=== PATIENT | male | born 1940 | race Caucasian/White ===

== ENCOUNTER → 2017-10-18 | Outpatient (CLI) | payer OTHER ==
--- NOTE | 2017-10-18 11:27 | RADIOLOGY REPORT (SQ) ---
EXAM DESCRIPTION: CAROTID DOPPLER COMPLETED DATE/TIME: 10/18/2017 11:19 am REASON FOR STUDY: OCCLUSION I65.29 OCCLUSION AND STENOSIS OF UNSPECIFIED CAROTID ARTERY COMPARISON: None. TECHNIQUE: Grayscale ultrasound, Doppler velocity and spectra, and color Doppler images acquired of the extra-cranial carotid and vertebral arteries. Images stored on PACS. LIMITATIONS: None. FINDINGS: RIGHT CAROTID CCA Velocities: Within normal limits. ICA Velocities Peak systolic 0.87 m/s. End diastolic 0.27 m/s. Proximal ICA/CCA peak systolic ratio 1.1. Spectra normal. No significant plaque. LEFT CAROTID CCA Velocities: Within normal limits. ICA Velocities Peak systolic 1.10 m/s. End diastolic 0.31 m/s. Proximal ICA/CCA peak systolic ratio 1.1. Spectra normal. No significant plaque. VERTEBRAL ARTERIES: Antegrade flow. Normal waveforms. SUBCLAVIAN ARTERIES: Not imaged. OTHER: No other significant finding. IMPRESSION: NO HEMODYNAMICALLY SIGNIFICANT STENOSIS. COMMENT: Quality ID #[id number]: Velocity criteria are extrapolated from the diameter data as defined by t he Society of Radiologists in Ultrasound Consensus Conference. Radiology 2003: 229; 340-346. TECHNICAL DOCUMENTATION: JOB ID: [id number] [employer]- All Rights Reserved
== END ==
LOC: SP 10:37
PROVIDERS: ATTEND Family Medicine
DX: I65.29 Occlusion and stenosis of unspecified carotid artery (principal)
CPT/HCPCS: 93880

== ENCOUNTER 2017-11-25 14:13 | Emergency (ER) | payer OTHER ==
[2017-11-25 14:34] LABS: ABSOLUTE EOSINOPHILS # (AUTO) 0.1 10^3/uL (0.0-0.6); ABSOLUTE LYMPHOCYTES (AUTO) 1.5 10^3/uL (0.5-4.7); ABSOLUTE NEUT (AUTO) 7.7 10^3/uL (1.7-8.2); BASOPHILS % (AUTO) 0.2 % (0-2); EOSINOPHILS % (AUTO) 1.1 % (0-6); HEMATOCRIT 45.4 % (37.9-51.0); HEMOGLOBIN 15.9 g/dL (13.5-17.0); LYMPHOCYTES % (AUTO) 14.6 % (13-45); MEAN CORPUSCULAR HEMOGLOBIN 32.7 pg (27.0-33.4); MEAN CORPUSCULAR HGB CONC 35.1 g/dL (32.0-36.0); MEAN CORPUSCULAR VOLUME 93 fl (80-97); MONOCYTES % (AUTO) 9.3 % (3-13); PLATELET COUNT 198 10^3/uL (150-450); RED BLOOD COUNT 4.87 10^6/uL (4.35-5.55); SEGMENTED NEUTROPHILS % (AUTO) 74.8 % (42-78); TOTAL CELLS COUNTED % (AUTO) 100 %; WHITE BLOOD COUNT 10.3 10^3/uL (4.0-10.5)
[2017-11-25 14:41] LABS: INTERNATIONAL RATION (INR) 0.95; PROTHROMBIN TIME 13.3 SEC (11.4-15.4)
[2017-11-25 14:42] LABS: PARTIAL THROMBOPLASTIN TIME 33.3 SEC (23.5-35.8)
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
[2017-11-25] MEDS ORDERED: PROPOFOL INJ 200 MG/20 ML VIAL IV ONE (14:46)
[2017-11-25] MEDS ORDERED: LIDOCAINE 1.5% INJ-MPF (15 MG/ML) 20 ML AMPUL INJ ONE ×2 (14:52→17:00)
--- NOTE | 2017-11-25 14:54 | RADIOLOGY REPORT (SQ) ---
EXAM DESCRIPTION: ANKLE RIGHT COMPLETE COMPLETED DATE/TIME: 11/25/2017 2:44 pm REASON FOR STUDY: deformity COMPARISON: None. NUMBER OF VIEWS: Three views. TECHNIQUE: AP, lateral, and oblique radiographic images acquired of the right ankle. LIMITATIONS: None. FINDINGS: MINERALIZATION: Normal. BONES: Comminuted fractures of the distal tibia and fibula. JOINTS: No effusions. SOFT TISSUES: Diffuse soft tissue swelling. No foreign body. OTHER: No other significant finding. IMPRESSION: COMMINUTED FRACTURES OF THE DISTAL TIBIA AND FIBULA. TECHNICAL DOCUMENTATION: JOB ID: [id number] [employer]- All Rights Reserved
--- NOTE | 2017-11-25 14:55 | RADIOLOGY REPORT (SQ) ---
EXAM DESCRIPTION: FOREARM LEFT COMPLETED DATE/TIME: 11/25/2017 2:44 pm REASON FOR STUDY: deformity COMPARISON: None. NUMBER OF VIEWS: Two views. TECHNIQUE: Two radiographic images acquired of the left forearm, including elbow and wrist in at [address] one projection. LIMITATIONS: None. FINDINGS: MINERALIZATION: Normal. BONES: No acute fracture. No worrisome bone lesions. SOFT TISSUES: No obvious swelling or foreign body. OTHER: No other significant finding. IMPRESSION: NEGATIVE STUDY OF THE LEFT FOREARM. NO RADIOGRAPHIC EVIDENCE OF ACUTE INJURY. TECHNICAL DOCUMENTATION: JOB ID: [id number] [employer]- All Rights Reserved
[2017-11-25 14:57] LABS: ALANINE AMINOTRANSFERASE 43 U/L (21-72); ALBUMIN 4.5 g/dL (3.5-5.0); ALKALINE PHOSPHATASE 71 U/L (38-126); ANION GAP 10 (5-19); ASPARTATE AMINO TRANSFERASE 38 U/L (17-59); BILIRUBIN,DIRECT 0.3 mg/dL (0.0-0.4); BILIRUBIN,TOTAL 0.8 mg/dL (0.2-1.3); BLOOD UREA NITROGEN 10 mg/dL (7-20); CALCIUM 9.3 mg/dL (8.4-10.2); CARBON DIOXIDE 31 mmol/L (22-30); CHLORIDE 96 mmol/L (98-107); CREATINE KINASE 232 U/L (55-170); GLUCOSE 136 mg/dL (75-110); LIPASE 161.8 U/L (23-300); SODIUM 137.2 mmol/L (137-145); TOTAL PROTEIN 6.7 g/dL (6.3-8.2)
[2017-11-25] MEDS ORDERED: MORPHINE SULFATE 10 MG/ML INJ IV ONE (15:07)
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
[2017-11-25 17:18] VITALS: BP 149/103
--- NOTE | 2017-11-25 17:26 | RADIOLOGY REPORT (SQ) ---
EXAM DESCRIPTION: ANKLE LEFT AP/LATERAL COMPLETED DATE/TIME: 11/25/2017 4:43 pm REASON FOR STUDY: port-reduction COMPARISON: 11/25/2017 TECHNIQUE: AP lateral views of the right ankle. LIMITATIONS: None. FINDINGS: There has been partial interval reduction of the previously described comminuted fractures of the distal tibia and fibula. An overlying cast is identified. IMPRESSION: Interval reduction as noted above TECHNICAL DOCUMENTATION: JOB ID: [id number] [employer]- All Rights Reserved
--- NOTE | 2017-11-27 12:09 | EKG REPORT ---
SEVERITY:- OTHERWISE NORMAL ECG - SINUS RHYTHM BORDERLINE RIGHT AXIS DEVIATION : Confirmed by: Aleisha Fan MD 27-Nov-2017 12:09:10
== END 2017-11-25 17:54 | disposition home or self-care (01) ==
LOC: ER 14:13
PROC: 0QSJXZZ Reposition Right Fibula, External Approach (ICD-10-PCS; principal; 2017-11-25)
PROC: 0QSGXZZ Reposition Right Tibia, External Approach (ICD-10-PCS; 2017-11-25)
DX: S82.251A Displaced comminuted fracture of shaft of right tibia, initial encounter for closed fracture (principal); S82.451A Displaced comminuted fracture of shaft of right fibula, initial encounter for closed fracture; S50.12XA Contusion of left forearm, initial encounter; S10.93XA Contusion of unspecified part of neck, initial encounter; M54.2 Cervicalgia; R07.9 Chest pain, unspecified; R10.9 Unspecified abdominal pain; Z87.891 Personal history of nicotine dependence; V87.7XXA Person injured in collision between other specified motor vehicles (traffic), initial encounter
CPT/HCPCS: 93005; 99285; 96374; 86900; 86901; 36415; 86850; 82550; 83690; 85025; 85610; 85730; 80053; 73600; 73610; 73090; 70450; 70491; 71260; 74177; 93010; 27752; J3490; J2270

== ENCOUNTER 2017-11-26 12:55 | Day surgery (SDC) | payer OTHER ==
[2017-11-26] MEDS ORDERED: RINGERS SOLUTION,LACTATED 1,000 ML IV PRN (14:25)
[2017-11-26] MEDS ORDERED: CEFAZOLIN 2 GM/D5W RTU 2 GM/50 ML RTUPB IV PRN (14:27)
[2017-11-26] MEDS ORDERED: ONDANSETRON 4 MG TAB.RAPDIS PO PRN (14:28)
[2017-11-26] MEDS ORDERED: ACETAMINOPHEN 325 MG TABLET ONE (14:58)
[2017-11-26 15:22] LABS: HEMOGLOBIN 13.2 g/dL (13.5-17.0); MEAN CORPUSCULAR HEMOGLOBIN 32.3 pg (27.0-33.4); MEAN CORPUSCULAR HGB CONC 34.6 g/dL (32.0-36.0); MEAN CORPUSCULAR VOLUME 93 fl (80-97); PLATELET COUNT 185 10^3/uL (150-450); RED BLOOD COUNT 4.09 10^6/uL (4.35-5.55); RED CELL DISTRIBUTION WIDTH 12.9 % (11.5-14.0); WHITE BLOOD COUNT 13.8 10^3/uL (4.0-10.5)
[2017-11-26 15:28] LABS: INTERNATIONAL RATION (INR) 1.05; PROTHROMBIN TIME 14.4 SEC (11.4-15.4)
[2017-11-26 15:29] LABS: PARTIAL THROMBOPLASTIN TIME 35.3 SEC (23.5-35.8)
[2017-11-26] MEDS ORDERED: IPRATROPIUM/ALBUTEROL 0.5-2.5 MG/3 ML AMPUL NEB ONE (15:30)
[2017-11-26 15:36] LABS: ANION GAP 13 (5-19); BLOOD UREA NITROGEN 18 mg/dL (7-20); CALCIUM 9.3 mg/dL (8.4-10.2); CARBON DIOXIDE 24 mmol/L (22-30); CHLORIDE 93 mmol/L (98-107); GLUCOSE 112 mg/dL (75-110); POTASSIUM 3.9 mmol/L (3.6-5.0); SODIUM 129.8 mmol/L (137-145)
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
[2017-11-26] MEDS: ACETAMINOPHEN 325 MG TABLET PO PRN ×2 (19:06→22:39)
[2017-11-26] MEDS ORDERED: IPRATROPIUM/ALBUTEROL 0.5-2.5 MG/3 ML AMPUL NEB PRN (20:00)
[2017-11-26] MEDS ORDERED: NORMAL SALINE 1000 ML 1,000 ML IV PRN (21:10)
[2017-11-26] MEDS: OXYCODONE HCL IR 5 MG TABLET PO PRN (21:15)
[2017-11-26] MEDS: ALPRAZOLAM 0.5 MG TABLET PO PRN (22:37)
[2017-11-27] MEDS: OXYCODONE HCL IR 5 MG TABLET PO PRN ×3 (04:46→20:31)
[2017-11-27 07:15] LABS: ANION GAP 7 (5-19); BLOOD UREA NITROGEN 16 mg/dL (7-20); CARBON DIOXIDE 26 mmol/L (22-30); CHLORIDE 98 mmol/L (98-107); GLUCOSE 102 mg/dL (75-110); POTASSIUM 3.9 mmol/L (3.6-5.0); SODIUM 131.4 mmol/L (137-145)
[2017-11-27] MEDS ORDERED: FENTANYL CITRATE INJ/PF 100 MCG/2 ML AMPUL ONE ×2 (07:45→11:10)
[2017-11-27] MEDS ORDERED: LIDOCAINE 2% INJ-PF (20 MG/ML) 10 ML AMPUL ONE (07:45)
[2017-11-27] MEDS ORDERED: MIDAZOLAM 2 MG/2 ML INJ ONE (07:45)
[2017-11-27] MEDS ORDERED: PROPOFOL INJ 200 MG/20 ML VIAL IV ONE (07:46)
[2017-11-27] MEDS ORDERED: ACETAMINOPHEN 100 ML IV ONE (07:46)
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
[2017-11-27] MEDS ORDERED: ALBUTEROL SULFATE 0.083% NEB 2.5 MG/3 ML AMPUL NEB ONE (08:02)
[2017-11-27] MEDS ORDERED: CEFAZOLIN INJ 1 GM VIAL ONE (08:03)
[2017-11-27] MEDS ORDERED: DIPHENHYDRAMINE HCL 50 MG/ML VIAL IV PRN (09:05)
[2017-11-27] MEDS ORDERED: PROMETHAZINE HCL INJ 25 MG/1 ML VIAL IV PRN (09:05)
[2017-11-27] MEDS ORDERED: FENTANYL CITRATE INJ/PF 100 MCG/2 ML AMPUL IV PRN ×2 (09:05)
[2017-11-27] MEDS ORDERED: ONDANSETRON HCL INJ/PF 4 MG/2 ML SDV IV PRN (09:05)
--- NOTE | 2017-11-27 10:27 | Operative Report ---
Operative Report DATE OF SURGERY: 11/27/17 PREOPERATIVE DIAGNOSIS: Right trimalleolar ankle fracture OPERATION: Open reduction internal fixation right trimalleolar ankle fracture SURGEON: GENESIS KAMINSKI 1ST ARMED SECURITY PROFESSIONAL: SID PATRICK ANESTHESIA: Spinal ESTIMATED BLOOD LOSS: 100 INTRAOPERATIVE FINDINGS: Upon removing the right lower extremity splint there is considerable ecchymosis over the medial malleolus and a large fracture blister. This is all consistent with a moderate skin contusion PROCEDURE: With the patient supine on the operating table the right lower extremities prepped and draped in a sterile fashion. A longitudinal incision is made over the fibula and a 9 hole titanium [place] distal fibula plate is applied and secured distally and subsequently proximally with what appears to be an anatomic reduction of the fibula. At this point the medial malleolus is close to being anatomically reduced. However the posterior malleolar fragment is left at a considerable articular step-off. I tried multiple approaches to reducing the posterior malleolar fracture including a calcaneal traction pin and anterior posterior tenaculum and other maneuvering of the talus to exact anatomic reduction of the posterior malleolar fragment all of which were unsuccessful in less than ideal. Subsequently I removed the fibula plate to allow more mobility of the foot and ankle in attempt to reduce the posterior malleolar fragment. This is reduced relatively well and held with a neck tenaculum. Subsequently 3 4.0 cannulated screws were placed from anterior to posterior to hold that fracture together. Is quite happy with the articular reduction at this point. Next the fibula plate is again replaced applied to the lateral aspect of the fibula and secured proximally and distally with a series of locking and cortical screws. Is quite happy with this. Lastly with some trepidation I made an incision over the medial malleolus and the medial malleolus fragment is reduced anatomically and held in place with a dental pick well to pins and subsequently 4 mm cannulated screws were hold to reduce this. The fracture reduction and the hardware placement are again surveyed using fluoroscopy and I believe lead to a very favorable fracture reduction and stable hardware placement. The tourniquet is then deflated. Hemostasis obtained with electrocautery. The wound is irrigated using normal saline. The lateral wound is closed using interrupted Vicryl followed by interrupted nylon. The medial wound with the contused skin which continues to be a concern significant concern for me is closed primarily with nylon in a vertical mattress fashion. A sterile compressive dressing and posterior plaster splint were applied and the patient' s return to the PACU in satisfactory condition.
--- NOTE | 2017-11-27 10:58 | RADIOLOGY REPORT (SQ) ---
EXAM DESCRIPTION: NO CHG FLUORO; ANKLE RIGHT COMPLETE COMPLETED DATE/TIME: 11/27/2017 10:44 am REASON FOR STUDY: ORIF RT ANKLE COMPARISON: Plain radiographs 11/25/2017 FLUOROSCOPY TIME: 3.1 minutes 5 images saved to PACS. TECHNIQUE: Intra-operative images acquired during surgical procedure to evaluate progress. NUMBER OF IMAGES: 5 LIMITATIONS: None. FINDINGS: Internal fixation tri malleolar fracture with orthopedic hardware. Anatomic reduction. IMPRESSION: IMAGE(S) OBTAINED DURING PROCEDURE. COMMENT: Quality ID 145: Final reports for procedures using fluoroscopy that document radiation exp osure indices, or exposure time and number of fluorographic images (if radiation exposure indices are not available) Please consult full operative report of the attending physician for description of the procedure. TECHNICAL DOCUMENTATION: JOB ID: [id number] [employer]- All Rights Reserved
--- NOTE | 2017-11-27 10:58 | RADIOLOGY REPORT (SQ) ---
EXAM DESCRIPTION: NO CHG FLUORO; ANKLE RIGHT COMPLETE COMPLETED DATE/TIME: 11/27/2017 10:44 am REASON FOR STUDY: ORIF RT ANKLE COMPARISON: Plain radiographs 11/25/2017 FLUOROSCOPY TIME: 3.1 minutes 5 images saved to PACS. TECHNIQUE: Intra-operative images acquired during surgical procedure to evaluate progress. NUMBER OF IMAGES: 5 LIMITATIONS: None. FINDINGS: Internal fixation tri malleolar fracture with orthopedic hardware. Anatomic reduction. IMPRESSION: IMAGE(S) OBTAINED DURING PROCEDURE. COMMENT: Quality ID 145: Final reports for procedures using fluoroscopy that document radiation exp osure indices, or exposure time and number of fluorographic images (if radiation exposure indices are not available) Please consult full operative report of the attending physician for description of the procedure. TECHNICAL DOCUMENTATION: JOB ID: [id number] [employer]- All Rights Reserved
[2017-11-27] MEDS: FENTANYL CITRATE INJ/PF 100 MCG/2 ML AMPUL IV PRN ×2 (11:05→11:52)
[2017-11-27] MEDS ORDERED: ASPIRIN 81 MG TABLET, ENT COATED PO ONE (12:00)
--- NOTE | 2017-11-27 12:09 | EKG REPORT ---
SEVERITY:- NORMAL ECG - SINUS RHYTHM : Confirmed by: Aleisha Fan MD 27-Nov-2017 12:09:01
[2017-11-27] MEDS: MORPHINE SULFATE 10 MG/ML INJ IV PRN ×2 (12:32→18:43)
[2017-11-27] MEDS: CEFAZOLIN 2 GM/D5W RTU 2 GM/50 ML RTUPB IV SCH ×2 (14:14→21:49)
[2017-11-27] MEDS: ALBUTEROL SULFATE 0.083% NEB 2.5 MG/3 ML AMPUL NEB PRN ×2 (15:24→22:14)
[2017-11-28 07:15] LABS: HEMATOCRIT 28.7 % (37.9-51.0); MEAN CORPUSCULAR HEMOGLOBIN 33.4 pg (27.0-33.4); MEAN CORPUSCULAR HGB CONC 35.7 g/dL (32.0-36.0); MEAN CORPUSCULAR VOLUME 93 fl (80-97); PLATELET COUNT 143 10^3/uL (150-450); RED BLOOD COUNT 3.07 10^6/uL (4.35-5.55); RED CELL DISTRIBUTION WIDTH 12.9 % (11.5-14.0); WHITE BLOOD COUNT 11.8 10^3/uL (4.0-10.5)
[2017-11-28 07:16] LABS: HEMOGLOBIN 10.3 g/dL (13.5-17.0)
[2017-11-28] MEDS: ALBUTEROL SULFATE 0.083% NEB 2.5 MG/3 ML AMPUL NEB PRN (07:32)
[2017-11-28 07:36] LABS: ANION GAP 7 (5-19); BLOOD UREA NITROGEN 12 mg/dL (7-20); CALCIUM 8.6 mg/dL (8.4-10.2); CARBON DIOXIDE 27 mmol/L (22-30); CHLORIDE 96 mmol/L (98-107); GLUCOSE 104 mg/dL (75-110); POTASSIUM 4.2 mmol/L (3.6-5.0); SODIUM 130.1 mmol/L (137-145)
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
[2017-11-28] MEDS: ASPIRIN 81 MG TABLET, ENT COATED PO SCH (09:42)
[2017-11-28] MEDS ORDERED: (PENDING PHARMACY ID) (Acetaminophen [Acetaminophen Extra Strength] 1,000 MG) PO PRN (11:26)
[2017-11-28] MEDS ORDERED: ALPRAZOLAM 0.5 MG TABLET PO PRN (11:26)
[2017-11-28] MEDS: IPRATROPIUM/ALBUTEROL 120 PUFF/4 GM MDI IH SCH ×3 (16:39→21:18)
[2017-11-28] MEDS: IPRATROPIUM/ALBUTEROL 0.5-2.5 MG/3 ML AMPUL NEB PRN (16:46)
[2017-11-28] MEDS: SODIUM CHLORIDE NASAL SPRAY 44 ML NASL SCH (17:51)
[2017-11-28] MEDS: PREDNISONE 10 MG TABLET PO SCH (17:59)
[2017-11-28] MEDS ORDERED: CARVEDILOL 3.125 MG TABLET PO SCH (18:00)
[2017-11-28] MEDS ORDERED: MOMETASONE FUROATE IH SCH (18:00)
[2017-11-28] MEDS: TAMSULOSIN HCL 0.4 MG CAP.SR.24H PO SCH (21:18)
[2017-11-28] MEDS: ALPRAZOLAM 0.5 MG TABLET PO PRN (21:18)
[2017-11-28] MEDS: DOXAZOSIN MESYLATE 2 MG TABLET PO SCH (21:19)
[2017-11-28] MEDS: CARVEDILOL 3.125 MG TABLET PO SCH (21:39)
[2017-11-28] MEDS ORDERED: (PENDING PHARMACY ID) (Terazosin Hcl [Hytrin] 2 MG) PO SCH (22:00)
[2017-11-29] MEDS: IPRATROPIUM/ALBUTEROL 0.5-2.5 MG/3 ML AMPUL NEB PRN ×3 (06:40→20:29)
[2017-11-29] MEDS: ASPIRIN 81 MG TABLET, ENT COATED PO SCH (10:11)
[2017-11-29] MEDS: CARVEDILOL 3.125 MG TABLET PO SCH ×2 (10:14→22:00)
[2017-11-29] MEDS: PREDNISONE 10 MG TABLET PO SCH ×2 (10:15→18:04)
[2017-11-29] MEDS: IPRATROPIUM/ALBUTEROL 120 PUFF/4 GM MDI IH SCH ×3 (10:15→18:04)
[2017-11-29] MEDS: SODIUM CHLORIDE NASAL SPRAY 44 ML NASL SCH ×2 (10:16→18:04)
[2017-11-29] MEDS: CARISOPRODOL 350 MG TABLET PO PRN ×2 (14:15→21:54)
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
[2017-11-29] MEDS ORDERED: SENNOSIDES/DOCUSATE 8.6-50 MG 1 EACH TABLET PO PRN (20:39)
[2017-11-29] MEDS ORDERED: NA PHOS,M-B/NA PHOS,DI-BA (ADULT) 133 ML ENEMA PR PRN (20:40)
[2017-11-29] MEDS ORDERED: DOCUSATE SODIUM 100 MG CAPSULE PO ONE (21:00)
[2017-11-29] MEDS: TAMSULOSIN HCL 0.4 MG CAP.SR.24H PO SCH (21:54)
[2017-11-29] MEDS: DOXAZOSIN MESYLATE 2 MG TABLET PO SCH (21:55)
[2017-11-30] MEDS: CARISOPRODOL 350 MG TABLET PO PRN (02:12)
[2017-11-30] MEDS: IPRATROPIUM/ALBUTEROL 120 PUFF/4 GM MDI IH SCH ×5 (02:13→21:18)
[2017-11-30] MEDS: IPRATROPIUM/ALBUTEROL 0.5-2.5 MG/3 ML AMPUL NEB PRN ×3 (03:10→21:43)
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
[2017-11-30] MEDS: CARVEDILOL 3.125 MG TABLET PO SCH ×2 (09:34→21:23)
[2017-11-30] MEDS: SODIUM CHLORIDE NASAL SPRAY 44 ML NASL SCH ×2 (09:41→18:26)
[2017-11-30] MEDS: PREDNISONE 10 MG TABLET PO SCH ×2 (09:42→18:25)
[2017-11-30] MEDS: DOCUSATE SODIUM 100 MG CAPSULE PO SCH ×2 (09:42→18:25)
[2017-11-30] MEDS: ASPIRIN 81 MG TABLET, ENT COATED PO SCH (09:42)
[2017-11-30] MEDS: IBUPROFEN 400 MG TABLET PO PRN ×2 (09:42→21:21)
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
[2017-11-30] MEDS: MOMETASONE FUROATE IH SCH (21:19)
[2017-11-30] MEDS: DOXAZOSIN MESYLATE 2 MG TABLET PO SCH (21:20)
[2017-11-30] MEDS: TAMSULOSIN HCL 0.4 MG CAP.SR.24H PO SCH (21:20)
[2017-11-30] MEDS: ALPRAZOLAM 0.5 MG TABLET PO PRN (23:43)
[2017-12-01] MEDS: IPRATROPIUM/ALBUTEROL 0.5-2.5 MG/3 ML AMPUL NEB PRN ×3 (03:35→19:29)
[2017-12-01] MEDS: IBUPROFEN 400 MG TABLET PO PRN ×3 (06:18→22:35)
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
[2017-12-01] MEDS: PREDNISONE 10 MG TABLET PO SCH ×2 (09:52→18:23)
[2017-12-01] MEDS: ASPIRIN 81 MG TABLET, ENT COATED PO SCH (09:52)
[2017-12-01] MEDS: SODIUM CHLORIDE NASAL SPRAY 44 ML NASL SCH ×2 (09:52→18:23)
[2017-12-01] MEDS: DOCUSATE SODIUM 100 MG CAPSULE PO SCH ×2 (09:52→18:22)
[2017-12-01] MEDS: MOMETASONE FUROATE IH SCH ×2 (09:53→22:40)
[2017-12-01] MEDS: IPRATROPIUM/ALBUTEROL 120 PUFF/4 GM MDI IH SCH ×4 (09:53→22:34)
[2017-12-01] MEDS: CARVEDILOL 3.125 MG TABLET PO SCH ×2 (09:54→22:41)
--- NOTE | 2017-12-01 11:18 | RADIOLOGY REPORT (SQ) ---
EXAM DESCRIPTION: CHEST SINGLE VIEW COMPLETED DATE/TIME: 12/01/2017 10:52 am REASON FOR STUDY: Increased sputum with cough COMPARISON: 11/26/2017. NUMBER OF VIEWS: One view. TECHNIQUE: Single frontal radiographic view of the chest acquired. LIMITATIONS: None. FINDINGS: LUNGS AND PLEURA: Hyperinflated appearance, likely underlying COPD. Faintly visualized ri ght nipple shadow, artifact. No developing infiltrates or failure. MEDIASTINUM AND HILAR STRUCTURES: No masses. Contour normal. HEART AND VASCULAR STRUCTURES: Heart normal in size. Normal vasculature. BONES: No acute findings. HARDWARE: None in the chest. OTHER: No other significant finding. IMPRESSION: Findings suggesting COPD. No acute infiltrate evident, however. TECHNICAL DOCUMENTATION: JOB ID: [id number] [employer]- All Rights Reserved
[2017-12-01 11:22] LABS: ABSOLUTE EOSINOPHILS # (AUTO) 0.1 10^3/uL (0.0-0.6); ABSOLUTE LYMPHOCYTES (AUTO) 0.4 10^3/uL (0.5-4.7); ABSOLUTE MONOCYTES (AUTO) 0.7 10^3/uL (0.1-1.4); ABSOLUTE NEUT (AUTO) 5.2 10^3/uL (1.7-8.2); BASOPHILS % (AUTO) 0.1 % (0-2); HEMATOCRIT 28.9 % (37.9-51.0); MEAN CORPUSCULAR HEMOGLOBIN 32.8 pg (27.0-33.4); MEAN CORPUSCULAR HGB CONC 34.5 g/dL (32.0-36.0); MEAN CORPUSCULAR VOLUME 95 fl (80-97); MONOCYTES % (AUTO) 11.5 % (3-13); PLATELET COUNT 221 10^3/uL (150-450); RED BLOOD COUNT 3.04 10^6/uL (4.35-5.55); RED CELL DISTRIBUTION WIDTH 13.4 % (11.5-14.0); SEGMENTED NEUTROPHILS % (AUTO) 81.4 % (42-78); TOTAL CELLS COUNTED % (AUTO) 100 %; WHITE BLOOD COUNT 6.4 10^3/uL (4.0-10.5)
[2017-12-01 11:44] LABS: ANION GAP 9 (5-19); BLOOD UREA NITROGEN 15 mg/dL (7-20); CALCIUM 8.9 mg/dL (8.4-10.2); CARBON DIOXIDE 26 mmol/L (22-30); CHLORIDE 103 mmol/L (98-107); GLUCOSE 134 mg/dL (75-110); POTASSIUM 3.6 mmol/L (3.6-5.0); SODIUM 138.4 mmol/L (137-145)
[2017-12-01] MEDS: ALBUTEROL SULFATE 0.083% NEB 2.5 MG/3 ML AMPUL NEB PRN (14:39)
[2017-12-01] MEDS: ACETAMINOPHEN 325 MG TABLET PO PRN (18:22)
[2017-12-01] MEDS: DOXAZOSIN MESYLATE 2 MG TABLET PO SCH (22:37)
[2017-12-01] MEDS: TAMSULOSIN HCL 0.4 MG CAP.SR.24H PO SCH (22:53)
[2017-12-01] MEDS: CARISOPRODOL 350 MG TABLET PO PRN (23:03)
[2017-12-02] MEDS: IPRATROPIUM/ALBUTEROL 0.5-2.5 MG/3 ML AMPUL NEB PRN ×4 (01:50→22:37)
[2017-12-02] MEDS: ACETAMINOPHEN 325 MG TABLET PO PRN (06:47)
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
[2017-12-02] MEDS ORDERED: MAGNESIUM CITRATE 296 ML BOTTLE PO PRN (07:55)
[2017-12-02] MEDS: IBUPROFEN 400 MG TABLET PO PRN ×2 (08:30→16:13)
[2017-12-02] MEDS: IPRATROPIUM/ALBUTEROL 120 PUFF/4 GM MDI IH SCH ×4 (09:46→22:16)
[2017-12-02] MEDS: MOMETASONE FUROATE IH SCH ×2 (09:48→22:20)
[2017-12-02] MEDS: ASPIRIN 81 MG TABLET, ENT COATED PO SCH (11:42)
[2017-12-02] MEDS: SODIUM CHLORIDE NASAL SPRAY 44 ML NASL SCH ×2 (11:43→18:52)
[2017-12-02] MEDS: CARVEDILOL 3.125 MG TABLET PO SCH ×2 (11:43→22:23)
[2017-12-02] MEDS: PREDNISONE 10 MG TABLET PO SCH ×2 (11:44→18:52)
[2017-12-02] MEDS: DOCUSATE SODIUM 100 MG CAPSULE PO SCH ×2 (11:45→18:32)
[2017-12-02] MEDS: TAMSULOSIN HCL 0.4 MG CAP.SR.24H PO SCH (21:58)
[2017-12-02] MEDS: DOXAZOSIN MESYLATE 2 MG TABLET PO SCH (22:09)
[2017-12-02] MEDS: ALPRAZOLAM 0.5 MG TABLET PO PRN (22:31)
[2017-12-03] MEDS: IBUPROFEN 400 MG TABLET PO PRN ×2 (00:50→08:23)
[2017-12-03] MEDS: IPRATROPIUM/ALBUTEROL 0.5-2.5 MG/3 ML AMPUL NEB PRN ×2 (04:44→12:13)
--- NOTE | 2017-12-03 06:57 | PDOC PROGRESS REPORT ---
Subjective Progress Note for:: 12/03/17 Subjective:: Patient lying recumbent in hospital bed with a cam walker boot in place on right lower extremity. Patient reports he was comfortable yet felt congested overnight. Reason For Visit: RIGHT ANKLE FRACTURE Physical Exam Vital Signs: Temp Pulse Resp BP Pulse Ox 36.8 C 84 20 153/73 H 98 12/03/17 00:00 12/03/17 04:46 12/03/17 04:46 12/03/17 00:00 12/03/17 04:46 Intake & Output 12/01/17 12/02/17 12/03/17 06:59 06:59 06:59 Intake Total 1898 1740 Output Total 0022 1777 Balance -938 -712 Physical Exam: Patient's physical exam is grossly unchanged from exam on December 02, 2017. His compression dressing on the right lower extremity was changed this morning. New Xeroform was placed on the surgical site on the medial malleolus. He was then placed back in his shell walker boot. General appearance: PRESENT: no acute distress, well-developed, well-nourished Head exam: PRESENT: atraumatic, normocephalic Respiratory exam: PRESENT: unlabored Additional comments: Patient coughing multiple times this morning. Pulses: PRESENT: normal dorsalis pedis pul, +2 pedal pulses bilateral Vascular exam: PRESENT: normal capillary refill Additional comments: Right lower extremity in short walker boot. Dressing is changed this morning. Neurological exam: PRESENT: alert, awake, oriented to person, oriented to place , oriented to time, oriented to situation, CN II-XII grossly intact. ABSENT: motor sensory deficit Psychiatric exam: PRESENT: appropriate affect, normal mood. ABSENT: homicidal ideation, suicidal ideation Skin exam: PRESENT: dry, intact, warm. ABSENT: cyanosis, rash Results Laboratory Results: 12/01/17 10:48 12/01/17 10:48 Impressions: Ankle X-Ray 11/27/17 08:00 IMPRESSION: IMAGE(S) OBTAINED DURING PROCEDURE. Fluoroscopy 11/27/17 08:00 IMPRESSION: IMAGE(S) OBTAINED DURING PROCEDURE. Chest X-Ray 12/01/17 00:00 IMPRESSION: Findings suggesting COPD. No acute infiltrate evident, however. Assessment & Plan - Diagnosis (1) Closed right ankle fracture Qualifiers: Encounter type: subsequent encounter Qualified Code(s): S82.891A - Other fracture of right lower leg, initial encounter for closed fracture Is this a current diagnosis for this admission?: Yes - Plan Summary Plan Summary: 77-year-old white male status post open reduction internal fixation for trimalleolar fracture of right ankle. Patient's compression dressing was changed and new Xeroform added to medial malleolar surgical site. He was placed back in his show walker boot. Patient will likely be discharged today.
[2017-12-03] MEDS: ALBUTEROL SULFATE 0.083% NEB 2.5 MG/3 ML AMPUL NEB PRN (09:16)
[2017-12-03] MEDS: ASPIRIN 81 MG TABLET, ENT COATED PO SCH (10:17)
[2017-12-03] MEDS: CARVEDILOL 3.125 MG TABLET PO SCH (10:17)
[2017-12-03] MEDS: MOMETASONE FUROATE IH SCH (10:17)
[2017-12-03] MEDS: PREDNISONE 10 MG TABLET PO SCH (10:17)
[2017-12-03] MEDS: SODIUM CHLORIDE NASAL SPRAY 44 ML NASL SCH (10:17)
[2017-12-03] MEDS: IPRATROPIUM/ALBUTEROL 120 PUFF/4 GM MDI IH SCH (10:17)
[2017-12-03] MEDS: DOCUSATE SODIUM 100 MG CAPSULE PO SCH (10:17)
[2017-12-03 11:43] VITALS: BP 130/83
== END 2017-12-03 12:40 | disposition home health service (06) ==
LOC: OROUT 12:55 → 4S 13:12 → 2N 12-01 13:27 → OROUT 12-03 12:40
PROVIDERS: ATTEND Orthopaedic Surgery
PROC: 0QSJ04Z Reposition Right Fibula with Internal Fixation Device, Open Approach (ICD-10-PCS; principal; 2017-11-26)
PROC: 0QSG04Z Reposition Right Tibia with Internal Fixation Device, Open Approach (ICD-10-PCS; 2017-11-26)
DX: S82.851A Displaced trimalleolar fracture of right lower leg, initial encounter for closed fracture (principal); V49.9XXA Car occupant (driver) (passenger) injured in unspecified traffic accident, initial encounter; I25.10 Atherosclerotic heart disease of native coronary artery without angina pectoris; E78.5 Hyperlipidemia, unspecified; I10 Essential (primary) hypertension; J44.9 Chronic obstructive pulmonary disease, unspecified; Z79.82 Long term (current) use of aspirin; Z79.899 Other long term (current) drug therapy; Z87.891 Personal history of nicotine dependence; Z79.02 Long term (current) use of antithrombotics/antiplatelets
CPT/HCPCS: 27822; 36415; 85025; 85027; 85610; 85730; 80048; 73610; 71010; 71045; 93005; 93010; 94640 ×9; 97530 ×2; 97110 ×2; 97116 ×2; 97162; L4386; C1713 ×5; C1769; J2250; J3490 ×12; J0690 ×2; J3010; J2270; J7512 ×5; J7120; J2704; J7620 ×6; J0131; G8978; G8979; 01480

== ENCOUNTER → 2018-01-11 | Outpatient (CLI) | payer OTHER ==
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
== END ==
LOC: RAD 08:05
PROVIDERS: ATTEND Orthopaedic Surgery
DX: Z47.1 Aftercare following joint replacement surgery (principal); Z96.651 Presence of right artificial knee joint
CPT/HCPCS: 78315; A9561; Q9969

== ENCOUNTER 2020-07-04 11:22 | Inpatient (IN) | payer OTHER, MEDICARE ==
--- NOTE | 2020-07-04 11:55 | ER Document Report ---
ED Medical Screen (RME) - General Chief Complaint: Rectal Bleeding Stated Complaint: RECTAL BLEEDING Notes: Patient is a 79-year-old white male with a history of COPD on 2 L via nasal cannula with a history of benign colonic polyps who presents the emergency department for rectal bleeding. Patient was seen here on Wednesday, 2 days ago for the same., Dr. Marrero was consulted and patient reports he was given a choice to be admitted or go home, he decided to go home given the increased number of COVID-19 cases here in the department. He states he was seen at Dr. Marrero's office today and they sent him over here for admission and testing. He states the bleeding is not as bad as it was on Wednesday but still persists. Reports it to be bright red with some clots. States he was told last that he likely has internal hemorrhoids with viscosities. Patient denies any abdominal pain or vomiting. No fever. I have treated and performed a rapid initial assessment of this patient. A comprehensive ED assessment and evaluation of the patient, analysis of test results and completion of medical decision making process will be conducted by additional ED providers. PHYSICAL EXAMINATION: GENERAL: Well-appearing, well-nourished and in no acute distress. A&Ox4. Ans wers questions appropriately. TRAVEL OUTSIDE OF THE [place] IN LAST 30 DAYS: No - Related Data Allergies/Adverse Reactions: ciprofloxacin [From Cipro] Allergy (Verified 07/02/20 19:54) ciprofloxacin HCl [From Cipro] Allergy (Verified 07/02/20 19:54) meperidine HCl [From Demerol] Allergy (Verified 07/02/20 19:54) Past Medical History - Past Medical History Cardiac Medical History: Reports: Hx Coronary Artery Disease, Hx Hypercholesterolemia, Hx Hypertension Pulmonary Medical History: Reports: Hx COPD Renal/ Medical History: Reports: Hx Benign Prostatic Hyperplasia. Denies: Hx Peritoneal Dialysis Past Surgical History: Reports: Hx Orthopedic Surgery - knee, Hx Vascular Surgery - left carotid - Immunizations Hx Diphtheria, Pertussis, Tetanus Vaccination: Yes Physical Exam - Vital signs Vitals: Temp Pulse Resp BP Pulse Ox 97.7 F 105 H 20 139/70 H 97 07/04/20 11:29 07/04/20 11:29 07/04/20 11:29 07/04/20 11:29 07/04/20 11:29 Course - Vital Signs Vital signs: Temp Pulse Resp BP Pulse Ox 97.7 F 105 H 20 139/70 H 97 07/04/20 11:29 07/04/20 11:29 07/04/20 11:29 07/04/20 11:29 07/04/20 11:29
[2020-07-04 12:45] LABS: ABSOLUTE LYMPHOCYTES (AUTO) 0.8 10^3/uL (0.5-4.7); ABSOLUTE MONOCYTES (AUTO) 0.7 10^3/uL (0.1-1.4); ABSOLUTE NEUT (AUTO) 8.5 10^3/uL (1.7-8.2); BASOPHILS % (AUTO) 0.1 % (0-2); EOSINOPHILS % (AUTO) 0.4 % (0-6); LYMPHOCYTES % (AUTO) 7.7 % (13-45); MEAN CORPUSCULAR HEMOGLOBIN 33.8 pg (27.0-33.4); MEAN CORPUSCULAR HGB CONC 35.2 g/dL (32.0-36.0); MEAN CORPUSCULAR VOLUME 96 fl (80-97); MONOCYTES % (AUTO) 6.8 % (3-13); PLATELET COUNT 177 10^3/uL (150-450); RED BLOOD COUNT 3.33 10^6/uL (4.35-5.55); RED CELL DISTRIBUTION WIDTH 13.1 % (11.5-14.0); TOTAL CELLS COUNTED % (AUTO) 100 %
[2020-07-04 12:46] LABS: INTERNATIONAL RATION (INR) 0.99; PROTHROMBIN TIME 13.3 SEC (11.4-15.4)
[2020-07-04 12:47] LABS: PARTIAL THROMBOPLASTIN TIME 30.9 SEC (23.5-35.8)
[2020-07-04 12:49] LABS: HEMOGLOBIN 11.3 g/dL (13.5-17.0)
[2020-07-04 13:00] LABS: ALBUMIN 3.5 g/dL (3.5-5.0); ALKALINE PHOSPHATASE 49 U/L (38-126); ANION GAP 6 (5-19); ASPARTATE AMINO TRANSFERASE 30 U/L (17-59); BILIRUBIN,TOTAL 0.5 mg/dL (0.2-1.3); BLOOD UREA NITROGEN 14 mg/dL (7-20); CALCIUM 8.8 mg/dL (8.4-10.2); CARBON DIOXIDE 24 mmol/L (22-30); CHLORIDE 102 mmol/L (98-107); GLUCOSE 127 mg/dL (75-110); POTASSIUM 4.2 mmol/L (3.6-5.0); TOTAL PROTEIN 5.8 g/dL (6.3-8.2)
--- NOTE | 2020-07-04 14:56 | ER Document Report ---
ED General - General Chief Complaint: Rectal Bleeding Stated Complaint: RECTAL BLEEDING Notes: A very pleasant 79-year-old male with past medical history of COPD on 2L nasal cannula, chronic prostatitis presenting today with continued rectal bleeding. He states he has had some dark tarry stools as well as bright red blood clotting starting on Wednesday. He states that he was here in the ER 2 days ago and was considered for admission at that time but patient was agreeable to close outpatient follow-up with his provider Dr. Matos. He saw Dr. Matos this morning and who sent him immediately over to the emergency department as he wants to admit the patient. Patient reports some weakness, dizziness and continued bright red blood and dark tarry stools. He is having bright red blood and melena every time he has a bowel movement. He states that he noticed some bleeding Wednesday night but the clotting and dark tarry stools began on Wednesday morning. TRAVEL OUTSIDE OF THE [place] IN LAST 30 DAYS: No - Related Data Allergies/Adverse Reactions: [place] nut Allergy (Verified 07/04/20 11:55) ciprofloxacin [From Cipro] Allergy (Verified 07/04/20 11:55) ciprofloxacin HCl [From Cipro] Allergy (Verified 07/04/20 11:55) meperidine HCl [From Demerol] Allergy (Verified 07/04/20 11:55) Home Medications: copd Past Medical History - Social History Smoking Status: Former Smoker Chew tobacco use (# tins/day): No Frequency of alcohol use: daily/x 1 Drug Abuse: None Family History: Reviewed & Not Pertinent Patient has homicidal ideation: No - Past Medical History Cardiac Medical History: Reports: Hx Coronary Artery Disease, Hx Hyperchol esterolemia, Hx Hypertension Pulmonary Medical History: Reports: Hx COPD Renal/ Medical History: Reports: Hx Benign Prostatic Hyperplasia. Denies: Hx Peritoneal Dialysis Past Surgical History: Reports: Hx Orthopedic Surgery - knee, Hx Vascular Surgery - left carotid - Immunizations Hx Diphtheria, Pertussis, Tetanus Vaccination: Yes Hx Pneumococcal Vaccination: 10/18/17 Physical Exam - Vital signs Vitals: Temp Pulse Resp BP Pulse Ox 97.7 F 105 H 20 139/70 H 97 07/04/20 11:29 07/04/20 11:29 07/04/20 11:29 07/04/20 11:29 07/04/20 11:29 Course - Re-evaluation Re-evalutation: 07/04/20 15:26 hemoccult positive. Hemoglobin is 11.3. I have called Dr. Marrero at [facility]. No answer. I am calling the capacitor pack press operator now. 07/04/20 15:49 I discussed case with Dr. Borges who instructed me to contact. Dr. Parrish. I called Dr. Parrish who recommends I call surgery. 07/04/20 16:31 Dr. Marrero returned my call and stated that he would scope the patient after he is stable. He believes that the patient has a diverticular bleed. I called Dr. Parrish back and he agrees to admission. Patient was notified. 07/04/20 22:43 - Vital Signs Vital signs: Temp Pulse Resp BP Pulse Ox 97.7 F 105 H 22 H 145/53 H 100 07/04/20 11:47 07/04/20 11:29 07/04/20 20:01 07/04/20 20:01 07/04/20 20:01 - Laboratory Result Diagrams: 07/04/20 12:07 07/04/20 12:07 Laboratory results interpreted by me: 07/04/20 07/04/20 12:07 12:07 RBC 3.33 L Hgb 11.3 L D Hct 32.0 L MCH 33.8 H Lymph % (Auto) 7.7 L Absolute Neuts (auto) 8.5 H Seg Neutrophils % 85.0 H Sodium 132.4 L Glucose 127 H Total Protein 5.8 L Discharge - Discharge Clinical Impression: Rectal bleeding Condition: Good Disposition: ADMITTED INPATIENT Admitting Provider: Shivani (Hospitalist) Unit Admitted: [facility]
[2020-07-04] MEDS ORDERED: IPRATROPIUM/ALBUTEROL 0.5-2.5 MG/3 ML AMPUL NEB ONE (16:37)
[2020-07-04] MEDS ORDERED: PROMETHAZINE HCL INJ 25 MG/1 ML VIAL IV PRN (17:32)
[2020-07-04] MEDS ORDERED: ACETAMINOPHEN 325 MG TABLET PO PRN (17:32)
[2020-07-04] MEDS ORDERED: NORMAL SALINE 250 ML IV PRN (17:38)
[2020-07-04] MEDS ORDERED: HYDRALAZINE HCL INJ/PF 20 MG/1 ML SDV IV PRN (18:03)
--- NOTE | 2020-07-04 18:04 | PDOC H&P ---
History of Present Illness History of Present Illness: DEE DUDLEY II is a 79 year old male past medical history of COPD, on 2 L nasal cannula, internal hemorrhoids, BPH, presenting to ED complaining of multiple episodes of bloody bowel movements since Wednesday, before that patient had noticed tarry stool but never had hematochezia before, patient used to have colonic polyps and has had several colonoscopies in the past, last colonoscopy was 5 years ago and he was told that he had internal hemorrhoids, patient recently visited ED but was sent home to follow-up with gastroenterology, today he went to see Dr. Marrero supervisor mold construction and he was sent to ED immediately. Patient denies any history of gastric intestinal malignancy, NSAID abuse, nosebleed, hematemesis, hemoptysis or hematuria. Recently patient has been getting weaker and has noticed that he gets short of breath upon exertion, denies any fever, abdominal pain, chest pain, nausea, diarrhea, or urinary symptoms. In ED was noted to have guaiac positive stool and Dr. Marrero supervisor mold construction was contacted and he suggested for patient to be admitted and he will scope him once he is stable. Past Medical History Cardiac Medical History: Reports: Coronary Artery Disease, Hyperlipidema, Hypertension Pulmonary Medical History: Reports: Chronic Obstructive Pulmonary Disease (COPD) Past Surgical History Past Surgical History: Reports: Orthopedic Surgery - knee, Vascular Surgery - left carotid Social History Smoking Status: Former Smoker Electronic Cigarette use?: No Family History Family History: Reviewed & Not Pertinent Parental Family History Reviewed: Yes Children Family History Reviewed: Yes Sibling(s) Family History Reviewed.: Yes Medication/Allergy Home Medications: Acetaminophen [Acetaminophen Extra Strength] 1,000 mg PO Q4HP PRN 11/27/17 Alprazolam [Xanax 0.5 mg Tablet] 0.5 mg PO BIDP PRN 11/27/17 Aspirin [Adult Low Dose Aspirin EC] 162 mg PO DAILY 11/27/17 Carisoprodol [Soma 350 mg Tablet] 325 mg PO TIDP PRN 11/27/17 Carvedilol [Coreg 3.125 mg Tablet] 3.125 mg PO BID 11/27/17 Clopidogrel Bisulfate [Plavix 75 mg Tablet] 75 mg PO DAILY 11/27/17 Ipratropium/Albuterol Sulfate [Combivent Respimat Inhal [place]] 1 puff IH QID 11/27/17 Ipratropium/Albuterol Sulfate [Duoneb 3 ml Ampul] 3 ml NEB RTQ6HP PRN 11/27/17 Mometasone Furoate [Asmanex Hfa] 2 puff IH BID 11/27/17 Prednisone [Deltasone 10 mg Tablet] 10 mg PO BID 11/27/17 Sodium Chloride [[place] Nasal [place] 44 ml Bottle] 1 spray NASL BID 11/27/17 Tamsulosin HCl [Flomax 0.4 mg Cap.sr] 0.8 mg PO QHS 11/27/17 Terazosin HCl [Hytrin] 2 mg PO QHS 11/27/17 Allergies/Adverse Reactions: [place] nut Allergy (Verified 07/04/20 11:55) ciprofloxacin [From Cipro] Allergy (Verified 07/04/20 11:55) ciprofloxacin HCl [From Cipro] Allergy (Verified 07/04/20 11:55) meperidine HCl [From Demerol] Allergy (Verified 07/04/20 11:55) Review of Systems Review of Systems: as per hpi Physical Exam Vital Signs: Temp Pulse Resp BP Pulse Ox 97.7 F 105 H 24 H 137/81 H 96 07/04/20 11:47 07/04/20 11:29 07/04/20 17:01 07/04/20 17:01 07/04/20 17:01 Intake & Output 07/03/20 07/04/20 07/05/20 06:59 06:59 06:59 Weight 87.09 kg General appearance: PRESENT: no acute distress, well-developed, well-nourished Head exam: PRESENT: atraumatic, normocephalic Respiratory exam: PRESENT: clear to auscultation sudha. ABSENT: rales, rhonchi, wheezes Cardiovascular exam: PRESENT: RRR. ABSENT: diastolic murmur, rubs, systolic murmur GI/Abdominal exam: PRESENT: distended, normal bowel sounds, soft. ABSENT: guarding, mass, organolmegaly, rebound, tenderness Extremities exam: PRESENT: full ROM. ABSENT: calf tenderness, clubbing, pedal edema Neurological exam: PRESENT: alert, awake, oriented to person, oriented to place, oriented to time, oriented to situation, CN II-XII grossly intact. ABSENT: motor sensory deficit Skin exam: PRESENT: dry, intact, warm. ABSENT: cyanosis, rash Results Laboratory Results: 07/04/20 12:07 07/04/20 12:07 07/04/20 07/04/20 12:07 12:07 WBC 10.0 RBC 3.33 L Hgb 11.3 L D Hct 32.0 L MCV 96 MCH 33.8 H MCHC 35.2 RDW 13.1 Plt Count 177 Seg Neutrophils % 85.0 H Sodium 132.4 L Potassium 4.2 Chloride 102 Carbon Dioxide 24 Anion Gap 6 BUN 14 Creatinine 0.81 Est GFR ( Amer) > 60 Glucose 127 H Calcium 8.8 Total Bilirubin 0.5 AST 30 Alkaline Phosphatase 49 Total Protein 5.8 L Albumin 3.5 Assessment and Plan - Diagnosis (1) Hematochezia Is this a current diagnosis for this admission?: Yes Plan: Most likely to internal hemorrhoids. Denies any history of gastric malignancy. Last colonoscopy 5 years ago was negative for any malignancy, was positive for internal hemorrhoids. Admitted to IMCU, monitor H&H, monitor vitals, aggressive volume restriction guided by volume status, supportive transfusions, gastroenterology consulted for possible colonoscopy. (2) COPD (chronic obstructive pulmonary disease) Qualifiers: COPD type: chronic bronchitis Is this a current diagnosis for this admission?: Yes Plan: History of oxygen dependent COPD. On 2 L nasal cannula. Does not seem to be acutely exacerbated. See him home meds. DuoNebs as needed, subsalicylate, BiPAP as needed. Outpatient PCP and pulmonology follow-up. (3) BPH (benign prostatic hyperplasia) Qualifiers: Lower urinary tract symptom presence: symptoms absent Qualified Code(s): N40.0 - Benign prostatic hyperplasia without lower urinary tract symptoms Is this a current diagnosis for this admission?: Yes Plan: Takes tamsulosin at home. Resume home meds. (4) Anxiety Is this a current diagnosis for this admission?: Yes Plan: Takes alprazolam at home. Resume home meds. - Time Time Spent with patient: 35 or more minutes Medications reviewed and adjusted accordingly: Yes Anticipated Discharge Disposition: Home, Self Care Anticipated Discharge Timeframe: within 48 hours
[2020-07-04] MEDS: PANTOPRAZOLE SODIUM 40 MG VIAL IV SCH ×2 (18:22→23:00)
--- NOTE | 2020-07-04 20:09 | PDOC CONSULTATION ---
Consultation Consult Date: 07/04/20 Provider Consulted: NETO BAUTISTA Consult reason:: GI bleeding History of Present Illness Admission Date/PCP: 07/04/20 19:08 History of Present Illness: DEE DUDLEY II is a 79 year old male Asked to see this patient had initially presented to the ED 2 days ago complaining about rectal bleeding at that time Hgb was around 14, and ED physician was comfortable in discharging the patient to be followed up as an outpatient patient has stage 4 COPD when seen in the office, patient noted to be more SOB and stated that he continued to bleed and started seeing clots patient was sent back to the ED, since 2 days ago, Hgb has dropped around 2 grams needs to be admitted patient will need colonoscopy he will need Covid testing prior his plavix for which he is on also needs to be discontinued for at least 48 hours Past Medical History Cardiac Medical History: Reports: Coronary Artery Disease, Hyperlipidema, Hypertension Pulmonary Medical History: Reports: Chronic Obstructive Pulmonary Disease (COPD) Past Surgical History Past Surgical History: Reports: Orthopedic Surgery - knee, Vascular Surgery - left carotid Social History Smoking Status: Former Smoker Electronic Cigarette use?: No Family History Family History: Reviewed & Not Pertinent Parental Family History Reviewed: Yes Children Family History Reviewed: Unknown Sibling(s) Family History Reviewed.: Unknown Medication/Allergy Home Medications: Acetaminophen [Acetaminophen Extra Strength] 1,000 mg PO Q4HP PRN 11/27/17 Alprazolam [Xanax 0.5 mg Tablet] 0.5 mg PO BIDP PRN 11/27/17 Aspirin [Adult Low Dose Aspirin EC] 162 mg PO DAILY 11/27/17 Carisoprodol [Soma 350 mg Tablet] 325 mg PO TIDP PRN 11/27/17 Carvedilol [Coreg 3.125 mg Tablet] 3.125 mg PO BID 11/27/17 Clopidogrel Bisulfate [Plavix 75 mg Tablet] 75 mg PO DAILY 11/27/17 Ipratropium/Albuterol Sulfate [Combivent Respimat Inhal [place]] 1 puff IH QID 11/27/17 Ipratropium/Albuterol Sulfate [Duoneb 3 ml Ampul] 3 ml NEB RTQ6HP PRN 11/27/17 Mometasone Furoate [Asmanex Hfa] 2 puff IH BID 11/27/17 Prednisone [Deltasone 10 mg Tablet] 10 mg PO BID 11/27/17 Sodium Chloride [[place] Nasal [place] 44 ml Bottle] 1 spray NASL BID 11/27/17 Tamsulosin HCl [Flomax 0.4 mg Cap.sr] 0.8 mg PO QHS 11/27/17 Terazosin HCl [Hytrin] 2 mg PO QHS 11/27/17 Allergies/Adverse Reactions: [place] nut Allergy (Verified 07/04/20 11:55) ciprofloxacin [From Cipro] Allergy (Verified 07/04/20 11:55) ciprofloxacin HCl [From Cipro] Allergy (Verified 07/04/20 11:55) meperidine HCl [From Demerol] Allergy (Verified 07/04/20 11:55) Review of Systems Constitutional: ABSENT: fever(s), headache(s), night sweats, weakness Eyes: ABSENT: visual disturbances Ears: ABSENT: hearing changes Nose, Mouth, and Throat: ABSENT: mouth pain, sore throat Respiratory: PRESENT: dyspnea. ABSENT: hemoptysis Gastrointestinal: ABSENT: melena, nausea, vomiting Genitourinary: ABSENT: dysuria, hematuria Neurological: ABSENT: syncope, tingling, tremor(s), vertigo Endocrine: ABSENT: polydipsia, polyphagia, polyuria Hematologic/Lymphatic: ABSENT: easy bruising Physical Exam Vital Signs: Temp Pulse Resp BP Pulse Ox 97.7 F 105 H 12 127/57 H 100 07/04/20 11:47 07/04/20 11:29 07/04/20 18:01 07/04/20 18:01 07/04/20 18:01 Intake & Output 07/03/20 07/04/20 07/05/20 06:59 06:59 06:59 Weight 87.09 kg General appearance: PRESENT: mild distress, well-developed, well-nourished Head exam: PRESENT: normocephalic Eye exam: PRESENT: EOMI, PERRLA. ABSENT: nystagmus, periorbital swelling, scleral icterus Mouth exam: PRESENT: moist, neck supple Neck exam: ABSENT: meningismus, tenderness, thyromegaly Respiratory exam: PRESENT: symmetrical, tachypnea. ABSENT: unlabored, wheezes Cardiovascular exam: PRESENT: RRR, +S1, +S2 GI/Abdominal exam: PRESENT: normal bowel sounds. ABSENT: Whelan's sign, rebound, rigid Extremities exam: ABSENT: joint swelling Musculoskeletal exam: PRESENT: full ROM Neurological exam: PRESENT: oriented to person, oriented to place, oriented to time Skin exam: PRESENT: normal color, pallor. ABSENT: urticaria, vesicles Results Laboratory Results: 07/04/20 12:07 07/04/20 12:07 07/04/20 07/04/20 07/04/20 12:07 12:07 12:07 WBC 10.0 RBC 3.33 L Hgb 11.3 L D Hct 32.0 L MCV 96 MCH 33.8 H MCHC 35.2 RDW 13.1 Plt Count 177 Seg Neutrophils % 85.0 H Sodium 132.4 L Potassium 4.2 Chloride 102 Carbon Dioxide 24 Anion Gap 6 BUN 14 Creatinine 0.81 Est GFR ( Amer) > 60 Glucose 127 H Calcium 8.8 Total Bilirubin 0.5 AST 30 Alkaline Phosphatase 49 Total Protein 5.8 L Albumin 3.5 Blood Type O POSITIVE Antibody Screen NEGATIVE Assessment & Plan - Diagnosis (1) Rectal bleeding Plan: could be having a diverticular bleed will need admission check H/ H and low threshold for transfusion given advanced COPD will need colonoscopy however anticoagulation will need to be stopped at least for 48 hours he will need Covid testing, rapid is not necessary since currently not candidate for sedation COPD to be managed and tuned up since at this time , he is high risk of ventilator dependance following sedation Risks benefits and alternatives are discussed with the patient patient understands will proceed once all issues have been stabilized, and maximized will follow
[2020-07-04] MEDS: NORMAL SALINE 1000 ML 1,000 ML IV PRN (23:09)
[2020-07-05] MEDS: IPRATROPIUM/ALBUTEROL 0.5-2.5 MG/3 ML AMPUL NEB PRN ×3 (00:57→21:44)
[2020-07-05 06:30] LABS: ABSOLUTE EOSINOPHILS # (AUTO) 0.2 10^3/uL (0.0-0.6); ABSOLUTE LYMPHOCYTES (AUTO) 1.6 10^3/uL (0.5-4.7); ABSOLUTE MONOCYTES (AUTO) 0.7 10^3/uL (0.1-1.4); ABSOLUTE NEUT (AUTO) 6.5 10^3/uL (1.7-8.2); BASOPHILS % (AUTO) 0.2 % (0-2); EOSINOPHILS % (AUTO) 1.7 % (0-6); HEMATOCRIT 25.9 % (37.9-51.0); LYMPHOCYTES % (AUTO) 18.1 % (13-45); MEAN CORPUSCULAR HEMOGLOBIN 33.6 pg (27.0-33.4); MEAN CORPUSCULAR HGB CONC 35.3 g/dL (32.0-36.0); MEAN CORPUSCULAR VOLUME 95 fl (80-97); MONOCYTES % (AUTO) 7.5 % (3-13); PLATELET COUNT 181 10^3/uL (150-450); PROTHROMBIN TIME 14.4 SEC (11.4-15.4); RED BLOOD COUNT 2.72 10^6/uL (4.35-5.55); RED CELL DISTRIBUTION WIDTH 12.9 % (11.5-14.0); SEGMENTED NEUTROPHILS % (AUTO) 72.5 % (42-78); TOTAL CELLS COUNTED % (AUTO) 100 %; WHITE BLOOD COUNT 8.9 10^3/uL (4.0-10.5)
[2020-07-05 06:31] LABS: HEMOGLOBIN 9.2 g/dL (13.5-17.0); PARTIAL THROMBOPLASTIN TIME 31.4 SEC (23.5-35.8)
[2020-07-05 06:39] LABS: ALBUMIN 3.1 g/dL (3.5-5.0); ALKALINE PHOSPHATASE 37 U/L (38-126); ASPARTATE AMINO TRANSFERASE 26 U/L (17-59); BILIRUBIN,TOTAL 0.4 mg/dL (0.2-1.3); BLOOD UREA NITROGEN 15 mg/dL (7-20); CALCIUM 7.8 mg/dL (8.4-10.2); CARBON DIOXIDE 24 mmol/L (22-30); GLUCOSE 114 mg/dL (75-110); POTASSIUM 4.2 mmol/L (3.6-5.0); TOTAL PROTEIN 5.2 g/dL (6.3-8.2)
[2020-07-05 06:44] LABS: CHLORIDE 107 mmol/L (98-107)
[2020-07-05 06:49] LABS: ANION GAP 4 (5-19)
[2020-07-05] MEDS ORDERED: ALPRAZOLAM 0.5 MG TABLET PO PRN (08:01)
[2020-07-05] MEDS ORDERED: NA PHOS,M-B/NA PHOS,DI-BA (ADULT) 133 ML ENEMA PR ONE ×2 (09:30→10:00)
[2020-07-05] MEDS ORDERED: [UNRECOGNIZED DRUG - OTHER] NASL SCH (10:00)
[2020-07-05] MEDS ORDERED: (PENDING PHARMACY ID) (Tiotropium Br/Olodaterol Hcl [Stiolto Respimat Inhal Spray] 2 PUFF) IH SCH (10:00)
[2020-07-05] MEDS ORDERED: CROMOLYN SODIUM NASL SCH (10:00)
[2020-07-05] MEDS ORDERED: EPINEPHRINE INJ 1 MG/10 ML DISP.SYRIN ONE (11:15)
[2020-07-05] MEDS ORDERED: PROPOFOL INJ 200 MG/20 ML VIAL IV ONE ×2 (11:25→13:11)
[2020-07-05] MEDS ORDERED: FENTANYL CITRATE INJ/PF 100 MCG/2 ML AMPUL IV PRN ×3 (11:37)
--- NOTE | 2020-07-05 11:52 | PDOC PROGRESS REPORT ---
Subjective Progress Note for:: 07/05/20 Subjective:: DEE DUDLEY II is a 79 year old male past medical history of COPD, on 2 L nasal cannula, internal hemorrhoids, BPH, presenting to ED complaining of multiple episodes of bloody bowel movements since Wednesday, before that patient had noticed tarry stool but never had hematochezia before, patient used to have colonic polyps and has had several colonoscopies in the past, last colonoscopy was 5 years ago and he was told that he had internal hemorrhoids, patient re cently visited ED but was sent home to follow-up with gastroenterology, today he went to see Dr. Marrero bell clerk and he was sent to ED immediately. Patient denies any history of gastric intestinal malignancy, NSAID abuse, nosebleed, hematemesis, hemoptysis or hematuria. Recently patient has been getting weaker and has noticed that he gets short of breath upon exertion, denies any fever, abdominal pain, chest pain, nausea, diarrhea, or urinary symptoms. In ED was noted to have guaiac positive stool and Dr. Marrero bell clerk was contacted and he suggested for patient to be admitted and he will scope him once he is stable. 07/05/2020. Patient has been having hematochezia since admission, hemoglobin has dropped to 9.2 however patient is still alert and oriented in no apparent distress and resting in bed does report dyspnea on exertion, patient is planned to have colonoscopy this afternoon by Dr. Marrero bell clerk, has any chest pain, shortness of breath, nausea, vomiting, fever, chills or any urinary symptoms. Reason For Visit: RECTAL BLEEDING Physical Exam Vital Signs: Temp Pulse Resp BP Pulse Ox 97.8 F 95 16 143/73 H 99 07/05/20 11:21 07/05/20 11:21 07/05/20 11:21 07/05/20 11:21 07/05/20 11:21 Intake & Output 07/04/20 07/05/20 07/06/20 06:59 06:59 06:59 Output Total 2 Balance -2 Weight 83.9 kg General appearance: PRESENT: no acute distress, well-developed, well-nourished Head exam: PRESENT: atraumatic, normocephalic Respiratory exam: PRESENT: clear to auscultation sudha. ABSENT: rales, rhonchi, wheezes Cardiovascular exam: PRESENT: RRR. ABSENT: diastolic murmur, rubs, systolic murmur GI/Abdominal exam: PRESENT: distended, normal bowel sounds, soft. ABSENT: guarding, mass, organolmegaly, rebound, tenderness Neurological exam: PRESENT: alert, awake, oriented to person, oriented to place, oriented to time, oriented to situation, CN II-XII grossly intact. ABSENT: motor sensory deficit Results Laboratory Results: 07/05/20 05:56 07/05/20 05:56 07/04/20 07/04/20 07/04/20 12:07 12:07 12:07 WBC 10.0 RBC 3.33 L Hgb 11.3 L D Hct 32.0 L MCV 96 MCH 33.8 H MCHC 35.2 RDW 13.1 Plt Count 177 Seg Neutrophils % 85.0 H Sodium 132.4 L Potassium 4.2 Chloride 102 Carbon Dioxide 24 Anion Gap 6 BUN 14 Creatinine 0.81 Est GFR ( Amer) > 60 Glucose 127 H Calcium 8.8 Magnesium Total Bilirubin 0.5 AST 30 Alkaline Phosphatase 49 Total Protein 5.8 L Albumin 3.5 Blood Type O POSITIVE Antibody Screen NEGATIVE 07/05/20 07/05/20 05:56 05:56 WBC 8.9 RBC 2.72 L Hgb 9.2 L D Hct 25.9 L MCV 95 MCH 33.6 H MCHC 35.3 RDW 12.9 Plt Count 181 Seg Neutrophils % 72.5 Sodium 135.0 L Potassium 4.2 Chloride 107 Carbon Dioxide 24 Anion Gap 4 L BUN 15 Creatinine 0.89 Est GFR ( Amer) > 60 Glucose 114 H Calcium 7.8 L Magnesium 1.9 Total Bilirubin 0.4 AST 26 Alkaline Phosphatase 37 L Total Protein 5.2 L Albumin 3.1 L Blood Type Antibody Screen Assessment and Plan - Diagnosis (1) Hematochezia Is this a current diagnosis for this admission?: Yes Plan: Patient still have persistent hematochezia. Hemoglobin 9.2. Denies any chest pain or lightheadedness. Alert and oriented x3. Most likely to internal hemorrhoids. Denies any history of gastric malignancy. Last colonoscopy 5 years ago was negative for any malignancy, was positive for internal hemorrhoids. Continue telemetry, monitor H&H, monitor vitals, aggressive volume restriction guided by volume status, supportive transfusions Gastroenterology has been consulted. Plan is to have colonoscopy this a fternoon. (2) COPD (chronic obstructive pulmonary disease) Qualifiers: COPD type: chronic bronchitis Is this a current diagnosis for this admission?: Yes Plan: History of oxygen dependent COPD. On 2 L nasal cannula. Does not seem to be acutely exacerbated. Resume home meds. DuoNebs as needed, supplemental oxygen, BiPAP as needed. Outpatient PCP and pulmonology follow-up. (3) BPH (benign prostatic hyperplasia) Qualifiers: Lower urinary tract symptom presence: symptoms absent Qualified Code(s): N40.0 - Benign prostatic hyperplasia without lower urinary tract symptoms Is this a current diagnosis for this admission?: Yes Plan: Takes tamsulosin at home. Resume home meds. (4) Anxiety Is this a current diagnosis for this admission?: Yes Plan: Takes alprazolam at home. Resume home meds. - Time Time Spent with patient: 25-34 minutes Medications reviewed and adjusted accordingly: Yes Anticipated Discharge Disposition: Home with Home Health Anticipated Discharge Timeframe: within 48 hours
[2020-07-05] MEDS ORDERED: (PENDING PHARMACY ID) (Albuterol Sulfate 2 PUFF) IH PRN (11:53)
--- NOTE | 2020-07-05 12:36 | Operative Report ---
Operative Report DATE OF SURGERY: 07/05/20 Operative Report: The risks, benefits and alternatives of the procedure including the risk of bleeding, perforation requiring surgery have been explained to the patient in detail and informed consent has been obtained. Patient is taken back to the operating room and placed in a left, lateral decubital position. Timeout was called. Propofol medication is administered. Rectal examination is done. There are no blood clots in the rectum. The scope was then carefully advanced patient has severe diverticulosis extending especially from the left side but it does go all the way on the right. I reached the right-hand side of the colon and was able to identify the ileocecal valve in the distance. There is blood throughout the colon. However most of it is dark. There does not appear to be any exact source of active bleeding. The scope was carefully withdrawn and type copy examiner ious amounts of warm water irrigation was used. I was not able to identify the bleeding site although most probably right-sided diverticular have the most propensity of bleeding. Photodocumentation is obtained. The patient does have some internal hemorrhoids. PREOPERATIVE DIAGNOSIS: Rectal bleeding POSTOPERATIVE DIAGNOSIS: The patient likely has a right-sided diverticular bleed but the exact culprit diverticulum could not be identified. Left side severe diverticulosis but irrigation did not yield the source of the active bleed. Bleeding seems to have resolved. OPERATION: Diagnostic colonoscopy SURGEON: NETO BAUTISTA ANESTHESIA: LMAC TISSUE REMOVED OR ALTERED: None. COMPLICATIONS: None. ESTIMATED BLOOD LOSS: None. INTRAOPERATIVE FINDINGS: As noted above. PROCEDURE: Patient tolerated the procedure well. No immediate postprocedure complications are noted. Patient will be sent back to his room in good condition. Clear liquids do not advance diet. Follow H&H transfuse as necessary, since patient does have COPD low threshold for transfusion. May need bleeding scan to identify either a left versus right sided diverticular bleed if patient were to rebleed Patient needs to stay off his Plavix He may require bleeding scan versus angiography at a tertiary institution with possible embolization if patient were to rebleed At that point he would need to be transferred
[2020-07-05] MEDS: PANTOPRAZOLE SODIUM 40 MG VIAL IV SCH ×2 (14:13→22:42)
--- NOTE | 2020-07-05 15:03 | EKG REPORT ---
SEVERITY:- ABNORMAL ECG - SINUS TACHYCARDIA BORDERLINE RIGHT AXIS DEVIATION BORDERLINE INFERIOR Q WAVES BORDERLINE T WAVE ABNORMALITIES : Confirmed by: Bishnu Rodriguez MD 05-Jul-2020 15:01:47
[2020-07-05] MEDS ORDERED: (PENDING PHARMACY ID) (Terazosin Hcl [Terazosin Hcl] 10 MG) PO SCH (22:00)
[2020-07-05 22:07] LABS: HEMATOCRIT 24.6 % (37.9-51.0); HEMOGLOBIN 8.5 g/dL (13.5-17.0); MEAN CORPUSCULAR HEMOGLOBIN 33.3 pg (27.0-33.4); MEAN CORPUSCULAR HGB CONC 34.5 g/dL (32.0-36.0); MEAN CORPUSCULAR VOLUME 97 fl (80-97); PLATELET COUNT 176 10^3/uL (150-450); RED BLOOD COUNT 2.54 10^6/uL (4.35-5.55); RED CELL DISTRIBUTION WIDTH 13.2 % (11.5-14.0); WHITE BLOOD COUNT 17.7 10^3/uL (4.0-10.5)
[2020-07-05] MEDS: OXYCODONE-ACETAMINOPHEN 5-325 MG TABLET PO PRN (22:39)
[2020-07-05] MEDS: TAMSULOSIN HCL 0.4 MG CAP.SR.24H PO SCH (22:40)
[2020-07-05] MEDS: DOXAZOSIN MESYLATE 4 MG TABLET PO SCH (22:41)
[2020-07-05] MEDS: CETIRIZINE 10 MG TABLET PO SCH (22:41)
[2020-07-05] MEDS: ONDANSETRON HCL INJ/PF 4 MG/2 ML SDV IV PRN (22:42)
[2020-07-06] MEDS: NORMAL SALINE 1000 ML 1,000 ML IV PRN (02:05)
[2020-07-06 06:50] LABS: HEMATOCRIT 22.9 % (37.9-51.0); MEAN CORPUSCULAR HEMOGLOBIN 33.7 pg (27.0-33.4); MEAN CORPUSCULAR VOLUME 96 fl (80-97); PLATELET COUNT 163 10^3/uL (150-450); RED BLOOD COUNT 2.38 10^6/uL (4.35-5.55); RED CELL DISTRIBUTION WIDTH 13.2 % (11.5-14.0); WHITE BLOOD COUNT 12.7 10^3/uL (4.0-10.5)
[2020-07-06] MEDS: OXYCODONE-ACETAMINOPHEN 5-325 MG TABLET PO PRN (07:33)
[2020-07-06] MEDS: ONDANSETRON HCL INJ/PF 4 MG/2 ML SDV IV PRN ×2 (07:33→13:58)
[2020-07-06 09:12] LABS: ALBUMIN 2.8 g/dL (3.5-5.0); ALKALINE PHOSPHATASE 36 U/L (38-126); ANION GAP 6 (5-19); ASPARTATE AMINO TRANSFERASE 25 U/L (17-59); BILIRUBIN,TOTAL 0.6 mg/dL (0.2-1.3); BLOOD UREA NITROGEN 13 mg/dL (7-20); CALCIUM 7.4 mg/dL (8.4-10.2); CARBON DIOXIDE 23 mmol/L (22-30); CHLORIDE 103 mmol/L (98-107); GLUCOSE 145 mg/dL (75-110); POTASSIUM 4.1 mmol/L (3.6-5.0); TOTAL PROTEIN 5.1 g/dL (6.3-8.2)
[2020-07-06] MEDS: IPRATROPIUM/ALBUTEROL 0.5-2.5 MG/3 ML AMPUL NEB PRN ×3 (09:30→22:06)
[2020-07-06] MEDS: PANTOPRAZOLE SODIUM 40 MG VIAL IV SCH ×2 (09:37→23:00)
--- NOTE | 2020-07-06 10:08 | RADIOLOGY REPORT (SQ) ---
EXAM DESCRIPTION: KUB/ABDOMEN (SINGLE VIEW) IMAGES COMPLETED DATE/TIME: 07/06/2020 8:19 am REASON FOR STUDY: place ng tube COMPARISON: CT abdomen and pelvis, 07/02/2020. NUMBER OF VIEWS: One view. TECHNIQUE: Supine radiographic image of the abdomen acquired. LIMITATIONS: None. FINDINGS: BOWEL GAS PATTERN: Multiple stacked dilated gas-filled loops of small bowel suggestive of bowel obstruction. CALCIFICATIONS: No suspicious calcifications. SOFT TISSUES: No gross mass or suggestion of organomegaly. HARDWARE: Esophagogastric tube tip is below the diaphragm, with side hole in the distal esophagus. BONES: No acute fracture. No worrisome bone lesions. OTHER: No other significant finding. IMPRESSION: Findings suggestive of small-bowel obstruction. Esophagogastric tube tip is below the d iaphragm within the stomach, however side hole is in the distal esophagus. Consider advancing 5-6 cm . TECHNICAL DOCUMENTATION: JOB ID: [id number] 2010 [email or web address]- All Rights Reserved Reading location - IP/workstation name: [email or web address]
--- NOTE | 2020-07-06 11:32 | RADIOLOGY REPORT (SQ) ---
EXAM DESCRIPTION: KUB/ABDOMEN (SINGLE VIEW) IMAGES COMPLETED DATE/TIME: 07/06/2020 11:21 am REASON FOR STUDY: NG tube COMPARISON: Earlier same day. NUMBER OF VIEWS: One view. TECHNIQUE: Supine radiographic image of the abdomen acquired. LIMITATIONS: None. FINDINGS: Nasogastric tube tip overlies the gastric fundus. Appearance is otherwise unchanged. IMPRESSION: Good position of nasogastric tube. TECHNICAL DOCUMENTATION: JOB ID: [id number] 2010 [employer]- All Rights Reserved Reading location - IP/workstation name: [email or web address]
--- NOTE | 2020-07-06 13:55 | PDOC PROGRESS REPORT ---
Subjective Progress Note for:: 07/06/20 Subjective:: DEE DUDLEY II is a 79 year old male past medical history of COPD, on 2 L nasal cannula, internal hemorrhoids, BPH, presenting to ED complaining of multiple episodes of bloody bowel movements since Wednesday, before that patient had noticed tarry stool but never had hematochezia before, patient used to have colonic polyps and has had several colonoscopies in the past, last colonoscopy was 5 years ago and he was told that he had internal hemorrhoids, patient re cently visited ED but was sent home to follow-up with gastroenterology, today he went to see Dr. Marrero firestopper installer and he was sent to ED immediately. Patient denies any history of gastric intestinal malignancy, NSAID abuse, nosebleed, hematemesis, hemoptysis or hematuria. Recently patient has been getting weaker and has noticed that he gets short of breath upon exertion, denies any fever, abdominal pain, chest pain, nausea, diarrhea, or urinary symptoms. In ED was noted to have guaiac positive stool and Dr. Marrero firestopper installer was contacted and he suggested for patient to be admitted and he will scope him once he is stable. 07/05/2020. Patient has been having hematochezia since admission, hemoglobin has dropped to 9.2 however patient is still alert and oriented in no apparent distress and resting in bed does report dyspnea on exertion, patient is planned to have colonoscopy this afternoon by Dr. Marrero firestopper installer, has any chest pain, shortness of breath, nausea, vomiting, fever, chills or any urinary symptoms. 07/06/2020. Unfortunately patient has developed ileus, has abdominal distention and is not passing flatus, patient does have chronic abdominal pain which she says has not changed since admission, a KUB shows small bowel obstruction, I have contacted her surgical team talk to Dr. Michael who said that since patient is not having any acute abdomen we can observe him and if he gets worse we can consult him and I will be more than happy to see him. Patient denies any nausea, vomiting, fever, chills, shortness of breath or any urinary symptoms. Reason For Visit: RECTAL BLEEDING Physical Exam Vital Signs: Temp Pulse Resp BP Pulse Ox 97.9 F 99 16 149/64 H 99 07/06/20 11:52 07/06/20 11:52 07/06/20 11:52 07/06/20 11:52 07/06/20 11:52 Intake & Output 07/05/20 07/06/20 07/07/20 06:59 06:59 06:59 Intake Total 1750 Output Total 2 327 Balance -2 1423 Weight 83.9 kg 86.1 kg 86.1 kg General appearance: PRESENT: no acute distress, well-developed, well-nourished Head exam: PRESENT: atraumatic, normocephalic Respiratory exam: PRESENT: clear to auscultation sudha. ABSENT: rales, rhonchi, wheezes Cardiovascular exam: PRESENT: RRR. ABSENT: diastolic murmur, rubs, systolic murmur GI/Abdominal exam: PRESENT: distended, hypoactive bowel sounds, soft. ABSENT: guarding, mass, organolmegaly, rebound, tenderness Extremities exam: PRESENT: full ROM. ABSENT: calf tenderness, clubbing, pedal edema Neurological exam: PRESENT: alert, awake, oriented to person, oriented to place, oriented to time, oriented to situation, CN II-XII grossly intact. ABSENT: motor sensory deficit Results Laboratory Results: 07/06/20 06:24 07/06/20 06:24 07/05/20 07/06/20 07/06/20 21:57 06:24 06:24 WBC 17.7 H 12.7 H RBC 2.54 L 2.38 L Hgb 8.5 L 8.0 L Hct 24.6 L 22.9 L MCV 97 96 MCH 33.3 33.7 H MCHC 34.5 35.0 RDW 13.2 13.2 Plt Count 176 163 Sodium 132.1 L Potassium 4.1 Chloride 103 Carbon Dioxide 23 Anion Gap 6 BUN 13 Creatinine 0.85 Est GFR ( Amer) > 60 Glucose 145 H Calcium 7.4 L Magnesium 2.0 Total Bilirubin 0.6 AST 25 Alkaline Phosphatase 36 L Total Protein 5.1 L Albumin 2.8 L Impressions: KUB X-Ray 07/06/20 00:00 IMPRESSION: Good position of nasogastric tube. Assessment and Plan - Diagnosis (1) Ileus Is this a current diagnosis for this admission?: Yes Plan: Not sure if this is ileus due to anesthetic receiving during colonoscopy. Electrolytes are WNL. KUB shows small bowel obstruction., No air under the diaphragm. Patient has chronic abdominal pain which he states has not changed since admission. NG tube in place, 700 residual suction, will monitor for now and consult surgery if his status changes. Note. I contacted surgical team and discussed this case with Dr. Michael was meat products demonstrator he said he says patient is not having any acute abdomen will observe him and if it gets worse he will be more than happy to evaluate him. (2) Hematochezia Is this a current diagnosis for this admission?: Yes Plan: Status post colonoscopy on 07/06/2020. Patient noted to have diverticulosis which may have been the cause of bleeding however it was not bleeding at the time of colonoscopy. No hemorrhoidal bleed was noted. Hemoglobin is stable. Denies any chest pain or lightheadedness. Alert and oriented x3. Denies any history of gastric malignancy. Last colonoscopy 5 years ago was negative for any malignancy, was positive for internal hemorrhoids. Continue telemetry, monitor H&H, monitor vitals, aggressive volume restriction guided by volume status, supportive transfusions If hematochezia recurs we would have to transfer to tertiary center as per gastroenterology recommendation. (3) COPD (chronic obstructive pulmonary disease) Qualifiers: COPD type: chronic bronchitis Is this a current diagnosis for this admission?: Yes Plan: History of oxygen dependent COPD. On 2 L nasal cannula. Does not seem to be acutely exacerbated. See him home meds. DuoNebs as needed, subsalicylate, BiPAP as needed. Outpatient PCP and pulmonology follow-up. (4) BPH (benign prostatic hyperplasia) Qualifiers: Lower urinary tract symptom presence: symptoms absent Qualified Code(s): N40.0 - Benign prostatic hyperplasia without lower urinary tract symptoms Is this a current diagnosis for this admission?: Yes Plan: Takes tamsulosin at home. Resume home meds. (5) Anxiety Is this a current diagnosis for this admission?: Yes Plan: Takes alprazolam at home. Resume home meds. - Time Time Spent with patient: 35 or more minutes Medications reviewed and adjusted accordingly: Yes Anticipated Discharge Disposition: Home, Self Care Anticipated Discharge Timeframe: within 72 hours
[2020-07-06] MEDS: HYDROMORPHONE HCL INJ/PF 2 MG/ML AMPULE IV PRN ×2 (13:56→22:53)
[2020-07-06] MEDS: DEXTROSE 5%-NORMAL SALINE 1,000 ML IV PRN ×2 (14:02→23:14)
[2020-07-06 15:05] LABS: HEMATOCRIT 23.2 % (37.9-51.0); HEMOGLOBIN 8.3 g/dL (13.5-17.0); MEAN CORPUSCULAR HEMOGLOBIN 34.2 pg (27.0-33.4); MEAN CORPUSCULAR HGB CONC 35.6 g/dL (32.0-36.0); MEAN CORPUSCULAR VOLUME 96 fl (80-97); PLATELET COUNT 174 10^3/uL (150-450); RED BLOOD COUNT 2.42 10^6/uL (4.35-5.55); RED CELL DISTRIBUTION WIDTH 13.2 % (11.5-14.0); WHITE BLOOD COUNT 8.6 10^3/uL (4.0-10.5)
[2020-07-06] MEDS: TAMSULOSIN HCL 0.4 MG CAP.SR.24H PO SCH (22:42)
[2020-07-06] MEDS: DOXAZOSIN MESYLATE 4 MG TABLET PO SCH (22:59)
[2020-07-06] MEDS: CETIRIZINE 10 MG TABLET PO SCH (23:00)
[2020-07-07] MEDS: IPRATROPIUM/ALBUTEROL 0.5-2.5 MG/3 ML AMPUL NEB PRN ×3 (04:15→20:41)
[2020-07-07] MEDS ORDERED: DEXTROSE 40% GEL 15 GM TUBE PO PRN ×2 (08:08)
[2020-07-07] MEDS ORDERED: GLUCAGON,HUMAN RECOMB 1 MG INJ SUBCUT PRN (08:08)
[2020-07-07] MEDS ORDERED: DEXTROSE 50%-WATER 25 GM/50 ML DISP.SYRIN IV PRN ×2 (08:08)
[2020-07-07 08:54] LABS: ABSOLUTE LYMPHOCYTES (AUTO) 0.3 10^3/uL (0.5-4.7); ABSOLUTE NEUT (AUTO) 3.8 10^3/uL (1.7-8.2); BASOPHILS % (AUTO) 0.1 % (0-2); EOSINOPHILS % (AUTO) 0.5 % (0-6); HEMATOCRIT 22.8 % (37.9-51.0); LYMPHOCYTES % (AUTO) 5.1 % (13-45); MEAN CORPUSCULAR HEMOGLOBIN 33.8 pg (27.0-33.4); MEAN CORPUSCULAR HGB CONC 35.1 g/dL (32.0-36.0); MEAN CORPUSCULAR VOLUME 96 fl (80-97); MONOCYTES % (AUTO) 19.7 % (3-13); PLATELET COUNT 186 10^3/uL (150-450); RED BLOOD COUNT 2.38 10^6/uL (4.35-5.55); RED CELL DISTRIBUTION WIDTH 13.1 % (11.5-14.0); SEGMENTED NEUTROPHILS % (AUTO) 74.6 % (42-78); TOTAL CELLS COUNTED % (AUTO) 100 %; WHITE BLOOD COUNT 5.1 10^3/uL (4.0-10.5)
[2020-07-07 09:15] LABS: BLOOD UREA NITROGEN 13 mg/dL (7-20); CALCIUM 7.3 mg/dL (8.4-10.2); GLUCOSE 155 mg/dL (75-110); POTASSIUM 4.2 mmol/L (3.6-5.0)
[2020-07-07 09:20] LABS: CARBON DIOXIDE 26 mmol/L (22-30); CHLORIDE 104 mmol/L (98-107)
[2020-07-07 09:21] LABS: ANION GAP 5 (5-19)
[2020-07-07] MEDS: PANTOPRAZOLE SODIUM 40 MG VIAL IV SCH ×2 (10:13→21:20)
[2020-07-07] MEDS: HYDROMORPHONE HCL INJ/PF 2 MG/ML AMPULE IV PRN ×2 (10:14→21:55)
[2020-07-07] MEDS: ONDANSETRON HCL INJ/PF 4 MG/2 ML SDV IV PRN (10:14)
--- NOTE | 2020-07-07 10:14 | PDOC PROGRESS REPORT ---
Subjective Progress Note for:: 07/07/20 Subjective:: DEE DUDLEY II is a 79 year old male past medical history of COPD, on 2 L nasal cannula, internal hemorrhoids, BPH, presenting to ED complaining of multiple episodes of bloody bowel movements since Wednesday, before that patient had noticed tarry stool but never had hematochezia before, patient used to have colonic polyps and has had several colonoscopies in the past, last colonoscopy was 5 years ago and he was told that he had internal hemorrhoids, patient re cently visited ED but was sent home to follow-up with gastroenterology, today he went to see Dr. Marrero mlt and he was sent to ED immediately. Patient denies any history of gastric intestinal malignancy, NSAID abuse, nosebleed, hematemesis, hemoptysis or hematuria. Recently patient has been getting weaker and has noticed that he gets short of breath upon exertion, denies any fever, abdominal pain, chest pain, nausea, diarrhea, or urinary symptoms. In ED was noted to have guaiac positive stool and Dr. Marrero mlt was contacted and he suggested for patient to be admitted and he will scope him once he is stable. 07/05/2020. Patient has been having hematochezia since admission, hemoglobin has dropped to 9.2 however patient is still alert and oriented in no apparent distress and resting in bed does report dyspnea on exertion, patient is planned to have colonoscopy this afternoon by Dr. Marrero mlt, has any chest pain, shortness of breath, nausea, vomiting, fever, chills or any urinary symptoms. 07/06/2020. Unfortunately patient has developed ileus, has abdominal distention and is not passing flatus, patient does have chronic abdominal pain which she says has not changed since admission, a KUB shows small bowel obstruction, I have contacted her surgical team talk to Dr. Michael who said that since patient is not having any acute abdomen we can observe him and if he gets worse we can consult him and I will be more than happy to see him. Patient denies any nausea, vomiting, fever, chills, shortness of breath or any urinary symptoms. 07/07/2020. No acute events overnight. Patient receiving up in distress, unfortunately patient still has distended abdomen and is not passing flatus has not had any bowel movement, abdominal pain is unchanged from yesterday, notes patient has chronic abdominal pain, denies any fever, chills, nausea, vomiting. Reason For Visit: RECTAL BLEEDING Physical Exam Vital Signs: Temp Pulse Resp BP Pulse Ox 97.2 F 97 18 139/58 H 99 07/07/20 07:54 07/07/20 07:54 07/07/20 07:54 07/07/20 07:54 07/07/20 07:54 Intake & Output 07/06/20 07/07/20 07/08/20 06:59 06:59 06:59 Intake Total 1750 1856 Output Total 327 850 600 Balance 1423 1006 -600 Weight 86.1 kg 89.4 kg General appearance: PRESENT: no acute distress, well-developed, well-nourished Head exam: PRESENT: atraumatic, normocephalic Respiratory exam: PRESENT: clear to auscultation sudha. ABSENT: rales, rhonchi, wheezes Cardiovascular exam: PRESENT: RRR. ABSENT: diastolic murmur, rubs, systolic murmur GI/Abdominal exam: PRESENT: diminished bowel sounds, distended, normal bowel sounds, soft, tenderness. ABSENT: guarding, mass, organolmegaly, rebound Neurological exam: PRESENT: alert, awake, oriented to person, oriented to place, oriented to time, oriented to situation, CN II-XII grossly intact. ABSENT: motor sensory deficit Results Laboratory Results: 07/07/20 08:19 07/07/20 08:19 07/06/20 07/07/20 07/07/20 14:15 08:19 08:19 WBC 8.6 5.1 RBC 2.42 L 2.38 L Hgb 8.3 L 8.0 L Hct 23.2 L 22.8 L MCV 96 96 MCH 34.2 H 33.8 H MCHC 35.6 35.1 RDW 13.2 13.1 Plt Count 174 186 Seg Neutrophils % 74.6 Sodium 134.6 L Potassium 4.2 Chloride 104 Carbon Dioxide 26 Anion Gap 5 BUN 13 Creatinine 0.78 Est GFR ( Amer) > 60 Glucose 155 H Calcium 7.3 L Assessment and Plan - Diagnosis (1) Ileus Is this a current diagnosis for this admission?: Yes Plan: Not sure if this is ileus due to anesthetic receiving during colonoscopy. Electrolytes are WNL. KUB shows small bowel obstruction., No air under the diaphragm. Patient has chronic abdominal pain which he states has not changed since admission. NG tube in place, 700 residual suction, will monitor for now and consult surgery if his status changes. Note. I contacted surgical team and discussed this case with Dr. Michael was conference interpreter he said he says patient is not having any acute abdomen will observe him and if it gets worse he will be more than happy to evaluate him. (2) Hematochezia Is this a current diagnosis for this admission?: Yes Plan: Status post colonoscopy on 07/06/2020. Patient noted to have diverticulosis which may have been the cause of bleeding however it was not bleeding at the time of colonoscopy. No hemorrhoidal bleed was noted. Hemoglobin is stable. Denies any chest pain or lightheadedness. Alert and oriented x3. Denies any history of gastric malignancy. Last colonoscopy 5 years ago was negative for any malignancy, was positive for internal hemorrhoids. Continue telemetry, monitor H&H, monitor vitals, aggressive volume restriction guided by volume status, supportive transfusions If hematochezia recurs we would have to transfer to tertiary center as per astroenterology recommendation. (3) COPD (chronic obstructive pulmonary disease) Qualifiers: COPD type: chronic bronchitis Is this a current diagnosis for this admission?: Yes Plan: History of oxygen dependent COPD. On 2 L nasal cannula. Does not seem to be acutely exacerbated. Resume home meds. DuoNebs as needed, supplemental oxygen, BiPAP as needed. Outpatient PCP and pulmonology follow-up. (4) BPH (benign prostatic hyperplasia) Qualifiers: Lower urinary tract symptom presence: symptoms absent Qualified Code(s): N40.0 - Benign prostatic hyperplasia without lower urinary tract symptoms Is this a current diagnosis for this admission?: Yes Plan: Takes tamsulosin at home. Resume home meds. (5) Anxiety Is this a current diagnosis for this admission?: Yes Plan: Takes alprazolam at home. Resume home meds. - Time Time Spent with patient: 25-34 minutes Medications reviewed and adjusted accordingly: Yes Anticipated Discharge Disposition: Home with Home Health Anticipated Discharge Timeframe: within 72 hours
[2020-07-07] MEDS: DEXTROSE 5%-NORMAL SALINE 1,000 ML IV PRN ×2 (10:15→18:53)
--- NOTE | 2020-07-07 10:20 | RADIOLOGY REPORT (SQ) ---
EXAM DESCRIPTION: KUB/ABDOMEN (SINGLE VIEW) IMAGES COMPLETED DATE/TIME: 07/07/2020 9:55 am REASON FOR STUDY: SBO COMPARISON: Previous day. NUMBER OF VIEWS: One view. TECHNIQUE: Supine radiographic image of the abdomen acquired. LIMITATIONS: None. FINDINGS: Portable supine view demonstrates unchanged position of nasogastric tube. Persistent dila kenyatta loops of small bowel. Gas and fecal material ascending colon. IMPRESSION: Ileus or partial small bowel obstruction. No significant change. TECHNICAL DOCUMENTATION: JOB ID: [id number] [employer]- All Rights Reserved Reading location - IP/workstation name: [email or web address]
[2020-07-07] MEDS: DOXAZOSIN MESYLATE 4 MG TABLET PO SCH (21:20)
[2020-07-07] MEDS: CETIRIZINE 10 MG TABLET PO SCH (21:20)
[2020-07-07] MEDS: TAMSULOSIN HCL 0.4 MG CAP.SR.24H PO SCH (21:21)
--- NOTE | 2020-07-08 03:16 | RADIOLOGY REPORT (SQ) ---
CT ABDOMEN AND PELVIS WITH INTRAVENOUS CONTRAST: 07/08/2020 2:11 AM CDT HISTORY: 79-year old with concern for obstruction. COMPARISON: CT of abdomen and pelvis from 07/02/2020 TECHNIQUE: Axial contiguous images were obtained from the lung bases to the proximal femurs with intravenous intravenous contrast administered. Oral contrast was also given to the patient. Sagittal and coronal reconstructions were also obtained and reviewed. This exam was performed according to our departmental dose-optimization program, which includes automated exposure control, adjustment of the mA and/or KV according to the patient's size and/or use of iterative reconstruction technique. FINDINGS: No focal consolidative airspace opacities are seen. No discrete pleural effusion is seen. There are moderate to severe emphysematous changes within the lung bases. The distal esophagus is patulous with some reflux of oral contrast noted. The visualized hepatic parenchyma is unremarkable. No focal enhancing lesion is seen. The gallbladder is surgically absent. The spleen and pancreas are normal in contour. The bilateral adrenal glands appear unremarkable. Both kidneys demonstrate no evidence of hydronephrosis. The urinary bladder is mostly decompressed by Craig catheter. The stomach is moderately distended with oral contrast. There is moderate to severe fluid distention of much of the small bowel. The terminal ileum appears thickened with adjacent inflammatory stranding. The transition point is likely near this area at the right lower quadrant of the abdomen. No pericolonic inflammatory stranding is seen. Multiple colonic diverticula are seen throughout the colon without evidence to suggest diverticulitis. The appendix appears unremarkable. There is no evidence of pneumoperitoneum. There is trace free fluid seen within the lower pelvis.. The aorta and IVC appear normal in size. No significantly enlarged lymph nodes are seen in the abdomen or pelvis. Review of the bone show no evidence of any suspicious lytic or blastic lesions. There are mild degenerative changes seen at the lumbar spine. IMPRESSION: There is significant distention of the small bowel with mucosal thickening and enhancement involving a large portion of the ileum. These findings are concerning for small bowel obstruction which could be due to a stricture or inflammation at the terminal ileum. Adhesions at this area are not fully excluded.
[2020-07-08] MEDS: IPRATROPIUM/ALBUTEROL 0.5-2.5 MG/3 ML AMPUL NEB PRN ×3 (03:26→20:31)
[2020-07-08] MEDS: HYDROMORPHONE HCL INJ/PF 2 MG/ML AMPULE IV PRN (03:29)
[2020-07-08] MEDS: DEXTROSE 5%-NORMAL SALINE 1,000 ML IV PRN ×3 (03:31→20:09)
--- NOTE | 2020-07-08 06:21 | PDOC CONSULTATION ---
Consultation Consult Date: 07/08/20 Provider Consulted: SURGICAL SURGICALIST Consult reason:: Abdominal distention History of Present Illness Admission Date/PCP: 07/04/20 19:08 Patient complains of: Abdominal distention History of Present Illness: DEE DUDLEY II is a 79 year old male admitted to the hospital with lower GI bleeding. The patient underwent colonoscopy several days ago. After his colonoscopy, he reports that his abdominal distention would not subside. The patient "could not pass gas after his colonoscopy". His distention has persisted. He reports passing a very small amount of flatus yesterday, without relief of the distention. He denies overt abdominal pain. He reports intermittent shortness of breath due to the abdominal pressure. He has chronic COPD. He denies orthostasis, headache, chest pain, dizziness, nausea, vomiting. Past Medical History Cardiac Medical History: Reports: Coronary Artery Disease, Hyperlipidema, Hypertension Pulmonary Medical History: Reports: Chronic Obstructive Pulmonary Disease (COPD) Psychiatric Medical History: Denies: Depression Past Surgical History Past Surgical History: Reports: Orthopedic Surgery - knee, Vascular Surgery - left carotid Social History Smoking Status: Former Smoker Cigarettes Packs Per Day: 0.5 Electronic Cigarette use?: No Number of Years Smokin Last Time Smoked: when he was 31 Frequency of Alcohol Use: Occasional Hx Recreational Drug Use: No Drugs: None Hx Prescription Drug Abuse: No - Advance Directive Resuscitation Status: Full Code Family History Family History: Reviewed & Not Pertinent Parental Family History Reviewed: Yes Children Family History Reviewed: Yes Sibling(s) Family History Reviewed.: Yes Medication/Allergy Home Medications: Alprazolam [Xanax 0.5 mg Tablet] 0.5 mg PO BIDP PRN 11/27/17 Ipratropium/Albuterol Sulfate [Duoneb 3 ml Ampul] 3 ml NEB [id number] PRN 11/27/17 Tamsulosin HCl [Flomax 0.4 mg Cap.sr] 0.8 mg PO QHS 11/27/17 Albuterol Sulfate [Proair Hfa Inhalation Aerosol 8.5 gm Mdi] 2 puff IH QIDP PRN 07/04/20 Cetirizine HCl [Zyrtec 10 mg Tablet] 10 mg PO QHS 07/04/20 Cromolyn Sodium [Nasalcrom Nasal Hostetter] 2 spray NASL 6XD 07/04/20 Terazosin HCl 10 mg PO QHS 07/04/20 Tiotropium Br/Olodaterol HCl [Stiolto Respimat Inhal Hostetter] 2 puff IH BID 07/04/20 Allergies/Adverse Reactions: [place] nut Allergy (Verified 07/04/20 11:55) ciprofloxacin [From Cipro] Allergy (Verified 07/04/20 11:55) ciprofloxacin HCl [From Cipro] Allergy (Verified 07/04/20 11:55) meperidine HCl [From Demerol] Allergy (Verified 07/04/20 11:55) Review of Systems Constitutional: ABSENT: anorexia, chills, fatigue Eyes: ABSENT: visual disturbances Ears: ABSENT: hearing changes Nose, Mouth, and Throat: PRESENT: sore throat - After NG insertion Cardiovascular: ABSENT: chest pain Respiratory: PRESENT: dyspnea - Mild, due to abdominal pressure. ABSENT: cough Gastrointestinal: PRESENT: bloating, hematochezia - Now resolved. ABSENT: abdominal pain, nausea, vomiting Genitourinary: PRESENT: other - Craig in place Musculoskeletal: ABSENT: back pain Integumentary: ABSENT: pruritus, rash Neurological: ABSENT: confusion, convulsions, dizziness Psychiatric: ABSENT: anxiety, depression Endocrine: ABSENT: cold intolerance, heat intolerance Hematologic/Lymphatic: ABSENT: easy bleeding, easy bruising Physical Exam Vital Signs: Temp Pulse Resp BP Pulse Ox 97.5 F 95 18 131/60 H 95 07/08/20 03:48 07/08/20 03:48 07/08/20 03:48 07/08/20 03:48 07/08/20 03:48 Intake & Output 07/06/20 07/07/20 07/08/20 06:59 06:59 06:59 Intake Total 1750 1856 3300 Output Total 377 075 0748 Balance 1423 1006 1525 Weight 86.1 kg 89.4 kg 89 kg General appearance: PRESENT: no acute distress, cooperative Head exam: PRESENT: atraumatic, normocephalic Eye exam: PRESENT: EOMI, PERRLA. ABSENT: scleral icterus Mouth exam: PRESENT: moist, neck supple Neck exam: ABSENT: meningismus, tenderness, thyromegaly, tracheal deviation Respiratory exam: PRESENT: unlabored. ABSENT: tachypnea, wheezes Cardiovascular exam: ABSENT: tachycardia Pulses: PRESENT: normal radial pulses Vascular exam: PRESENT: normal capillary refill GI/Abdominal exam: PRESENT: distended, soft. ABSENT: guarding, hernia, rigid, tenderness Rectal exam: PRESENT: deferred Extremities exam: ABSENT: clubbing Musculoskeletal exam: ABSENT: deformity Neurological exam: PRESENT: alert, awake, oriented to person, oriented to place, oriented to time, oriented to situation Psychiatric exam: ABSENT: agitated, anxious, depressed Focused psych exam: ABSENT: delusional Skin exam: ABSENT: cyanosis, erythema, jaundice Results Laboratory Results: 07/07/20 08:19 07/07/20 08:19 07/07/20 07/07/20 07/07/20 08: 08: 10:02 WBC 5.1 RBC 2.38 L Hgb 8.0 L Hct 22.8 L MCV 96 MCH 33.8 H MCHC 35.1 RDW 13.1 Plt Count 186 Seg Neutrophils % 74.6 Sodium 134.6 L Potassium 4.2 Chloride 104 Carbon Dioxide 26 Anion Gap 5 BUN 13 Creatinine 0.78 Est GFR ( Amer) > 60 Glucose 155 H Lactic Acid 1.1 Calcium 7.3 L Impressions: Abdomen/Pelvis CT 07/07/20 00:00 IMPRESSION: There is significant distention of the small bowel with mucosal thickening and enhancement involving a large portion of the ileum. These findings are concerning for small bowel obstruction which could be due to a stricture or inflammation at the terminal ileum. Adhesions at this area are not fully excluded. KUB X-Ray 07/07/20 00:00 IMPRESSION: Ileus or partial small bowel obstruction. No significant change. Assessment & Plan - Diagnosis (1) Ileus Is this a current diagnosis for this admission?: Yes (2) Rectal bleeding Is this a current diagnosis for this admission?: Yes - Plan Summary Plan Summary: 79-year-old male with persistent abdominal distention after colonoscopy. The patient has a CT scan, which I have reviewed (images and reports). The patient does have a large amount of fluid-filled, dilated small bowel. He also has significant distention of his right and transverse colon. This would be very abnormal in the setting of a small bowel obstruction, although it does not completely rule it out. Continue with NG tube decompression. Repeat KUB today. Ambulate in hallways. Start chewing gum, ice chips, popsicles, and hard candies to stimulate his gastrocolic reflex. Hopefully his symptoms will improve, however if they do not, surgery may be necessary. Surgery will continue to follow with you.
[2020-07-08 07:12] LABS: HEMATOCRIT 22.6 % (37.9-51.0); MEAN CORPUSCULAR HEMOGLOBIN 34.2 pg (27.0-33.4); MEAN CORPUSCULAR HGB CONC 34.8 g/dL (32.0-36.0); MEAN CORPUSCULAR VOLUME 98 fl (80-97); PLATELET COUNT 220 10^3/uL (150-450); RED CELL DISTRIBUTION WIDTH 13.4 % (11.5-14.0); WHITE BLOOD COUNT 4.9 10^3/uL (4.0-10.5)
[2020-07-08 07:37] LABS: ALBUMIN 2.7 g/dL (3.5-5.0); ALKALINE PHOSPHATASE 35 U/L (38-126); ASPARTATE AMINO TRANSFERASE 23 U/L (17-59); BILIRUBIN,TOTAL 0.5 mg/dL (0.2-1.3); BLOOD UREA NITROGEN 11 mg/dL (7-20); CALCIUM 7.4 mg/dL (8.4-10.2); CARBON DIOXIDE 28 mmol/L (22-30); CHLORIDE 105 mmol/L (98-107); GLUCOSE 154 mg/dL (75-110)
[2020-07-08 08:00] LABS: ANION GAP 3 (5-19)
[2020-07-08 08:40] LABS: HEMOGLOBIN 7.9 g/dL (13.5-17.0)
--- NOTE | 2020-07-08 08:52 | PDOC PROGRESS REPORT ---
Subjective Progress Note for:: 07/08/20 Reason For Visit: RECTAL BLEEDING Patient had difficult night; nasogastric tube still draining. Patient reports small amount of flatus. Physical Exam Vital Signs: Temp Pulse Resp BP Pulse Ox 97.3 F 95 20 134/57 H 99 07/08/20 07:39 07/08/20 07:39 07/08/20 07:39 07/08/20 07:39 07/08/20 07:39 Intake & Output 07/07/20 07/08/20 07/09/20 06:59 06:59 06:59 Intake Total 1856 3300 Output Total 850 2425 Balance 1006 875 Weight 89.4 kg 89 kg General appearance: PRESENT: mild distress - Nasogastric tube in position, draining significant watery bilious material GI/Abdominal exam: PRESENT: other - The abdomen is distended, tympanitic; some guarding. Bowel sounds are hypoactive Results Laboratory Results: 07/08/20 06:53 07/08/20 06:53 07/07/20 07/07/20 07/07/20 08:19 08:19 10:02 WBC 5.1 RBC 2.38 L Hgb 8.0 L Hct 22.8 L MCV 96 MCH 33.8 H MCHC 35.1 RDW 13.1 Plt Count 186 Seg Neutrophils % 74.6 Sodium 134.6 L Potassium 4.2 Chloride 104 Carbon Dioxide 26 Anion Gap 5 BUN 13 Creatinine 0.78 Est GFR ( Amer) > 60 Glucose 155 H Lactic Acid 1.1 Calcium 7.3 L Magnesium Total Bilirubin AST Alkaline Phosphatase Total Protein Albumin 07/08/20 07/08/20 07/08/20 06:53 06:53 06:53 WBC 4.9 RBC 2.30 L Hgb 7.9 L Hct 22.6 L MCV 98 H MCH 34.2 H MCHC 34.8 RDW 13.4 Plt Count 220 Seg Neutrophils % Sodium 135.7 L Potassium 4.0 Chloride 105 Carbon Dioxide 28 Anion Gap 3 L BUN 11 Creatinine 0.87 Est GFR ( Amer) > 60 Glucose 154 H Lactic Acid 0.8 Calcium 7.4 L Magnesium 2.3 Total Bilirubin 0.5 AST 23 Alkaline Phosphatase 35 L Total Protein 5.0 L Albumin 2.7 L Impressions: Abdomen/Pelvis CT 07/07/20 00:00 IMPRESSION: There is significant distention of the small bowel with mucosal thickening and enhancement involving a large portion of the ileum. These findings are concerning for small bowel obstruction which could be due to a stricture or inflammation at the terminal ileum. Adhesions at this area are not fully excluded. Assessment & Plan - Diagnosis (1) Ileus Plan: Impression: Persisting ileus despite keeping patient n.p.o., nasogastric decompression IV fluids. Reviewed CT scan of the abdomen with some oral contrast shows no discrete point of mechanical obstruction; no evidence of acidosis, or pennie peritonitis warranting exploration. Recommendations: 1. We will check repeat abdominal film this morning, assess status of contrast 2. Discussed the above with the hospitalist; still holding narcotics and using nonnarcotic analgesics 3. We will continue to follow closely (3) BPH (benign prostatic hyperplasia) Qualifiers: Lower urinary tract symptom presence: symptoms absent Qualified Code(s): N40.0 - Benign prostatic hyperplasia without lower urinary tract symptoms (4) COPD (chronic obstructive pulmonary disease) Qualifiers: COPD type: chronic bronchitis - Time Time Spent: 30 to 50 Minutes Smoking Cessation Education: 3 to 10 minutes Medications reviewed and adjusted accordingly: Yes Anticipated Discharge Disposition: Home, Self Care Anticipated Discharge Timeframe: Be determined
--- NOTE | 2020-07-08 09:25 | RADIOLOGY REPORT (SQ) ---
EXAM DESCRIPTION: KUB/ABDOMEN (SINGLE VIEW) IMAGES COMPLETED DATE/TIME: 07/08/2020 9:02 am REASON FOR STUDY: distention COMPARISON: 07/07/2029 NUMBER OF VIEWS: One view. TECHNIQUE: Supine radiographic image of the abdomen acquired. LIMITATIONS: None. FINDINGS: BOWEL GAS PATTERN: Multiple dilated small bowel loops throughout the central abdomen measu ring up to 5.6 cm. Gas dilated bowel loop within the right lower quadrant, uncertain if small bore l arge intestines. Scattered gas and stool noted throughout the colon. CALCIFICATIONS: No suspicious calcifications. SOFT TISSUES: No gross mass or suggestion of organomegaly. HARDWARE: Cholecystectomy clips. Nasoenteric tube side port at GE junction. Craig catheter present. BONES: No acute fracture. No worrisome bone lesions. Lower lumbar spondylosis. OTHER: Contrast within the urinary bladder. IMPRESSION: 1. Grossly stable dilated small bowel loops throughout the central abdomen measuring up to 5.6 cm suggestive of small bowel obstruction. Gas and stool noted within the colon may suggest p artial or intermittent process. 2. Nasoenteric side port at GE junction. Consider advanced 5/10 cm. TECHNICAL DOCUMENTATION: JOB ID: [id number] 2010 [employer]- All Rights Reserved Reading location - IP/workstation name: [email or web address]
[2020-07-08] MEDS: PANTOPRAZOLE SODIUM 40 MG VIAL IV SCH ×2 (10:04→22:08)
--- NOTE | 2020-07-08 12:53 | PDOC PROGRESS REPORT ---
Subjective Progress Note for:: 07/08/20 Subjective:: DEE DUDLEY II is a 79 year old male past medical history of COPD, on 2 L nasal cannula, internal hemorrhoids, BPH, presenting to ED complaining of multiple episodes of bloody bowel movements since Wednesday, before that patient had noticed tarry stool but never had hematochezia before, patient used to have colonic polyps and has had several colonoscopies in the past, last colonoscopy was 5 years ago and he was told that he had internal hemorrhoids, patient re cently visited ED but was sent home to follow-up with gastroenterology, today he went to see Dr. Marrero jigsaw operator and he was sent to ED immediately. Patient denies any history of gastric intestinal malignancy, NSAID abuse, nosebleed, hematemesis, hemoptysis or hematuria. Recently patient has been getting weaker and has noticed that he gets short of breath upon exertion, denies any fever, abdominal pain, chest pain, nausea, diarrhea, or urinary symptoms. In ED was noted to have guaiac positive stool and Dr. Marrero jigsaw operator was contacted and he suggested for patient to be admitted and he will scope him once he is stable. 07/05/2020. Patient has been having hematochezia since admission, hemoglobin has dropped to 9.2 however patient is still alert and oriented in no apparent distress and resting in bed does report dyspnea on exertion, patient is planned to have colonoscopy this afternoon by Dr. Marrero jigsaw operator, has any chest pain, shortness of breath, nausea, vomiting, fever, chills or any urinary symptoms. 07/06/2020. Unfortunately patient has developed ileus, has abdominal distention and is not passing flatus, patient does have chronic abdominal pain which she says has not changed since admission, a KUB shows small bowel obstruction, I have contacted her surgical team talk to Dr. Michael who said that since patient is not having any acute abdomen we can observe him and if he gets worse we can consult him and I will be more than happy to see him. Patient denies any nausea, vomiting, fever, chills, shortness of breath or any urinary symptoms. 07/07/2020. No acute events overnight. Patient receiving up in distress, unfortunately patient still has distended abdomen and is not passing flatus has not had any bowel movement, abdominal pain is unchanged from yesterday, notes patient has chronic abdominal pain, denies any fever, chills, nausea, vomiting. 07/08/2020. No acute events overnight. Starting yesterday evening patient is passing some flatus however still not had any bowel movement, KUB does not show any significant changes, otherwise patient is having stable vitals, abdominal pain is unchanged compared to yesterday. Denies any fever, chills, nausea, vomiting. NG tube in. Reason For Visit: RECTAL BLEEDING Physical Exam Vital Signs: Temp Pulse Resp BP Pulse Ox 98.1 F 94 15 142/60 H 97 07/08/20 12:07 07/08/20 12:07 07/08/20 12:07 07/08/20 12:07 07/08/20 12:07 Intake & Output 07/07/20 07/08/20 07/09/20 06:59 06:59 06:59 Intake Total 1856 4010 1086 Output Total 850 3325 Balance 3823 037 6808 Weight 89.4 kg 89 kg General appearance: PRESENT: no acute distress, well-developed, well-nourished Head exam: PRESENT: atraumatic, normocephalic Respiratory exam: PRESENT: clear to auscultation sudha. ABSENT: rales, rhonchi, wheezes Cardiovascular exam: PRESENT: RRR. ABSENT: diastolic murmur, rubs, systolic murmur GI/Abdominal exam: PRESENT: diminished bowel sounds, distended, normal bowel sounds, soft. ABSENT: guarding, mass, organolmegaly, rebound, tenderness Neurological exam: PRESENT: alert, awake, oriented to person, oriented to place, oriented to time, oriented to situation, CN II-XII grossly intact. ABSENT: motor sensory deficit Results Laboratory Results: 07/08/20 06:53 07/08/20 06:53 07/08/20 07/08/20 07/08/20 06:53 06:53 06:53 WBC 4.9 RBC 2.30 L Hgb 7.9 L Hct 22.6 L MCV 98 H MCH 34.2 H MCHC 34.8 RDW 13.4 Plt Count 220 Sodium 135.7 L Potassium 4.0 Chloride 105 Carbon Dioxide 28 Anion Gap 3 L BUN 11 Creatinine 0.87 Est GFR ( Amer) > 60 Glucose 154 H Lactic Acid 0.8 Calcium 7.4 L Magnesium 2.3 Total Bilirubin 0.5 AST 23 Alkaline Phosphatase 35 L Total Protein 5.0 L Albumin 2.7 L Impressions: Abdomen/Pelvis CT 07/07/20 00:00 IMPRESSION: There is significant distention of the small bowel with mucosal thickening and enhancement involving a large portion of the ileum. These findings are concerning for small bowel obstruction which could be due to a stricture or inflammation at the terminal ileum. Adhesions at this area are not fully excluded. KUB X-Ray 07/08/20 00:00 IMPRESSION: 1. Grossly stable dilated small bowel loops throughout the central abdomen measuring up to 5.6 cm suggestive of small bowel obstruction. Gas and stool noted within the colon may suggest partial or intermittent process. 2. Nasoenteric side port at GE junction. Consider advanced 5/10 cm. Assessment and Plan - Diagnosis (1) Ileus Is this a current diagnosis for this admission?: Yes Plan: Not sure if this is ileus due to anesthetic receiving during colonoscopy. Electrolytes are WNL. KUB shows small bowel obstruction., No air under the diaphragm. Patient has chronic abdominal pain which he states has not changed since admission. NG tube in place, 700 residual suction, will monitor for now and consult surgery if his status changes. Surgery consulted. Recommendations noted. (2) Hematochezia Is this a current diagnosis for this admission?: Yes Plan: Status post colonoscopy on 07/06/2020. Patient noted to have diverticulosis which may have been the cause of bleeding however it was not bleeding at the time of colonoscopy. No hemorrhoidal bleed was noted. Hemoglobin is stable. Denies any chest pain or lightheadedness. Alert and oriented x3. Denies any history of gastric malignancy. Last colonoscopy 5 years ago was negative for any malignancy, was positive for internal hemorrhoids. Continue telemetry, monitor H&H, monitor vitals, aggressive volume restriction guided by volume status, supportive transfusions If hematochezia recurs we would have to transfer to tertiary center as per gastroenterology recommendation. (3) COPD (chronic obstructive pulmonary disease) Qualifiers: COPD type: chronic bronchitis Is this a current diagnosis for this admission?: Yes Plan: History of oxygen dependent COPD. On 2 L nasal cannula. Does not seem to be acutely exacerbated. Resume home meds. DuoNebs as needed, supplemental oxygen, BiPAP as needed. Outpatient PCP and pulmonology follow-up. (4) BPH (benign prostatic hyperplasia) Qualifiers: Lower urinary tract symptom presence: symptoms absent Qualified Code(s): N40.0 - Benign prostatic hyperplasia without lower urinary tract symptoms Is this a current diagnosis for this admission?: Yes Plan: Takes tamsulosin at home. Resume home meds. (5) Anxiety Is this a current diagnosis for this admission?: Yes Plan: Takes alprazolam at home. Resume home meds. - Time Time Spent with patient: 25-34 minutes Medications reviewed and adjusted accordingly: Yes Anticipated Discharge Disposition: Home, Self Care Anticipated Discharge Timeframe: within 72 hours
[2020-07-08] MEDS: ACETAMINOPHEN 1,000 MG/100 ML RTUPB IV SCH ×2 (14:21→22:05)
[2020-07-08] MEDS: DOXAZOSIN MESYLATE 4 MG TABLET PO SCH (22:04)
[2020-07-08] MEDS: CETIRIZINE 10 MG TABLET PO SCH (22:04)
[2020-07-08] MEDS: TAMSULOSIN HCL 0.4 MG CAP.SR.24H PO SCH (22:04)
[2020-07-09] MEDS: IPRATROPIUM/ALBUTEROL 0.5-2.5 MG/3 ML AMPUL NEB PRN ×2 (02:19→10:27)
[2020-07-09] MEDS: ACETAMINOPHEN 1,000 MG/100 ML RTUPB IV SCH (06:00)
[2020-07-09] MEDS: DEXTROSE 5%-NORMAL SALINE 1,000 ML IV PRN (06:00)
[2020-07-09 07:02] LABS: HEMATOCRIT 19.8 % (37.9-51.0); MEAN CORPUSCULAR HEMOGLOBIN 34.1 pg (27.0-33.4); MEAN CORPUSCULAR HGB CONC 35.7 g/dL (32.0-36.0); MEAN CORPUSCULAR VOLUME 96 fl (80-97); PLATELET COUNT 220 10^3/uL (150-450); RED BLOOD COUNT 2.07 10^6/uL (4.35-5.55); RED CELL DISTRIBUTION WIDTH 13.3 % (11.5-14.0); WHITE BLOOD COUNT 5.7 10^3/uL (4.0-10.5)
[2020-07-09 07:05] LABS: HEMOGLOBIN 7.1 g/dL (13.5-17.0)
[2020-07-09 07:29] LABS: ALBUMIN 2.5 g/dL (3.5-5.0); ALKALINE PHOSPHATASE 36 U/L (38-126); ASPARTATE AMINO TRANSFERASE 23 U/L (17-59); BILIRUBIN,TOTAL 0.4 mg/dL (0.2-1.3); BLOOD UREA NITROGEN 14 mg/dL (7-20); CALCIUM 7.3 mg/dL (8.4-10.2); CHLORIDE 109 mmol/L (98-107); GLUCOSE 127 mg/dL (75-110); POTASSIUM 3.4 mmol/L (3.6-5.0); TOTAL PROTEIN 4.7 g/dL (6.3-8.2)
[2020-07-09 07:35] LABS: CARBON DIOXIDE 25 mmol/L (22-30)
[2020-07-09 07:43] LABS: ANION GAP 3 (5-19)
[2020-07-09] MEDS ORDERED: FUROSEMIDE INJ/PF 40 MG/4 ML SDV IV PRN (08:17)
[2020-07-09] MEDS ORDERED: NORMAL SALINE 250 ML IV PRN ×2 (08:17)
[2020-07-09] MEDS ORDERED: DIPHENHYDRAMINE HCL 25 MG CAPSULE PO PRN (08:17)
[2020-07-09] MEDS: PANTOPRAZOLE SODIUM 40 MG VIAL IV SCH ×2 (09:07→21:27)
--- NOTE | 2020-07-09 09:45 | PDOC PROGRESS REPORT ---
Subjective Progress Note for:: 07/09/20 Subjective:: c/o abd pain has not passed any flatus Reason For Visit: RECTAL BLEEDING Physical Exam Vital Signs: Temp Pulse Resp BP Pulse Ox 98.0 F 90 17 138/61 H 99 07/09/20 08:01 07/09/20 08:01 07/09/20 08:01 07/09/20 08:01 07/09/20 08:01 Intake & Output 07/08/20 07/09/20 07/10/20 06:59 06:59 06:59 Intake Total 4010 3436 Output Total 3325 775 1250 Balance 685 1421 -1250 Weight 89 kg 82.7 kg General appearance: PRESENT: mild distress Head exam: PRESENT: normocephalic Eye exam: PRESENT: EOMI Ear exam: PRESENT: normal external ear exam Mouth exam: PRESENT: moist Teeth exam: PRESENT: poor dentation Neck exam: PRESENT: full ROM Respiratory exam: PRESENT: rhonchi Cardiovascular exam: PRESENT: RRR Pulses: PRESENT: +1 pedal pulses bilateral Breast: PRESENT: Normal GI/Abdominal exam: PRESENT: other - abd markedly distended, tymanitic, tender diffulsey to palpation mild rebound tenderness. Rectal exam: PRESENT: deferred Gentrourinary exam: PRESENT: indwelling catheter Extremities exam: PRESENT: full ROM Musculoskeletal exam: PRESENT: full ROM Neurological exam: PRESENT: alert, awake, oriented to person, oriented to place Psychiatric exam: PRESENT: appropriate affect Skin exam: PRESENT: dry Results Laboratory Results: 07/09/20 06:41 07/09/20 06:41 07/09/20 07/09/20 06:41 06:41 WBC 5.7 RBC 2.07 L Hgb 7.1 L Hct 19.8 L MCV 96 MCH 34.1 H MCHC 35.7 RDW 13.3 Plt Count 220 Sodium 137.2 Potassium 3.4 L Chloride 109 H Carbon Dioxide 25 Anion Gap 3 L BUN 14 Creatinine 0.79 Est GFR ( Amer) > 60 Glucose 127 H Calcium 7.3 L Magnesium 2.4 H Total Bilirubin 0.4 AST 23 Alkaline Phosphatase 36 L Total Protein 4.7 L Albumin 2.5 L Impressions: Abdomen/Pelvis CT 07/07/20 00:00 IMPRESSION: There is significant distention of the small bowel with mucosal thickening and enhancement involving a large portion of the ileum. These findings are concerning for small bowel obstruction which could be due to a stricture or inflammation at the terminal ileum. Adhesions at this area are not fully excluded. KUB X-Ray 07/08/20 00:00 IMPRESSION: 1. Grossly stable dilated small bowel loops throughout the central abdomen measuring up to 5.6 cm suggestive of small bowel obstruction. Gas and stool noted within the colon may suggest partial or intermittent process. 2. Nasoenteric side port at GE junction. Consider advanced 5/10 cm. Assessment & Plan - Time Time Spent: 50 to 70 Minutes Critical Time spent with patient: 25-34 minutes Medications reviewed and adjusted accordingly: No Anticipated Discharge Disposition: unk Anticipated Discharge Timeframe: unk - Plan Summary Plan Summary: Patient is status post a colonoscopy for lower GI bleed likely secondary to diverticulosis. He is slowly continue to drop his hematocrit throughout the last 4 days while he has been in the hospital. Patient has been admitted after his colonoscopy 4 days ago for abdominal distention and inability to pass flatus. He has been treated with an NG tube and medical treatment for a ileus versus small bowel obstruction. Recent CT scan and KUB shows thickening of the terminal ileum may be due to stricture or ischemic process with secondary stricture in addition to that the colon has gas within it however he has severe diverticulosis throughout the entire colon seen on CT scan and there is some mild thickening. This morning patient's abdomen remains markedly distended and tympanitic and tender to palpation with some mild rebound. Patient requires at this point an exploratory laparotomy with possible colonic resection versus lysis of adhesions for his small bowel obstruction however at this point with an NG tube in place patient refuses any further surgical intervention at this time.
[2020-07-09] MEDS ORDERED: ACETAMINOPHEN SOLN 325 MG/10.15 ML UDCUP PO ONE (10:45)
[2020-07-09] MEDS ORDERED: VANCOMYCIN HCL 0 MG in DEXTROSE 5%-WATER 250 ML IV NR (10:45)
[2020-07-09] MEDS ORDERED: BUPIVACAINE INJ/PF LIPOSOME/PF 266 MG/20 ML SDV ONE (12:20)
[2020-07-09] MEDS ORDERED: EPHEDRINE SULFATE INJ 50 MG/1 ML AMPULE ONE (12:27)
[2020-07-09] MEDS ORDERED: FENTANYL CITRATE INJ/PF 250 MCG/5 ML AMPULE ONE (12:27)
[2020-07-09] MEDS ORDERED: PROPOFOL INJ 200 MG/20 ML VIAL IV ONE (12:27)
[2020-07-09] MEDS ORDERED: MIDAZOLAM 2 MG/2 ML INJ ONE (12:27)
[2020-07-09] MEDS ORDERED: IPRATROPIUM/ALBUTEROL 0.5-2.5 MG/3 ML AMPUL NEB ONE (13:45)
[2020-07-09] MEDS ORDERED: IPRATROPIUM/ALBUTEROL 0.5-2.5 MG/3 ML AMPUL NEB SCH (14:00)
[2020-07-09] MEDS ORDERED: METRONIDAZOLE 500 MG/NS RTU 500 MG/100 ML RTUPB IV ONE (14:49)
[2020-07-09] MEDS ORDERED: CEFAZOLIN INJ 1 GM VIAL ONE (14:49)
[2020-07-09] MEDS ORDERED: VASOPRESSIN INJ 20 UNIT/1 ML VIAL ONE ×2 (15:10→16:57)
[2020-07-09] MEDS ORDERED: SUGAMMADEX SODIUM 200 MG/2 ML SDV IV ONE (15:24)
[2020-07-09] MEDS ORDERED: ROCURONIUM BROMIDE INJ 50 MG/5 ML VIAL IV ONE (15:26)
[2020-07-09] MEDS ORDERED: SUCCINYLCHOLINE CHLORIDE INJ 200 MG/10 ML VIAL ONE (15:26)
[2020-07-09] MEDS ORDERED: FENTANYL CITRATE INJ/PF 100 MCG/2 ML AMPUL ONE ×3 (16:43→23:23)
--- NOTE | 2020-07-09 16:49 | PDOC PROGRESS REPORT ---
Subjective Progress Note for:: 07/09/20 Subjective:: DEE DUDLEY II is a 79 year old male past medical history of COPD, on 2 L nasal cannula, internal hemorrhoids, BPH, presenting to ED complaining of multiple episodes of bloody bowel movements since Wednesday, before that patient had noticed tarry stool but never had hematochezia before, patient used to have colonic polyps and has had several colonoscopies in the past, last colonoscopy was 5 years ago and he was told that he had internal hemorrhoids, patient re cently visited ED but was sent home to follow-up with gastroenterology, today he went to see Dr. Marrero lawn service manager and he was sent to ED immediately. Patient denies any history of gastric intestinal malignancy, NSAID abuse, nosebleed, hematemesis, hemoptysis or hematuria. Recently patient has been getting weaker and has noticed that he gets short of breath upon exertion, denies any fever, abdominal pain, chest pain, nausea, diarrhea, or urinary symptoms. In ED was noted to have guaiac positive stool and Dr. Marrero lawn service manager was contacted and he suggested for patient to be admitted and he will scope him once he is stable. 07/05/2020. Patient has been having hematochezia since admission, hemoglobin has dropped to 9.2 however patient is still alert and oriented in no apparent distress and resting in bed does report dyspnea on exertion, patient is planned to have colonoscopy this afternoon by Dr. Marrero lawn service manager, has any chest pain, shortness of breath, nausea, vomiting, fever, chills or any urinary symptoms. 07/06/2020. Unfortunately patient has developed ileus, has abdominal distention and is not passing flatus, patient does have chronic abdominal pain which she says has not changed since admission, a KUB shows small bowel obstruction, I have contacted her surgical team talk to Dr. Michael who said that since patient is not having any acute abdomen we can observe him and if he gets worse we can consult him and I will be more than happy to see him. Patient denies any nausea, vomiting, fever, chills, shortness of breath or any urinary symptoms. 07/07/2020. No acute events overnight. Patient receiving up in distress, unfortunately patient still has distended abdomen and is not passing flatus has not had any bowel movement, abdominal pain is unchanged from yesterday, notes patient has chronic abdominal pain, denies any fever, chills, nausea, vomiting. 07/08/2020. No acute events overnight. Starting yesterday evening patient is passing some flatus however still not had any bowel movement, KUB does not show any significant changes, otherwise patient is having stable vitals, abdominal pain is unchanged compared to yesterday. Denies any fever, chills, nausea, vomiting. NG tube in. 07/09/2020. Saw patient this morning, unfortunately patient is still passing minimal flatus and has not had any bowel movement, abdominal distention is ge tting worse and patient reporting worsening of his pain, patient also noted to be having low-grade fever, based on CT abdomen on 07/07/2020 finding are concerning for small bowel obstruction. Dr. Hunter is recommending exploratory colostomy and family and patient has agreed to it. Patient denies a ny chest pain, nausea, vomiting. NG tube in place. Reason For Visit: RECTAL BLEEDING Physical Exam Vital Signs: Temp Pulse Resp BP Pulse Ox 100.0 F 121 H 26 H 141/61 H 97 07/09/20 11:43 07/09/20 11:39 07/09/20 11:39 07/09/20 11:39 07/09/20 16:21 Intake & Output 07/08/20 07/09/20 07/10/20 06:59 06:59 06:59 Intake Total 4010 3436 0 Output Total 3325 775 1250 Balance 685 2661 -1250 Weight 89 kg 82.7 kg General appearance: PRESENT: no acute distress, mild distress, well-developed, well-nourished Head exam: PRESENT: atraumatic, normocephalic Respiratory exam: PRESENT: clear to auscultation sudha. ABSENT: rales, rhonchi, wheezes Cardiovascular exam: PRESENT: RRR. ABSENT: diastolic murmur, rubs, systolic murmur GI/Abdominal exam: PRESENT: ascites, diminished bowel sounds, guarding, tenderness Neurological exam: PRESENT: alert, awake, oriented to person, oriented to place, oriented to time, oriented to situation, CN II-XII grossly intact. ABSENT: motor sensory deficit Results Laboratory Results: 07/09/20 06:41 07/09/20 06:41 07/09/20 07/09/20 07/09/20 06:41 06:41 09:20 WBC 5.7 RBC 2.07 L Hgb 7.1 L Hct 19.8 L MCV 96 MCH 34.1 H MCHC 35.7 RDW 13.3 Plt Count 220 Sodium 137.2 Potassium 3.4 L Chloride 109 H Carbon Dioxide 25 Anion Gap 3 L BUN 14 Creatinine 0.79 Est GFR ( Amer) > 60 Glucose 127 H Calcium 7.3 L Magnesium 2.4 H Total Bilirubin 0.4 AST 23 Alkaline Phosphatase 36 L Total Protein 4.7 L Albumin 2.5 L Blood Type O POSITIVE Antibody Screen NEGATIVE Impressions: Abdomen/Pelvis CT 07/07/20 00:00 IMPRESSION: There is significant distention of the small bowel with mucosal thickening and enhancement involving a large portion of the ileum. These findings are concerning for small bowel obstruction which could be due to a stricture or inflammation at the terminal ileum. Adhesions at this area are not fully excluded. KUB X-Ray 07/08/20 00:00 IMPRESSION: 1. Grossly stable dilated small bowel loops throughout the central abdomen measuring up to 5.6 cm suggestive of small bowel obstruction. Gas and stool noted within the colon may suggest partial or intermittent process. 2. Nasoenteric side port at GE junction. Consider advanced 5/10 cm. Assessment and Plan - Diagnosis (1) Ileus Is this a current diagnosis for this admission?: Yes Plan: Patient having worsening distention and pain. Based on CT abdomen on 07/17/2020 findings are concerning for small bowel obstruction. Electrolytes are WNL. KUB shows small bowel obstruction., No air under the diaphragm. Patient has chronic abdominal pain which he states has been worsening since yesterday. NG tube in place. Surgery is recommending exploratory laparotomy and family and patient has agreed to undergo exploratory laparotomy. Please refer to surgery note. (2) COPD (chronic obstructive pulmonary disease) Qualifiers: COPD type: chronic bronchitis Is this a current diagnosis for this admission?: Yes Plan: History of oxygen dependent COPD. On 2 L nasal cannula. Does not seem to be acutely exacerbated. Resume home meds. DuoNebs as needed, supplemental oxygen, BiPAP as needed. Outpatient PCP and pulmonology follow-up. (3) Hematochezia Is this a current diagnosis for this admission?: Yes Plan: Hemoglobin is 7.1 today, status post 2 PRBC transfusion. Status post colonoscopy on 07/06/2020. Patient noted to have diverticulosis which may have been the cause of bleeding however it was not bleeding at the time of colonoscopy. No hemorrhoidal bleed was noted. Hemoglobin is stable. Denies any chest pain or lightheadedness. Alert and oriented x3. Denies any history of gastric malignancy. Last colonoscopy 5 years ago was negative for any malignancy, was positive for internal hemorrhoids. Continue telemetry, monitor H&H, monitor vitals, aggressive volume restriction guided by volume status, supportive transfusions If hematochezia recurs we would have to transfer to tertiary center as per gastroenterology recommendation. (4) BPH (benign prostatic hyperplasia) Qualifiers: Lower urinary tract symptom presence: symptoms absent Qualified Code(s): N40.0 - Benign prostatic hyperplasia without lower urinary tract symptoms Is this a current diagnosis for this admission?: Yes Plan: Takes tamsulosin at home. Resume home meds. (5) Anxiety Is this a current diagnosis for this admission?: Yes Plan: Takes alprazolam at home. Resume home meds. - Time Time Spent with patient: 35 or more minutes Medications reviewed and adjusted accordingly: Yes Anticipated Discharge Disposition: Home with Home Health Anticipated Discharge Timeframe: within 72 hours
[2020-07-09] MEDS ORDERED: NOREPINEPHRINE BITARTRATE INJ/PF 4 MG/4 ML SDV IV ONE (16:55)
[2020-07-09] MEDS: DEXTROSE 5%-WATER 250 ML with NOREPINEPHRINE BITARTRATE 4 MG IV PRN ×2 (17:01)
[2020-07-09 17:31] LABS: ARTERIAL BLOOD BASE EXCESS -5.6 mmol/L; ARTERIAL BLOOD H2CO3 1.32 mmol/L (1.05-1.35); ARTERIAL BLOOD HCO3 20.7 mmol/L (20-24); ARTERIAL BLOOD O2 SATURATION 91.2 % (94-98); ARTERIAL BLOOD PH 7.29 (7.35-7.45); ARTERIAL BLOOD TOTAL CO2 22.1 mmol/L (23-27)
[2020-07-09 17:33] LABS: ARTERIAL BLOOD FIO2 40%
[2020-07-09 18:00] LABS: HEMATOCRIT 23.8 % (37.9-51.0); MEAN CORPUSCULAR HEMOGLOBIN 32.5 pg (27.0-33.4); MEAN CORPUSCULAR HGB CONC 33.7 g/dL (32.0-36.0); MEAN CORPUSCULAR VOLUME 96 fl (80-97); PLATELET COUNT 171 10^3/uL (150-450); RED BLOOD COUNT 2.47 10^6/uL (4.35-5.55); RED CELL DISTRIBUTION WIDTH 14.6 % (11.5-14.0)
[2020-07-09] MEDS ORDERED: ALBUMIN HUMAN 500 ML IV ONE (18:00)
[2020-07-09] MEDS ORDERED: SODIUM BICARBONATE 8.4% INJ 50 MEQ/50 ML DISP.SYRIN ONE (18:03)
[2020-07-09 18:31] LABS: ABSOLUTE LYMPHOCYTES# (MANUAL) 0.1 10^3/uL (0.5-4.7); ABSOLUTE MONOCYTES # (MANUAL) 0.3 10^3/uL (0.1-1.4); BAND NEUTROPHILS % (MANUAL) 5 % (3-5); BASOPHILS % (MANUAL) 0 % (0-2); EOSINOPHILS % (MANUAL) 0 % (0-6); LYMPHOCYTES % (MANUAL) 4 % (13-45); MONOCYTES % (MANUAL) 12 % (3-13); NUCLEATED RED BLOOD CELLS 2 /100 WBC (0); SEGMENTED NEUTROPHILS % (MAN) 79 % (42-78); TOTAL CELLS COUNTED 100
[2020-07-09 18:32] LABS: ANISOCYTOSIS SLIGHT; PLATELET COMMENT ADEQUATE; POLYCHROMASIA 1+; WHITE BLOOD COUNT 2.6 10^3/uL (4.0-10.5)
[2020-07-09 18:37] LABS: VENOUS BLOOD BASE EXCESS -2.9 mmol/L; VENOUS BLOOD HCO3 23.6 mmol/L (20-32); VENOUS BLOOD PCO2 50.3 mmHg (35-63); VENOUS BLOOD PH 7.29 (7.30-7.42)
[2020-07-09 18:46] LABS: ALBUMIN 1.8 g/dL (3.5-5.0); ALKALINE PHOSPHATASE 26 U/L (38-126); ASPARTATE AMINO TRANSFERASE 22 U/L (17-59); BILIRUBIN,DIRECT 0.6 mg/dL (0.0-0.4); BILIRUBIN,TOTAL 1.3 mg/dL (0.2-1.3); BLOOD UREA NITROGEN 16 mg/dL (7-20); CARBON DIOXIDE 22 mmol/L (22-30); GLUCOSE 91 mg/dL (75-110); POTASSIUM 3.1 mmol/L (3.6-5.0); TOTAL PROTEIN 3.6 g/dL (6.3-8.2)
[2020-07-09 18:51] LABS: CHLORIDE 114 mmol/L (98-107)
[2020-07-09 18:54] LABS: ANION GAP 2 (5-19)
[2020-07-09 18:56] LABS: CALCIUM 6.5 mg/dL (8.4-10.2)
[2020-07-09] MEDS ORDERED: SODIUM BICARBONATE 8.4% INJ 50 MEQ/50 ML DISP.SYRIN IV ONE (19:00)
--- NOTE | 2020-07-09 19:45 | Operative Report ---
Nonrecallable Operative Report DATE OF SURGERY: 07/09/20 PREOPERATIVE DIAGNOSIS: Acute abdomen small bowel obstruction POSTOPERATIVE DIAGNOSIS: Perforated cecum hagan diverticulosis OPERATION: Exploratory laparotomy with subtotal colectomy SURGEON: NAOMI MONTALVO 1ST BOX CHIPPER: DESTINI GABRIEL ANESTHESIA: GA TISSUE REMOVED OR ALTERED: Subtotal colectomy COMPLICATIONS: None ESTIMATED BLOOD LOSS: 400 cc INTRAOPERATIVE FINDINGS: Markedly distended colon with pandiverticulosis perforated cecum PROCEDURE: Patient was brought to the operating awake alert critical condition placed on the operative in supine position induced under general anesthesia and intubated. After intubation a the right neck was prepped and draped in usual sterile fashion. A right internal jugular vein stick was made with a 16-gauge needle and through the needle a J-wire was placed into the superior vena cava. A small chandrika in the skin was made the dilator was utilized over the wire and then over the wire the triple-lumen catheter was placed into the superior vena cava fixed in place with 2-0 nylon suture. The abdomen was then prepped and draped in usual sterile fashion. Midline incision was made with a 15 blade dissection was carried down through subcutaneous tissue with Bovie cautery the midline fascia was entered. Upon entering the midline fascia the small bowel was eviscerated was markedly distended we first turned attention to the right colon and as we lifted the anterior abdominal wall away from the cecum there was a obvious perforation of the cecum that was fixing itself up to the anterior abdominal wall as we lifted the abdominal wall away a large amount of stool and fecal material emanated from the hole in the cecum it appeared that the wall was necrotic. Examination of the rest of the colon revealed pandiverticulosis with multiple diverticuli filled with blood and fecal material. The patient had a preoperative diagnosis of colonic bleeding and we could not identify a source in addition to that the right colon was markedly distended and dilated and the left colon and sigmoid colon were markedly tortuous and and strictured at the mid sigmoid colon secondary to previous history of diverticulitis. For this reason I made a decision to perform a subtotal colectomy. A point was picked on the distal sigmoid colon about 30 cm above the levator muscles where we came across the distal sigmoid colon with 1 firing of the Endo BARBI stapler with a blue load. We then mobilized the right colon along the white line of [place] came across the terminal ileum with 1 firing of the Endo BARBI stapler with a blue load. I then mobilized the right colon along the white line of [place] with Bovie cautery continue this across the hepatic flexure with Bovie cautery we mobilized the omentum away from the colon with the LigaSure device the splenic flexure was also mobilized with Bovie cautery and the left colon and descending colon were mobilized with Bovie cautery along the white line of [place]. Once it was entirely mobilized we came across the colonic mesentery with serial firings of the LigaSure device. Small vessels were controlled with [id number] suture 2-0 silk. Once this was accomplished we were able to remove the specimen. The abdominal cavity was then copiously irrigated with normal saline suctioned dry since we had a previous feculent leak. After returning clear effluent from irrigation and no further evidence of any small bleeders we elected to perform the ileostomy. A small skin wheal was taken on the right abdominal wall just lateral to the umbilicus and 1 cm inferior to it with the skin being excised with Bovie cautery. We carried our dissection down through the rectus muscle and a stellate incision was made in the anterior and posterior rectus sheath the terminal ileum was then brought through. We then closed the midline fascia with double looped 0 PDS suture. And closed the skin with standard skin clips. We matured the ileostomy in the right abdominal wall with interrupted placed 3-0 Vicryl sutures and a sterile colostomy appliance was applied. A sterile dressing was then also applied. Estimated blood loss for the procedure was 400 cc sponge needle counts were correct x2. Patient remained intubated and was transferred to the intensive care unit in stable condition. IDANIA Zamarripa was present for the entire operation for help with wound retraction wound closure.
[2020-07-09] MEDS: IPRATROPIUM/ALBUTEROL 0.5-2.5 MG/3 ML AMPUL NEB SCH (20:12)
--- NOTE | 2020-07-09 20:35 | CRITICAL CARE ADMISSION REPORT ---
HPI Date:: 07/09/20 Time:: 18:20 Reason for ICU Reason:: Postanesthesia care; postoperative hypotension; endotracheal intubation Admission Date/Time & PCP: Admission Date/Time: 07/04/20 19:08 Primary Care Provider: HPI: This 79-year-old male reformed smoker is seen in consultation at the request of Dr. David Hunter for recommendations on further evaluation and management of postanesthesia care. The patient is seen in the intensive care unit after returning from the operating theater, where he underwent total colectomy and ileostomy. At the time of clinical interview, the patient is clearly still under the effects of general anesthesia. He was admitted on 07/04/2020, when he presented to [facility] emergency department with complaints of multiple episodes of bloody stools. He had previously experienced tarry stools/melena but had never previously experienced hematochezia, which was his presenting complaint. He apparently had seen Dr. Marrero earlier in the day for colonoscopy (evaluation for lower GI bleed) and was advised to immediately present to the emergency department. During his hospitalization, he had progressively worsening abdominal distention and ultimately developed inability to pass flatus. Decision was made to go to the operating theater for exploratory laparotomy. History obtained from:: Discussion with Dr. Hunter - Diagnosis/Plan (1) Encounter for postanesthesia care Is this a current diagnosis for this admission?: Yes Plan: Close neurologic monitoring. Postoperative pain control. CVP monitoring. (2) Shock due to anesthesia, initial encounter Is this a current diagnosis for this admission?: Yes Plan: Likely due to derangement of acid-base status during general anesthesia. May also have a component secondary to abdominal sepsis. Titrate ventilator settings based on ABG results. Norepinephrine/vasopressin as needed. Sodium bicarbonate supplementation, as needed. CVP monitoring. Check lactate. Increase cefepime to 2 g IV every 12 hours. Start Flagyl. Continue vancomycin. (3) Endotracheally intubated Is this a current diagnosis for this admission?: Yes Plan: TItrate vent settings based on ABG results. Propofol/fentanyl for sedation, once out of anesthesia. (4) Acute on chronic blood loss anemia Is this a current diagnosis for this admission?: Yes Plan: Transfusion ordered by Dr. Hunter. (5) Hypokalemia Is this a current diagnosis for this admission?: Yes Plan: Replete. (6) COPD (chronic obstructive pulmonary disease) Qualifiers: COPD type: chronic bronchitis Is this a current diagnosis for this admission?: Yes Plan: DuoNeb/Pulmicort and albuterol as needed (7) Hematochezia Is this a current diagnosis for this admission?: Yes Plan: Status post total colectomy and ileostomy (8) COVID-19 ruled out by laboratory testing Is this a current diagnosis for this admission?: Yes Past Medical History Cardiac Medical History: Reports: Coronary Artery Disease, Hyperlipidema, Hypertension Pulmonary Medical History: Reports: Chronic Obstructive Pulmonary Disease (COPD) Psychiatric Medical History: Denies: Depression Past Surgical History Past Surgical History: Reports: Orthopedic Surgery - knee, Vascular Surgery - left carotid Social/Family History - Social History Smoking Status: Former Smoker Cigarettes Packs Per Day: 0.5 Number of Years Smokin Last Time Smoked: when he was 31 Frequency of Alcohol Use: Occasional Hx Recreational Drug Use: No Drugs: None Hx Prescription Drug Abuse: No - Medication/Allergies Home Medications: Alprazolam [Xanax 0.5 mg Tablet] 0.5 mg PO BIDP PRN 11/27/17 Ipratropium/Albuterol Sulfate [Duoneb 3 ml Ampul] 3 ml NEB [id number] PRN 11/27/17 Tamsulosin HCl [Flomax 0.4 mg Cap.sr] 0.8 mg PO QHS 11/27/17 Albuterol Sulfate [Proair Hfa Inhalation Aerosol 8.5 gm Mdi] 2 puff IH QIDP PRN 07/04/20 Cetirizine HCl [Zyrtec 10 mg Tablet] 10 mg PO QHS 07/04/20 Cromolyn Sodium [Nasalcrom Nasal [place]] 2 spray NASL 6XD 07/04/20 Terazosin HCl 10 mg PO QHS 07/04/20 Tiotropium Br/Olodaterol HCl [Stiolto Respimat Inhal [place]] 2 puff IH BID 07/04/20 Allergies/Adverse Reactions: [place] nut Allergy (Verified 07/04/20 11:55) ciprofloxacin [From Cipro] Allergy (Verified 07/04/20 11:55) ciprofloxacin HCl [From Cipro] Allergy (Verified 07/04/20 11:55) meperidine HCl [From Demerol] Allergy (Verified 07/04/20 11:55) Review of Systems ROS unobtainable: Due to endotracheal tube, Due to mental status Physical Exam Vital Signs: Temp Pulse Resp BP Pulse Ox 100.0 F 121 H 26 H 141/61 H 97 07/09/20 11:43 07/09/20 11:39 07/09/20 11:39 07/09/20 11:39 07/09/20 16:21 Intake & Output 07/08/20 07/09/20 07/10/20 06:59 06:59 06:59 Intake Total 4010 3436 1000 Output Total 3325 775 3260 Balance 685 2661 -2260 Weight 89 kg 82.7 kg Weight/Height Weight 82.7 kg Height 1.78 m General appearance: PRESENT: no acute distress, obese, well-developed, well- nourished Head exam: PRESENT: atraumatic, normocephalic Eye exam: PRESENT: conjunctiva pale. ABSENT: periorbital swelling, scleral icterus Neck exam: ABSENT: carotid bruit, JVD, lymphadenopathy, thyromegaly Respiratory exam: PRESENT: clear to auscultation sudha. ABSENT: prolonged expiratory phas, rales, rhonchi, tachypnea Cardiovascular exam: PRESENT: RRR. ABSENT: diastolic murmur, rubs, systolic murmur Pulses: PRESENT: normal dorsalis pedis pul GI/Abdominal exam: PRESENT: hypoactive bowel sounds, soft. ABSENT: ascites Gentrourinary exam: PRESENT: indwelling catheter Extremities exam: PRESENT: full ROM. ABSENT: calf tenderness, clubbing, pedal edema Neurological exam: PRESENT: altered, other - Still under general anesthesia Skin exam: PRESENT: dry, intact, warm. ABSENT: cyanosis, rash Tubes/Lines: PRESENT: Endotracheal Tube, Central Line - Right IJ, Arterial Catheter - Left radial, Nasogastic Tube Laboratory/Radiographs Laboratory Results: 07/09/20 07/09/20 07/09/20 06:41 06:41 09:20 WBC 5.7 RBC 2.07 L Hgb 7.1 L Hct 19.8 L MCV 96 MCH 34.1 H MCHC 35.7 RDW 13.3 Plt Count 220 Carbonic Acid HCO3/H2CO3 Ratio ABG pH ABG pCO2 ABG pO2 ABG HCO3 ABG O2 Saturation ABG Base Excess FiO2 Sodium 137.2 Potassium 3.4 L Chloride 109 H Carbon Dioxide 25 Anion Gap 3 L BUN 14 Creatinine 0.79 Est GFR ( Amer) > 60 Glucose 127 H Calcium 7.3 L Magnesium 2.4 H Total Bilirubin 0.4 AST 23 Alkaline Phosphatase 36 L Total Protein 4.7 L Albumin 2.5 L Blood Type O POSITIVE Antibody Screen NEGATIVE 07/09/20 17:16 WBC RBC Hgb Hct MCV MCH MCHC RDW Plt Count Carbonic Acid 1.32 HCO3/H2CO3 Ratio 15:1 ABG pH 7.29 L ABG pCO2 44.0 ABG pO2 67.0 L ABG HCO3 20.7 ABG O2 Saturation 91.2 L ABG Base Excess -5.6 FiO2 40% Sodium Potassium Chloride Carbon Dioxide Anion Gap BUN Creatinine Est GFR ( Amer) Glucose Calcium Magnesium Total Bilirubin AST Alkaline Phosphatase Total Protein Albumin Blood Type Antibody Screen Impressions: Abdomen/Pelvis CT 07/07/20 00:00 IMPRESSION: There is significant distention of the small bowel with mucosal thickening and enhancement involving a large portion of the ileum. These findings are concerning for small bowel obstruction which could be due to a stricture or inflammation at the terminal ileum. Adhesions at this area are not fully excluded. KUB X-Ray 07/08/20 00:00 IMPRESSION: 1. Grossly stable dilated small bowel loops throughout the central abdomen measuring up to 5.6 cm suggestive of small bowel obstruction. Gas and stool noted within the colon may suggest partial or intermittent process. 2. Nasoenteric side port at GE junction. Consider advanced 5/10 cm. All labs, radiographs, diagnostic studies and EKGs were personally reviewed: Yes In addition, reports of radiographic and diagnostic studies were read: Yes Critical Time Critical Time (minutes): 60 -: The care of a critically ill patient is dynamic. This note represents a static moment in the admission process. Orders and treatments may be given simu ltaneously and urgently, and time is not publications sales representative of the treatment process. This patient requires Critical Care secondary to life threatening organ or limb dysfunction. Without Critical Care services, the patient is at risk for increased mortality and morbidity.
[2020-07-09] MEDS ORDERED: FENTANYL CITRATE INJ/PF 100 MCG/2 ML AMPUL IV ONE ×2 (21:13→23:30)
[2020-07-09] MEDS: POTASSI CL 20 MEQ/50 ML RIDER 20 MEQ/50 ML RTUPB IV SCH ×2 (21:29→23:14)
[2020-07-09] MEDS: METRONIDAZOLE 500 MG/NS RTU 500 MG/100 ML RTUPB IV SCH (21:37)
[2020-07-09] MEDS ORDERED: CEFEPIME 1 GM/D5W RTU 1 GM/50 ML RTUPB IV SCH (22:00)
[2020-07-09] MEDS ORDERED: CEFEPIME 2 GM/D5W RTU 2 GM/50 ML RTUPB IV SCH (22:00)
[2020-07-09] MEDS ORDERED: VANCOMYCIN HCL INJ 1000 MG VIAL ONE (22:53)
[2020-07-09] MEDS ORDERED: VANCOMYCIN HCL INJ 500 MG VIAL ONE (22:53)
[2020-07-09] MEDS: VANCOMYCIN HCL 1,250 MG in DEXTROSE 5%-WATER 250 ML IV SCH ×2 (23:18→23:19)
[2020-07-09] MEDS: CEFEPIME HCL 2 GM in DEXTROSE 5%-WATER 50 ML IV SCH (23:27)
[2020-07-09] MEDS: DOXAZOSIN MESYLATE 4 MG TABLET NG SCH (23:30)
[2020-07-09 23:44] LABS: HEMATOCRIT 34.2 % (37.9-51.0); MEAN CORPUSCULAR HEMOGLOBIN 32.1 pg (27.0-33.4); MEAN CORPUSCULAR HGB CONC 34.4 g/dL (32.0-36.0); MEAN CORPUSCULAR VOLUME 94 fl (80-97); PLATELET COUNT 181 10^3/uL (150-450); RED BLOOD COUNT 3.66 10^6/uL (4.35-5.55); RED CELL DISTRIBUTION WIDTH 15.1 % (11.5-14.0)
[2020-07-09 23:47] LABS: HEMOGLOBIN 11.7 g/dL (13.5-17.0); WHITE BLOOD COUNT 5.4 10^3/uL (4.0-10.5)
[2020-07-09 23:51] LABS: ARTERIAL BLOOD BASE EXCESS -4.9 mmol/L; ARTERIAL BLOOD H2CO3 1.56 mmol/L (1.05-1.35); ARTERIAL BLOOD HCO3 22.5 mmol/L (20-24); ARTERIAL BLOOD O2 SATURATION 72.5 % (94-98); ARTERIAL BLOOD PCO2 51.8 mmHg (35-45); ARTERIAL BLOOD PH 7.26 (7.35-7.45); ARTERIAL BLOOD PO2 44.2 mmHg (80-100); ARTERIAL BLOOD TOTAL CO2 24.1 mmol/L (23-27)
[2020-07-09 23:55] LABS: ARTERIAL BLOOD FIO2 100%
[2020-07-10 00:07] LABS: ABSOLUTE LYMPHOCYTES# (MANUAL) 0.3 10^3/uL (0.5-4.7); ABSOLUTE MONOCYTES # (MANUAL) 0.2 10^3/uL (0.1-1.4); BASOPHILS % (MANUAL) 0 % (0-2); EOSINOPHILS % (MANUAL) 0 % (0-6); LYMPHOCYTES % (MANUAL) 6 % (13-45); MONOCYTES % (MANUAL) 4 % (3-13); NUCLEATED RED BLOOD CELLS 1 /100 WBC (0); SEGMENTED NEUTROPHILS % (MAN) 66 % (42-78); TOTAL CELLS COUNTED 100
[2020-07-10 00:08] LABS: ANISOCYTOSIS SLIGHT; PLATELET COMMENT ADEQUATE; POLYCHROMASIA SLIGHT; TOXIC GRANULATION SLIGHT; TOXIC VACUOLATION PRESENT
[2020-07-10 00:09] LABS: BAND NEUTROPHILS % (MANUAL) 24 % (3-5)
[2020-07-10 00:28] LABS: ARTERIAL BLOOD BASE EXCESS -5.1 mmol/L; ARTERIAL BLOOD H2CO3 1.29 mmol/L (1.05-1.35); ARTERIAL BLOOD O2 SATURATION 99.9 % (94-98); ARTERIAL BLOOD PCO2 42.8 mmHg (35-45); ARTERIAL BLOOD PH 7.31 (7.35-7.45); ARTERIAL BLOOD PO2 528.3 mmHg (80-100); ARTERIAL BLOOD TOTAL CO2 22.3 mmol/L (23-27)
[2020-07-10] MEDS: ACETAMINOPHEN SOLN 325 MG/10.15 ML UDCUP PO SCH ×6 (00:29→23:40)
[2020-07-10 00:33] LABS: ARTERIAL BLOOD FIO2 100%
[2020-07-10] MEDS ORDERED: FENTANYL CITRATE INJ/PF 100 MCG/2 ML AMPUL ONE (01:12)
[2020-07-10] MEDS: DEXTROSE 5%-WATER 250 ML with NOREPINEPHRINE BITARTRATE 4 MG IV PRN ×4 (01:17→11:40)
[2020-07-10] MEDS: POTASSI CL 20 MEQ/50 ML RIDER 20 MEQ/50 ML RTUPB IV SCH ×2 (01:19→03:16)
--- NOTE | 2020-07-10 01:32 | RADIOLOGY REPORT (SQ) ---
EXAM DESCRIPTION: X-RAY CHEST- TWO VIEWS CLINICAL HISTORY: Tachypnea COMPARISON: None available TECHNIQUE: Two frontal views views of the chest FINDINGS: The lungs appear hyperexpanded and hyperlucent suggestive of underlying COPD. There are overlying EKG leads. Enteric tube is seen coursing below the diaphragm with distal tip terminating in the expected location of the proximal stomach. Patient is status post intubation with endotracheal tube tip approximately 4.7 cm above the phyllis. A right internal jugular central line distal tip terminates in the expected location of the superior vena cava. There are no discrete air space infiltrates, pneumothoraces or pleural effusions. However, note, the left costophrenic angle is partially collimated from view. The pulmonary vascularity is normal. The cardiomediastinal silhouette is normal in size. No suspicious lytic or blastic osseous lesions are identified. IMPRESSION: 1. Positioning of support lines and tubes as detailed above. 2. Hyperlucent hyperexpanded appearance is suggestive of COPD.
[2020-07-10] MEDS ORDERED: ALBUMIN HUMAN 500 ML IV ONE (01:52)
[2020-07-10] MEDS ORDERED: ALBUMIN HUMAN 5% INJ 25 GM/500 ML BOTTLE IV ONE (02:00)
[2020-07-10] MEDS: IPRATROPIUM/ALBUTEROL 0.5-2.5 MG/3 ML AMPUL NEB SCH ×6 (02:15→21:07)
[2020-07-10] MEDS ORDERED: MORPHINE SULFATE 10 MG/ML INJ IV PRN (03:19)
[2020-07-10] MEDS ORDERED: FENTANYL CITRATE INJ/PF 100 MCG/2 ML AMPUL IV ONE (03:21)
[2020-07-10] MEDS: MORPHINE SULFATE 10 MG/ML INJ IV PRN ×3 (03:29→23:45)
[2020-07-10] MEDS: DEXMEDETOMIDINE IN 0.9 % NACL 400 MCG/100 ML RTUPB IV PRN ×2 (04:33→11:46)
[2020-07-10] MEDS ORDERED: FUROSEMIDE INJ/PF 40 MG/4 ML SDV IV ONE ×2 (05:13→09:15)
[2020-07-10 06:24] LABS: ARTERIAL BLOOD BASE EXCESS -6.5 mmol/L; ARTERIAL BLOOD FIO2 50%; ARTERIAL BLOOD H2CO3 1.03 mmol/L (1.05-1.35); ARTERIAL BLOOD HCO3 18.4 mmol/L (20-24); ARTERIAL BLOOD O2 SATURATION 98.9 % (94-98); ARTERIAL BLOOD PCO2 34.1 mmHg (35-45); ARTERIAL BLOOD PH 7.35 (7.35-7.45); ARTERIAL BLOOD PO2 153.6 mmHg (80-100); ARTERIAL BLOOD TOTAL CO2 19.4 mmol/L (23-27)
[2020-07-10] MEDS: METRONIDAZOLE 500 MG/NS RTU 500 MG/100 ML RTUPB IV SCH ×3 (06:25→22:08)
[2020-07-10 06:30] LABS: HEMATOCRIT 29.2 % (37.9-51.0); MEAN CORPUSCULAR HEMOGLOBIN 32.1 pg (27.0-33.4); MEAN CORPUSCULAR HGB CONC 34.1 g/dL (32.0-36.0); MEAN CORPUSCULAR VOLUME 94 fl (80-97); PLATELET COUNT 173 10^3/uL (150-450); RED BLOOD COUNT 3.11 10^6/uL (4.35-5.55); RED CELL DISTRIBUTION WIDTH 15.2 % (11.5-14.0); WHITE BLOOD COUNT 6.8 10^3/uL (4.0-10.5)
[2020-07-10] MEDS ORDERED: ALBUTEROL SULFATE 0.083% NEB 2.5 MG/3 ML AMPUL NEB ONE (06:35)
[2020-07-10 06:56] LABS: ALBUMIN 2.3 g/dL (3.5-5.0); ALKALINE PHOSPHATASE 21 U/L (38-126); ASPARTATE AMINO TRANSFERASE 28 U/L (17-59); BILIRUBIN,DIRECT 1.4 mg/dL (0.0-0.4); BILIRUBIN,TOTAL 2.3 mg/dL (0.2-1.3); BLOOD UREA NITROGEN 21 mg/dL (7-20); GLUCOSE 89 mg/dL (75-110); TOTAL PROTEIN 4.1 g/dL (6.3-8.2)
[2020-07-10 07:00] LABS: ABSOLUTE LYMPHOCYTES# (MANUAL) 0.3 10^3/uL (0.5-4.7); ABSOLUTE MONOCYTES # (MANUAL) 0.4 10^3/uL (0.1-1.4); BAND NEUTROPHILS % (MANUAL) 37 % (3-5); BASOPHILS % (MANUAL) 0 % (0-2); EOSINOPHILS % (MANUAL) 0 % (0-6); LYMPHOCYTES % (MANUAL) 5 % (13-45); MONOCYTES % (MANUAL) 6 % (3-13); NUCLEATED RED BLOOD CELLS 2 /100 WBC (0); SEGMENTED NEUTROPHILS % (MAN) 52 % (42-78); TOTAL CELLS COUNTED 100
[2020-07-10 07:01] LABS: ANISOCYTOSIS SLIGHT; PLATELET COMMENT ADEQUATE; TOXIC GRANULATION SLIGHT; TOXIC VACUOLATION PRESENT
[2020-07-10 07:04] LABS: CARBON DIOXIDE 23 mmol/L (22-30); CHLORIDE 113 mmol/L (98-107)
[2020-07-10 07:31] LABS: CALCIUM 6.5 mg/dL (8.4-10.2); POTASSIUM 4.6 mmol/L (3.6-5.0)
[2020-07-10 07:34] LABS: ANION GAP 3 (5-19)
[2020-07-10 08:35] LABS: ARTERIAL BLOOD BASE EXCESS -4.9 mmol/L; ARTERIAL BLOOD H2CO3 1.14 mmol/L (1.05-1.35); ARTERIAL BLOOD HCO3 20.3 mmol/L (20-24); ARTERIAL BLOOD O2 SATURATION 96.8 % (94-98); ARTERIAL BLOOD PCO2 37.9 mmHg (35-45); ARTERIAL BLOOD PH 7.35 (7.35-7.45); ARTERIAL BLOOD PO2 92.6 mmHg (80-100); ARTERIAL BLOOD TOTAL CO2 21.4 mmol/L (23-27)
[2020-07-10 08:36] LABS: ARTERIAL BLOOD FIO2 35%
[2020-07-10] MEDS ORDERED: MORPHINE SULFATE 10 MG/ML INJ IV ONE (09:00)
--- NOTE | 2020-07-10 10:40 | PDOC PROGRESS REPORT ---
Subjective Progress Note for:: 07/10/20 Reason For Visit: RECTAL BLEEDING Physical Exam Vital Signs: Temp Pulse Resp BP Pulse Ox 99.7 F 102 H 30 H 106/57 L 99 07/10/20 02:00 07/10/20 07:05 07/10/20 07:05 07/09/20 20:27 07/10/20 07:05 Intake & Output 07/09/20 07/10/20 07/11/20 06:59 06:59 06:59 Intake Total 3436 3905 135 Output Total 775 3435 Balance 2661 470 135 Weight 82.7 kg 91.9 kg Results Laboratory Results: 07/10/20 06:15 07/10/20 06:15 07/09/20 07/09/20 07/09/20 09:20 17:16 17:51 WBC 2.6 L D RBC 2.47 L Hgb 8.0 L Hct 23.8 L MCV 96 MCH 32.5 MCHC 33.7 RDW 14.6 H Plt Count 171 Seg Neutrophils % Not Reportable Carbonic Acid 1.32 HCO3/H2CO3 Ratio 15:1 ABG pH 7.29 L ABG pCO2 44.0 ABG pO2 67.0 L ABG HCO3 20.7 ABG O2 Saturation 91.2 L ABG Base Excess -5.6 VBG pH VBG pCO2 VBG HCO3 VBG Base Excess FiO2 40% Sodium Potassium Chloride Carbon Dioxide Anion Gap BUN Creatinine Est GFR ( Amer) Glucose Lactic Acid Calcium Ionized Calcium Nicolas Magnesium Total Bilirubin AST Alkaline Phosphatase Total Protein Albumin Blood Type O POSITIVE Antibody Screen NEGATIVE 07/09/20 07/09/20 07/09/20 17:51 18:27 18:50 WBC RBC Hgb Hct MCV MCH MCHC RDW Plt Count Seg Neutrophils % Carbonic Acid HCO3/H2CO3 Ratio ABG pH ABG pCO2 ABG pO2 ABG HCO3 ABG O2 Saturation ABG Base Excess VBG pH 7.29 L VBG pCO2 50.3 VBG HCO3 23.6 VBG Base Excess -2.9 FiO2 Sodium 138.4 Potassium 3.1 L Chloride 114 H Carbon Dioxide 22 Anion Gap 2 L BUN 16 Creatinine 1.07 Est GFR ( Amer) > 60 Glucose 91 Lactic Acid 3.7 H Calcium 6.5 L* Ionized Calcium Nicolas Magnesium Total Bilirubin 1.3 AST 22 Alkaline Phosphatase 26 L Total Protein 3.6 L Albumin 1.8 L Blood Type Antibody Screen 07/09/20 07/09/20 07/10/20 23:33 23:42 00:15 WBC 5.4 D RBC 3.66 L Hgb 11.7 L D Hct 34.2 L MCV 94 MCH 32.1 MCHC 34.4 RDW 15.1 H Plt Count 181 Seg Neutrophils % Not Reportable Carbonic Acid 1.56 H 1.29 HCO3/H2CO3 Ratio 14:1 16:1 ABG pH 7.26 L 7.31 L ABG pCO2 51.8 H 42.8 ABG pO2 44.2 L 528.3 H ABG HCO3 22.5 21.0 ABG O2 Saturation 72.5 L 99.9 H ABG Base Excess -4.9 -5.1 VBG pH VBG pCO2 VBG HCO3 VBG Base Excess FiO2 100% 100% Sodium Potassium Chloride Carbon Dioxide Anion Gap BUN Creatinine Est GFR ( Amer) Glucose Lactic Acid Calcium Ionized Calcium Nicolas Magnesium Total Bilirubin AST Alkaline Phosphatase Total Protein Albumin Blood Type Antibody Screen 07/10/20 07/10/20 07/10/20 06:15 06:15 06:15 WBC 6.8 RBC 3.11 L Hgb 10.0 L Hct 29.2 L MCV 94 MCH 32.1 MCHC 34.1 RDW 15.2 H Plt Count 173 Seg Neutrophils % Not Reportable Carbonic Acid 1.03 L HCO3/H2CO3 Ratio 17:1 ABG pH 7.35 ABG pCO2 34.1 L ABG pO2 153.6 H ABG HCO3 18.4 L ABG O2 Saturation 98.9 H ABG Base Excess -6.5 VBG pH VBG pCO2 VBG HCO3 VBG Base Excess FiO2 50% Sodium 139.4 Potassium 4.6 D Chloride 113 H Carbon Dioxide 23 Anion Gap 3 L BUN 21 H Creatinine 1.46 H Est GFR ( Amer) 57 L Glucose 89 Lactic Acid Calcium 6.5 L* Ionized Calcium Nicolas Magnesium 1.7 Total Bilirubin 2.3 H AST 28 Alkaline Phosphatase 21 L Total Protein 4.1 L Albumin 2.3 L Blood Type Antibody Screen 07/10/20 07/10/20 08:24 09:45 WBC RBC Hgb Hct MCV MCH MCHC RDW Plt Count Seg Neutrophils % Carbonic Acid 1.14 HCO3/H2CO3 Ratio 17:1 ABG pH 7.35 ABG pCO2 37.9 ABG pO2 92.6 ABG HCO3 20.3 ABG O2 Saturation 96.8 ABG Base Excess -4.9 VBG pH VBG pCO2 VBG HCO3 VBG Base Excess FiO2 35% Sodium Potassium Chloride Carbon Dioxide Anion Gap BUN Creatinine Est GFR ( Amer) Glucose Lactic Acid Calcium Ionized Calcium Nicolas 0.96 L Magnesium Total Bilirubin AST Alkaline Phosphatase Total Protein Albumin Blood Type Antibody Screen 07/10/20 06:15 NT-Pro-B Natriuret Pep 2670 H Impressions: Abdomen/Pelvis CT 07/07/20 00:00 IMPRESSION: There is significant distention of the small bowel with mucosal thickening and enhancement involving a large portion of the ileum. These findings are concerning for small bowel obstruction which could be due to a stricture or inflammation at the terminal ileum. Adhesions at this area are not fully excluded. KUB X-Ray 07/08/20 00:00 IMPRESSION: 1. Grossly stable dilated small bowel loops throughout the central abdomen measuring up to 5.6 cm suggestive of small bowel obstruction. Gas and stool noted within the colon may suggest partial or intermittent process. 2. Nasoenteric side port at GE junction. Consider advanced 5/10 cm. Chest X-Ray 07/10/20 00:00 IMPRESSION: 1. Positioning of support lines and tubes as detailed above. 2. Hyperlucent hyperexpanded appearance is suggestive of COPD. Assessment & Plan - Diagnosis (1) Ileus Is this a current diagnosis for this admission?: Yes (2) Rectal bleeding Is this a current diagnosis for this admission?: Yes - Time Anticipated Discharge Disposition: unknown Anticipated Discharge Timeframe: unknown - Plan Summary Plan Summary: 79-year-old male status post exploratory laparotomy with subtotal colectomy for perforated cecum. The patient was extubated early this morning. Currently his respiratory rate is 38-40 on BiPAP. His Levophed has been restarted. I have discussed the case personally with Dr. Cabrera. I have made recommendations, however ultimately care has been transferred to the ore crusher. The ore crusher is managing the patient's blood pressure, respiratory status, renal function, fluid status, and all other medical issues. The pt's midline wound is intact, without signs of cellulitis. His ileostomy is pink. Surgical service is available to provide support for surgical problems. Will follow.
[2020-07-10] MEDS: CEFEPIME HCL 2 GM in DEXTROSE 5%-WATER 50 ML IV SCH ×2 (10:41→21:56)
[2020-07-10] MEDS: PANTOPRAZOLE SODIUM 40 MG VIAL IV SCH ×2 (10:42→22:09)
[2020-07-10] MEDS: VANCOMYCIN HCL 1,250 MG in DEXTROSE 5%-WATER 250 ML IV SCH (10:44)
[2020-07-10 12:28] LABS: PATH REVIEW PATHOLOGIST REVIEWED
[2020-07-10 13:08] LABS: ARTERIAL BLOOD BASE EXCESS -5.2 mmol/L; ARTERIAL BLOOD H2CO3 1.25 mmol/L (1.05-1.35); ARTERIAL BLOOD HCO3 20.7 mmol/L (20-24); ARTERIAL BLOOD O2 SATURATION 95.9 % (94-98); ARTERIAL BLOOD PCO2 41.5 mmHg (35-45); ARTERIAL BLOOD PH 7.32 (7.35-7.45); ARTERIAL BLOOD PO2 86.8 mmHg (80-100); ARTERIAL BLOOD TOTAL CO2 21.9 mmol/L (23-27)
[2020-07-10 13:09] LABS: ARTERIAL BLOOD FIO2 40%
[2020-07-10 15:38] LABS: ARTERIAL BLOOD BASE EXCESS -5.3 mmol/L; ARTERIAL BLOOD H2CO3 1.49 mmol/L (1.05-1.35); ARTERIAL BLOOD HCO3 21.8 mmol/L (20-24); ARTERIAL BLOOD O2 SATURATION 55.4 % (94-98); ARTERIAL BLOOD PCO2 49.5 mmHg (35-45); ARTERIAL BLOOD PH 7.26 (7.35-7.45); ARTERIAL BLOOD TOTAL CO2 23.3 mmol/L (23-27)
[2020-07-10 15:42] LABS: ARTERIAL BLOOD FIO2 40%
[2020-07-10 15:44] LABS: ARTERIAL BLOOD PO2 33.5 mmHg (80-100)
[2020-07-10] MEDS ORDERED: DOPAMINE HCL/DEXTROSE 5%-WATER 800 MG/250 ML RTUINJ IV PRN (15:48)
[2020-07-10] MEDS ORDERED: CALCIUM GLUC IN NACL, ISO-OSM 1 GM/50 ML RTUPB IV ONE (16:00)
[2020-07-10] MEDS: ALBUMIN HUMAN 12.5 GM/50 ML RTUINJ IV SCH ×4 (16:20→20:18)
[2020-07-10 17:55] LABS: TROPONIN I 0.067 ng/mL
--- NOTE | 2020-07-10 20:31 | PDOC CRITICAL CARE PROG REPORT ---
General Date:: 07/10/20 ICU Day:: 2 Hospital Day:: 7 Resuscitation Status: Full Code Events in the past 12 to 24 Hours:: This 79-year-old male reformed smoker transferred to the ICU on 07/09/2020 postoperatively after undergoing total colectomy and ileostomy for pandiverticulosis and a perforated cecum. He arrived in the ICU under ane sthesia and still endotracheally intubated. 07/10: The patient has been successfully extubated in the interim. He is currently on BiPAP 14/07. He is awake, alert and oriented. He follows commands. He reports reasonable postoperative pain control. He is off Levophed but is noted to be mildly hypotensive. He is on cefepime/Flagyl/vancomycin for empiric coverage of abdominal sepsis. WBC 2.6>6.8. T-max 100.7 F. is at the bedside. She reports that the patient drinks 2 to 3 fingerbreadths of whiskey 4 times daily. She raises concerns about alcohol withdrawal, which he apparently has experienced in the past. Review of systems relevant to events:: Gastrointestinal: Lower GI bleed, pandiverticulosis, status post total colectomy and ileostomy Cardiovascular: Hypotension, likely septic shock secondary to abdominal sepsis Respiratory: Endotracheally intubated, now extubated Reason for ICU Addmission:: Postanesthesia care; postoperative hypotension; endotracheal intubation - Medications: Medications reviewed and adjusted accordingly: Yes Vasopressors:: On and off Levophed Physical Exam Vital Signs: Temp Pulse Resp BP Pulse Ox 99.7 F 102 H 30 H 106/57 L 99 07/10/20 02:00 07/10/20 07:05 07/10/20 07:05 07/09/20 20:27 07/10/20 07:05 Intake & Output 07/09/20 07/10/20 07/11/20 06:59 06:59 06:59 Intake Total 3438 3905 135 Output Total 087 3435 Balance 2661 470 135 Weight 82.7 kg 91.9 kg Weight/Height Weight 91.9 kg Height 1.78 m General appearance: PRESENT: no acute distress, obese, well-developed, well-nourished Head exam: PRESENT: atraumatic, normocephalic Eye exam: PRESENT: conjunctiva pink, EOMI, PERRLA. ABSENT: scleral icterus Mouth exam: PRESENT: moist, tongue midline Neck exam: ABSENT: carotid bruit, JVD, lymphadenopathy, thyromegaly Respiratory exam: PRESENT: rales, rhonchi. ABSENT: wheezes Cardiovascular exam: PRESENT: RRR. ABSENT: diastolic murmur, rubs, systolic murmur Pulses: PRESENT: normal dorsalis pedis pul GI/Abdominal exam: PRESENT: diminished bowel sounds, soft. ABSENT: distended, guarding, mass, organolmegaly, rebound, tenderness Extremities exam: PRESENT: full ROM. ABSENT: calf tenderness, clubbing, pedal edema Neurological exam: PRESENT: alert, awake, oriented to person, oriented to place, oriented to time, oriented to situation, CN II-XII grossly intact. ABSENT: motor sensory deficit Skin exam: PRESENT: dry, intact, warm. ABSENT: cyanosis, rash Tubes/Lines: PRESENT: Central Line Laboratory/Radiographs Laboratory Results: 07/10/20 06:15 07/10/20 06:15 07/09/20 07/09/20 07/09/20 09:20 17:16 17:51 WBC 2.6 L D RBC 2.47 L Hgb 8.0 L Hct 23.8 L MCV 96 MCH 32.5 MCHC 33.7 RDW 14.6 H Plt Count 171 Seg Neutrophils % Not Reportable Carbonic Acid 1.32 HCO3/H2CO3 Ratio 15:1 ABG pH 7.29 L ABG pCO2 44.0 ABG pO2 67.0 L ABG HCO3 20.7 ABG O2 Saturation 91.2 L ABG Base Excess -5.6 VBG pH VBG pCO2 VBG HCO3 VBG Base Excess FiO2 40% Sodium Potassium Chloride Carbon Dioxide Anion Gap BUN Creatinine Est GFR ( Amer) Glucose Lactic Acid Calcium Magnesium Total Bilirubin AST Alkaline Phosphatase Total Protein Albumin Blood Type O POSITIVE Antibody Screen NEGATIVE 07/09/20 07/09/20 07/09/20 17:51 18:27 18:50 WBC RBC Hgb Hct MCV MCH MCHC RDW Plt Count Seg Neutrophils % Carbonic Acid HCO3/H2CO3 Ratio ABG pH ABG pCO2 ABG pO2 ABG HCO3 ABG O2 Saturation ABG Base Excess VBG pH 7.29 L VBG pCO2 50.3 VBG HCO3 23.6 VBG Base Excess -2.9 FiO2 Sodium 138.4 Potassium 3.1 L Chloride 114 H Carbon Dioxide 22 Anion Gap 2 L BUN 16 Creatinine 1.07 Est GFR ( Amer) > 60 Glucose 91 Lactic Acid 3.7 H Calcium 6.5 L* Magnesium Total Bilirubin 1.3 AST 22 Alkaline Phosphatase 26 L Total Protein 3.6 L Albumin 1.8 L Blood Type Antibody Screen 07/09/20 07/09/20 07/10/20 23:33 23:42 00:15 WBC 5.4 D RBC 3.66 L Hgb 11.7 L D Hct 34.2 L MCV 94 MCH 32.1 MCHC 34.4 RDW 15.1 H Plt Count 181 Seg Neutrophils % Not Reportable Carbonic Acid 1.56 H 1.29 HCO3/H2CO3 Ratio 14:1 16:1 ABG pH 7.26 L 7.31 L ABG pCO2 51.8 H 42.8 ABG pO2 44.2 L 528.3 H ABG HCO3 22.5 21.0 ABG O2 Saturation 72.5 L 99.9 H ABG Base Excess -4.9 -5.1 VBG pH VBG pCO2 VBG HCO3 VBG Base Excess FiO2 100% 100% Sodium Potassium Chloride Carbon Dioxide Anion Gap BUN Creatinine Est GFR ( Amer) Glucose Lactic Acid Calcium Magnesium Total Bilirubin AST Alkaline Phosphatase Total Protein Albumin Blood Type Antibody Screen 07/10/20 07/10/20 07/10/20 06:15 06:15 06:15 WBC 6.8 RBC 3.11 L Hgb 10.0 L Hct 29.2 L MCV 94 MCH 32.1 MCHC 34.1 RDW 15.2 H Plt Count 173 Seg Neutrophils % Not Reportable Carbonic Acid 1.03 L HCO3/H2CO3 Ratio 17:1 ABG pH 7.35 ABG pCO2 34.1 L ABG pO2 153.6 H ABG HCO3 18.4 L ABG O2 Saturation 98.9 H ABG Base Excess -6.5 VBG pH VBG pCO2 VBG HCO3 VBG Base Excess FiO2 50% Sodium 139.4 Potassium 4.6 D Chloride 113 H Carbon Dioxide 23 Anion Gap 3 L BUN 21 H Creatinine 1.46 H Est GFR ( Amer) 57 L Glucose 89 Lactic Acid Calcium 6.5 L* Magnesium 1.7 Total Bilirubin 2.3 H AST 28 Alkaline Phosphatase 21 L Total Protein 4.1 L Albumin 2.3 L Blood Type Antibody Screen 07/10/20 08:24 WBC RBC Hgb Hct MCV MCH MCHC RDW Plt Count Seg Neutrophils % Carbonic Acid 1.14 HCO3/H2CO3 Ratio 17:1 ABG pH 7.35 ABG pCO2 37.9 ABG pO2 92.6 ABG HCO3 20.3 ABG O2 Saturation 96.8 ABG Base Excess -4.9 VBG pH VBG pCO2 VBG HCO3 VBG Base Excess FiO2 35% Sodium Potassium Chloride Carbon Dioxide Anion Gap BUN Creatinine Est GFR ( Amer) Glucose Lactic Acid Calcium Magnesium Total Bilirubin AST Alkaline Phosphatase Total Protein Albumin Blood Type Antibody Screen 07/10/20 06:15 NT-Pro-B Natriuret Pep 2670 H Impressions: Abdomen/Pelvis CT 07/07/20 00:00 IMPRESSION: There is significant distention of the small bowel with mucosal thickening and enhancement involving a large portion of the ileum. These findings are concerning for small bowel obstruction which could be due to a stricture or inflammation at the terminal ileum. Adhesions at this area are not fully excluded. KUB X-Ray 07/08/20 00:00 IMPRESSION: 1. Grossly stable dilated small bowel loops throughout the central abdomen measuring up to 5.6 cm suggestive of small bowel obstruction. Gas and stool noted within the colon may suggest partial or intermittent process. 2. Nasoenteric side port at GE junction. Consider advanced 5/10 cm. Chest X-Ray 07/10/20 00:00 IMPRESSION: 1. Positioning of support lines and tubes as detailed above. 2. Hyperlucent hyperexpanded appearance is suggestive of COPD. All labs, radiographs, diagnostic studies and EKGs were personally reviewed: Yes In addition, reports of radiographic and diagnostic studies were read: Yes Assessment and Plan - Diagnosis (1) Encounter for postanesthesia care Is this a current diagnosis for this admission?: Yes Plan: Successfully extubated in the interim. Currently titrated to BiPAP 12/4, FiO2 40%. (2) Shock due to anesthesia, initial encounter Is this a current diagnosis for this admission?: Yes Plan: Hemodynamically, the patient appears to be improving from shock physiology. His lactate has normalized. Still has persistent non-anion gap metabolic acidosis from aggressive volume resuscitation yesterday complicated by acute kidney injury. proBNP 2670. Check SvO2. Continue broad-spectrum antimicrobial coverage for abdominal sepsis: Cefepime/metronidazole/vancomycin. Vasopressors as needed for blood pressure support. Specific agent should be selected based on SvO2 result. CVP monitoring. Would benefit from diuresis. (3) Acute on chronic blood loss anemia Is this a current diagnosis for this admission?: Yes (4) Alcohol withdrawal Qualifiers: Complication of substance-induced condition: uncomplicated Qualified Code(s): F10.230 - Alcohol dependence with withdrawal, uncomplicated Is this a current diagnosis for this admission?: Yes Plan: Will anticipate Precedex infusion for control of symptoms for now. (5) Hypocalcemia Is this a current diagnosis for this admission?: Yes Plan: Calcium gluconate (6) COPD (chronic obstructive pulmonary disease) Qualifiers: COPD type: chronic bronchitis Is this a current diagnosis for this admission?: Yes Plan: History of oxygen dependent COPD. On 2 L nasal cannula. Outpatient PCP and pulmonology follow-up. (7) Hematochezia Is this a current diagnosis for this admission?: Yes Plan: Resolved secondary to total colectomy (8) COVID-19 ruled out by laboratory testing Is this a current diagnosis for this admission?: Yes (9) Endotracheally intubated Is this a current diagnosis for this admission?: Yes Plan: Successfully extubated 07/10. Critical Time Critical Time (minutes): 60 Level of Care: ICU -: 1. The care of a critical patient is a dynamic process. This note is a advertising sales representative synopsis but static in nature. The timeframe for treatments given in order is not necessarily the actual time these treatments may have been done. 2. This patient requires critical care secondary to ongoing requirements for therapy not offered or safe outside the critical care environment. Transfer to a lower level of care will result in altered life or limb morbidity and mortality. 3. Multidisciplinary rounds completed. 4. ABCDE bundle addressed.
[2020-07-10] MEDS: DOXAZOSIN MESYLATE 4 MG TABLET NG SCH (21:38)
[2020-07-11] MEDS: MORPHINE SULFATE 10 MG/ML INJ IV PRN ×4 (03:47→20:10)
[2020-07-11 04:58] LABS: ARTERIAL BLOOD BASE EXCESS -4.8 mmol/L; ARTERIAL BLOOD H2CO3 1.44 mmol/L (1.05-1.35); ARTERIAL BLOOD HCO3 21.9 mmol/L (20-24); ARTERIAL BLOOD O2 SATURATION 97.7 % (94-98); ARTERIAL BLOOD PCO2 47.8 mmHg (35-45); ARTERIAL BLOOD PH 7.28 (7.35-7.45); ARTERIAL BLOOD PO2 115.2 mmHg (80-100); ARTERIAL BLOOD TOTAL CO2 23.4 mmol/L (23-27)
[2020-07-11 05:01] LABS: ARTERIAL BLOOD FIO2 40%
[2020-07-11] MEDS: ACETAMINOPHEN SOLN 325 MG/10.15 ML UDCUP PO SCH ×3 (05:05→19:04)
[2020-07-11] MEDS: METRONIDAZOLE 500 MG/NS RTU 500 MG/100 ML RTUPB IV SCH ×3 (05:05→21:47)
[2020-07-11 05:14] LABS: ANION GAP 5 (5-19); BLOOD UREA NITROGEN 28 mg/dL (7-20); CARBON DIOXIDE 24 mmol/L (22-30); CHLORIDE 112 mmol/L (98-107); GLUCOSE 105 mg/dL (75-110); PHOSPHORUS 3.7 mg/dL (2.5-4.5); POTASSIUM 4.1 mmol/L (3.6-5.0)
[2020-07-11 05:20] LABS: HEMATOCRIT 28.5 % (37.9-51.0); HEMOGLOBIN 9.7 g/dL (13.5-17.0); MEAN CORPUSCULAR HEMOGLOBIN 32.1 pg (27.0-33.4); MEAN CORPUSCULAR HGB CONC 34.2 g/dL (32.0-36.0); MEAN CORPUSCULAR VOLUME 94 fl (80-97); PLATELET COUNT 169 10^3/uL (150-450); RED BLOOD COUNT 3.03 10^6/uL (4.35-5.55); RED CELL DISTRIBUTION WIDTH 15.1 % (11.5-14.0); WHITE BLOOD COUNT 8.7 10^3/uL (4.0-10.5)
[2020-07-11 05:30] LABS: ABSOLUTE LYMPHOCYTES# (MANUAL) 0.6 10^3/uL (0.5-4.7); ABSOLUTE MONOCYTES # (MANUAL) 0.3 10^3/uL (0.1-1.4); ANISOCYTOSIS SLIGHT; BAND NEUTROPHILS % (MANUAL) 11 % (3-5); BASOPHILS % (MANUAL) 0 % (0-2); EOSINOPHILS % (MANUAL) 0 % (0-6); LYMPHOCYTES % (MANUAL) 7 % (13-45); MONOCYTES % (MANUAL) 3 % (3-13); PLATELET COMMENT ADEQUATE; POLYCHROMASIA 1+; SEGMENTED NEUTROPHILS % (MAN) 79 % (42-78); TOTAL CELLS COUNTED 100; TOXIC GRANULATION SLIGHT
--- NOTE | 2020-07-11 06:59 | RADIOLOGY REPORT (SQ) ---
EXAM DESCRIPTION: XR CHEST 1 VIEW COMPLETED DATE/TME: 07/11/2020 00:00 CLINICAL HISTORY: 79 years Male, High Fio2 COMPARISON: One day prior. NUMBER OF VIEWS/TECHNIQUE: 1/AP FINDINGS: Moderate interstitial markings, moderate patchy and hazy opacity of left lower and midlung field, small hazy opacity of the right lower lung field. Small left basilar opacity-effusion. Adequate appearing right jugular central line. Adequate appearing enteric tube. Limitation: Leads/hardware/artifact. Normal cardiac silhouette size. No pneumothorax. Stable bony thorax. IMPRESSION: Moderate interstitial markings, moderate patchy and hazy opacity of left lower and midlung field, small hazy opacity of the right lower lung field. Small left basilar opacity-effusion.Interval worsening.
--- NOTE | 2020-07-11 08:13 | PDOC PROGRESS REPORT ---
Subjective Progress Note for:: 07/11/20 Subjective:: awake, responsive, on bipap min c/o abd pain Reason For Visit: RECTAL BLEEDING Physical Exam Vital Signs: Temp Pulse Resp BP Pulse Ox 97.7 F 105 H 26 H 129/57 H 100 07/11/20 03:35 07/10/20 22:00 07/11/20 06:17 07/11/20 06:17 07/11/20 06:17 Intake & Output 07/10/20 07/11/20 07/12/20 06:59 06:59 06:59 Intake Total 3905 2258 Output Total 3435 2055 Balance 470 203 Weight 91.9 kg 89.7 kg General appearance: PRESENT: mild distress Head exam: PRESENT: normocephalic Eye exam: PRESENT: EOMI Ear exam: PRESENT: normal external ear exam Mouth exam: PRESENT: moist Teeth exam: PRESENT: poor dentation Neck exam: PRESENT: full ROM Respiratory exam: PRESENT: rhonchi, tachypnea Cardiovascular exam: PRESENT: tachycardia Pulses: PRESENT: +2 pedal pulses bilateral Breast: PRESENT: Normal GI/Abdominal exam: PRESENT: distended - stoma pink Rectal exam: PRESENT: deferred Extremities exam: PRESENT: full ROM Neurological exam: PRESENT: awake Skin exam: PRESENT: dry Results Laboratory Results: 07/11/20 04:30 07/11/20 04:30 07/10/20 07/10/20 07/10/20 08:24 09:45 09:45 WBC RBC Hgb Hct MCV MCH MCHC RDW Plt Count Seg Neutrophils % Carbonic Acid 1.14 HCO3/H2CO3 Ratio 17:1 ABG pH 7.35 ABG pCO2 37.9 ABG pO2 92.6 ABG HCO3 20.3 ABG O2 Saturation 96.8 ABG Base Excess -4.9 FiO2 35% Sodium Potassium Chloride Carbon Dioxide Anion Gap BUN Creatinine Est GFR ( Amer) Glucose Lactic Acid 1.4 Calcium Ionized Calcium Nicolas 0.96 L Phosphorus Magnesium 07/10/20 07/10/20 07/10/20 12:50 15:20 20:25 WBC RBC Hgb Hct MCV MCH MCHC RDW Plt Count Seg Neutrophils % Carbonic Acid 1.25 1.49 H HCO3/H2CO3 Ratio 16:1 14:1 ABG pH 7.32 L 7.26 L ABG pCO2 41.5 49.5 H ABG pO2 86.8 33.5 L* ABG HCO3 20.7 21.8 ABG O2 Saturation 95.9 55.4 L ABG Base Excess -5.2 -5.3 FiO2 40% 40% Sodium Potassium Chloride Carbon Dioxide Anion Gap BUN Creatinine Est GFR ( Amer) Glucose Lactic Acid Calcium Ionized Calcium Nicolas 0.98 L Phosphorus Magnesium 07/11/20 07/11/20 07/11/20 04:30 04:30 04:40 WBC 8.7 RBC 3.03 L Hgb 9.7 L Hct 28.5 L MCV 94 MCH 32.1 MCHC 34.2 RDW 15.1 H Plt Count 169 Seg Neutrophils % Not Reportable Carbonic Acid 1.44 H HCO3/H2CO3 Ratio 15:1 ABG pH 7.28 L ABG pCO2 47.8 H ABG pO2 115.2 H ABG HCO3 21.9 ABG O2 Saturation 97.7 ABG Base Excess -4.8 FiO2 40% Sodium 141.1 Potassium 4.1 Chloride 112 H Carbon Dioxide 24 Anion Gap 5 BUN 28 H Creatinine 1.48 H Est GFR ( Amer) 56 L Glucose 105 Lactic Acid Calcium 7.0 L* Ionized Calcium Nicolas Phosphorus 3.7 Magnesium 2.0 07/10/20 07/10/20 06:15 17:00 Troponin I 0.067 NT-Pro-B Natriuret Pep 2670 H 2860 H Impressions: Abdomen/Pelvis CT 07/07/20 00:00 IMPRESSION: There is significant distention of the small bowel with mucosal thickening and enhancement involving a large portion of the ileum. These findings are concerning for small bowel obstruction which could be due to a stricture or inflammation at the terminal ileum. Adhesions at this area are not fully excluded. KUB X-Ray 07/08/20 00:00 IMPRESSION: 1. Grossly stable dilated small bowel loops throughout the central abdomen measuring up to 5.6 cm suggestive of small bowel obstruction. Gas and stool noted within the colon may suggest partial or intermittent process. 2. Nasoenteric side port at GE junction. Consider advanced 5/10 cm. Chest X-Ray 07/11/20 00:00 IMPRESSION: Moderate interstitial markings, moderate patchy and hazy opacity of left lower and midlung field, small hazy opacity of the right lower lung field. Small left basilar opacity-effusion.Interval worsening. Assessment & Plan - Time Anticipated Discharge Disposition: unk Anticipated Discharge Timeframe: unk - Plan Summary Plan Summary: pt remains extubated this am, however on bipap urine op improved, has recieved laxix on dopamine, low dose with satisfactory bp +sputum cults for g+/- rods suspect aspiration prior to surgery impression sepsis improved onabx cardiacfuction sl improved h.hremains stable plan- remains in icu with intensivisit managing sepsis and cardiac issues abd soft iwth ileostomy in place on abx surgerywill cont to follow.
[2020-07-11] MEDS: IPRATROPIUM/ALBUTEROL 0.5-2.5 MG/3 ML AMPUL NEB SCH ×4 (08:40→20:07)
[2020-07-11] MEDS: VANCOMYCIN HCL 1,250 MG in DEXTROSE 5%-WATER 250 ML IV SCH (10:17)
[2020-07-11] MEDS: PANTOPRAZOLE SODIUM 40 MG VIAL IV SCH (10:18)
[2020-07-11] MEDS: CEFEPIME HCL 2 GM in DEXTROSE 5%-WATER 50 ML IV SCH ×2 (10:19→21:47)
[2020-07-11] MEDS ORDERED: CALCIUM GLUC IN NACL, ISO-OSM 1 GM/50 ML RTUPB IV ONE (12:00)
[2020-07-11] MEDS: BUDESONIDE NEB 0.25 MG/2 ML AMPUL NEB SCH ×2 (12:20→20:07)
[2020-07-11] MEDS ORDERED: FUROSEMIDE INJ/PF 40 MG/4 ML SDV IV ONE (12:30)
--- NOTE | 2020-07-11 15:14 | EKG REPORT ---
SEVERITY:- BORDERLINE ECG - SINUS TACHYCARDIA BORDERLINE RIGHT AXIS DEVIATION BORDERLINE T ABNORMALITIES, ANT-LAT LEADS : Confirmed by: Pranay Matias MD 11-Jul-2020 15:14:05
--- NOTE | 2020-07-11 17:45 | PDOC CRITICAL CARE PROG REPORT ---
General Date:: 07/11/20 ICU Day:: 3 Hospital Day:: 8 Resuscitation Status: Full Code Events in the past 12 to 24 Hours:: This 79-year-old male reformed smoker transferred to the ICU on 07/09/2020 postoperatively after undergoing total colectomy and ileostomy for pandiverticulosis and a perforated cecum. He arrived in the ICU under ane sthesia and still endotracheally intubated. 07/10: The patient has been successfully extubated in the interim. He is currently on BiPAP 16/8. He is awake, alert and oriented. He follows commands. He reports reasonable postoperative pain control. He is off Levophed but is noted to be mildly hypotensive. He is on cefepime/Flagyl/vancomycin for empiric coverage of abdominal sepsis. WBC 2.6>6.8. T-max 100.7 F. is at the bedside. She reports that the patient drinks 2 to 3 fingerbreadths of whiskey 4 times daily. She raises concerns about alcohol withdrawal, which he apparently has experienced in the past. 07/11: Remains extubated. On BiPAP 10/4, FiO2 40%. He is awake, alert and oriented. Follows commands. Reports reasonable postoperative pain control. On dopamine at 6 mcg/kg/min after SvO2 was found to be 55%. WBC 8.7. Afebrile x24 hours. Gram stain from tracheal aspirate is isolating gram-negative rods. On cefepime/Flagyl/vancomycin, which was started for empiric coverage of abdominal sepsis. Off Precedex. No signs of delirium or psychomotor agitation at this time. CVP 13. Review of systems relevant to events:: Gastrointestinal: Lower GI bleed, pandiverticulosis, status post total colectomy and ileostomy Cardiovascular: Hypotension, likely septic shock secondary to abdominal sepsis Respiratory: Endotracheally intubated, now extubated Reason for ICU Addmission:: Postanesthesia care; postoperative hypotension; endotracheal intubation - Medications: Medications reviewed and adjusted accordingly: Yes Physical Exam Vital Signs: Temp Pulse Resp BP Pulse Ox 98.1 F 106 H 25 H 114/58 L 97 07/11/20 09:30 07/11/20 10:00 07/11/20 10:00 07/11/20 10:00 07/11/20 10:00 Intake & Output 0807/11/20 07/12/20 06:59 06:59 06:59 Intake Total 2283 2258 24 Output Total 3530 8593 325 Balance 470 203 -301 Weight 91.9 kg 89.7 kg Weight/Height Weight 89.7 kg Height 1.78 m General appearance: PRESENT: no acute distress, obese, well-developed, well- nourished Head exam: PRESENT: atraumatic, normocephalic Mouth exam: PRESENT: moist, tongue midline Neck exam: ABSENT: carotid bruit, JVD, lymphadenopathy, thyromegaly Respiratory exam: PRESENT: rales, rhonchi, unlabored Cardiovascular exam: PRESENT: RRR. ABSENT: diastolic murmur, rubs, systolic murmur Pulses: PRESENT: normal dorsalis pedis pul GI/Abdominal exam: PRESENT: diminished bowel sounds, soft, other - Laparotomy incision clean dry and intact.. ABSENT: distended, guarding, mass, organo lmegaly, rebound, tenderness Extremities exam: PRESENT: full ROM. ABSENT: calf tenderness, clubbing, pedal edema Neurological exam: PRESENT: alert, awake, oriented to person, oriented to place, oriented to time, oriented to situation, CN II-XII grossly intact. ABSENT: motor sensory deficit Psychiatric exam: ABSENT: agitated, anxious Skin exam: PRESENT: dry, intact, warm. ABSENT: cyanosis, rash Laboratory/Radiographs Laboratory Results: 07/11/20 04:30 07/11/20 04:30 07/10/20 07/10/20 07/10/20 12:50 15:20 20:25 WBC RBC Hgb Hct MCV MCH MCHC RDW Plt Count Seg Neutrophils % Carbonic Acid 1.25 1.49 H HCO3/H2CO3 Ratio 16:1 14:1 ABG pH 7.32 L 7.26 L ABG pCO2 41.5 49.5 H ABG pO2 86.8 33.5 L* ABG HCO3 20.7 21.8 ABG O2 Saturation 95.9 55.4 L ABG Base Excess -5.2 -5.3 FiO2 40% 40% Sodium Potassium Chloride Carbon Dioxide Anion Gap BUN Creatinine Est GFR ( Amer) Glucose Calcium Ionized Calcium Nicolas 0.98 L Phosphorus Magnesium 07/11/20 07/11/20 07/11/20 04:30 04:30 04:40 WBC 8.7 RBC 3.03 L Hgb 9.7 L Hct 28.5 L MCV 94 MCH 32.1 MCHC 34.2 RDW 15.1 H Plt Count 169 Seg Neutrophils % Not Reportable Carbonic Acid 1.44 H HCO3/H2CO3 Ratio 15:1 ABG pH 7.28 L ABG pCO2 47.8 H ABG pO2 115.2 H ABG HCO3 21.9 ABG O2 Saturation 97.7 ABG Base Excess -4.8 FiO2 40% Sodium 141.1 Potassium 4.1 Chloride 112 H Carbon Dioxide 24 Anion Gap 5 BUN 28 H Creatinine 1.48 H Est GFR ( Amer) 56 L Glucose 105 Calcium 7.0 L* Ionized Calcium Nicolas Phosphorus 3.7 Magnesium 2.0 07/10/20 07/10/20 06:15 17:00 Troponin I 0.067 NT-Pro-B Natriuret Pep 2670 H 2860 H Impressions: Abdomen/Pelvis CT 07/07/20 00:00 IMPRESSION: There is significant distention of the small bowel with mucosal thickening and enhancement involving a large portion of the ileum. These findings are concerning for small bowel obstruction which could be due to a stricture or inflammation at the terminal ileum. Adhesions at this area are not fully excluded. KUB X-Ray 07/08/20 00:00 IMPRESSION: 1. Grossly stable dilated small bowel loops throughout the central abdomen measuring up to 5.6 cm suggestive of small bowel obstruction. Gas and stool noted within the colon may suggest partial or intermittent process. 2. Nasoenteric side port at GE junction. Consider advanced 5/10 cm. Chest X-Ray 07/11/20 00:00 IMPRESSION: Moderate interstitial markings, moderate patchy and hazy opacity of left lower and midlung field, small hazy opacity of the right lower lung field. Small left basilar opacity-effusion.Interval worsening. All labs, radiographs, diagnostic studies and EKGs were personally reviewed: Yes In addition, reports of radiographic and diagnostic studies were read: Yes Assessment and Plan - Diagnosis (1) Encounter for postanesthesia care Is this a current diagnosis for this admission?: Yes Plan: Successfully extubated in the interim. Currently titrated to BiPAP 10 /4, FiO2 40%. Wean BiPAP as tolerated. (2) Shock due to anesthesia, initial encounter Is this a current diagnosis for this admission?: Yes Plan: Hemodynamically, the patient appears to be improving from shock physiology. His lactate has normalized. Still has persistent non-anion gap metabolic acidosis from aggressive volume resuscitation yesterday complicated by acute kidney injury. proBNP 2670. SvO2 55%. Dopamine for blood pressure support as needed. Gram-negative rods in sputum. Continue broad-spectrum antimicrobial coverage for abdominal sepsis: Cefepime/metronidazole/vancomycin. Discontinue vancomycin tomorrow in the absence of compelling indication for continued use. CVP monitoring. Furosemide 40 mg IV single dose today. PT/OT consult. (3) Acute on chronic blood loss anemia Is this a current diagnosis for this admission?: Yes (4) Alcohol withdrawal Qualifiers: Complication of substance-induced condition: uncomplicated Qualified Code(s): F10.230 - Alcohol dependence with withdrawal, uncomplicated Is this a current diagnosis for this admission?: Yes Plan: Continue monitoring for symptoms of alcohol withdrawal. Precedex infusion for control of symptoms as needed. (5) Hypocalcemia Is this a current diagnosis for this admission?: Yes Plan: Calcium gluconate (6) COPD (chronic obstructive pulmonary disease) Qualifiers: COPD type: chronic bronchitis Is this a current diagnosis for this admission?: Yes Plan: History of oxygen dependent COPD. On 2 L nasal cannula. Outpatient PCP and pulmonology follow-up. Continue albuterol. Add budesonide. (7) COVID-19 ruled out by laboratory testing Is this a current diagnosis for this admission?: Yes (8) Endotracheally intubated Is this a current diagnosis for this admission?: Yes (9) Hematochezia Is this a current diagnosis for this admission?: Yes Critical Time Critical Time (minutes): 60 Level of Care: ICU -: 1. The care of a critical patient is a dynamic process. This note is a rep resentative synopsis but static in nature. The timeframe for treatments given in order is not necessarily the actual time these treatments may have been done. 2. This patient requires critical care secondary to ongoing requirements for therapy not offered or safe outside the critical care environment. Transfer to a lower level of care will result in altered life or limb morbidity and mortality. 3. Multidisciplinary rounds completed. 4. ABCDE bundle addressed.
[2020-07-11] MEDS: DOXAZOSIN MESYLATE 4 MG TABLET NG SCH (21:48)
--- NOTE | 2020-07-11 23:02 | XCELERA REPORT ---
[address] [address] Transthoracic Echocardiogram Report Name: DEE DUDLEY II Age: 79 yrs Gender: Male : 1940 Patient Status: Inpatient Patient Location: ICU^602^A Study Date: 07/10/2020 05:36 PM Height: 70 in Weight: 202 lb BSA: 2.1 m2 Procedure: A two-dimensional transthoracic echocardiogram with color flow and Doppler was performed. Study Quality: Poor. Images were not obtained from all of the standard acoustic windows due to the limited scope of the study. Reason For Study: cardiogenic shock History: cardiogenic shock. Ordering Physician: TABATHA JORGE Performed By: Faviola Murphy Interpretation Summary The left ventricle is normal in size. There is normal left ventricular wall thickness. LV EF is > than 65%% Left ventricular systolic function is normal. Doppler measurements suggest normal left ventricular diastolic function The left ventricular wall motion is normal. There is no thrombus. Cannot assess ASD,VSD or PFO The right ventricle is not well visualized secondary to technical limitations Right atrium not well visualized secondary to technical limitations The left atrial size is normal. There is no evidence of mitral valve prolapse. There is no mitral valve stenosis. There is a trace amount of mitral regurgitation There is no aortic valvular vegetation. There is mild aortic stenosis There is a peak gradient of 23.7 mm of Hg. No aortic regurgitation is present. There is no tricuspid valve prolapse. There is no tricuspid stenosis. There is a trace amount of tricuspid regurgitation RVSP is 32 mm of Hg ,with RA mean of 15. The aortic root is not well visualized. There is no pericardial effusion. MMode/2D Measurements & Calculations RVDd: 3.4 cm LVIDd: 3.4 cm FS: 27.4 % Ao root diam: 2.7 cm IVSd: 1.0 cm LVIDs: 2.5 cm EDV(Teich): 47.7 ml Ao root area: 5.6 cm2 LVPWd: 1.2 cm ESV(Teich): 21.8 ml LA dimension: 3.5 cm EF(Teich): 54.3 % LVOT diam: 1.4 cm LVOT area: 1.6 cm2 Doppler Measurements & Calculations MV E max jeffrey: MV P1/2t max jeffrey: Ao V2 max: LV V1 max P.1 cm/sec 123.1 cm/sec 243.2 cm/sec 7.4 mmHg MV A max jeffrey: MV P1/2t: 58.7 msec Ao max PG: LV V1 mean P.8 cm/sec MVA(P1/2t): 3.7 cm2 23.7 mmHg 3.2 mmHg MV E/A: 1.2 MV dec slope: Ao V2 mean: LV V1 max: 131.0 cm/sec 135.7 cm/sec 614.4 cm/sec2 Ao mean PG: LV V1 mean: MV dec time: 0.17 sec 8.5 mmHg 82.8 cm/sec Ao V2 VTI: 32.5 cm LV V1 VTI: NOLAN(I,D): 0.99 cm2 20.3 cm NOLAN(V,D): 0.88 cm2 SV(LVOT): 32.2 ml TR max jeffrey: MV P1/2t-pr_phl: 206.8 cm/sec 58.7 msec TR max P.1 mmHg Left Ventricle The left ventricle is normal in size. There is normal left ventricular wall thickness. LV EF is > than 65%%. Left ventricular systolic function is normal. Doppler measurements suggest normal left ventricular diastolic function. The left ventricular wall motion is normal. There is no thrombus. Cannot assess ASD,VSD or PFO. Right Ventricle The right ventricle is not well visualized secondary to technical limitations. Atria Right atrium not well visualized secondary to technical limitations. The left atrial size is normal. Mitral Valve There is no evidence of mitral valve prolapse. There is no mitral valve stenosis. There is a trace amount of mitral regurgitation. Aortic Valve There is no aortic valvular vegetation. There is mild aortic stenosis. There is a peak gradient of 23.7 mm of Hg. No aortic regurgitation is present. Tricuspid Valve There is no tricuspid valve prolapse. There is no tricuspid stenosis. There is a trace amount of tricuspid regurgitation. There is mild pulmonary hypertension by echo. RVSP is 32 mm of Hg ,with RA mean of 15. Pulmonic Valve The pulmonic valve is not well visualized. Great Vessels The aortic root is not well visualized. The inferior vena cava appeared normal and decreased < 50% with respiration (RAP 10-15 mmHg). Effusions There is no pericardial effusion. : TABATHA JORGE Lakshmi
[2020-07-12] MEDS: MORPHINE SULFATE 10 MG/ML INJ IV PRN ×5 (00:11→22:49)
[2020-07-12] MEDS: ACETAMINOPHEN SOLN 325 MG/10.15 ML UDCUP PO SCH ×4 (00:11→19:24)
[2020-07-12] MEDS ORDERED: IPRATROPIUM/ALBUTEROL 0.5-2.5 MG/3 ML AMPUL NEB ONE (02:53)
[2020-07-12] MEDS ORDERED: IPRATROPIUM/ALBUTEROL 0.5-2.5 MG/3 ML AMPUL NEB PRN (02:54)
[2020-07-12] MEDS: METRONIDAZOLE 500 MG/NS RTU 500 MG/100 ML RTUPB IV SCH (05:35)
[2020-07-12 06:48] LABS: HEMATOCRIT 27.6 % (37.9-51.0); HEMOGLOBIN 9.5 g/dL (13.5-17.0); MEAN CORPUSCULAR HEMOGLOBIN 32.1 pg (27.0-33.4); MEAN CORPUSCULAR HGB CONC 34.3 g/dL (32.0-36.0); MEAN CORPUSCULAR VOLUME 94 fl (80-97); PLATELET COUNT 151 10^3/uL (150-450); RED BLOOD COUNT 2.95 10^6/uL (4.35-5.55); WHITE BLOOD COUNT 9.9 10^3/uL (4.0-10.5)
[2020-07-12 06:53] LABS: ANION GAP 5 (5-19); BLOOD UREA NITROGEN 33 mg/dL (7-20); CALCIUM 7.4 mg/dL (8.4-10.2); CARBON DIOXIDE 27 mmol/L (22-30); CHLORIDE 111 mmol/L (98-107); GLUCOSE 132 mg/dL (75-110); POTASSIUM 3.1 mmol/L (3.6-5.0)
[2020-07-12 07:18] LABS: ABSOLUTE LYMPHOCYTES# (MANUAL) 0.3 10^3/uL (0.5-4.7); ABSOLUTE MONOCYTES # (MANUAL) 0.2 10^3/uL (0.1-1.4); BAND NEUTROPHILS % (MANUAL) 9 % (3-5); BASOPHILS % (MANUAL) 0 % (0-2); EOSINOPHILS % (MANUAL) 0 % (0-6); LYMPHOCYTES % (MANUAL) 3 % (13-45); MONOCYTES % (MANUAL) 2 % (3-13); SEGMENTED NEUTROPHILS % (MAN) 86 % (42-78); TOTAL CELLS COUNTED 100
[2020-07-12 07:19] LABS: ANISOCYTOSIS 1+; PLATELET COMMENT ADEQUATE
--- NOTE | 2020-07-12 07:33 | PDOC PROGRESS REPORT ---
Subjective Progress Note for:: 07/12/20 Subjective:: awake alert,comfortable Reason For Visit: RECTAL BLEEDING Physical Exam Vital Signs: Temp Pulse Resp BP Pulse Ox 96.7 F L 97 16 118/84 100 07/12/20 04:00 07/12/20 05:33 07/12/20 05:33 07/12/20 05:33 07/12/20 05:33 Intake & Output 07/11/20 07/12/20 07/13/20 06:59 06:59 06:59 Intake Total 2255 764 Output Total 1109 1564 Balance 203 -3976 Weight 89.7 kg 87.6 kg General appearance: PRESENT: no acute distress Head exam: PRESENT: normocephalic Eye exam: PRESENT: EOMI Ear exam: PRESENT: normal external ear exam Mouth exam: PRESENT: moist Teeth exam: PRESENT: poor dentation Neck exam: PRESENT: full ROM Respiratory exam: PRESENT: clear to auscultation sudha Cardiovascular exam: PRESENT: RRR Pulses: PRESENT: normal radial pulses, normal femoral pulses Vascular exam: PRESENT: normal capillary refill Breast: PRESENT: Normal GI/Abdominal exam: PRESENT: other - soft, stool in stoma bag Rectal exam: PRESENT: deferred Gentrourinary exam: PRESENT: indwelling catheter Extremities exam: PRESENT: full ROM Musculoskeletal exam: PRESENT: full ROM Neurological exam: PRESENT: alert, awake, oriented to person Psychiatric exam: PRESENT: appropriate affect Skin exam: PRESENT: dry Results Laboratory Results: 07/12/20 05:40 07/12/20 05:40 07/11/20 07/12/20 07/12/20 20:00 05:40 05:40 WBC 9.9 RBC 2.95 L Hgb 9.5 L Hct 27.6 L MCV 94 MCH 32.1 MCHC 34.3 RDW 15.0 H Plt Count 151 Seg Neutrophils % Not Reportable Sodium 143.4 Potassium 3.1 L Chloride 111 H Carbon Dioxide 27 Anion Gap 5 BUN 33 H Creatinine 1.14 Est GFR ( Amer) > 60 Glucose 132 H Calcium 7.4 L Magnesium 2.1 07/10/20 07/10/20 06:15 17:00 Troponin I 0.067 NT-Pro-B Natriuret Pep 2670 H 2860 H Impressions: Abdomen/Pelvis CT 07/07/20 00:00 IMPRESSION: There is significant distention of the small bowel with mucosal thickening and enhancement involving a large portion of the ileum. These findings are concerning for small bowel obstruction which could be due to a stricture or inflammation at the terminal ileum. Adhesions at this area are not fully excluded. KUB X-Ray 07/08/20 00:00 IMPRESSION: 1. Grossly stable dilated small bowel loops throughout the central abdomen measuring up to 5.6 cm suggestive of small bowel obstruction. Gas and stool noted within the colon may suggest partial or intermittent process. 2. Nasoenteric side port at GE junction. Consider advanced 5/10 cm. Assessment & Plan - Time Anticipated Discharge Disposition: Home, Self Care Anticipated Discharge Timeframe: unk - Plan Summary Plan Summary: pt improved off bipap stoma starting to be productive will clamp ng today out of bed iwth phuysical rx poss tx to floor.
[2020-07-12] MEDS: IPRATROPIUM/ALBUTEROL 0.5-2.5 MG/3 ML AMPUL NEB SCH ×2 (08:22→12:18)
[2020-07-12] MEDS: BUDESONIDE NEB 0.25 MG/2 ML AMPUL NEB SCH ×2 (08:22→20:59)
--- NOTE | 2020-07-12 08:52 | RADIOLOGY REPORT (SQ) ---
EXAM DESCRIPTION: CHEST SINGLE VIEW IMAGES COMPLETED DATE/TIME: 07/12/2020 6:01 am REASON FOR STUDY: dyspnea COMPARISON: 07/11/2020 NUMBER OF VIEWS: One view. TECHNIQUE: Single frontal radiographic image of the chest acquired. LIMITATIONS: None. FINDINGS: LUNGS AND PLEURA: Stable appearance. MEDIASTINUM AND HILAR STRUCTURES: Stable heart size and mediastinal structures. HEART AND VASCULAR STRUCTURES: Stable appearance. SUPPORT DEVICES: Appropriate location without change. BONES: No acute findings. OTHER: No other significant finding. IMPRESSION: STABLE APPEARANCE OF THE CHEST. SUPPORT DEVICES UNCHANGED. TECHNICAL DOCUMENTATION: JOB ID: [id number] 2010 [employer]- All Rights Reserved Reading location - IP/workstation name: [email or web address]
[2020-07-12] MEDS ORDERED: POTASSIUM CHLORIDE 20 MEQ PACKET PO ONE (10:30)
--- NOTE | 2020-07-12 13:38 | PDOC CRITICAL CARE PROG REPORT ---
General Date:: 07/12/20 ICU Day:: 4 Hospital Day:: 9 Resuscitation Status: Full Code Events in the past 12 to 24 Hours:: This 79-year-old male reformed smoker transferred to the ICU on 07/09/2020 postoperatively after undergoing total colectomy and ileostomy for pandiverticulosis and a perforated cecum. He arrived in the ICU under ane sthesia and still endotracheally intubated. 07/10: The patient has been successfully extubated in the interim. He is currently on BiPAP 16/8. He is awake, alert and oriented. He follows commands. He reports reasonable postoperative pain control. He is off Levophed but is noted to be mildly hypotensive. He is on cefepime/Flagyl/vancomycin for empiric coverage of abdominal sepsis. WBC 2.6>6.8. T-max 100.7 F. is at the bedside. She reports that the patient drinks 2 to 3 fingerbreadths of whiskey 4 times daily. She raises concerns about alcohol withdrawal, which he apparently has experienced in the past. 07/11: Remains extubated. On BiPAP 10/4, FiO2 40%. He is awake, alert and oriented. Follows commands. Reports reasonable postoperative pain control. On dopamine at 6 mcg/kg/min after SvO2 was found to be 55%. WBC 8.7. Afebrile x24 hours. Gram stain from tracheal aspirate is isolating gram-negative rods. On cefepime/Flagyl/vancomycin, which was started for empiric coverage of abdominal sepsis. Off Precedex. No signs of delirium or psychomotor agitation at this time. CVP 13. 8/14: On 4 LPM via nasal cannula. And taking well. Doing well. Reports reasonable postoperative pain control. 400 to 500 mL on incentive spirometry. On cefepime/Flagyl/vancomycin. Trach aspirate (07/10) isolated E. coli and Klebsiella oxytoca. Blood cultures (07/09) isolated Streptococcus species. Review of systems relevant to events:: Gastrointestinal: Lower GI bleed, pandiverticulosis, status post total colectomy and ileostomy Cardiovascular: Hypotension, likely septic shock secondary to abdominal sepsis Respiratory: Endotracheally intubated, now extubated Reason for ICU Addmission:: Postanesthesia care; postoperative hypotension; endotracheal intubation - Medications: Medications reviewed and adjusted accordingly: Yes Physical Exam Vital Signs: Temp Pulse Resp BP Pulse Ox 97.7 F 93 20 152/81 H 100 07/12/20 12:00 07/12/20 12:22 07/12/20 12:22 07/12/20 12:00 07/12/20 12:22 Intake & Output 07/11/20 07/12/20 07/13/20 06:59 06:59 06:59 Intake Total 2258 774 Output Total 1301 1892 750 Balance 515 -6096 -750 Weight 89.7 kg 87.6 kg Weight/Height Weight 87.6 kg Height 1.78 m General appearance: PRESENT: no acute distress, well-developed, well-nourished Head exam: PRESENT: atraumatic, normocephalic Eye exam: PRESENT: conjunctiva pink, EOMI, PERRLA. ABSENT: scleral icterus Mouth exam: PRESENT: moist, tongue midline Neck exam: ABSENT: carotid bruit, JVD, lymphadenopathy, thyromegaly Respiratory exam: PRESENT: clear to auscultation sudha. ABSENT: rales, rhonchi, wheezes Cardiovascular exam: PRESENT: RRR. ABSENT: diastolic murmur, rubs, systolic murmur GI/Abdominal exam: PRESENT: normal bowel sounds, soft, other - Laparotomy incision clean dry and intact. Ileostomy with normal-appearing output.. ABSENT: distended, guarding, mass, organolmegaly, rebound, tenderness Extremities exam: PRESENT: full ROM, pedal edema, +1 edema. ABSENT: calf tenderness, clubbing Neurological exam: PRESENT: alert, awake, oriented to person, oriented to place, oriented to time, oriented to situation, CN II-XII grossly intact. ABSENT: motor sensory deficit Psychiatric exam: ABSENT: agitated, anxious Skin exam: PRESENT: dry, intact, warm. ABSENT: cyanosis, rash Laboratory/Radiographs Laboratory Results: 07/12/20 05:40 07/12/20 05:40 07/11/20 07/12/20 07/12/20 20:00 05:40 05:40 WBC 9.9 RBC 2.95 L Hgb 9.5 L Hct 27.6 L MCV 94 MCH 32.1 MCHC 34.3 RDW 15.0 H Plt Count 151 Seg Neutrophils % Not Reportable Sodium 143.4 Potassium 3.1 L Chloride 111 H Carbon Dioxide 27 Anion Gap 5 BUN 33 H Creatinine 1.14 Est GFR ( Amer) > 60 Glucose 132 H Calcium 7.4 L Magnesium 2.1 07/09/20 11:42 Blood Blood Culture (PCR) - Final Streptococcus Species 07/09/20 11:46 Blood Blood Culture (PCR) - Final Streptococcus Species 07/10/20 00:38 Catheterized Urine Urine Culture - Final NO GROWTH 2 DAYS 07/10/20 07/10/20 06:15 17:00 Troponin I 0.067 NT-Pro-B Natriuret Pep 2670 H 2860 H Impressions: Abdomen/Pelvis CT 07/07/20 00:00 IMPRESSION: There is significant distention of the small bowel with mucosal thickening and enhancement involving a large portion of the ileum. These findings are concerning for small bowel obstruction which could be due to a stricture or inflammation at the terminal ileum. Adhesions at this area are not fully excluded. KUB X-Ray 07/08/20 00:00 IMPRESSION: 1. Grossly stable dilated small bowel loops throughout the central abdomen measuring up to 5.6 cm suggestive of small bowel obstruction. Gas and stool noted within the colon may suggest partial or intermittent process. 2. Nasoenteric side port at GE junction. Consider advanced 5/10 cm. Chest X-Ray 07/12/20 05:00 IMPRESSION: STABLE APPEARANCE OF THE CHEST. SUPPORT DEVICES UNCHANGED. All labs, radiographs, diagnostic studies and EKGs were personally reviewed: Yes In addition, reports of radiographic and diagnostic studies were read: Yes Assessment and Plan - Diagnosis (1) Shock due to anesthesia, initial encounter Is this a current diagnosis for this admission?: Yes Plan: Resolved. (2) Hypokalemia Is this a current diagnosis for this admission?: Yes Plan: Replete (3) COPD (chronic obstructive pulmonary disease) Qualifiers: COPD type: chronic bronchitis Is this a current diagnosis for this admission?: Yes Plan: History of oxygen dependent COPD. On 2 L nasal cannula. Outpatient PCP and pulmonology follow-up. Continue albuterol/budesonide. Home regimen is noted to include Stiolto Respimat, DuoNeb as needed, albuterol as needed. (4) Acute on chronic blood loss anemia Is this a current diagnosis for this admission?: Yes Plan: Monitor hemoglobin. (5) COVID-19 ruled out by laboratory testing Is this a current diagnosis for this admission?: Yes (6) Endotracheally intubated Is this a current diagnosis for this admission?: Yes (7) Hematochezia Is this a current diagnosis for this admission?: Yes (8) Encounter for postanesthesia care Is this a current diagnosis for this admission?: Yes (9) Alcohol withdrawal Qualifiers: Complication of substance-induced condition: uncomplicated Qualified Code(s): F10.230 - Alcohol dependence with withdrawal, uncomplicated Is this a current diagnosis for this admission?: Yes (10) Hypocalcemia Is this a current diagnosis for this admission?: Yes Plan Summary: OK to transfer to telemetry bed from pulmonary/critical care standpoint. Critical Time Critical Time (minutes): 45 Level of Care: ICU -: 1. The care of a critical patient is a dynamic process. This note is a automobile sales representative synopsis but static in nature. The timeframe for treatments given in order is not necessarily the actual time these treatments may have been done. 2. This patient requires critical care secondary to ongoing requirements for therapy not offered or safe outside the critical care environment. Transfer to a lower level of care will result in altered life or limb morbidity and mortality. 3. Multidisciplinary rounds completed. 4. ABCDE bundle addressed.
[2020-07-12] MEDS: POTASSI CL 20 MEQ/50 ML RIDER 20 MEQ/50 ML RTUPB IV SCH ×3 (15:33→16:01)
[2020-07-12] MEDS: PANTOPRAZOLE SODIUM 40 MG VIAL IV SCH ×2 (15:37→22:40)
[2020-07-12] MEDS: ONDANSETRON HCL INJ/PF 4 MG/2 ML SDV IV PRN ×2 (15:55→22:49)
[2020-07-12] MEDS: CEFTRIAXONE 1 GM/D5W RTU 1 GM/50 ML RTUPB IV SCH (15:59)
[2020-07-12] MEDS: ALBUTEROL SULFATE 0.083% NEB 2.5 MG/3 ML AMPUL NEB PRN (16:49)
[2020-07-12] MEDS: CEFEPIME HCL 2 GM in DEXTROSE 5%-WATER 50 ML IV SCH (18:50)
[2020-07-12] MEDS: VANCOMYCIN HCL 1,250 MG in DEXTROSE 5%-WATER 250 ML IV SCH (18:50)
[2020-07-12] MEDS ORDERED: BUDESONIDE NEB 0.25 MG/2 ML AMPUL NEB SCH (20:00)
[2020-07-12] MEDS: ALBUTEROL SULFATE 0.083% NEB 2.5 MG/3 ML AMPUL NEB SCH (21:00)
[2020-07-12] MEDS: DOXAZOSIN MESYLATE 4 MG TABLET NG SCH (22:40)
[2020-07-12] MEDS: TAMSULOSIN HCL 0.4 MG CAP.SR.24H PO SCH (22:40)
[2020-07-13] MEDS: ALBUTEROL SULFATE 0.083% NEB 2.5 MG/3 ML AMPUL NEB SCH ×4 (02:36→20:32)
[2020-07-13] MEDS: ACETAMINOPHEN SOLN 325 MG/10.15 ML UDCUP PO SCH ×4 (03:54→17:25)
[2020-07-13 06:58] LABS: HEMATOCRIT 27.7 % (37.9-51.0); HEMOGLOBIN 9.5 g/dL (13.5-17.0); MEAN CORPUSCULAR HGB CONC 34.2 g/dL (32.0-36.0); MEAN CORPUSCULAR VOLUME 94 fl (80-97); PLATELET COUNT 158 10^3/uL (150-450); RED BLOOD COUNT 2.97 10^6/uL (4.35-5.55); RED CELL DISTRIBUTION WIDTH 15.2 % (11.5-14.0)
[2020-07-13 07:20] LABS: ABSOLUTE LYMPHOCYTES# (MANUAL) 1.3 10^3/uL (0.5-4.7); ABSOLUTE MONOCYTES # (MANUAL) 0.8 10^3/uL (0.1-1.4); BAND NEUTROPHILS % (MANUAL) 1 % (3-5); BASOPHILS % (MANUAL) 0 % (0-2); EOSINOPHILS % (MANUAL) 0 % (0-6); LYMPHOCYTES % (MANUAL) 14 % (13-45); MONOCYTES % (MANUAL) 9 % (3-13); SEGMENTED NEUTROPHILS % (MAN) 76 % (42-78); TOTAL CELLS COUNTED 100
[2020-07-13 07:21] LABS: ANISOCYTOSIS 1+; PLATELET COMMENT ADEQUATE; TOXIC GRANULATION 1+
[2020-07-13 07:27] LABS: BLOOD UREA NITROGEN 29 mg/dL (7-20); CALCIUM 7.3 mg/dL (8.4-10.2); GLUCOSE 140 mg/dL (75-110); POTASSIUM 3.3 mmol/L (3.6-5.0)
[2020-07-13 07:33] LABS: CARBON DIOXIDE 29 mmol/L (22-30); CHLORIDE 115 mmol/L (98-107)
[2020-07-13 07:38] LABS: ANION GAP 3 (5-19)
[2020-07-13] MEDS: BUDESONIDE NEB 0.25 MG/2 ML AMPUL NEB SCH ×2 (08:21→20:32)
--- NOTE | 2020-07-13 09:51 | PDOC PROGRESS REPORT ---
Subjective Progress Note for:: 07/13/20 Subjective:: Awake alert feels better Reason For Visit: RECTAL BLEEDING Physical Exam Vital Signs: Temp Pulse Resp BP Pulse Ox 98.7 F 86 16 146/69 H 95 07/13/20 08:00 07/13/20 08:23 07/13/20 08:23 07/13/20 08:00 07/13/20 08:23 Intake & Output 07/12/20 07/13/20 07/14/20 06:59 06:59 06:59 Intake Total 764 250 Output Total 4740 3550 Balance -3976 -3300 Weight 87.6 kg 82.8 kg General appearance: PRESENT: no acute distress Head exam: PRESENT: normocephalic Eye exam: PRESENT: EOMI Ear exam: PRESENT: normal external ear exam Mouth exam: PRESENT: moist Neck exam: PRESENT: full ROM Respiratory exam: PRESENT: clear to auscultation sudha Cardiovascular exam: PRESENT: RRR Pulses: PRESENT: normal radial pulses, normal femoral pulses Vascular exam: PRESENT: normal capillary refill Breast: PRESENT: Normal GI/Abdominal exam: PRESENT: soft - , Stoma pink and functioning productive of stool Rectal exam: PRESENT: deferred Extremities exam: PRESENT: full ROM Musculoskeletal exam: PRESENT: full ROM Neurological exam: PRESENT: alert, awake, oriented to person Psychiatric exam: PRESENT: appropriate affect Skin exam: PRESENT: dry Results Laboratory Results: 07/13/20 06:40 07/13/20 06:40 07/13/20 07/13/20 06:40 06:40 WBC 9.0 RBC 2.97 L Hgb 9.5 L Hct 27.7 L MCV 94 MCH 32.0 MCHC 34.2 RDW 15.2 H Plt Count 158 Seg Neutrophils % Not Reportable Sodium 146.7 H Potassium 3.3 L Chloride 115 H Carbon Dioxide 29 Anion Gap 3 L BUN 29 H Creatinine 0.93 Est GFR ( Amer) > 60 Glucose 140 H Calcium 7.3 L 07/09/20 11:42 Blood Blood Culture (PCR) - Final Streptococcus Species 07/09/20 11:46 Blood Blood Culture (PCR) - Final Streptococcus Species 07/10/20 00:38 Catheterized Urine Urine Culture - Final NO GROWTH 2 DAYS 07/10/20 07/10/20 06:15 17:00 Troponin I 0.067 NT-Pro-B Natriuret Pep 2670 H 2860 H Impressions: Abdomen/Pelvis CT 07/07/20 00:00 IMPRESSION: There is significant distention of the small bowel with mucosal thickening and enhancement involving a large portion of the ileum. These findings are concerning for small bowel obstruction which could be due to a stricture or inflammation at the terminal ileum. Adhesions at this area are not fully excluded. KUB X-Ray 07/08/20 00:00 IMPRESSION: 1. Grossly stable dilated small bowel loops throughout the central abdomen measuring up to 5.6 cm suggestive of small bowel obstruction. Gas and stool noted within the colon may suggest partial or intermittent process. 2. Nasoenteric side port at GE junction. Consider advanced 5/10 cm. Chest X-Ray 07/12/20 05:00 IMPRESSION: STABLE APPEARANCE OF THE CHEST. SUPPORT DEVICES UNCHANGED. Assessment & Plan - Time Anticipated Discharge Disposition: Home, Self Care Anticipated Discharge Timeframe: unk - Plan Summary Plan Summary: Patient's condition continues to improve he is awake and alert he is currently using BiPAP. He has had some return of bowel function with stool and his stoma bag stoma is functioning well. He does have a NG tube that remains in place however he has been tolerating sips of liquids and ice chips and therefore the canister on the wall has about 800 cc within it. Plan we will clamp NG tube today and reconnect tomorrow to see the residual in the stomach there is not a significant residual we will remove NG tube tomorrow. Patient is also working with physical therapy.
[2020-07-13] MEDS: PANTOPRAZOLE SODIUM 40 MG VIAL IV SCH ×2 (10:46→21:46)
[2020-07-13 11:45] LABS: HEMATOCRIT 28.5 % (37.9-51.0); HEMOGLOBIN 9.5 g/dL (13.5-17.0); MEAN CORPUSCULAR HEMOGLOBIN 31.4 pg (27.0-33.4); MEAN CORPUSCULAR HGB CONC 33.5 g/dL (32.0-36.0); MEAN CORPUSCULAR VOLUME 94 fl (80-97); PLATELET COUNT 161 10^3/uL (150-450); RED BLOOD COUNT 3.04 10^6/uL (4.35-5.55); RED CELL DISTRIBUTION WIDTH 15.3 % (11.5-14.0); WHITE BLOOD COUNT 9.1 10^3/uL (4.0-10.5)
--- NOTE | 2020-07-13 12:02 | PDOC PROGRESS REPORT ---
Subjective Progress Note for:: 07/13/20 Subjective:: 79-year-old male reformed smoker transferred to the ICU on 07/09/2020 postoperatively after undergoing total colectomy and ileostomy for pandiverticulosis and a perforated cecum. He arrived in the ICU under anesthesia and still endotracheally intubated. 07/10: The patient has been successfully extubated in the interim. He is currently on BiPAP 16/8. He is awake, alert and oriented. He follows commands. He reports reasonable postoperative pain control. He is off Levophed but is noted to be mildly hypotensive. He is on cefepime/Flagyl/vancomycin for empiric coverage of abdominal sepsis. WBC 2.6>6.8. T-max 100.7 F. is at the bedside. She reports that the patient drinks 2 to 3 fingerbreadths of whiskey 4 times daily. She raises concerns about alcohol withdrawal, which he apparently has experienced in the past. 07/11: Remains extubated. On BiPAP 10/4, FiO2 40%. He is awake, alert and oriented. Follows commands. Reports reasonable postoperative pain control. On dopamine at 6 mcg/kg/min after SvO2 was found to be 55%. WBC 8.7. Afebrile x24 hours. Gram stain from tracheal aspirate is isolating gram-negative rods. On cefepime/Flagyl/vancomycin, which was started for empiric coverage of abdominal sepsis. Off Precedex. No signs of delirium or psychomotor agitation at this time. CVP 13. 8/14: On 4 LPM via nasal cannula. And taking well. Doing well. Reports reasonable postoperative pain control. 400 to 500 mL on incentive spirometry. On cefepime/Flagyl/vancomycin. Trach aspirate (07/10) isolated E. coli and Klebsiella oxytoca. Blood cultures (07/09) isolated Streptococcus species. 07/13/2020-no acute events in the last 24 hours. Afebrile. Seen by Dr. Hunter. He wants to continue to clamp the NG tube and see the residual to evangelista prior to starting the feeds. Patient is downgraded from ICU yesterday. Patient has a total colectomy and ileostomy for pandiverticulosis and perforated cecum. Still has the NG tube in place. Reason For Visit: RECTAL BLEEDING Physical Exam Vital Signs: Temp Pulse Resp BP Pulse Ox 98.7 F 86 16 146/69 H 95 07/13/20 08:00 07/13/20 08:23 07/13/20 08:23 07/13/20 08:00 07/13/20 08:23 Intake & Output 07/12/20 07/13/20 07/14/20 06:59 06:59 06:59 Intake Total 764 250 Output Total 4740 3550 Balance -3976 -3300 Weight 87.6 kg 82.8 kg General appearance: PRESENT: no acute distress, well-developed, well-nourished Head exam: PRESENT: atraumatic, normocephalic Eye exam: PRESENT: conjunctiva pink, EOMI, PERRLA. ABSENT: scleral icterus Ear exam: PRESENT: normal external ear exam Mouth exam: PRESENT: moist, tongue midline Neck exam: ABSENT: carotid bruit, JVD, lymphadenopathy, thyromegaly Respiratory exam: PRESENT: clear to auscultation sudha. ABSENT: rales, rhonchi, wheezes Cardiovascular exam: PRESENT: RRR. ABSENT: diastolic murmur, rubs, systolic mu rmur Pulses: PRESENT: normal dorsalis pedis pul Vascular exam: PRESENT: normal capillary refill GI/Abdominal exam: PRESENT: normal bowel sounds, soft, other - Colostomy bag with liquid stool present.. ABSENT: distended, guarding, mass, organolmegaly, rebound, tenderness Rectal exam: PRESENT: deferred Extremities exam: PRESENT: full ROM. ABSENT: calf tenderness, clubbing, pedal edema Neurological exam: PRESENT: alert, awake, oriented to person, oriented to place, oriented to time, oriented to situation, CN II-XII grossly intact. ABSENT: motor sensory deficit Psychiatric exam: PRESENT: appropriate affect, normal mood. ABSENT: homicidal ideation, suicidal ideation Skin exam: PRESENT: dry, intact, warm. ABSENT: cyanosis, rash Results Laboratory Results: 07/13/20 07/13/20 06:40 06:40 WBC 9.0 RBC 2.97 L Hgb 9.5 L Hct 27.7 L MCV 94 MCH 32.0 MCHC 34.2 RDW 15.2 H Plt Count 158 Seg Neutrophils % Not Reportable Sodium 146.7 H Potassium 3.3 L Chloride 115 H Carbon Dioxide 29 Anion Gap 3 L BUN 29 H Creatinine 0.93 Est GFR ( Amer) > 60 Glucose 140 H Calcium 7.3 L 07/09/20 11:42 Blood Blood Culture (PCR) - Final Streptococcus Species 07/09/20 11:46 Blood Blood Culture (PCR) - Final Streptococcus Species 07/10/20 00:38 Catheterized Urine Urine Culture - Final NO GROWTH 2 DAYS 07/10/20 07/10/20 06:15 17:00 Troponin I 0.067 NT-Pro-B Natriuret Pep 2670 H 2860 H Impressions: Abdomen/Pelvis CT 07/07/20 00:00 IMPRESSION: There is significant distention of the small bowel with mucosal thickening and enhancement involving a large portion of the ileum. These findings are concerning for small bowel obstruction which could be due to a stricture or inflammation at the terminal ileum. Adhesions at this area are not fully excluded. KUB X-Ray 07/08/20 00:00 IMPRESSION: 1. Grossly stable dilated small bowel loops throughout the central abdomen measuring up to 5.6 cm suggestive of small bowel obstruction. Gas and stool noted within the colon may suggest partial or intermittent process. 2. Nasoenteric side port at GE junction. Consider advanced 5/10 cm. Chest X-Ray 07/12/20 05:00 IMPRESSION: STABLE APPEARANCE OF THE CHEST. SUPPORT DEVICES UNCHANGED. Assessment and Plan - Diagnosis (1) Shock due to anesthesia, initial encounter Is this a current diagnosis for this admission?: Yes Plan: Resolved. (2) Hypokalemia Is this a current diagnosis for this admission?: Yes Plan: Replete 07/13/2020-serum potassium is 3.3 today to provide supplementation. (3) COPD (chronic obstructive pulmonary disease) Qualifiers: COPD type: chronic bronchitis Is this a current diagnosis for this admission?: Yes Plan: History of oxygen dependent COPD. On 2 L nasal cannula. Outpatient PCP and pulmonology follow-up. Continue albuterol/budesonide. Home regimen is noted to include Stiolto Respimat, DuoNeb as needed, albuterol as needed. 07/13/2020-ox today is 99% on 2 L. Not in distress. On examination chest bilateral dose decreased no wheezing no crepitations. (4) Acute on chronic blood loss anemia Is this a current diagnosis for this admission?: Yes Plan: Monitor hemoglobin. 07/13/2020-hemoglobin is 9.5 stable plan is to continue to closely monitor the hemoglobin. (5) COVID-19 ruled out by laboratory testing Is this a current diagnosis for this admission?: Yes (6) Alcohol withdrawal Qualifiers: Complication of substance-induced condition: uncomplicated Qualified Code(s): F10.230 - Alcohol dependence with withdrawal, uncomplicated Is this a current diagnosis for this admission?: Yes Plan: Continue monitoring for symptoms of alcohol withdrawal. Precedex infusion for control of symptoms as needed. (7) Hypocalcemia Is this a current diagnosis for this admission?: Yes Plan: Calcium gluconate 07/13/2020-serum calcium is 7.3 and albumin is 2.3. Corrected calcium within normal limits. - Time Anticipated Discharge Disposition: [facility] Anticipated Discharge Timeframe: within 72 hours
[2020-07-13 12:05] LABS: ABSOLUTE LYMPHOCYTES# (MANUAL) 0.7 10^3/uL (0.5-4.7); ABSOLUTE MONOCYTES # (MANUAL) 0.4 10^3/uL (0.1-1.4); BAND NEUTROPHILS % (MANUAL) 1 % (3-5); BASOPHILS % (MANUAL) 0 % (0-2); EOSINOPHILS % (MANUAL) 0 % (0-6); LYMPHOCYTES % (MANUAL) 8 % (13-45); MONOCYTES % (MANUAL) 4 % (3-13); SEGMENTED NEUTROPHILS % (MAN) 87 % (42-78); TOTAL CELLS COUNTED 100
[2020-07-13 12:06] LABS: ANISOCYTOSIS SLIGHT; POLYCHROMASIA SLIGHT; VANCOMYCIN,TROUGH < 5.0 ug/mL (5.0-20.0)
[2020-07-13 12:07] LABS: OVALOCYTES SLIGHT; PLATELET COMMENT ADEQUATE
[2020-07-13] MEDS: CEFTRIAXONE 1 GM/D5W RTU 1 GM/50 ML RTUPB IV SCH (12:39)
[2020-07-13] MEDS ORDERED: POTASSI CL 20 MEQ/50 ML RIDER 20 MEQ/50 ML RTUPB IV ONE (13:00)
[2020-07-13] MEDS: MORPHINE SULFATE 10 MG/ML INJ IV PRN ×2 (16:03→21:46)
[2020-07-13] MEDS: DEXTROSE 5%-NORMAL SALINE 1,000 ML IV PRN (17:48)
[2020-07-13] MEDS: TAMSULOSIN HCL 0.4 MG CAP.SR.24H PO SCH (21:46)
[2020-07-13] MEDS: DOXAZOSIN MESYLATE 4 MG TABLET NG SCH (21:46)
[2020-07-14] MEDS: ALBUTEROL SULFATE 0.083% NEB 2.5 MG/3 ML AMPUL NEB SCH ×4 (01:03→20:23)
[2020-07-14] MEDS: ONDANSETRON HCL INJ/PF 4 MG/2 ML SDV IV PRN ×4 (02:17→17:20)
[2020-07-14] MEDS: DEXTROSE 5%-NORMAL SALINE 1,000 ML IV PRN ×3 (02:18→18:56)
[2020-07-14] MEDS: MORPHINE SULFATE 10 MG/ML INJ IV PRN ×4 (02:21→17:20)
[2020-07-14] MEDS: ACETAMINOPHEN SOLN 325 MG/10.15 ML UDCUP PO SCH ×3 (06:27→12:07)
[2020-07-14 06:41] LABS: HEMATOCRIT 29.8 % (37.9-51.0); HEMOGLOBIN 9.9 g/dL (13.5-17.0); MEAN CORPUSCULAR HEMOGLOBIN 31.6 pg (27.0-33.4); MEAN CORPUSCULAR HGB CONC 33.3 g/dL (32.0-36.0); MEAN CORPUSCULAR VOLUME 95 fl (80-97); PLATELET COUNT 179 10^3/uL (150-450); RED BLOOD COUNT 3.13 10^6/uL (4.35-5.55); RED CELL DISTRIBUTION WIDTH 15.6 % (11.5-14.0); WHITE BLOOD COUNT 10.9 10^3/uL (4.0-10.5)
[2020-07-14 07:31] LABS: ABSOLUTE LYMPHOCYTES# (MANUAL) 1.2 10^3/uL (0.5-4.7); ABSOLUTE MONOCYTES # (MANUAL) 0.4 10^3/uL (0.1-1.4); BAND NEUTROPHILS % (MANUAL) 1 % (3-5); BASOPHILS % (MANUAL) 0 % (0-2); EOSINOPHILS % (MANUAL) 1 % (0-6); LYMPHOCYTES % (MANUAL) 11 % (13-45); MONOCYTES % (MANUAL) 4 % (3-13); SEGMENTED NEUTROPHILS % (MAN) 83 % (42-78); TOTAL CELLS COUNTED 100
[2020-07-14 07:32] LABS: ANISOCYTOSIS 1+; PLATELET COMMENT ADEQUATE
[2020-07-14] MEDS: BUDESONIDE NEB 0.25 MG/2 ML AMPUL NEB SCH ×2 (08:04→20:23)
[2020-07-14] MEDS: PANTOPRAZOLE SODIUM 40 MG VIAL IV SCH ×2 (09:07→21:11)
--- NOTE | 2020-07-14 09:46 | PDOC PROGRESS REPORT ---
Subjective Progress Note for:: 07/14/20 Subjective:: pt comfortable Reason For Visit: RECTAL BLEEDING Physical Exam Vital Signs: Temp Pulse Resp BP Pulse Ox 97.9 F 82 18 127/56 H 95 07/14/20 07:49 07/14/20 08:16 07/14/20 08:16 07/14/20 07:49 07/14/20 08:16 Intake & Output 07/13/20 07/14/20 07/15/20 06:59 06:59 06:59 Intake Total 250 1100 Output Total 3550 3100 Balance -3300 -2000 Weight 82.8 kg 84 kg General appearance: PRESENT: no acute distress Head exam: PRESENT: normocephalic Eye exam: PRESENT: EOMI Ear exam: PRESENT: normal external ear exam Mouth exam: PRESENT: moist Neck exam: PRESENT: full ROM Respiratory exam: PRESENT: clear to auscultation sudha Cardiovascular exam: PRESENT: RRR Pulses: PRESENT: normal radial pulses, normal femoral pulses Breast: PRESENT: Normal GI/Abdominal exam: PRESENT: soft, other - stoma functional stool output Rectal exam: PRESENT: deferred Extremities exam: PRESENT: full ROM Musculoskeletal exam: PRESENT: full ROM Neurological exam: PRESENT: oriented to person, oriented to place Psychiatric exam: PRESENT: appropriate affect Skin exam: PRESENT: dry - s/p total colectomy now with slowely returning bowel function still with increased ng outputs however he is taking ice chips stoma functioning plan clamp ng again today check residals in 12 hrs. Results Laboratory Results: 07/14/20 05:40 07/13/20 11:20 07/13/20 07/13/20 07/14/20 11:20 11:20 05:40 WBC 9.1 10.9 H RBC 3.04 L 3.13 L Hgb 9.5 L 9.9 L Hct 28.5 L 29.8 L MCV 94 95 MCH 31.4 31.6 MCHC 33.5 33.3 RDW 15.3 H 15.6 H Plt Count 161 179 Seg Neutrophils % Not Reportable Not Reportable Creatinine 0.88 Est GFR ( Amer) > 60 07/10/20 07/10/20 06:15 17:00 Troponin I 0.067 NT-Pro-B Natriuret Pep 2670 H 2860 H Impressions: Abdomen/Pelvis CT 07/07/20 00:00 IMPRESSION: There is significant distention of the small bowel with mucosal thickening and enhancement involving a large portion of the ileum. These findings are concerning for small bowel obstruction which could be due to a stricture or inflammation at the terminal ileum. Adhesions at this area are not fully excluded. KUB X-Ray 07/08/20 00:00 IMPRESSION: 1. Grossly stable dilated small bowel loops throughout the central abdomen measuring up to 5.6 cm suggestive of small bowel obstruction. Gas and stool noted within the colon may suggest partial or intermittent process. 2. Nasoenteric side port at GE junction. Consider advanced 5/10 cm. Chest X-Ray 07/12/20 05:00 IMPRESSION: STABLE APPEARANCE OF THE CHEST. SUPPORT DEVICES UNCHANGED. Assessment & Plan - Time Anticipated Discharge Disposition: Home, Self Care Anticipated Discharge Timeframe: within 72 hours
--- NOTE | 2020-07-14 10:04 | PDOC PROGRESS REPORT ---
Subjective Progress Note for:: 07/14/20 Subjective:: 79-year-old male reformed smoker transferred to the ICU on 07/09/2020 postoperatively after undergoing total colectomy and ileostomy for pandiverticulosis and a perforated cecum. He arrived in the ICU under anesthesia and still endotracheally intubated. 07/10: The patient has been successfully extubated in the interim. He is currently on BiPAP 14/07. He is awake, alert and oriented. He follows commands. He reports reasonable postoperative pain control. He is off Levophed but is noted to be mildly hypotensive. He is on cefepime/Flagyl/vancomycin for empiric coverage of abdominal sepsis. WBC 2.6>6.8. T-max 100.7 F. is at the bedside. She reports that the patient drinks 2 to 3 fingerbreadths of whiskey 4 times daily. She raises concerns about alcohol withdrawal, which he apparently has experienced in the past. 07/11: Remains extubated. On BiPAP 10/, FiO2 40%. He is awake, alert and oriented. Follows commands. Reports reasonable postoperative pain control. On dopamine at 6 mcg/kg/min after SvO2 was found to be 55%. WBC 8.7. Afebrile x24 hours. Gram stain from tracheal aspirate is isolating gram-negative rods. On cefepime/Flagyl/vancomycin, which was started for empiric coverage of abdominal sepsis. Off Precedex. No signs of delirium or psychomotor agitation at this time. CVP 13. 8/14: On 4 LPM via nasal cannula. And taking well. Doing well. Reports reasonable postoperative pain control. 400 to 500 mL on incentive spirometry. On cefepime/Flagyl/vancomycin. Trach aspirate (07/10) isolated E. coli and Klebsiella oxytoca. Blood cultures (07/09) isolated Streptococcus species. 07/13/2020-no acute events in the last 24 hours. Afebrile. Seen by Dr. Hunter. He wants to continue to clamp the NG tube and see the residual to evangelista prior to starting the feeds. Patient is downgraded from ICU yesterday. Patient has a total colectomy and ileostomy for pandiverticulosis and perforated cecum. Still has the NG tube in place. 07/14/2020-patient is still n.p.o., NG tube is clamped. Discussed the plan of care with Dr. Hunter he wants to wait until tomorrow and make addition about oral feeds versus TPN. Serum potassium is 3.3 to provide potassium supplementation by IV route. Patient is comfortable in the bed communicating well. Reason For Visit: RECTAL BLEEDING Physical Exam Vital Signs: Temp Pulse Resp BP Pulse Ox 97.9 F 82 18 127/56 H 95 07/14/20 07:49 07/14/20 08:16 07/14/20 08:16 07/14/20 07:49 07/14/20 08:16 Intake & Output 07/13/20 07/14/20 07/15/20 06:59 06:59 06:59 Intake Total 250 1100 Output Total 3550 3100 Balance -3300 -2000 Weight 82.8 kg 84 kg General appearance: PRESENT: no acute distress, cooperative Head exam: PRESENT: atraumatic Eye exam: PRESENT: PERRLA Mouth exam: PRESENT: moist, tongue midline Teeth exam: PRESENT: poor dentation Neck exam: ABSENT: carotid bruit, JVD, lymphadenopathy, thyromegaly Respiratory exam: PRESENT: decreased breath sounds Cardiovascular exam: PRESENT: tachycardia GI/Abdominal exam: PRESENT: other - NG tube in place draining dark-colored material. Abdominal examination shows colostomy bag in place surgical scar looks clean. Rectal exam: PRESENT: deferred Extremities exam: PRESENT: full ROM. ABSENT: calf tenderness, clubbing, pedal edema Neurological exam: PRESENT: alert, awake, oriented to person, oriented to place, oriented to time, oriented to situation, CN II-XII grossly intact. ABSENT: motor sensory deficit Results Laboratory Results: 07/14/20 05:40 07/13/20 11:20 07/13/20 07/13/20 07/14/20 11:20 11:20 05:40 WBC 9.1 10.9 H RBC 3.04 L 3.13 L Hgb 9.5 L 9.9 L Hct 28.5 L 29.8 L MCV 94 95 MCH 31.4 31.6 MCHC 33.5 33.3 RDW 15.3 H 15.6 H Plt Count 161 179 Seg Neutrophils % Not Reportable Not Reportable Creatinine 0.88 Est GFR ( Amer) > 60 07/10/20 07/10/20 06:15 17:00 Troponin I 0.067 NT-Pro-B Natriuret Pep 2670 H 2860 H Impressions: Abdomen/Pelvis CT 07/07/20 00:00 IMPRESSION: There is significant distention of the small bowel with mucosal thickening and enhancement involving a large portion of the ileum. These findings are concerning for small bowel obstruction which could be due to a stricture or inflammation at the terminal ileum. Adhesions at this area are not fully excluded. KUB X-Ray 07/08/20 00:00 IMPRESSION: 1. Grossly stable dilated small bowel loops throughout the central abdomen measuring up to 5.6 cm suggestive of small bowel obstruction. Gas and stool noted within the colon may suggest partial or intermittent process. 2. Nasoenteric side port at GE junction. Consider advanced 5/10 cm. Chest X-Ray 07/12/20 05:00 IMPRESSION: STABLE APPEARANCE OF THE CHEST. SUPPORT DEVICES UNCHANGED. Assessment and Plan - Diagnosis (1) Shock due to anesthesia, initial encounter Is this a current diagnosis for this admission?: Yes Plan: Resolved. (2) Hypokalemia Is this a current diagnosis for this admission?: Yes Plan: Replete 07/13/2020-serum potassium is 3.3 today to provide supplementation. 07/14/2020-serum potassium today is 3.3 to give 20 mEq of IV potassium. (3) COPD (chronic obstructive pulmonary disease) Qualifiers: COPD type: chronic bronchitis Is this a current diagnosis for this admission?: Yes Plan: History of oxygen dependent COPD. On 2 L nasal cannula. Outpatient PCP and pulmonology follow-up. Continue albuterol/budesonide. Home regimen is noted to include Stiolto Respimat, DuoNeb as needed, albuterol as needed. 07/13/2020-ox today is 99% on 2 L. Not in distress. On examination chest bilateral dose decreased no wheezing no crepitations. 07/14/20-pulse ox today is 96% on 2 L. On examination chest bilateral entry was decreased no wheezing no crepitations present. (4) Acute on chronic blood loss anemia Is this a current diagnosis for this admission?: Yes Plan: Monitor hemoglobin. 07/13/2020-hemoglobin is 9.5 stable plan is to continue to closely monitor the hemoglobin. 07/14/2020-hemoglobin is 9.9. Plan is to closely monitor the hemoglobin at this time. (5) COVID-19 ruled out by laboratory testing Is this a current diagnosis for this admission?: Yes (6) Alcohol withdrawal Qualifiers: Complication of substance-induced condition: uncomplicated Qualified Code(s): F10.230 - Alcohol dependence with withdrawal, uncomplicated Is this a current diagnosis for this admission?: Yes Plan: Continue monitoring for symptoms of alcohol withdrawal. Precedex infusion for control of symptoms as needed. (7) Hypocalcemia Is this a current diagnosis for this admission?: Yes Plan: Calcium gluconate 07/13/2020-serum calcium is 7.3 and albumin is 2.3. Corrected calcium within normal limits. - Time Anticipated Discharge Disposition: [facility] Anticipated Discharge Timeframe: within 72 hours
[2020-07-14] MEDS ORDERED: POTASSI CL 20 MEQ/50 ML RIDER 20 MEQ/50 ML RTUPB IV ONE (11:00)
[2020-07-14] MEDS: CEFTRIAXONE 1 GM/D5W RTU 1 GM/50 ML RTUPB IV SCH (12:18)
[2020-07-14] MEDS: DOXAZOSIN MESYLATE 4 MG TABLET NG SCH (21:11)
[2020-07-14] MEDS: TAMSULOSIN HCL 0.4 MG CAP.SR.24H PO SCH (21:11)
[2020-07-14] MEDS: LORAZEPAM INJ 2 MG/1 ML VIAL IV PRN (21:12)
[2020-07-15] MEDS: ALBUTEROL SULFATE 0.083% NEB 2.5 MG/3 ML AMPUL NEB SCH ×4 (02:25→20:07)
[2020-07-15] MEDS: DEXTROSE 5%-NORMAL SALINE 1,000 ML IV PRN ×2 (03:57→11:44)
[2020-07-15] MEDS: LORAZEPAM INJ 2 MG/1 ML VIAL IV PRN ×2 (03:58→18:21)
--- NOTE | 2020-07-15 04:11 | RADIOLOGY REPORT (SQ) ---
CLINICAL INDICATION: NGT placement. TECHNIQUE: A single portable AP view was obtained of the chest at 0353 hours. COMPARISON: July 12, 2020. FINDINGS: The cardiomediastinal silhouette is prominent but stable. The lungs demonstrate progressive right basilar airspace and interstitial prominence. Left basilar airspace disease is similar to prior. Left effusion is improved.. Lung apices not included in [id number] but no obvious pneumothorax. Central venous catheter and nasogastric tube remain in satisfactory position. The visualized bones are unremarkable. IMPRESSION: Progressive parenchymal disease right lung base.
[2020-07-15 04:48] LABS: ABSOLUTE EOSINOPHILS # (AUTO) 0.1 10^3/uL (0.0-0.6); ABSOLUTE LYMPHOCYTES (AUTO) 0.6 10^3/uL (0.5-4.7); ABSOLUTE MONOCYTES (AUTO) 0.8 10^3/uL (0.1-1.4); ABSOLUTE NEUT (AUTO) 8.7 10^3/uL (1.7-8.2); BASOPHILS % (AUTO) 0.1 % (0-2); EOSINOPHILS % (AUTO) 0.9 % (0-6); HEMATOCRIT 29.2 % (37.9-51.0); HEMOGLOBIN 9.6 g/dL (13.5-17.0); LYMPHOCYTES % (AUTO) 6.2 % (13-45); MEAN CORPUSCULAR HEMOGLOBIN 31.5 pg (27.0-33.4); MEAN CORPUSCULAR VOLUME 96 fl (80-97); MONOCYTES % (AUTO) 7.3 % (3-13); PLATELET COUNT 191 10^3/uL (150-450); RED BLOOD COUNT 3.06 10^6/uL (4.35-5.55); RED CELL DISTRIBUTION WIDTH 15.7 % (11.5-14.0); SEGMENTED NEUTROPHILS % (AUTO) 85.5 % (42-78); TOTAL CELLS COUNTED % (AUTO) 100 %; WHITE BLOOD COUNT 10.2 10^3/uL (4.0-10.5)
[2020-07-15] MEDS: BUDESONIDE NEB 0.25 MG/2 ML AMPUL NEB SCH ×2 (08:24→20:06)
[2020-07-15] MEDS: PANTOPRAZOLE SODIUM 40 MG VIAL IV SCH ×2 (09:16→21:26)
[2020-07-15] MEDS: MORPHINE SULFATE 10 MG/ML INJ IV PRN ×3 (09:23→19:44)
[2020-07-15] MEDS: ONDANSETRON HCL INJ/PF 4 MG/2 ML SDV IV PRN (09:23)
--- NOTE | 2020-07-15 10:23 | Progress Note ---
Provider Note Provider Note: 07/02 had presented to the ED and was discharged 07/04 patient was at office and was sent to ED immediately sent back to ED for continued issues of rectal bleeding s/p surgery overnight with finding of perforation in the cecum requiring right hemicolectomy multiple diverticuli as noted on colonoscopy 07/05 colonoscopy performed 07/06 to 07/[address] and CT scan that did not demonstrate any free air or pneumoperitoneum following the procedure. The findings on these imaging studies had always showed a possible small bowel obstruction patient had been refusing surgery despite failing conservative management Surgery had been following including Dr Christian and Dale 07/09 findings of perforated cecum on surgery
[2020-07-15] MEDS: CEFTRIAXONE 1 GM/D5W RTU 1 GM/50 ML RTUPB IV SCH (11:42)
--- NOTE | 2020-07-15 17:26 | PDOC PROGRESS REPORT ---
Subjective Progress Note for:: 07/15/20 Subjective:: Patient says he is hungry. He has not had anything to eat for days. He still has an NG tube in place and I explained to him that he is unable to eat at this time Reason For Visit: RECTAL BLEEDING Physical Exam Vital Signs: Temp Pulse Resp BP Pulse Ox 98.6 F 88 20 122/48 L 91 L 07/15/20 11:12 07/15/20 13:58 07/15/20 13:49 07/15/20 11:12 07/15/20 13:49 Intake & Output 07/14/20 07/15/20 07/16/20 06:59 06:59 06:59 Intake Total 1100 3084 984 Output Total 3100 2195 Balance -2000 889 984 Weight 84 kg 85.6 kg 85.6 kg Head exam: PRESENT: atraumatic Neck exam: ABSENT: JVD Respiratory exam: PRESENT: clear to auscultation sudha Cardiovascular exam: PRESENT: RRR, +S1, +S2 GI/Abdominal exam: PRESENT: other - NGT in place, colostomy bag with greenish brown discharge Neurological exam: PRESENT: alert, awake, oriented to person, oriented to place Results Laboratory Results: 07/15/20 04:05 07/13/20 11:20 07/15/20 04:05 WBC 10.2 RBC 3.06 L Hgb 9.6 L Hct 29.2 L MCV 96 MCH 31.5 MCHC 33.0 RDW 15.7 H Plt Count 191 Seg Neutrophils % 85.5 H 07/09/20 23:33 Blood Blood Culture - Final NO GROWTH IN 5 DAYS 07/09/20 21:03 Blood Blood Culture - Final NO GROWTH IN 5 DAYS 07/10/20 07/10/20 06:15 17:00 Troponin I 0.067 NT-Pro-B Natriuret Pep 2670 H 2860 H Impressions: Abdomen/Pelvis CT 07/07/20 00:00 IMPRESSION: There is significant distention of the small bowel with mucosal thickening and enhancement involving a large portion of the ileum. These findings are concerning for small bowel obstruction which could be due to a stricture or inflammation at the terminal ileum. Adhesions at this area are not fully excluded. KUB X-Ray 07/08/20 00:00 IMPRESSION: 1. Grossly stable dilated small bowel loops throughout the central abdomen measuring up to 5.6 cm suggestive of small bowel obstruction. Gas and stool noted within the colon may suggest partial or intermittent process. 2. Nasoenteric side port at GE junction. Consider advanced 5/10 cm. Chest X-Ray 07/15/20 00:00 IMPRESSION: Progressive parenchymal disease right lung base. Assessment and Plan - Diagnosis (1) Diverticula of colon Is this a current diagnosis for this admission?: Yes Plan: s/p colectomy and ileostomy (2) Acute on chronic blood loss anemia Is this a current diagnosis for this admission?: Yes Plan: Monitor hemoglobin. (3) Alcohol withdrawal Qualifiers: Complication of substance-induced condition: uncomplicated Qualified Code(s): F10.230 - Alcohol dependence with withdrawal, uncomplicated Is this a current diagnosis for this admission?: Yes Plan: No current evidence of alcohol withdrawal although it has been more than a week of hospital stay. We will continue to monitor (4) COPD (chronic obstructive pulmonary disease) Qualifiers: COPD type: chronic bronchitis Is this a current diagnosis for this admission?: Yes Plan: Remains stable respiratory echevarria (5) COVID-19 ruled out by laboratory testing Is this a current diagnosis for this admission?: Yes (6) Shock due to anesthesia, initial encounter Is this a current diagnosis for this admission?: Yes Plan: Resolved - Plan Summary Summary: He is status post total colectomy and ileostomy for plan diverticulosis and perforated cecum. He was in ICU until July 12. He was extubated and it appears he is respiratory status is since been stable. It appears at this time patient is to be started on TPN still has the NG tube in place to his poor nutritional status continue to monitor - Time Anticipated Discharge Disposition: Home with Home Health Anticipated Discharge Timeframe: within 72 hours
--- NOTE | 2020-07-15 20:40 | PDOC PROGRESS REPORT ---
Subjective Progress Note for:: 07/15/20 Subjective:: Complaining of difficulty breathing with some mild abdominal pains. Reason For Visit: RECTAL BLEEDING Physical Exam Vital Signs: Temp Pulse Resp BP Pulse Ox 98.6 F 88 20 122/48 L 91 L 07/15/20 11:12 07/15/20 13:58 07/15/20 13:49 07/15/20 11:12 07/15/20 13:49 Intake & Output 07/14/20 07/15/20 07/16/20 06:59 06:59 06:59 Intake Total 1100 3084 984 Output Total 3100 2195 650 Balance -1999 889 334 Weight 84 kg 85.6 kg 85.6 kg Exam: Chest x-ray today for tube placement showed increasing infiltrates in the lungs. NG tube is in good position. It was clamped for about 5 hours and and clamped but only drained so far about 25 cc. However his abdomen still looks very distended and the wound appears to be just with mild erythema. Ileostomy appears to be draining but 100 cc per shift. Results Laboratory Results: 07/15/20 04:05 07/13/20 11:20 07/15/20 04:05 WBC 10.2 RBC 3.06 L Hgb 9.6 L Hct 29.2 L MCV 96 MCH 31.5 MCHC 33.0 RDW 15.7 H Plt Count 191 Seg Neutrophils % 85.5 H 07/09/20 23:33 Blood Blood Culture - Final NO GROWTH IN 5 DAYS 07/09/20 21:03 Blood Blood Culture - Final NO GROWTH IN 5 DAYS 07/10/20 07/10/20 06:15 17:00 Troponin I 0.067 NT-Pro-B Natriuret Pep 2670 H 2860 H Impressions: Abdomen/Pelvis CT 07/07/20 00:00 IMPRESSION: There is significant distention of the small bowel with mucosal thickening and enhancement involving a large portion of the ileum. These findings are concerning for small bowel obstruction which could be due to a stricture or inflammation at the terminal ileum. Adhesions at this area are not fully excluded. KUB X-Ray 07/08/20 00:00 IMPRESSION: 1. Grossly stable dilated small bowel loops throughout the central abdomen measuring up to 5.6 cm suggestive of small bowel obstruction. Gas and stool noted within the colon may suggest partial or intermittent process. 2. Nasoenteric side port at GE junction. Consider advanced 5/10 cm. Chest X-Ray 07/15/20 00:00 IMPRESSION: Progressive parenchymal disease right lung base. Assessment & Plan - Time Critical Time spent with patient: 15-24 minutes Anticipated Discharge Disposition: Intermediate Facility Anticipated Discharge Timeframe: when bed available - Inpatient Certification Medical Necessity: Need For IV Fluids, Need for IV Antibiotics - Plan Summary Plan Summary: I ordered a stat KUB to see if it is safe to discontinue the NG tube. Since the NG tube not draining much could probably be pulled out. Ordered a stat BMP since this latest potassium was 3.3 about 2 days ago. He may need potassium replacement for possible ileus.
[2020-07-15 21:07] LABS: ABSOLUTE EOSINOPHILS # (AUTO) 0.1 10^3/uL (0.0-0.6); ABSOLUTE LYMPHOCYTES (AUTO) 0.6 10^3/uL (0.5-4.7); ABSOLUTE MONOCYTES (AUTO) 0.6 10^3/uL (0.1-1.4); ABSOLUTE NEUT (AUTO) 7.4 10^3/uL (1.7-8.2); BASOPHILS % (AUTO) 0.1 % (0-2); EOSINOPHILS % (AUTO) 0.7 % (0-6); HEMATOCRIT 28.9 % (37.9-51.0); HEMOGLOBIN 9.3 g/dL (13.5-17.0); LYMPHOCYTES % (AUTO) 7.2 % (13-45); MEAN CORPUSCULAR HEMOGLOBIN 31.3 pg (27.0-33.4); MEAN CORPUSCULAR HGB CONC 32.2 g/dL (32.0-36.0); MEAN CORPUSCULAR VOLUME 97 fl (80-97); MONOCYTES % (AUTO) 7.2 % (3-13); PLATELET COUNT 205 10^3/uL (150-450); RED BLOOD COUNT 2.97 10^6/uL (4.35-5.55); SEGMENTED NEUTROPHILS % (AUTO) 84.8 % (42-78); TOTAL CELLS COUNTED % (AUTO) 100 %; WHITE BLOOD COUNT 8.7 10^3/uL (4.0-10.5)
[2020-07-15 21:25] LABS: ALBUMIN 2.2 g/dL (3.5-5.0); ALKALINE PHOSPHATASE 45 U/L (38-126); ASPARTATE AMINO TRANSFERASE 25 U/L (17-59); BILIRUBIN,DIRECT 0.1 mg/dL (0.0-0.4); BILIRUBIN,TOTAL 0.4 mg/dL (0.2-1.3); BLOOD UREA NITROGEN 23 mg/dL (7-20); GLUCOSE 139 mg/dL (75-110); POTASSIUM 3.6 mmol/L (3.6-5.0); TOTAL PROTEIN 4.3 g/dL (6.3-8.2)
[2020-07-15] MEDS: TAMSULOSIN HCL 0.4 MG CAP.SR.24H PO SCH (21:26)
[2020-07-15] MEDS: DOXAZOSIN MESYLATE 4 MG TABLET NG SCH (21:26)
[2020-07-15 21:32] LABS: ANION GAP 2 (5-19)
[2020-07-15 21:33] LABS: CHLORIDE 119 mmol/L (98-107)
[2020-07-15 21:34] LABS: CARBON DIOXIDE 31 mmol/L (22-30)
--- NOTE | 2020-07-15 21:38 | RADIOLOGY REPORT (SQ) ---
EXAM DESCRIPTION: [facility]Lex: XR ABDOMEN 1 VIEW (KUB) CLINICAL HISTORY: 79 years Male; Tachypnea/DISTENTION; COMPARISON: None. FINDINGS: Midline skin stephanie are noted. Right upper quadrant surgical clips are noted. Enteric tube is in place with tip in the left upper quadrant, likely in the body the stomach. There are multiple air-filled distended bowel loops throughout the abdomen. No pneumatosis. Bony structures are unremarkable. IMPRESSION: 1. Multiple air-filled moderately distended bowel loops, indeterminate for ileus versus partial obstruction. 2. Enteric tube in place
[2020-07-16] MEDS: ALBUTEROL SULFATE 0.083% NEB 2.5 MG/3 ML AMPUL NEB SCH ×4 (02:31→20:43)
[2020-07-16 07:20] LABS: ABSOLUTE EOSINOPHILS # (AUTO) 0.1 10^3/uL (0.0-0.6); ABSOLUTE LYMPHOCYTES (AUTO) 0.5 10^3/uL (0.5-4.7); ABSOLUTE MONOCYTES (AUTO) 0.6 10^3/uL (0.1-1.4); ABSOLUTE NEUT (AUTO) 7.8 10^3/uL (1.7-8.2); BASOPHILS % (AUTO) 0.1 % (0-2); EOSINOPHILS % (AUTO) 0.8 % (0-6); HEMATOCRIT 28.4 % (37.9-51.0); MEAN CORPUSCULAR HEMOGLOBIN 31.1 pg (27.0-33.4); MEAN CORPUSCULAR HGB CONC 31.9 g/dL (32.0-36.0); MEAN CORPUSCULAR VOLUME 98 fl (80-97); MONOCYTES % (AUTO) 6.9 % (3-13); PLATELET COUNT 247 10^3/uL (150-450); RED BLOOD COUNT 2.91 10^6/uL (4.35-5.55); RED CELL DISTRIBUTION WIDTH 16.2 % (11.5-14.0); SEGMENTED NEUTROPHILS % (AUTO) 86.2 % (42-78); TOTAL CELLS COUNTED % (AUTO) 100 %
[2020-07-16 07:37] LABS: BLOOD UREA NITROGEN 24 mg/dL (7-20); GLUCOSE 133 mg/dL (75-110); POTASSIUM 3.8 mmol/L (3.6-5.0)
[2020-07-16 07:42] LABS: ANION GAP 5 (5-19); CARBON DIOXIDE 28 mmol/L (22-30); CHLORIDE 120 mmol/L (98-107)
[2020-07-16 07:50] LABS: CALCIUM 6.9 mg/dL (8.4-10.2)
[2020-07-16] MEDS: BUDESONIDE NEB 0.25 MG/2 ML AMPUL NEB SCH ×2 (08:17→20:43)
[2020-07-16] MEDS: DEXTROSE 5%-NORMAL SALINE 1,000 ML IV PRN (08:41)
[2020-07-16] MEDS: PANTOPRAZOLE SODIUM 40 MG VIAL IV SCH ×2 (09:06→22:25)
[2020-07-16] MEDS: MORPHINE SULFATE 10 MG/ML INJ IV PRN (09:11)
[2020-07-16] MEDS ORDERED: FUROSEMIDE INJ/PF 40 MG/4 ML SDV ONE (09:46)
[2020-07-16] MEDS ORDERED: DEXTROSE 5%-1/4 NORMAL SALINE 1,000 ML IV PRN (10:50)
--- NOTE | 2020-07-16 11:15 | PDOC PROGRESS REPORT ---
Subjective Progress Note for:: 07/16/20 Subjective:: Patient was found to be acutely short of breath this morning. He appears to be in some mild respiratory distress. His oxygen saturation was in the 70s to 80s even on 5 to 6 L of oxygen. Patient was ultimately placed on 100% nonrebreather mask and his oxygenation improved to 100%. A rapid response team was called although this was mainly for respiratory issues. He ended up needing no further intervention at this time. A BiPAP machine is on standby but it is felt that as patient may be aspirating this will be used judiciously. ABG was done and the result is actually quite unremarkable although patient requiring increased oxygen. Reason For Visit: RECTAL BLEEDING Physical Exam Vital Signs: Temp Pulse Resp BP Pulse Ox 97.4 F 92 20 112/49 L 98 07/16/20 08:10 07/16/20 08:17 07/16/20 08:17 07/16/20 08:10 07/16/20 08:17 Intake & Output 07/15/20 07/16/20 07/17/20 06:59 06:59 06:59 Intake Total 3084 1984 Output Total 2195 1850 Balance 889 134 Weight 85.6 kg 85.6 kg General appearance: PRESENT: mild distress Head exam: PRESENT: atraumatic Neck exam: ABSENT: JVD, tenderness Respiratory exam: PRESENT: accessory muscle use, crackles, rhonchi, tachypnea, wheezes Cardiovascular exam: PRESENT: RRR, +S1, +S2 GI/Abdominal exam: PRESENT: distended, firm, tenderness, other - colostomy Rectal exam: PRESENT: deferred Extremities exam: ABSENT: calf tenderness, joint swelling Neurological exam: PRESENT: other - sleepy but easily arousable Results Laboratory Results: 07/16/20 06:25 07/16/20 06:25 07/15/20 07/15/20 07/16/20 20:45 20:45 06:25 WBC 8.7 RBC 2.97 L Hgb 9.3 L Hct 28.9 L MCV 97 MCH 31.3 MCHC 32.2 RDW 16.0 H Plt Count 205 Seg Neutrophils % 84.8 H Sodium 151.8 H 152.5 H Potassium 3.6 3.8 Chloride 119 H 120 H Carbon Dioxide 31 H 28 Anion Gap 2 L 5 BUN 23 H 24 H Creatinine 0.91 1.09 Est GFR ( Amer) > 60 > 60 Glucose 139 H 133 H Calcium 7.0 L* 6.9 L* Total Bilirubin 0.4 AST 25 Alkaline Phosphatase 45 Total Protein 4.3 L Albumin 2.2 L 07/16/20 06:25 WBC 9.0 RBC 2.91 L Hgb 9.0 L Hct 28.4 L MCV 98 H MCH 31.1 MCHC 31.9 L RDW 16.2 H Plt Count 247 Seg Neutrophils % 86.2 H Sodium Potassium Chloride Carbon Dioxide Anion Gap BUN Creatinine Est GFR ( Amer) Glucose Calcium Total Bilirubin AST Alkaline Phosphatase Total Protein Albumin 07/10/20 07/10/20 06:15 17:00 Troponin I 0.067 NT-Pro-B Natriuret Pep 2670 H 2860 H Impressions: Abdomen/Pelvis CT 07/07/20 00:00 IMPRESSION: There is significant distention of the small bowel with mucosal thickening and enhancement involving a large portion of the ileum. These findings are concerning for small bowel obstruction which could be due to a stricture or inflammation at the terminal ileum. Adhesions at this area are not fully excluded. Assessment and Plan - Diagnosis (1) Diverticula of colon Is this a current diagnosis for this admission?: Yes Plan: s/p colectomy and ileostomy Patient still has an ileus. He has been seen by this morning. Will defer further management to surgery (2) Acute on chronic blood loss anemia Is this a current diagnosis for this admission?: Yes Plan: Monitor hemoglobin remains relatively stable. (3) Alcohol withdrawal Qualifiers: Complication of substance-induced condition: uncomplicated Qualified Code(s): F10.230 - Alcohol dependence with withdrawal, uncomplicated Is this a current diagnosis for this admission?: Yes Plan: We will continue to monitor (4) COPD (chronic obstructive pulmonary disease) Qualifiers: COPD type: chronic bronchitis Is this a current diagnosis for this admission?: Yes Plan: Patient did have evidence of respiratory distress this morning. He was wheezing. He did receive DuoNeb although I have not given him any steroid dose but this will be considered. Use steroids judiciously due to his wound which is not optimally healthy at (5) COVID-19 ruled out by laboratory testing Is this a current diagnosis for this admission?: Yes (6) Shock due to anesthesia, initial encounter Is this a current diagnosis for this admission?: Yes (7) Acute respiratory failure with hypoxemia Is this a current diagnosis for this admission?: Yes Plan: Respiratory status declines this morning. It is possible the patient is having recurrent aspiration although ABG actually was not impressive except for the hypoxemia. We will continue his current FiO2 of 40% and adjust as needed. (8) Hypocalcemia Is this a current diagnosis for this admission?: Yes Plan: His corrected calcium is about 8. We will continue to monitor (9) Dehydration with hypernatremia Is this a current diagnosis for this admission?: Yes Plan: Patient will be placed on hypotonic fluid. We will monitor this very closely. We will wait for this to correct somewhat prior to initiating TPN - Plan Summary Summary: He is status post total colectomy and ileostomy for plan diverticulosis and perforated cecum. He was in ICU until July 12. Plan was to start him on TPN however at this time I think I will wait for him to stabilize first. - Time Time Spent with patient: 35 or more minutes Anticipated Discharge Disposition: [facility] Care Facility Anticipated Discharge Timeframe: To be determined - Inpatient Certification Medical Necessity: Risk of Complication if Not Cared For in Hospital
[2020-07-16 11:39] LABS: ARTERIAL BLOOD BASE EXCESS -0.6 mmol/L; ARTERIAL BLOOD FIO2 100%; ARTERIAL BLOOD H2CO3 2.36 mmol/L (1.05-1.35); ARTERIAL BLOOD HCO3 28.9 mmol/L (20-24); ARTERIAL BLOOD O2 SATURATION 99.4 % (94-98); ARTERIAL BLOOD PO2 265.6 mmHg (80-100); ARTERIAL BLOOD TOTAL CO2 31.3 mmol/L (23-27)
--- NOTE | 2020-07-16 11:50 | RADIOLOGY REPORT (SQ) ---
EXAM DESCRIPTION: CHEST SINGLE VIEW IMAGES COMPLETED DATE/TIME: 07/16/2020 10:55 am REASON FOR STUDY: ASPIRATION PNUEMONIA COMPARISON: AP view of the chest from 07/15/2020. EXAM PARAMETERS: NUMBER OF VIEWS: One view. TECHNIQUE: An AP view of the chest was obtained. RADIATION DOSE: NA LIMITATIONS: None. FINDINGS: LUNGS AND PLEURA: Unchanged opacities in the inferior aspect of the left hemithorax that o bscure the contour of the hemidiaphragm and blunt the lateral costophrenic sulcus. The patchy opacit ies in the inferior aspect of the right hemithorax are also unchanged. There is no pneumothorax. MEDIASTINUM AND HILAR STRUCTURES: Stable mediastinal and hilar contours. HEART AND VASCULAR STRUCTURES: Stable cardiac silhouette. BONES: No acute findings. HARDWARE: The tip of the right IJ central venous catheter projects within the SVC. There are cholecy stectomy clips in the right upper abdomen. OTHER: No other finding. IMPRESSION: Unchanged radiographic appearance of the chest. TECHNICAL DOCUMENTATION: JOB ID: [id number] 2010 [employer]- All Rights Reserved Reading location - IP/workstation name: [email or web address]
[2020-07-16 11:52] LABS: ARTERIAL BLOOD PCO2 78.4 mmHg (35-45); ARTERIAL BLOOD PH 7.18 (7.35-7.45)
--- NOTE | 2020-07-16 11:52 | RADIOLOGY REPORT (SQ) ---
EXAM DESCRIPTION: KUB/ABDOMEN (SINGLE VIEW) IMAGES COMPLETED DATE/TIME: 07/16/2020 10:55 am REASON FOR STUDY: ILEUS COMPARISON: AP view of the abdomen from 07/15/2020. NUMBER OF VIEWS: One view. TECHNIQUE: An AP view of the abdomen was obtained. LIMITATIONS: None. FINDINGS: BOWEL GAS PATTERN: Unchanged air-filled dilated loops of small bowel with individual loops that measure up to 4.7 cm in transverse diameter. There is no pneumatosis or portal venous gas. CALCIFICATIONS: None. SOFT TISSUES: No gross abnormality. HARDWARE: Cholecystectomy clips, Craig catheter and cutaneous stephanie. BONES: No gross abnormality. OTHER: No other finding. IMPRESSION: Unchanged air-filled dilated loops of small bowel. TECHNICAL DOCUMENTATION: JOB ID: [id number] 2010 [employer]- All Rights Reserved Reading location - IP/workstation name: [email or web address]
[2020-07-16] MEDS: CEFTRIAXONE 1 GM/D5W RTU 1 GM/50 ML RTUPB IV SCH (12:00)
[2020-07-16] MEDS: ALBUTEROL SULFATE 0.083% NEB 2.5 MG/3 ML AMPUL NEB PRN (12:13)
--- NOTE | 2020-07-16 12:18 | Progress Note ---
Provider Note Provider Note: Chest x-ray done this morning revealed unchanged opacities in the inferior aspect of the left hemithorax that of scale the count of the hemidiaphragm with unchanged patchy opacities in the inferior aspect of the right hemithorax there is no pneumothorax it is grossly unchanged from previous x-ray. KUB shows unchanged air-filled dilated loops of small bowel Correction to my previous notes it appears the ABG I was referencing was actually an old ABG his ABG from this parents shows a pH of 7.18 with PCO2 of 78.4 PO2 of 265 and oxygen saturation of 99% on 100% FiO2. Patient is clearly in respiratory acidosis. He has been placed on BiPAP with a setting of 16/6 and FiO2 of 40. We will continue to adjust. I have contacted both his and his son and updated them on patient's condition. I will also go ahead and give him a dose of steroids to help with his breathing.
[2020-07-16] MEDS ORDERED: METHYLPREDNISOLONE INJ 40 MG/1 ML SDV IV ONE ×2 (12:30→15:00)
[2020-07-16 14:17] LABS: ARTERIAL BLOOD BASE EXCESS -2.5 mmol/L; ARTERIAL BLOOD H2CO3 2.33 mmol/L (1.05-1.35); ARTERIAL BLOOD HCO3 27.3 mmol/L (20-24); ARTERIAL BLOOD O2 SATURATION 99.1 % (94-98); ARTERIAL BLOOD PO2 217.9 mmHg (80-100); ARTERIAL BLOOD TOTAL CO2 29.7 mmol/L (23-27)
[2020-07-16 14:18] LABS: ARTERIAL BLOOD FIO2 40%
[2020-07-16 14:25] LABS: ARTERIAL BLOOD PCO2 77.4 mmHg (35-45); ARTERIAL BLOOD PH 7.17 (7.35-7.45)
--- NOTE | 2020-07-16 16:17 | PDOC CRITICAL CARE PROG REPORT ---
General Date:: 07/16/20 Resuscitation Status: Full Code Events in the past 12 to 24 Hours:: Probable aspiration and critical care advice Review of systems relevant to events:: Respiratory, GI Reason for ICU Addmission:: Hypercarbia, probable aspiration. - Medications: Medications reviewed and adjusted accordingly: Yes Vasopressors:: None Sedation:: None Physical Exam Vital Signs: Temp Pulse Resp BP Pulse Ox 97.4 F 89 14 112/49 L 95 07/16/20 11:02 07/16/20 14:00 07/16/20 13:33 07/16/20 08:10 07/16/20 13:33 Intake & Output 07/15/20 07/16/20 07/17/20 06:59 06:59 06:59 Intake Total 3084 1984 Output Total 2195 1850 Balance 889 134 Weight 85.6 kg 85.6 kg Weight/Height Weight 85.6 kg Height 5 ft 10 in General appearance: PRESENT: no acute distress, thin Head exam: PRESENT: atraumatic, normocephalic Eye exam: PRESENT: conjunctiva pink, EOMI, PERRLA. ABSENT: scleral icterus Ear exam: PRESENT: normal external ear exam Mouth exam: PRESENT: dry mucosa Respiratory exam: PRESENT: rhonchi, unlabored Cardiovascular exam: PRESENT: RRR. ABSENT: diastolic murmur, rubs, systolic murmur GI/Abdominal exam: PRESENT: distended, hypoactive bowel sounds, soft Rectal exam: PRESENT: deferred Gentrourinary exam: PRESENT: indwelling catheter Extremities exam: PRESENT: full ROM. ABSENT: calf tenderness, clubbing, pedal edema Neurological exam: PRESENT: altered, CN II-XII grossly intact, other - He is awake, arousable but sleepy and somewhat lethargic. Psychiatric exam: PRESENT: appropriate affect, normal mood. ABSENT: homicidal ideation, suicidal ideation Skin exam: PRESENT: dry, intact, warm. ABSENT: cyanosis, rash Tubes/Lines: PRESENT: Central Line Laboratory/Radiographs Laboratory Results: 07/16/20 06:25 07/16/20 06:25 07/15/20 07/15/20 07/16/20 20:45 20:45 06:25 WBC 8.7 RBC 2.97 L Hgb 9.3 L Hct 28.9 L MCV 97 MCH 31.3 MCHC 32.2 RDW 16.0 H Plt Count 205 Seg Neutrophils % 84.8 H Carbonic Acid HCO3/H2CO3 Ratio ABG pH ABG pCO2 ABG pO2 ABG HCO3 ABG O2 Saturation ABG Base Excess FiO2 Sodium 151.8 H 152.5 H Potassium 3.6 3.8 Chloride 119 H 120 H Carbon Dioxide 31 H 28 Anion Gap 2 L 5 BUN 23 H 24 H Creatinine 0.91 1.09 Est GFR ( Amer) > 60 > 60 Glucose 139 H 133 H Calcium 7.0 L* 6.9 L* Total Bilirubin 0.4 AST 25 Alkaline Phosphatase 45 Total Protein 4.3 L Albumin 2.2 L 07/16/20 07/16/20 07/16/20 06:25 09:54 13:55 WBC 9.0 RBC 2.91 L Hgb 9.0 L Hct 28.4 L MCV 98 H MCH 31.1 MCHC 31.9 L RDW 16.2 H Plt Count 247 Seg Neutrophils % 86.2 H Carbonic Acid 2.36 H 2.33 H HCO3/H2CO3 Ratio 12:1 11:1 ABG pH 7.18 L* 7.17 L* ABG pCO2 78.4 H* 77.4 H* ABG pO2 265.6 H 217.9 H ABG HCO3 28.9 H 27.3 H ABG O2 Saturation 99.4 H 99.1 H ABG Base Excess -0.6 -2.5 FiO2 100% 40% Sodium Potassium Chloride Carbon Dioxide Anion Gap BUN Creatinine Est GFR ( Amer) Glucose Calcium Total Bilirubin AST Alkaline Phosphatase Total Protein Albumin 07/10/20 07/10/20 06:15 17:00 Troponin I 0.067 NT-Pro-B Natriuret Pep 2670 H 2860 H Impressions: Abdomen/Pelvis CT 07/07/20 00:00 IMPRESSION: There is significant distention of the small bowel with mucosal thickening and enhancement involving a large portion of the ileum. These findings are concerning for small bowel obstruction which could be due to a stricture or inflammation at the terminal ileum. Adhesions at this area are not fully excluded. Chest X-Ray 07/16/20 00:00 IMPRESSION: Unchanged radiographic appearance of the chest. KUB X-Ray 07/16/20 09:47 IMPRESSION: Unchanged air-filled dilated loops of small bowel. All labs, radiographs, diagnostic studies and EKGs were personally reviewed: Yes In addition, reports of radiographic and diagnostic studies were read: Yes Assessment and Plan - Diagnosis (1) Aspiration into airway Qualifiers: Encounter type: initial encounter Qualified Code(s): T17.908A - Unspecified foreign body in respiratory tract, part unspecified causing other injury, initi al encounter Is this a current diagnosis for this admission?: Yes Plan: This patient is several days from surgery. He still has an ileus. His abdomen is distended but not firm. Not an acute abdomen. His NG is putting out dark green bilious fluid. His risk factors for ileus include age, surgery, relative immobility, narcotics and pain. His NG is not completely draining his stomach. This has been manipulated and is now draining. Minimize narcotics, get OOB, correct any electrolyte abnormalities. This has put him at risk of aspiration, heightened by use of bipap. (2) Dehydration with hypernatremia Is this a current diagnosis for this admission?: Yes Plan: An aspiration will induce dehydration and this can perpetuate lethargy. He needs more IVF. Now getting 150/hr. (3) Ileus Is this a current diagnosis for this admission?: Yes Plan: Ileus both clinically and radiologically (4) Hypercarbia Is this a current diagnosis for this admission?: Yes Plan: His pCO2 is high but not excessively so. pH of 7.19 is low but he is arousable, answering questions. He has rhonchi and secretions. Ideally he should cough them out. He is too weak right now so NT suctioning and coughing must be done. Plan Summary: At this time the above measures can be done on the 4th floor and nothing different will be done in the ICU. Should he worsen and need intubation then an ICU transfer is warranted. Given his weakened state I would not want to reintubate if possible. Critical Time Critical Time (minutes): 35 Level of Care: MEDICAL Anticipated discharge: SNF Anticipated DC Timeframe: Other -: 1. The care of a critical patient is a dynamic process. This note is a cash applications representative synopsis but static in nature. The timeframe for treatments given in order is not necessarily the actual time these treatments may have been done. 2. This patient requires critical care secondary to ongoing requirements for therapy not offered or safe outside the critical care environment. Transfer to a lower level of care will result in altered life or limb morbidity and mortality. 3. Multidisciplinary rounds completed. 4. ABCDE bundle addressed.
[2020-07-16] MEDS: DEXTROSE 5%-1/4 NORMAL SALINE 1,000 ML IV PRN (19:11)
--- NOTE | 2020-07-16 19:55 | PDOC PROGRESS REPORT ---
Subjective Progress Note for:: 07/16/20 Subjective:: Rapid response this morning because of severe respiratory distress with respiratory acidosis on blood gas. Reason For Visit: RECTAL BLEEDING Physical Exam Vital Signs: Temp Pulse Resp BP Pulse Ox 99.2 F 92 16 120/47 L 96 07/16/20 15:27 07/16/20 15:27 07/16/20 17:20 07/16/20 15:27 07/16/20 17:20 Intake & Output 07/15/20 07/16/20 07/17/20 06:59 06:59 06:59 Intake Total 3084 1984 1050 Output Total 2195 1850 1200 Balance 889 134 -150 Weight 85.6 kg 85.6 kg Exam: Is abdomen is soft with minimal tenderness on the right side. Is NG tube was reinserted and drained about 700 cc since this morning. His breathing a little bit better compared to this morning and having CPAP treatments. He was also started on TPN. The ileostomy is draining about 200 cc of light serosanguineous fluid. Ileostomy looks pink. Results Laboratory Results: 07/16/20 06:25 07/16/20 06:25 07/15/20 07/15/20 07/16/20 20:45 20:45 06:25 WBC 8.7 RBC 2.97 L Hgb 9.3 L Hct 28.9 L MCV 97 MCH 31.3 MCHC 32.2 RDW 16.0 H Plt Count 205 Seg Neutrophils % 84.8 H Carbonic Acid HCO3/H2CO3 Ratio ABG pH ABG pCO2 ABG pO2 ABG HCO3 ABG O2 Saturation ABG Base Excess FiO2 Sodium 151.8 H 152.5 H Potassium 3.6 3.8 Chloride 119 H 120 H Carbon Dioxide 31 H 28 Anion Gap 2 L 5 BUN 23 H 24 H Creatinine 0.91 1.09 Est GFR ( Amer) > 60 > 60 Glucose 139 H 133 H Calcium 7.0 L* 6.9 L* Total Bilirubin 0.4 AST 25 Alkaline Phosphatase 45 Total Protein 4.3 L Albumin 2.2 L 07/16/20 07/16/20 07/16/20 06:25 09:54 13:55 WBC 9.0 RBC 2.91 L Hgb 9.0 L Hct 28.4 L MCV 98 H MCH 31.1 MCHC 31.9 L RDW 16.2 H Plt Count 247 Seg Neutrophils % 86.2 H Carbonic Acid 2.36 H 2.33 H HCO3/H2CO3 Ratio 12:1 11:1 ABG pH 7.18 L* 7.17 L* ABG pCO2 78.4 H* 77.4 H* ABG pO2 265.6 H 217.9 H ABG HCO3 28.9 H 27.3 H ABG O2 Saturation 99.4 H 99.1 H ABG Base Excess -0.6 -2.5 FiO2 100% 40% Sodium Potassium Chloride Carbon Dioxide Anion Gap BUN Creatinine Est GFR ( Amer) Glucose Calcium Total Bilirubin AST Alkaline Phosphatase Total Protein Albumin 07/10/20 07/10/20 06:15 17:00 Troponin I 0.067 NT-Pro-B Natriuret Pep 2670 H 2860 H Impressions: Abdomen/Pelvis CT 07/07/20 00:00 IMPRESSION: There is significant distention of the small bowel with mucosal thickening and enhancement involving a large portion of the ileum. These findings are concerning for small bowel obstruction which could be due to a stricture or inflammation at the terminal ileum. Adhesions at this area are not fully excluded. Chest X-Ray 07/16/20 00:00 IMPRESSION: Unchanged radiographic appearance of the chest. KUB X-Ray 07/16/20 09:47 IMPRESSION: Unchanged air-filled dilated loops of small bowel. Assessment & Plan - Diagnosis (1) Cecum perforation Is this a current diagnosis for this admission?: Yes (2) Acute respiratory failure with hypoxemia Is this a current diagnosis for this admission?: Yes (3) COPD (chronic obstructive pulmonary disease) Qualifiers: COPD type: chronic bronchitis Is this a current diagnosis for this admission?: Yes (4) Diverticula of colon Is this a current diagnosis for this admission?: Yes - Time Critical Time spent with patient: 15-24 minutes Anticipated Discharge Disposition: Alf Facility Anticipated Discharge Timeframe: when bed available - Inpatient Certification Medical Necessity: Need Close Monitoring Due to Risk of Patient Decompensation, Need for IV Antibiotics - Plan Summary Plan Summary: Patient is post subtotal colectomy with ileostomy for extensive diverticulosis and cecal perforation by Dr. Hunter about 7 days ago. He continues to have ileus and NG tube was reinserted this morning with drainage about 700 cc. He was started on TPN by hospitalist this morning. He had severe respiratory acidosis this morning with shortness of breath and appears to be responding well to CPAP therapy. Patient was also seen by the junior web designer this morning and feels patient could still be articulately managed at the floor at this time. Plans: Continue NG tube Continue TPN Monitor electrolytes Antibiotics and steroids per hospitalist.
[2020-07-16] MEDS ORDERED: KETOROLAC TROMETHAMINE INJ/PF 30 MG/1 ML SDV ONE (20:55)
[2020-07-16 21:34] LABS: ARTERIAL BLOOD BASE EXCESS 0.8 mmol/L; ARTERIAL BLOOD H2CO3 1.52 mmol/L (1.05-1.35); ARTERIAL BLOOD HCO3 26.9 mmol/L (20-24); ARTERIAL BLOOD O2 SATURATION 94.8 % (94-98); ARTERIAL BLOOD PCO2 50.6 mmHg (35-45); ARTERIAL BLOOD PH 7.34 (7.35-7.45); ARTERIAL BLOOD PO2 78.7 mmHg (80-100); ARTERIAL BLOOD TOTAL CO2 28.4 mmol/L (23-27)
[2020-07-16 21:46] LABS: ARTERIAL BLOOD FIO2 28%
[2020-07-16] MEDS: KETOROLAC TROMETHAMINE INJ/PF 30 MG/1 ML SDV IV PRN (22:24)
[2020-07-16] MEDS: TAMSULOSIN HCL 0.4 MG CAP.SR.24H PO SCH (22:25)
[2020-07-16] MEDS: DOXAZOSIN MESYLATE 4 MG TABLET NG SCH (22:25)
[2020-07-17] MEDS: LORAZEPAM INJ 2 MG/1 ML VIAL IV PRN ×2 (00:15→21:32)
[2020-07-17] MEDS: ALBUTEROL SULFATE 0.083% NEB 2.5 MG/3 ML AMPUL NEB SCH ×4 (03:00→20:51)
[2020-07-17] MEDS: DEXTROSE 5%-1/4 NORMAL SALINE 1,000 ML IV PRN ×2 (06:58→18:29)
[2020-07-17 07:46] LABS: BLOOD UREA NITROGEN 34 mg/dL (7-20); CARBON DIOXIDE 30 mmol/L (22-30); CHLORIDE 118 mmol/L (98-107); GLUCOSE 155 mg/dL (75-110); POTASSIUM 4.1 mmol/L (3.6-5.0)
[2020-07-17 07:55] LABS: ANION GAP 3 (5-19)
[2020-07-17 08:32] LABS: HEMATOCRIT 26.3 % (37.9-51.0); HEMOGLOBIN 8.5 g/dL (13.5-17.0); MEAN CORPUSCULAR HEMOGLOBIN 31.7 pg (27.0-33.4); MEAN CORPUSCULAR HGB CONC 32.3 g/dL (32.0-36.0); MEAN CORPUSCULAR VOLUME 98 fl (80-97); PLATELET COUNT 271 10^3/uL (150-450); RED BLOOD COUNT 2.68 10^6/uL (4.35-5.55); WHITE BLOOD COUNT 9.6 10^3/uL (4.0-10.5)
[2020-07-17] MEDS: BUDESONIDE NEB 0.25 MG/2 ML AMPUL NEB SCH ×2 (08:41→20:51)
[2020-07-17 08:49] LABS: ABSOLUTE LYMPHOCYTES# (MANUAL) 0.4 10^3/uL (0.5-4.7); ABSOLUTE MONOCYTES # (MANUAL) 0.3 10^3/uL (0.1-1.4); BASOPHILS % (MANUAL) 0 % (0-2); EOSINOPHILS % (MANUAL) 0 % (0-6); LYMPHOCYTES % (MANUAL) 4 % (13-45); MONOCYTES % (MANUAL) 3 % (3-13); SEGMENTED NEUTROPHILS % (MAN) 93 % (42-78); TOTAL CELLS COUNTED 100
[2020-07-17 08:50] LABS: ANISOCYTOSIS 1+; PLATELET COMMENT ADEQUATE
[2020-07-17] MEDS: PANTOPRAZOLE SODIUM 40 MG VIAL IV SCH (09:14)
--- NOTE | 2020-07-17 12:41 | RADIOLOGY REPORT (SQ) ---
EXAM DESCRIPTION: KUB/ABDOMEN (SINGLE VIEW) IMAGES COMPLETED DATE/TIME: 07/17/2020 12:26 pm REASON FOR STUDY: abdominal distention COMPARISON: None. NUMBER OF VIEWS: One view. TECHNIQUE: Supine radiographic image of the abdomen acquired. LIMITATIONS: None. FINDINGS: BOWEL GAS PATTERN: Persistent gas-filled bowel is seen. Gas is present large and small kait wel. CALCIFICATIONS: No suspicious calcifications. SOFT TISSUES: No gross mass or suggestion of organomegaly. HARDWARE: Skin stephanie. BONES: No acute fracture. No worrisome bone lesions. OTHER: No other significant finding. IMPRESSION: Ileus. TECHNICAL DOCUMENTATION: JOB ID: [id number] [address]- All Rights Reserved Reading location - IP/workstation name: [email or web address]
[2020-07-17] MEDS: CEFTRIAXONE 1 GM/D5W RTU 1 GM/50 ML RTUPB IV SCH (12:56)
[2020-07-17] MEDS ORDERED: GLUCAGON,HUMAN RECOMB 1 MG INJ IM PRN (13:00)
[2020-07-17] MEDS ORDERED: DEXTROSE 40% GEL 15 GM TUBE X 2 PO PRN (13:00)
[2020-07-17] MEDS ORDERED: DEXTROSE 50%-WATER SYRINGE 25 GM/50 ML DOSE IV PRN (13:00)
[2020-07-17] MEDS ORDERED: DEXTROSE 40% GEL 15 GM TUBE PO PRN (13:00)
[2020-07-17] MEDS ORDERED: DEXTROSE 10%-WATER 1,000 ML IV PRN (13:00)
[2020-07-17] MEDS ORDERED: DEXTROSE 50%-WATER SYRINGE 12.5 GM/25 ML DOSE IV PRN (13:00)
--- NOTE | 2020-07-17 15:10 | PDOC PROGRESS REPORT ---
Subjective Progress Note for:: 07/17/20 Reason For Visit: RECTAL BLEEDING Physical Exam Vital Signs: Temp Pulse Resp BP Pulse Ox 97.4 F 83 20 113/47 L 97 07/17/20 11:05 07/17/20 14:05 07/17/20 14:05 07/17/20 11:05 07/17/20 14:05 Intake & Output 07/16/20 07/17/20 07/18/20 06:59 06:59 06:59 Intake Total 1983 2049 Output Total 1849 2199 Balance 134 -150 Weight 85.6 kg 85.6 kg 85.6 kg Results Laboratory Results: 07/17/20 06:55 07/17/20 06:55 07/16/20 07/17/20 07/17/20 21:10 06:55 06:55 WBC 9.6 RBC 2.68 L Hgb 8.5 L Hct 26.3 L MCV 98 H MCH 31.7 MCHC 32.3 RDW 16.0 H Plt Count 271 Seg Neutrophils % Not Reportable Carbonic Acid 1.52 H HCO3/H2CO3 Ratio 17:1 ABG pH 7.34 L ABG pCO2 50.6 H ABG pO2 78.7 L ABG HCO3 26.9 H ABG O2 Saturation 94.8 ABG Base Excess 0.8 FiO2 28% Sodium 150.7 H Potassium 4.1 Chloride 118 H Carbon Dioxide 30 Anion Gap 3 L BUN 34 H Creatinine 1.78 H Est GFR ( Amer) 45 L Glucose 155 H Calcium 7.0 L* 07/10/20 07/10/20 06:15 17:00 Troponin I 0.067 NT-Pro-B Natriuret Pep 2670 H 2860 H Impressions: Abdomen/Pelvis CT 07/07/20 00:00 IMPRESSION: There is significant distention of the small bowel with mucosal thickening and enhancement involving a large portion of the ileum. These findings are concerning for small bowel obstruction which could be due to a stricture or inflammation at the terminal ileum. Adhesions at this area are not fully excluded. Chest X-Ray 07/16/20 00:00 IMPRESSION: Unchanged radiographic appearance of the chest. KUB X-Ray 07/17/20 00:00 IMPRESSION: Ileus. Assessment & Plan - Diagnosis (1) Ileus Is this a current diagnosis for this admission?: Yes (2) Rectal bleeding Is this a current diagnosis for this admission?: Yes - Time Anticipated Discharge Disposition: Unknown Anticipated Discharge Timeframe: Unknown - Plan Summary Plan Summary: This is a 79-year-old male status post total abdominal colectomy for perforated colon and diverticular bleeding. The patient pulled his own NG tube out today accidentally. I will leave it out for now. He denies any nausea or vomiting. His ileostomy is pink and productive of air and some bilious fluid. I have digitally inspected his ileostomy today. I was able to get a pinky finger beneath the fascia. I cannot identify any obstruction of the distal small bowel. He still has a large amount of air in the small intestine. If his nausea and vomiting recur, he may require further investigation with CT scan or small bowel follow-through. We will continue with conservative treatment at this time. Midline incision is clean, dry, and intact. Surgery will continue to follow with you.
[2020-07-17] MEDS: KETOROLAC TROMETHAMINE INJ/PF 30 MG/1 ML SDV IV PRN (15:40)
[2020-07-17] MEDS: INSULIN REG, HUMAN 100 UNIT/ML 3 ML VIAL (PYX) SUBCUT SCH (17:54)
[2020-07-17] MEDS: AMINO ACIDS 5 %/DEXTROSE 20 % 1,000 ML IV PRN (18:28)
--- NOTE | 2020-07-17 18:43 | PDOC PROGRESS REPORT ---
Subjective Progress Note for:: 07/17/20 Subjective:: Patient was found to be acutely short of breath this morning. He appears to be in some mild respiratory distress. His oxygen saturation was in the 70s to 80s even on 5 to 6 L of oxygen. Patient was ultimately placed on 100% nonrebreather mask and his oxygenation improved to 100%. A rapid response team was called although this was mainly for respiratory issues. He ended up needing no further intervention at this time. A BiPAP machine is on standby but it is felt that as patient may be aspirating this will be used judiciously. ABG was done and the result is actually quite unremarkable although patient requiring increased oxygen. 07/17 patient's breathing is stabilized and is much improved today. Is been no further recurrence of the acute respiratory symptoms. His ABG is clearly better. His condition is still pretty tenuous Reason For Visit: RECTAL BLEEDING Physical Exam Vital Signs: Temp Pulse Resp BP Pulse Ox 97.5 F 82 18 119/44 L 96 07/17/20 15:10 07/17/20 15:10 07/17/20 15:10 07/17/20 15:10 07/17/20 16:43 Intake & Output 07/16/20 07/17/20 07/18/20 06:59 06:59 06:59 Intake Total 1983 2049 1000 Output Total 1849 2199 Balance 134 -150 1000 Weight 85.6 kg 85.6 kg 85.6 kg General appearance: PRESENT: no acute distress, other - Acutely ill looking Head exam: PRESENT: atraumatic, normocephalic Eye exam: PRESENT: conjunctiva pink, EOMI, PERRLA. ABSENT: scleral icterus Neck exam: ABSENT: carotid bruit, JVD, lymphadenopathy, thyromegaly Respiratory exam: PRESENT: crackles, rhonchi. ABSENT: rales, wheezes Cardiovascular exam: PRESENT: RRR, +S1, +S2. ABSENT: diastolic murmur, rubs, systolic murmur Pulses: PRESENT: normal dorsalis pedis pul Vascular exam: PRESENT: normal capillary refill GI/Abdominal exam: PRESENT: firm, guarding, other. ABSENT: distended, mass, organolmegaly, rebound, tenderness Rectal exam: PRESENT: deferred Extremities exam: PRESENT: full ROM. ABSENT: calf tenderness, clubbing, pedal edema Neurological exam: PRESENT: alert, awake, oriented to person, oriented to place, oriented to time, oriented to situation. ABSENT: motor sensory deficit Psychiatric exam: PRESENT: appropriate affect, normal mood. ABSENT: homicidal ideation, suicidal ideation Skin exam: PRESENT: dry, intact, warm. ABSENT: cyanosis, rash Results Laboratory Results: 07/17/20 06:55 07/17/20 06:55 07/16/20 07/17/20 07/17/20 21:10 06:55 06:55 WBC 9.6 RBC 2.68 L Hgb 8.5 L Hct 26.3 L MCV 98 H MCH 31.7 MCHC 32.3 RDW 16.0 H Plt Count 271 Seg Neutrophils % Not Reportable Carbonic Acid 1.52 H HCO3/H2CO3 Ratio 17:1 ABG pH 7.34 L ABG pCO2 50.6 H ABG pO2 78.7 L ABG HCO3 26.9 H ABG O2 Saturation 94.8 ABG Base Excess 0.8 FiO2 28% Sodium 150.7 H Potassium 4.1 Chloride 118 H Carbon Dioxide 30 Anion Gap 3 L BUN 34 H Creatinine 1.78 H Est GFR ( Amer) 45 L Glucose 155 H Calcium 7.0 L* 07/10/20 07/10/20 06:15 17:00 Troponin I 0.067 NT-Pro-B Natriuret Pep 2670 H 2860 H Impressions: Abdomen/Pelvis CT 07/07/20 00:00 IMPRESSION: There is significant distention of the small bowel with mucosal thickening and enhancement involving a large portion of the ileum. These findings are concerning for small bowel obstruction which could be due to a stricture or inflammation at the terminal ileum. Adhesions at this area are not fully excluded. Chest X-Ray 07/16/20 00:00 IMPRESSION: Unchanged radiographic appearance of the chest. KUB X-Ray 07/17/20 00:00 IMPRESSION: Ileus. Assessment and Plan - Diagnosis (1) Diverticula of colon Is this a current diagnosis for this admission?: Yes Plan: s/p colectomy and ileostomy Patient still has an ileus. Will defer further management to surgery (2) Acute on chronic blood loss anemia Is this a current diagnosis for this admission?: Yes (3) Alcohol withdrawal Qualifiers: Complication of substance-induced condition: uncomplicated Qualified Code(s): F10.230 - Alcohol dependence with withdrawal, uncomplicated Is this a current diagnosis for this admission?: Yes Plan: We will continue to monitor (4) COPD (chronic obstructive pulmonary disease) Qualifiers: COPD type: chronic bronchitis Is this a current diagnosis for this admission?: Yes Plan: Patient is breathing status is much improved this morning. He may have had recurrent aspiration leading to his acute respiratory distress yesterday however at this time is breathing appears to be relatively controlled. He is actually off non-rebreather and is on 2 L of oxygen (5) COVID-19 ruled out by laboratory testing Is this a current diagnosis for this admission?: Yes (6) Shock due to anesthesia, initial encounter Is this a current diagnosis for this admission?: Yes (7) Acute respiratory failure with hypoxemia Is this a current diagnosis for this admission?: Yes Plan: Likely secondary to recurrent aspiration pneumonia this is improved (8) Hypocalcemia Is this a current diagnosis for this admission?: Yes Plan: His corrected calcium is about 8. We will continue to monitor (9) Dehydration with hypernatremia Is this a current diagnosis for this admission?: Yes Plan: Continue with hypotonic fluid and continue to monitor. Patient was started on TPN - Plan Summary Summary: He is status post total colectomy and ileostomy for plan diverticulosis and perforated cecum. He was in ICU until July 12. - Time Time Spent with patient: 15-24 minutes Medications reviewed and adjusted accordingly: Yes Anticipated Discharge Disposition: Home with Home Health Anticipated Discharge Timeframe: within 72 hours - Inpatient Certification Based on my medical assessment, after consideration of the patient's comorbidities, presenting symptoms, or acuity I expect that the services needed warrant INPATIENT care.: Yes Medical Necessity: Need For IV Fluids, Risk of Complication if Not Cared For in Hospital
[2020-07-17] MEDS: DOXAZOSIN MESYLATE 4 MG TABLET NG SCH (21:28)
[2020-07-17] MEDS: TAMSULOSIN HCL 0.4 MG CAP.SR.24H PO SCH (21:28)
[2020-07-18] MEDS: ALBUTEROL SULFATE 0.083% NEB 2.5 MG/3 ML AMPUL NEB SCH ×4 (02:23→20:15)
[2020-07-18] MEDS: INSULIN REG, HUMAN 100 UNIT/ML 3 ML VIAL (PYX) SUBCUT SCH ×4 (06:03→18:09)
[2020-07-18 07:26] LABS: BLOOD UREA NITROGEN 39 mg/dL (7-20); CALCIUM 7.1 mg/dL (8.4-10.2); CHLORIDE 114 mmol/L (98-107); GLUCOSE 146 mg/dL (75-110); POTASSIUM 3.4 mmol/L (3.6-5.0)
[2020-07-18 07:32] LABS: CARBON DIOXIDE 29 mmol/L (22-30)
[2020-07-18 08:20] LABS: ABSOLUTE EOSINOPHILS # (AUTO) 0.1 10^3/uL (0.0-0.6); ABSOLUTE LYMPHOCYTES (AUTO) 0.5 10^3/uL (0.5-4.7); ABSOLUTE MONOCYTES (AUTO) 0.4 10^3/uL (0.1-1.4); ABSOLUTE NEUT (AUTO) 5.9 10^3/uL (1.7-8.2); EOSINOPHILS % (AUTO) 1.3 % (0-6); HEMATOCRIT 25.4 % (37.9-51.0); HEMOGLOBIN 8.3 g/dL (13.5-17.0); LYMPHOCYTES % (AUTO) 6.7 % (13-45); MEAN CORPUSCULAR HEMOGLOBIN 31.6 pg (27.0-33.4); MEAN CORPUSCULAR HGB CONC 32.7 g/dL (32.0-36.0); MEAN CORPUSCULAR VOLUME 97 fl (80-97); MONOCYTES % (AUTO) 5.9 % (3-13); PLATELET COUNT 269 10^3/uL (150-450); RED BLOOD COUNT 2.63 10^6/uL (4.35-5.55); RED CELL DISTRIBUTION WIDTH 15.8 % (11.5-14.0); SEGMENTED NEUTROPHILS % (AUTO) 86.1 % (42-78); TOTAL CELLS COUNTED % (AUTO) 100 %; WHITE BLOOD COUNT 6.8 10^3/uL (4.0-10.5)
[2020-07-18] MEDS: BUDESONIDE NEB 0.25 MG/2 ML AMPUL NEB SCH ×2 (08:27→20:15)
[2020-07-18 08:28] LABS: ANION GAP 4 (5-19)
[2020-07-18] MEDS ORDERED: POTASSI CL 20 MEQ/50 ML RIDER 20 MEQ/50 ML RTUPB IV ONE (09:30)
[2020-07-18] MEDS: FAT EMULSIONS 250 ML IV SCH (10:17)
[2020-07-18] MEDS: DEXTROSE 5%-1/4 NORMAL SALINE 1,000 ML IV PRN ×2 (15:24→18:10)
[2020-07-18] MEDS: CEFTRIAXONE 1 GM/D5W RTU 1 GM/50 ML RTUPB IV SCH (15:25)
[2020-07-18 15:26] LABS: APPEARANCE,URINE CLOUDY; BILIRUBIN,URINE NEGATIVE (NEGATIVE); COLOR,URINE YELLOW; GLUCOSE, URINE NEGATIVE (NEGATIVE); KETONES,URINE NEGATIVE (NEGATIVE); LEUKOCYTE ESTERASE,URINE NEGATIVE (NEGATIVE); NITRITE,URINE NEGATIVE (NEGATIVE); PROTEIN,URINE 100 mg/dL (NEGATIVE); URINE SPECIFIC GRAVITY 1.017; UROBILINOGEN,URINE NEGATIVE mg/dL (<2.0)
--- NOTE | 2020-07-18 16:23 | PDOC PROGRESS REPORT ---
Subjective Progress Note for:: 07/18/20 Subjective:: More comfortable. Minimal abdominal pains. No nausea. Reason For Visit: RECTAL BLEEDING Physical Exam Vital Signs: Temp Pulse Resp BP Pulse Ox 98.0 F 81 19 135/48 H 93 07/18/20 15:37 07/18/20 15:37 07/18/20 15:37 07/18/20 15:37 07/18/20 15:37 Intake & Output 07/17/20 07/18/20 07/19/20 06:59 06:59 06:59 Intake Total 2050 2050 350 Output Total 2200 250 Balance -150 1800 350 Weight 85.6 kg 85.7 kg Exam: Abdomen is soft and minimal tenderness. The ileostomy is starting to function better with drainage of about 1200 cc of greenish fluid. Results Laboratory Results: 07/18/20 06:10 07/18/20 06:10 07/18/20 07/18/20 07/18/20 06:10 06:10 14:40 WBC 6.8 RBC 2.63 L Hgb 8.3 L Hct 25.4 L MCV 97 MCH 31.6 MCHC 32.7 RDW 15.8 H Plt Count 269 Seg Neutrophils % 86.1 H Sodium 146.7 H Potassium 3.4 L Chloride 114 H Carbon Dioxide 29 Anion Gap 4 L BUN 39 H Creatinine 1.92 H Est GFR ( Amer) 41 L Glucose 146 H Calcium 7.1 L Urine Color YELLOW Urine Appearance CLOUDY Urine pH 6.0 Ur Specific [place] 1.017 Urine Protein 100 H Urine Glucose (UA) NEGATIVE Urine Ketones NEGATIVE Urine Blood MODERATE H Urine Nitrite NEGATIVE Ur Leukocyte Esterase NEGATIVE Urine WBC (Auto) 9 Urine RBC (Auto) 2 07/10/20 07/10/20 06:15 17:00 Troponin I 0.067 NT-Pro-B Natriuret Pep 2670 H 2860 H Impressions: Abdomen/Pelvis CT 07/07/20 00:00 IMPRESSION: There is significant distention of the small bowel with mucosal thickening and enhancement involving a large portion of the ileum. These findings are concerning for small bowel obstruction which could be due to a stricture or inflammation at the terminal ileum. Adhesions at this area are not fully excluded. Chest X-Ray 07/16/20 00:00 IMPRESSION: Unchanged radiographic appearance of the chest. KUB X-Ray 07/17/20 00:00 IMPRESSION: Ileus. Assessment & Plan - Time Anticipated Discharge Disposition: [facility] Anticipated Discharge Timeframe: when bed available - Inpatient Certification Medical Necessity: Need Close Monitoring Due to Risk of Patient Decompensation, Need for IV Antibiotics - Plan Summary Plan Summary: Patient is about day 9 post colon resection for cecal perforation and pandiverticulosis with ileostomy. Colostomy appears to be starting to function well with patient more comfortable today. This second day of TPN. Plans: Keep n.p.o. today and keep NG tube out. Continue TPN for now. Possible start of clear liquids in a.m. then gradually increase to a soft diet. Tomorrow will be his last dose of IV antibiotics. We will ask physical therapy to help get him out of bed.
[2020-07-18 16:40] LABS: URINE CREATININE 124.7 mg/dL (22-328)
--- NOTE | 2020-07-18 20:10 | RADIOLOGY REPORT (SQ) ---
EXAM DESCRIPTION: U/S RETROPERITON LTD IMAGES COMPLETED DATE/TIME: 07/18/2020 2:41 pm REASON FOR STUDY: Acute kidney Injury, decreased urine output COMPARISON: None. TECHNIQUE: Dynamic and static grayscale images acquired of the kidneys and bladder and recorded on P ACS. Additional selected color Doppler and spectral images recorded. LIMITATIONS: Body habitus. FINDINGS: RIGHT KIDNEY: Normal size. Normal echogenicity. No solid or suspicious masses. No h ydronephrosis. No calcifications. LEFT KIDNEY: Normal size. Normal echogenicity. No solid or suspicious masses. No hydronephrosi s. No calcifications. BLADDER: Decompressed with Craig catheter. OTHER FINDINGS: No other significant finding. IMPRESSION: Limited study. No hydronephrosis. TECHNICAL DOCUMENTATION: JOB ID: [id number] 2010 [employer]- All Rights Reserved Reading location - IP/workstation name: [email or web address]
[2020-07-18] MEDS: LORAZEPAM INJ 2 MG/1 ML VIAL IV PRN (20:57)
[2020-07-18] MEDS: DOXAZOSIN MESYLATE 4 MG TABLET NG SCH (21:01)
[2020-07-18] MEDS: TAMSULOSIN HCL 0.4 MG CAP.SR.24H PO SCH (21:01)
[2020-07-18] MEDS: AMINO ACIDS 5 %/DEXTROSE 20 % 1,000 ML IV PRN (21:02)
--- NOTE | 2020-07-18 23:48 | PDOC PROGRESS REPORT ---
Subjective Progress Note for:: 07/18/20 Subjective:: Patient was seen and examined at bedside with his . He seems to be mildly confused, denies any chest pain shortness of breath or abdominal pain. His thinks that his abdomen looks much smaller today compared to yesterday. Ileostomy output noted to be more today compared to the previous days. Reason For Visit: RECTAL BLEEDING Physical Exam Vital Signs: Temp Pulse Resp BP Pulse Ox 97.4 F 91 20 132/55 H 94 07/18/20 19:49 07/18/20 20:16 07/18/20 20:16 07/18/20 19:49 07/18/20 20:16 Intake & Output 07/17/20 07/18/20 07/19/20 06:59 06:59 06:59 Intake Total 2049 2049 350 Output Total 2199 250 Balance -150 1800 350 Weight 85.6 kg 85.7 kg General appearance: PRESENT: hard of hearing, mild distress, other - Held confusion and agitation Head exam: PRESENT: atraumatic, normocephalic Eye exam: PRESENT: PERRLA Mouth exam: PRESENT: moist Neck exam: PRESENT: full ROM Respiratory exam: PRESENT: crackles - Bibasal crackles, symmetrical, tachypnea. ABSENT: rhonchi, wheezes Cardiovascular exam: PRESENT: RRR, +S1, +S2 - Normal Pulses: PRESENT: +2 pedal pulses bilateral GI/Abdominal exam: PRESENT: diminished bowel sounds, distended, soft, other - Laparotomy scars noted no signs of infection or drainage with stephanie intact. Ileostomy draining greenish fluid. ABSENT: guarding, rebound Extremities exam: PRESENT: +1 edema Neurological exam: PRESENT: alert, awake, other - Mildly confused Psychiatric exam: PRESENT: agitated Results Laboratory Results: 07/18/20 06:10 07/18/20 06:10 07/18/20 07/18/20 07/18/20 06:10 06:10 14:40 WBC 6.8 RBC 2.63 L Hgb 8.3 L Hct 25.4 L MCV 97 MCH 31.6 MCHC 32.7 RDW 15.8 H Plt Count 269 Seg Neutrophils % 86.1 H Sodium 146.7 H Potassium 3.4 L Chloride 114 H Carbon Dioxide 29 Anion Gap 4 L BUN 39 H Creatinine 1.92 H Est GFR ( Amer) 41 L Glucose 146 H Calcium 7.1 L Urine Color YELLOW Urine Appearance CLOUDY Urine pH 6.0 Ur Specific [place] 1.017 Urine Protein 100 H Urine Glucose (UA) NEGATIVE Urine Ketones NEGATIVE Urine Blood MODERATE H Urine Nitrite NEGATIVE Ur Leukocyte Esterase NEGATIVE Urine WBC (Auto) 9 Urine RBC (Auto) 2 07/10/20 07/10/20 06:15 17:00 Troponin I 0.067 NT-Pro-B Natriuret Pep 2670 H 2860 H Impressions: Abdomen/Pelvis CT 07/07/20 00:00 IMPRESSION: There is significant distention of the small bowel with mucosal thickening and enhancement involving a large portion of the ileum. These findings are concerning for small bowel obstruction which could be due to a stricture or inflammation at the terminal ileum. Adhesions at this area are not fully excluded. Chest X-Ray 07/16/20 00:00 IMPRESSION: Unchanged radiographic appearance of the chest. KUB X-Ray 07/17/20 00:00 IMPRESSION: Ileus. Renal Ultrasound 07/18/20 00:00 IMPRESSION: Limited study. No hydronephrosis. Assessment and Plan - Diagnosis (1) ANU (acute kidney injury) Is this a current diagnosis for this admission?: Yes Plan: -Creatinine on admission noted to be 0.8. They increased to 1.9 -Total urine output 250 mL in 24 hours -Treated with increased ileostomy output today -FENa 0.1 consistent with prerenal causes versus compartment syndrome -Ordered renal ultrasound awaiting official result -IV fluids increased to 150 mL/h. Will watch out for signs of congestion. Repeat x-ray tomorrow -If creatinine continues to trend up we will consult nephrology (2) Diverticula of colon Is this a current diagnosis for this admission?: Yes Plan: -Status post colon resection due to cecal perforation with ileostomy creation postop day 9 -On TPN for nutrition day 2 -N.p.o. with NG tube -Surgery following possible advance diet to clear liquids pending eval -We will continue antibiotics for now (3) Acute on chronic blood loss anemia Is this a current diagnosis for this admission?: Yes Plan: Monitor hemoglobin - remains relatively stable. (4) Acute respiratory failure with hypoxemia Is this a current diagnosis for this admission?: Yes Plan: -Currently on nasal cannula support -We will watch out for signs of congestion since he is on increased IV fluids -Repeat chest x-ray tomorrow -BiPAP as needed at night (5) COPD (chronic obstructive pulmonary disease) Qualifiers: COPD type: chronic bronchitis Is this a current diagnosis for this admission?: Yes Plan: -Continue breathing treatments -Continue inhalers -BiPAP at night - Plan Summary Summary: - Time Time Spent with patient: 25-34 minutes Anticipated Discharge Disposition: to be determined Anticipated Discharge Timeframe: To be determined - Inpatient Certification Medical Necessity: Risk of Complication if Not Cared For in Hospital
[2020-07-19] MEDS: INSULIN REG, HUMAN 100 UNIT/ML 3 ML VIAL (PYX) SUBCUT SCH ×4 (00:31→18:19)
[2020-07-19] MEDS: ALBUTEROL SULFATE 0.083% NEB 2.5 MG/3 ML AMPUL NEB SCH ×4 (02:06→20:20)
[2020-07-19] MEDS: DEXTROSE 5%-1/4 NORMAL SALINE 1,000 ML IV PRN ×3 (05:51→16:03)
[2020-07-19 06:23] LABS: HEMATOCRIT 25.1 % (37.9-51.0); HEMOGLOBIN 8.1 g/dL (13.5-17.0); MEAN CORPUSCULAR HGB CONC 32.5 g/dL (32.0-36.0); MEAN CORPUSCULAR VOLUME 95 fl (80-97); PLATELET COUNT 267 10^3/uL (150-450); RED BLOOD COUNT 2.63 10^6/uL (4.35-5.55); WHITE BLOOD COUNT 8.4 10^3/uL (4.0-10.5)
[2020-07-19 06:25] LABS: BLOOD UREA NITROGEN 37 mg/dL (7-20); GLUCOSE 197 mg/dL (75-110); POTASSIUM 3.7 mmol/L (3.6-5.0)
[2020-07-19 06:31] LABS: CARBON DIOXIDE 28 mmol/L (22-30); CHLORIDE 108 mmol/L (98-107)
[2020-07-19 06:33] LABS: ANION GAP 4 (5-19)
[2020-07-19 06:34] LABS: CALCIUM 6.9 mg/dL (8.4-10.2)
[2020-07-19 07:06] LABS: ABSOLUTE LYMPHOCYTES# (MANUAL) 0.3 10^3/uL (0.5-4.7); ABSOLUTE MONOCYTES # (MANUAL) 0.3 10^3/uL (0.1-1.4); BASOPHILS % (MANUAL) 0 % (0-2); EOSINOPHILS % (MANUAL) 0 % (0-6); LYMPHOCYTES % (MANUAL) 4 % (13-45); MONOCYTES % (MANUAL) 4 % (3-13); SEGMENTED NEUTROPHILS % (MAN) 92 % (42-78); TOTAL CELLS COUNTED 100
[2020-07-19 07:08] LABS: ANISOCYTOSIS SLIGHT; PLATELET CLUMPS PRESENT; STOMATOCYTES SLIGHT; TOXIC GRANULATION 1+; TOXIC VACUOLATION PRESENT
[2020-07-19 07:09] LABS: PLATELET COMMENT ADEQUATE
[2020-07-19] MEDS: BUDESONIDE NEB 0.25 MG/2 ML AMPUL NEB SCH ×2 (08:12→20:20)
--- NOTE | 2020-07-19 08:43 | RADIOLOGY REPORT (SQ) ---
EXAM DESCRIPTION: CHEST SINGLE VIEW IMAGES COMPLETED DATE/TIME: 07/19/2020 7:47 am REASON FOR STUDY: Tachypnea COMPARISON: 07/16/2020 EXAM PARAMETERS: NUMBER OF VIEWS: One view. TECHNIQUE: Single frontal radiographic view of the chest acquired. RADIATION DOSE: NA LIMITATIONS: None. FINDINGS: LUNGS AND PLEURA: Markedly improved aeration at the left lung base. Minimal hazy retrocar diac and right basilar opacities. No large effusion. No pneumothorax. MEDIASTINUM AND HILAR STRUCTURES: No masses. Contour normal. HEART AND VASCULAR STRUCTURES: Heart normal in size. Normal vasculature. BONES: No acute findings. HARDWARE: Right internal jugular central venous catheter tip at SVC. OTHER: No other significant finding. IMPRESSION: Markedly improved left basilar aeration with mild residual patchy bibasilar opacities. TECHNICAL DOCUMENTATION: JOB ID: [id number] 2010 [employer] All Rights Reserved Reading location - IP/workstation name: [email or web address]
[2020-07-19] MEDS: KETOROLAC TROMETHAMINE INJ/PF 30 MG/1 ML SDV IV PRN (10:16)
--- NOTE | 2020-07-19 12:50 | PDOC PROGRESS REPORT ---
Subjective Progress Note for:: 07/19/20 Subjective:: Patient comfortable, slightly disoriented, responsive to question, large output of bilious material from the ileostomy Reason For Visit: RECTAL BLEEDING Physical Exam Vital Signs: Temp Pulse Resp BP Pulse Ox 97.6 F 60 20 120/46 L 95 07/19/20 11:09 07/19/20 11:09 07/19/20 11:09 07/19/20 11:09 07/19/20 11:09 Intake & Output 07/18/20 07/19/20 07/20/20 06:59 06:59 06:59 Intake Total 2050 1350 468 Output Total 250 830 Balance 1800 520 468 Weight 85.7 kg General appearance: PRESENT: no acute distress Respiratory exam: PRESENT: clear to auscultation sudha Cardiovascular exam: PRESENT: RRR GI/Abdominal exam: PRESENT: distended, other - Incision clean, dry, and intact: Ileostomy pink, viable, bilious fluid in the ileostomy bag Results Laboratory Results: 07/19/20 05:28 07/19/20 05:28 07/18/20 07/19/20 07/19/20 14:40 05:28 05:28 WBC 8.4 RBC 2.63 L Hgb 8.1 L Hct 25.1 L MCV 95 MCH 31.0 MCHC 32.5 RDW 15.0 H Plt Count 267 Seg Neutrophils % Not Reportable Sodium 139.7 Potassium 3.7 Chloride 108 H Carbon Dioxide 28 Anion Gap 4 L BUN 37 H Creatinine 1.76 H Est GFR ( Amer) 46 L Glucose 197 H Calcium 6.9 L* Phosphorus Urine Color YELLOW Urine Appearance CLOUDY Urine pH 6.0 Ur Specific [place] 1.017 Urine Protein 100 H Urine Glucose (UA) NEGATIVE Urine Ketones NEGATIVE Urine Blood MODERATE H Urine Nitrite NEGATIVE Ur Leukocyte Esterase NEGATIVE Urine WBC (Auto) 9 Urine RBC (Auto) 2 07/19/20 05:28 WBC RBC Hgb Hct MCV MCH MCHC RDW Plt Count Seg Neutrophils % Sodium Potassium Chloride Carbon Dioxide Anion Gap BUN Creatinine Est GFR ( Amer) Glucose Calcium Phosphorus 2.7 Urine Color Urine Appearance Urine pH Ur Specific [place] Urine Protein Urine Glucose (UA) Urine Ketones Urine Blood Urine Nitrite Ur Leukocyte Esterase Urine WBC (Auto) Urine RBC (Auto) 07/10/20 07/10/20 06:15 17:00 Troponin I 0.067 NT-Pro-B Natriuret Pep 2670 H 2860 H Impressions: Abdomen/Pelvis CT 07/07/20 00:00 IMPRESSION: There is significant distention of the small bowel with mucosal thickening and enhancement involving a large portion of the ileum. These findings are concerning for small bowel obstruction which could be due to a stricture or inflammation at the terminal ileum. Adhesions at this area are not fully excluded. KUB X-Ray 07/17/20 00:00 IMPRESSION: Ileus. Renal Ultrasound 07/18/20 00:00 IMPRESSION: Limited study. No hydronephrosis. Chest X-Ray 07/19/20 00:00 IMPRESSION: Markedly improved left basilar aeration with mild residual patchy bibasilar opacities. Assessment & Plan - Diagnosis (2) Perforation of cecum due to diverticulitis Is this a current diagnosis for this admission?: Yes (3) Diverticulosis of colon Is this a current diagnosis for this admission?: Yes - Time Time Spent: 30 to 50 Minutes Anticipated Discharge Disposition: [facility] Anticipated Discharge Timeframe: As per primary care physician - Plan Summary Plan Summary: Assessment: Postoperative day #10 after subtotal colectomy for cecal perforation and pandiverticulosis with ileostomy. ileostomy well functioning with good output mainly bilious fluid Abdomen slightly distended, not tender with ileostomy pink and wound clean Plan: Continue TPN Start starchy diet for ileostomy patient's Lomotil 1 tab p.o. 3 times a day to control the ileostomy output
[2020-07-19] MEDS ORDERED: DIPHENOXYLATE HCL/ATROP SULF 2.5-0.025 MG TABLET PO SCH (13:30)
[2020-07-19] MEDS: CEFTRIAXONE 1 GM/D5W RTU 1 GM/50 ML RTUPB IV SCH (14:10)
[2020-07-19] MEDS: DIPHENOXYLATE HCL/ATROP SULF 2.5-0.025 MG TABLET PO SCH ×3 (14:59→21:38)
[2020-07-19 16:21] LABS: ARTERIAL BLOOD H2CO3 1.55 mmol/L (1.05-1.35); ARTERIAL BLOOD HCO3 25.4 mmol/L (20-24); ARTERIAL BLOOD O2 SATURATION 93.2 % (94-98); ARTERIAL BLOOD PCO2 51.5 mmHg (35-45); ARTERIAL BLOOD PH 7.31 (7.35-7.45); ARTERIAL BLOOD PO2 73.2 mmHg (80-100)
[2020-07-19 16:30] LABS: ARTERIAL BLOOD FIO2 3L
[2020-07-19] MEDS: AMINO ACIDS 5 %/DEXTROSE 20 % 1,000 ML IV PRN (18:40)
[2020-07-19] MEDS: TAMSULOSIN HCL 0.4 MG CAP.SR.24H PO SCH (21:38)
[2020-07-19] MEDS: DOXAZOSIN MESYLATE 4 MG TABLET NG SCH (21:38)
--- NOTE | 2020-07-19 22:35 | PDOC PROGRESS REPORT ---
Subjective Progress Note for:: 07/19/20 Subjective:: Patient was seen and examined at bedside. Seems to be more coherent today, spoke to the at bedside who agrees. However he is still confused sometimes. Denies shortness of breath abdominal pain nausea or vomiting. Noted to have episode of bradycardia lowest of 48 while he was asleep, asymptomatic. Reason For Visit: RECTAL BLEEDING Physical Exam Vital Signs: Temp Pulse Resp BP Pulse Ox 97.3 F 70 20 122/46 L 97 07/19/20 15:11 07/19/20 20:22 07/19/20 20:22 07/19/20 15:11 07/19/20 20:22 Intake & Output 07/18/20 07/19/20 07/20/20 06:59 06:59 06:59 Intake Total 2050 1550 1518 Output Total 250 830 Balance 3899 353 3646 Weight 85.7 kg General appearance: PRESENT: mild distress Head exam: PRESENT: atraumatic, normocephalic Eye exam: PRESENT: EOMI, PERRLA Mouth exam: PRESENT: moist Neck exam: ABSENT: JVD Respiratory exam: PRESENT: crackles - minimal, decreased breath sounds - bibasal. ABSENT: rhonchi, wheezes Cardiovascular exam: PRESENT: bradycardia, RRR, +S1, +S2 - normal Pulses: PRESENT: +2 pedal pulses bilateral GI/Abdominal exam: PRESENT: other - Midline laparotomy scar noted with stephanie intact no signs of wound discharge or infection Ileostomy noted with draining watery greenish fluid Rectal exam: PRESENT: deferred Extremities exam: PRESENT: +1 edema. ABSENT: joint swelling Musculoskeletal exam: PRESENT: other Neurological exam: PRESENT: altered Psychiatric exam: PRESENT: agitated - Has episodes of agitation Results Laboratory Results: 07/19/20 05:28 07/19/20 05:28 07/19/20 07/19/20 07/19/20 05:28 05:28 05:28 WBC 8.4 RBC 2.63 L Hgb 8.1 L Hct 25.1 L MCV 95 MCH 31.0 MCHC 32.5 RDW 15.0 H Plt Count 267 Seg Neutrophils % Not Reportable Carbonic Acid HCO3/H2CO3 Ratio ABG pH ABG pCO2 ABG pO2 ABG HCO3 ABG O2 Saturation ABG Base Excess FiO2 Sodium 139.7 Potassium 3.7 Chloride 108 H Carbon Dioxide 28 Anion Gap 4 L BUN 37 H Creatinine 1.76 H Est GFR ( Amer) 46 L Glucose 197 H Calcium 6.9 L* Phosphorus 2.7 07/19/20 16:00 WBC RBC Hgb Hct MCV MCH MCHC RDW Plt Count Seg Neutrophils % Carbonic Acid 1.55 H HCO3/H2CO3 Ratio 16:1 ABG pH 7.31 L ABG pCO2 51.5 H ABG pO2 73.2 L ABG HCO3 25.4 H ABG O2 Saturation 93.2 L ABG Base Excess -1.0 FiO2 3L Sodium Potassium Chloride Carbon Dioxide Anion Gap BUN Creatinine Est GFR ( Amer) Glucose Calcium Phosphorus 07/10/20 07/10/20 06:15 17:00 Troponin I 0.067 NT-Pro-B Natriuret Pep 2670 H 2860 H Impressions: Abdomen/Pelvis CT 07/07/20 00:00 IMPRESSION: There is significant distention of the small bowel with mucosal thickening and enhancement involving a large portion of the ileum. These findings are concerning for small bowel obstruction which could be due to a stricture or inflammation at the terminal ileum. Adhesions at this area are not fully excluded. KUB X-Ray 07/17/20 00:00 IMPRESSION: Ileus. Renal Ultrasound 07/18/20 00:00 IMPRESSION: Limited study. No hydronephrosis. Chest X-Ray 07/19/20 00:00 IMPRESSION: Markedly improved left basilar aeration with mild residual patchy bibasilar opacities. Assessment and Plan - Diagnosis (1) ANU (acute kidney injury) Is this a current diagnosis for this admission?: Yes Plan: -Creatinine on admission noted to be 0.8>1.9>1.76 -Total urine output 380 mL in 24 hours -Treated with increased ileostomy output today -FENa 0.1 consistent with prerenal causes versus compartment syndrome -Ordered renal ultrasound no signs of obstruction -IV fluids increased to 150 mL/h. Will watch out for signs of congestion. -Repeat x-ray no signs of congestion -If creatinine continues to trend up we will consult nephrology (2) Diverticula of colon Is this a current diagnosis for this admission?: Yes Plan: -Status post colon resection due to cecal perforation with ileostomy creation postop day 9 -On TPN for nutrition day 3 -Trial of diet started -We will continue antibiotics for now per surgery recommendation (3) Acute on chronic blood loss anemia Is this a current diagnosis for this admission?: Yes Plan: -Hemoglobin noted to be slowly trending down from 9 currently at 8.1 -No indication for blood transfusion at this point -We will continue to monitor daily (4) Acute respiratory failure with hypoxemia Is this a current diagnosis for this admission?: Yes Plan: -Currently on nasal cannula support -We will watch out for signs of congestion since he is on increased IV fluids -Repeat x-ray no signs of congestion -BiPAP as needed at night (5) COPD (chronic obstructive pulmonary disease) Qualifiers: COPD type: chronic bronchitis Is this a current diagnosis for this admission?: Yes Plan: -Continue breathing treatments -Continue inhalers -BiPAP at night (6) Bradycardia with 41-50 beats per minute Is this a current diagnosis for this admission?: Yes Plan: -Noted this afternoon while the patient was sleeping -Blood pressure during during episode 120s over 60s, asymptomatic -repeat EKG ordered -medications reviewed no clear cause for bradycardia - continue to monitor for now - Plan Summary Summary: - Time Time Spent with patient: 15-24 minutes Anticipated Discharge Disposition: to be determined Anticipated Discharge Timeframe: to be determined - Inpatient Certification Medical Necessity: Risk of Complication if Not Cared For in Hospital
[2020-07-20] MEDS: DEXTROSE 5%-1/4 NORMAL SALINE 1,000 ML IV PRN (00:21)
[2020-07-20] MEDS: INSULIN REG, HUMAN 100 UNIT/ML 3 ML VIAL (PYX) SUBCUT SCH ×4 (00:22→18:05)
[2020-07-20] MEDS: ALBUTEROL SULFATE 0.083% NEB 2.5 MG/3 ML AMPUL NEB SCH ×4 (02:08→19:36)
[2020-07-20] MEDS: BUDESONIDE NEB 0.25 MG/2 ML AMPUL NEB SCH ×2 (08:50→19:36)
[2020-07-20] MEDS ORDERED: FUROSEMIDE INJ/PF 40 MG/4 ML SDV IV ONE (09:18)
[2020-07-20] MEDS: DIPHENOXYLATE HCL/ATROP SULF 2.5-0.025 MG TABLET PO SCH ×4 (09:18→23:53)
[2020-07-20] MEDS ORDERED: FUROSEMIDE INJ/PF 40 MG/4 ML SDV ONE (09:25)
--- NOTE | 2020-07-20 09:30 | PDOC PROGRESS REPORT ---
Subjective Progress Note for:: 07/20/20 Subjective:: Patient obtunded but arousable, unable to respond to questions appropriately, appears to have respiratory distress and the hospitalist has been contacted Reason For Visit: RECTAL BLEEDING Physical Exam Vital Signs: Temp Pulse Resp BP Pulse Ox 98.3 F 69 21 H 128/59 H 91 L 07/20/20 08:00 07/20/20 08:00 07/20/20 08:00 07/20/20 08:00 07/20/20 08:00 Intake & Output 07/19/20 07/20/20 07/21/20 06:59 06:59 06:59 Intake Total 1550 2758 Output Total 830 980 Balance 720 1778 General appearance: PRESENT: mild distress - Respiratory type, other Head exam: PRESENT: atraumatic Mouth exam: PRESENT: dry mucosa Respiratory exam: PRESENT: accessory muscle use, decreased breath sounds - Bilaterally, retraction, wheezes - Bilaterally Cardiovascular exam: PRESENT: RRR GI/Abdominal exam: PRESENT: distended, firm, hypoactive bowel sounds, other - No peritoneal signs, to be pink, with serous output Results Laboratory Results: 07/19/20 05:28 07/19/20 05:28 07/19/20 16:00 Carbonic Acid 1.55 H HCO3/H2CO3 Ratio 16:1 ABG pH 7.31 L ABG pCO2 51.5 H ABG pO2 73.2 L ABG HCO3 25.4 H ABG O2 Saturation 93.2 L ABG Base Excess -1.0 FiO2 3L 07/10/20 07/10/20 06:15 17:00 Troponin I 0.067 NT-Pro-B Natriuret Pep 2670 H 2860 H Impressions: Abdomen/Pelvis CT 07/07/20 00:00 IMPRESSION: There is significant distention of the small bowel with mucosal thickening and enhancement involving a large portion of the ileum. These findings are concerning for small bowel obstruction which could be due to a stricture or inflammation at the terminal ileum. Adhesions at this area are not fully excluded. KUB X-Ray 07/17/20 00:00 IMPRESSION: Ileus. Renal Ultrasound 07/18/20 00:00 IMPRESSION: Limited study. No hydronephrosis. Chest X-Ray 07/19/20 00:00 IMPRESSION: Markedly improved left basilar aeration with mild residual patchy bibasilar opacities. Assessment & Plan - Diagnosis (1) Rectal bleeding Is this a current diagnosis for this admission?: Yes (2) Perforation of cecum due to diverticulitis Is this a current diagnosis for this admission?: Yes (3) Diverticulosis of colon Is this a current diagnosis for this admission?: Yes - Time Anticipated Discharge Disposition: [facility] Facility Anticipated Discharge Timeframe: As per the hospitalist - Plan Summary Plan Summary: Assessment: Postoperative day #11 after subtotal colectomy for cecal perforation and pandiverticulosis with ileostomy. ileostomy well functioning with good output of serous fluid Abdomen distended, not tender with ileostomy pink and wound clean Wound about the moderate respiratory distress with diffuse retraction, bronchospasm, decreased breath sounds bilaterally This x-ray done yesterday demonstrates bilateral inferior chest infiltrates with improvement of the left one Plan: Hospitalist contacted urgently about the patient condition No acute general surgery issues identified, I will hold off on CT scan of the abdomen and pelvis at this time Continue TPN Keep the patient n.p.o. until his respiratory status improves Lomotil 1 tab p.o. 3 times a day to control the ileostomy output
[2020-07-20] MEDS ORDERED: GLUCAGON,HUMAN RECOMB 1 MG INJ SUBCUT PRN (09:31)
[2020-07-20] MEDS ORDERED: DEXTROSE 50%-WATER 25 GM/50 ML DISP.SYRIN IV PRN ×2 (09:31)
[2020-07-20] MEDS ORDERED: DEXTROSE 40% GEL 15 GM TUBE PO PRN ×2 (09:31)
[2020-07-20 10:26] LABS: ABSOLUTE BASOPHILS # (AUTO) 0.1 10^3/uL (0.0-0.2); ABSOLUTE LYMPHOCYTES (AUTO) 0.6 10^3/uL (0.5-4.7); ABSOLUTE MONOCYTES (AUTO) 0.8 10^3/uL (0.1-1.4); ABSOLUTE NEUT (AUTO) 8.1 10^3/uL (1.7-8.2); BASOPHILS % (AUTO) 0.6 % (0-2); EOSINOPHILS % (AUTO) 0.4 % (0-6); HEMATOCRIT 24.7 % (37.9-51.0); HEMOGLOBIN 8.2 g/dL (13.5-17.0); LYMPHOCYTES % (AUTO) 5.8 % (13-45); MEAN CORPUSCULAR HEMOGLOBIN 31.7 pg (27.0-33.4); MEAN CORPUSCULAR HGB CONC 33.4 g/dL (32.0-36.0); MEAN CORPUSCULAR VOLUME 95 fl (80-97); MONOCYTES % (AUTO) 8.8 % (3-13); PLATELET COUNT 269 10^3/uL (150-450); RED CELL DISTRIBUTION WIDTH 14.5 % (11.5-14.0); SEGMENTED NEUTROPHILS % (AUTO) 84.4 % (42-78); TOTAL CELLS COUNTED % (AUTO) 100 %; WHITE BLOOD COUNT 9.6 10^3/uL (4.0-10.5)
[2020-07-20 10:27] LABS: ARTERIAL BLOOD BASE EXCESS -2.2 mmol/L; ARTERIAL BLOOD FIO2 30%; ARTERIAL BLOOD H2CO3 1.54 mmol/L (1.05-1.35); ARTERIAL BLOOD HCO3 24.5 mmol/L (20-24); ARTERIAL BLOOD O2 SATURATION 92.9 % (94-98); ARTERIAL BLOOD PCO2 51.2 mmHg (35-45); ARTERIAL BLOOD PO2 72.9 mmHg (80-100)
[2020-07-20 10:32] LABS: ALBUMIN 2.2 g/dL (3.5-5.0); ALKALINE PHOSPHATASE 79 U/L (38-126); ASPARTATE AMINO TRANSFERASE 34 U/L (17-59); BILIRUBIN,DIRECT 0.4 mg/dL (0.0-0.4); BILIRUBIN,TOTAL 0.5 mg/dL (0.2-1.3); BLOOD UREA NITROGEN 40 mg/dL (7-20); GLUCOSE 146 mg/dL (75-110); POTASSIUM 3.9 mmol/L (3.6-5.0); TOTAL PROTEIN 4.7 g/dL (6.3-8.2)
[2020-07-20 10:37] LABS: CARBON DIOXIDE 25 mmol/L (22-30); CHLORIDE 105 mmol/L (98-107)
--- NOTE | 2020-07-20 10:37 | RADIOLOGY REPORT (SQ) ---
EXAM DESCRIPTION: CHEST SINGLE VIEW IMAGES COMPLETED DATE/TIME: 07/20/2020 10:12 am REASON FOR STUDY: SOB COMPARISON: 07/19/2020 FINDINGS: One view chest AP portable upright. Right IJ line in place without pneumothorax. Perhaps hyperinflated but otherwise generally clear joann gs. Stable exam. TECHNICAL DOCUMENTATION: JOB ID: [id number] Reading location - IP/workstation name: [email or web address]
[2020-07-20 10:41] LABS: ANION GAP 3 (5-19)
[2020-07-20] MEDS ORDERED: CALCIUM GLUC IN NACL, ISO-OSM 1 GM/50 ML RTUPB IV ONE (12:00)
--- NOTE | 2020-07-20 13:54 | EKG REPORT ---
SEVERITY:- BORDERLINE ECG - SINUS RHYTHM BORDERLINE T ABNORMALITIES, ANT-LAT LEADS : Confirmed by: Ariana Kamara 20-Jul-2020 13:53:34
[2020-07-20] MEDS: AMINO ACIDS 5 %/DEXTROSE 20 % 1,000 ML IV PRN (16:46)
--- NOTE | 2020-07-20 17:01 | PDOC PROGRESS REPORT ---
Subjective Progress Note for:: 07/20/20 Subjective:: Patient was seen and examined at bedside. I was called by Dr. Ordoñez that the patient seems to be tachypneic, and confused. He was noted to have increased crackles at examination, respiratory rate 30s. He was able to talk to me and denies abdominal pain but he appears somewhat confused, not entirely different from his baseline. Reason For Visit: RECTAL BLEEDING Physical Exam Vital Signs: Temp Pulse Resp BP Pulse Ox 98.3 F 78 25 H 118/44 L 97 07/20/20 16:00 07/20/20 16:00 07/20/20 16:00 07/20/20 16:00 07/20/20 16:00 Intake & Output 07/19/20 07/20/20 07/21/20 06:59 06:59 06:59 Intake Total 1550 2758 Output Total 830 980 Balance 720 1778 General appearance: PRESENT: other - Moderate distress Head exam: PRESENT: atraumatic, normocephalic Eye exam: PRESENT: EOMI, PERRLA Mouth exam: PRESENT: other - Patient has superficial abrasions on the bridge of his nose likely secondary to use of BiPAP mask. Not look infected Respiratory exam: PRESENT: accessory muscle use, crackles, tachypnea Cardiovascular exam: PRESENT: RRR, +S1, +S2 GI/Abdominal exam: PRESENT: diminished bowel sounds, soft. ABSENT: guarding, rebound Extremities exam: PRESENT: other - YASEMIN hose in place Neurological exam: PRESENT: altered. ABSENT: oriented to person, oriented to place Results Laboratory Results: 07/20/20 09:49 07/20/20 09:49 07/20/20 07/20/20 07/20/20 09:49 09:49 10:20 WBC 9.6 RBC 2.60 L Hgb 8.2 L Hct 24.7 L MCV 95 MCH 31.7 MCHC 33.4 RDW 14.5 H Plt Count 269 Seg Neutrophils % 84.4 H Carbonic Acid 1.54 H HCO3/H2CO3 Ratio 15:1 ABG pH 7.30 L ABG pCO2 51.2 H ABG pO2 72.9 L ABG HCO3 24.5 H ABG O2 Saturation 92.9 L ABG Base Excess -2.2 FiO2 30% Sodium 133.1 L Potassium 3.9 Chloride 105 Carbon Dioxide 25 Anion Gap 3 L BUN 40 H Creatinine 1.64 H Est GFR ( Amer) 49 L Glucose 146 H Calcium 7.0 L* Total Bilirubin 0.5 AST 34 Alkaline Phosphatase 79 Total Protein 4.7 L Albumin 2.2 L 07/10/20 07/10/20 06:15 17:00 Troponin I 0.067 NT-Pro-B Natriuret Pep 2670 H 2860 H Impressions: Abdomen/Pelvis CT 07/07/20 00:00 IMPRESSION: There is significant distention of the small bowel with mucosal thickening and enhancement involving a large portion of the ileum. These findings are concerning for small bowel obstruction which could be due to a stricture or inflammation at the terminal ileum. Adhesions at this area are not fully excluded. KUB X-Ray 07/17/20 00:00 IMPRESSION: Ileus. Renal Ultrasound 07/18/20 00:00 IMPRESSION: Limited study. No hydronephrosis. Assessment and Plan - Diagnosis (1) ANU (acute kidney injury) Is this a current diagnosis for this admission?: Yes Plan: -Creatinine on admission noted to be 0.8>1.9>1.76>1.64 -Total urine output 560 mL in 24 hours -FENa 0.1 consistent with prerenal causes versus compartment syndrome -Ordered renal ultrasound no signs of obstruction -IV fluids discontinued today due to tachypnea and bibasal crackles however repeat CXR showed stable findings -We will trend his creatinine and monitor his urine output (2) Diverticula of colon Is this a current diagnosis for this admission?: Yes Plan: -Status post colon resection due to cecal perforation with ileostomy creation postop day 11 -On TPN for nutrition day -Patient put on n.p.o. -He completed 7 days of antibiotics. No fever no white count. Blood cultures final report no growth (3) Acute on chronic blood loss anemia Is this a current diagnosis for this admission?: Yes Plan: -Hemoglobin noted to be slowly trending down from 9>8.1 -No indication for blood transfusion at this point -We will continue to monitor daily (4) Acute respiratory failure with hypoxemia Is this a current diagnosis for this admission?: Yes Plan: -episode of desaturation, incrased confusion and tachypnea -Repeat XR showed stable findings - He was given 1 dose of Lasix 40 mg IV, was put on BIpap - ABG showed 7.3, PCO2 51.2, HCO3 24.5 primary respiratory acidosis -Repeat x-ray no signs of congestion - IV fluids discontinued -BiPAP as needed at night (5) COPD (chronic obstructive pulmonary disease) Qualifiers: COPD type: chronic bronchitis Is this a current diagnosis for this admission?: Yes Plan: -Continue breathing treatments -BiPAP at night (6) Hypocalcemia Is this a current diagnosis for this admission?: Yes Plan: - corrected Ca 8.4, low normal. Will give 1 dose IV Ca gluconate - Plan Summary Summary: - Time Time Spent with patient: 15-24 minutes Medications reviewed and adjusted accordingly: Yes Anticipated Discharge Disposition: Home with Home Health Anticipated Discharge Timeframe: To be determined - Inpatient Certification Based on my medical assessment, after consideration of the patient's comorbidities, presenting symptoms, or acuity I expect that the services needed warrant INPATIENT care.: Yes I certify that my determination is in accordance with my understanding of Medicare's requirements for reasonable and necessary INPATIENT services [42 CFR 412.3e].: Yes Medical Necessity: Risk of Complication if Not Cared For in Hospital
[2020-07-20] MEDS ORDERED: HALOPERIDOL LACTATE INJ 5 MG/1 ML VIAL IV ONE (19:30)
[2020-07-20] MEDS ORDERED: ALTEPLASE INJ 2 MG VIAL (CATH CLEARANCE) INJ ONE (20:45)
[2020-07-20] MEDS ORDERED: ALTEPLASE INJ 2 MG VIAL (CATH CLEARANCE) IV ONE (21:30)
[2020-07-20] MEDS ORDERED: ALTEPLASE INJ 2 MG VIAL (CATH CLEARANCE) ONE (22:20)
[2020-07-20] MEDS: DOXAZOSIN MESYLATE 4 MG TABLET NG SCH (23:53)
[2020-07-21] MEDS: TAMSULOSIN HCL 0.4 MG CAP.SR.24H PO SCH ×2 (00:10→21:05)
[2020-07-21] MEDS: ALBUTEROL SULFATE 0.083% NEB 2.5 MG/3 ML AMPUL NEB PRN ×2 (00:13→18:18)
[2020-07-21] MEDS: INSULIN REG, HUMAN 100 UNIT/ML 3 ML VIAL (PYX) SUBCUT SCH ×4 (00:20→21:17)
[2020-07-21] MEDS ORDERED: ALPRAZOLAM 0.25 MG TABLET PO PRN ×2 (01:00→06:30)
[2020-07-21] MEDS: KETOROLAC TROMETHAMINE INJ/PF 30 MG/1 ML SDV IV PRN (01:18)
[2020-07-21] MEDS: ALBUTEROL SULFATE 0.083% NEB 2.5 MG/3 ML AMPUL NEB SCH ×4 (03:57→19:47)
[2020-07-21] MEDS: BUDESONIDE NEB 0.25 MG/2 ML AMPUL NEB SCH ×2 (08:46→19:47)
[2020-07-21] MEDS: AMINO ACIDS 5 %/DEXTROSE 20 % 1,000 ML IV PRN (09:44)
[2020-07-21 10:17] LABS: HEMATOCRIT 22.8 % (37.9-51.0); MEAN CORPUSCULAR HEMOGLOBIN 31.7 pg (27.0-33.4); MEAN CORPUSCULAR HGB CONC 33.6 g/dL (32.0-36.0); MEAN CORPUSCULAR VOLUME 94 fl (80-97); PLATELET COUNT 286 10^3/uL (150-450); RED BLOOD COUNT 2.41 10^6/uL (4.35-5.55); RED CELL DISTRIBUTION WIDTH 14.3 % (11.5-14.0); WHITE BLOOD COUNT 8.5 10^3/uL (4.0-10.5)
[2020-07-21 10:30] LABS: ALBUMIN 2.1 g/dL (3.5-5.0); ALKALINE PHOSPHATASE 81 U/L (38-126); ASPARTATE AMINO TRANSFERASE 38 U/L (17-59); BILIRUBIN,DIRECT 0.3 mg/dL (0.0-0.4); BILIRUBIN,TOTAL 0.4 mg/dL (0.2-1.3); BLOOD UREA NITROGEN 47 mg/dL (7-20); CALCIUM 7.2 mg/dL (8.4-10.2); CARBON DIOXIDE 26 mmol/L (22-30); CHLORIDE 105 mmol/L (98-107); GLUCOSE 164 mg/dL (75-110); PHOSPHORUS 4.6 mg/dL (2.5-4.5); POTASSIUM 4.2 mmol/L (3.6-5.0); TOTAL PROTEIN 4.6 g/dL (6.3-8.2)
[2020-07-21 10:34] LABS: ANION GAP 2 (5-19)
[2020-07-21 10:44] LABS: ABSOLUTE LYMPHOCYTES# (MANUAL) 0.1 10^3/uL (0.5-4.7); ABSOLUTE MONOCYTES # (MANUAL) 0.3 10^3/uL (0.1-1.4); BASOPHILS % (MANUAL) 0 % (0-2); EOSINOPHILS % (MANUAL) 2 % (0-6); LYMPHOCYTES % (MANUAL) 1 % (13-45); MONOCYTES % (MANUAL) 3 % (3-13); SEGMENTED NEUTROPHILS % (MAN) 94 % (42-78); TOTAL CELLS COUNTED 100
[2020-07-21 10:45] LABS: ANISOCYTOSIS SLIGHT
[2020-07-21 10:46] LABS: PLATELET COMMENT ADEQUATE; TOXIC GRANULATION 1+
[2020-07-21 10:49] LABS: HEMOGLOBIN 7.7 g/dL (13.5-17.0)
--- NOTE | 2020-07-21 11:48 | PDOC PROGRESS REPORT ---
Subjective Progress Note for:: 07/21/20 Subjective:: Seen and examined at the bedside. He was noted to be very drowsy upon my examination minimally responsive to pain, even with sternal rub. I was told by his nurse that his did not want him to be on BiPAP overnight. I put him back on BiPAP and he woke up after 10 minutes. I told the nurse that he needs to be on BiPAP because he is retaining CO2. Reason For Visit: RECTAL BLEEDING Physical Exam Vital Signs: Temp Pulse Resp BP Pulse Ox 97.3 F 63 19 114/47 L 100 07/21/20 08:25 07/21/20 08:46 07/21/20 08:46 07/21/20 08:25 07/21/20 08:46 Pulse Oximeter Continuous Start: 07/20/20 09:25 Freq: RTQ4 Status: Active Protocol: Document 07/21/20 08:46 HCR (Rec: 07/21/20 10:23 HCR [email or web address]) Pulse Oximetry Assessment Oxygen Saturation (92-100) 100 Oxygen Flow Rate (L/min) 4 Oxygen Delivery Method Nasal Cannula Equipment Usage Equipment in Use Continuous SpO2 Machine # 4 Intake & Output 07/20/20 07/21/20 07/22/20 06:59 06:59 06:59 Intake Total 2758 120 Output Total 980 930 Balance 1778 -810 Weight 85.7 kg General appearance: PRESENT: other - moderate Head exam: PRESENT: atraumatic, normocephalic Eye exam: PRESENT: EOMI, PERRLA Mouth exam: PRESENT: other - Abrasions on the bridge of his nose likely secondary to his BiPAP mask Neck exam: PRESENT: full ROM Respiratory exam: PRESENT: crackles, symmetrical Cardiovascular exam: PRESENT: RRR, +S1, +S2 GI/Abdominal exam: PRESENT: diminished bowel sounds, distended Rectal exam: PRESENT: deferred Extremities exam: PRESENT: +1 edema Neurological exam: PRESENT: altered Results Laboratory Results: 07/21/20 09:40 07/21/20 09:40 07/20/20 07/21/20 07/21/20 18:58 09:40 09:40 WBC 8.5 RBC 2.41 L Hgb 7.7 L Hct 22.8 L MCV 94 MCH 31.7 MCHC 33.6 RDW 14.3 H Plt Count 286 Seg Neutrophils % Not Reportable Sodium Potassium Chloride Carbon Dioxide Anion Gap BUN Creatinine Est GFR ( Amer) Glucose Lactic Acid 0.8 Calcium Phosphorus Total Bilirubin AST Alkaline Phosphatase Ammonia < 8.7 L Total Protein Albumin 07/21/20 09:40 WBC RBC Hgb Hct MCV MCH MCHC RDW Plt Count Seg Neutrophils % Sodium 133.2 L Potassium 4.2 Chloride 105 Carbon Dioxide 26 Anion Gap 2 L BUN 47 H Creatinine 1.58 H Est GFR ( Amer) 52 L Glucose 164 H Lactic Acid Calcium 7.2 L Phosphorus 4.6 H Total Bilirubin 0.4 AST 38 Alkaline Phosphatase 81 Ammonia Total Protein 4.6 L Albumin 2.1 L 07/10/20 07/10/20 06:15 17:00 Troponin I 0.067 NT-Pro-B Natriuret Pep 2670 H 2860 H Impressions: Abdomen/Pelvis CT 07/07/20 00:00 IMPRESSION: There is significant distention of the small bowel with mucosal thickening and enhancement involving a large portion of the ileum. These findings are concerning for small bowel obstruction which could be due to a stricture or inflammation at the terminal ileum. Adhesions at this area are not fully excluded. KUB X-Ray 07/17/20 00:00 IMPRESSION: Ileus. Renal Ultrasound 07/18/20 00:00 IMPRESSION: Limited study. No hydronephrosis. Assessment and Plan - Diagnosis (1) Encephalopathy Is this a current diagnosis for this admission?: Yes Plan: -Patient has been having agitation, with altered mental status and confusion -CT head negative, ammonia normal -Is likely multifactorial secondary to metabolic encephalopathy from CO2 retention his does not want him to wear BiPAP at night. I have told her nurse that it is imperative that he stays on BiPAP -This is aggravated by his recent complicated surgery, infection is an unlikely source since he is afebrile with normal white count (2) Diverticula of colon Is this a current diagnosis for this admission?: Yes Plan: -Status post colon resection due to cecal perforation with ileostomy creation postop day 12 - CT abdomen fluid distended bowel loops -On TPN for nutrition day - surgery ok for clear liquids -He completed 7 days of antibiotics. No fever no white count. Blood cultures final report no growth (3) ANU (acute kidney injury) Is this a current diagnosis for this admission?: Yes Plan: -Creatinine on admission noted to be 0.8>1.9>1.76>1.64>1.58 -Total urine output 400 mL in 24 hours -FENa 0.1 consistent with prerenal causes versus compartment syndrome - he has developed bilateral pleural effusion - started on IV lasix 40 IV BID, will monitor his creatinine (4) Acute on chronic blood loss anemia Is this a current diagnosis for this admission?: Yes Plan: -Hemoglobin noted to be slowly trending down from 9>8.1>7.7 -No indication for blood transfusion at this point -We will continue to monitor daily (5) Acute respiratory failure with hypoxemia Is this a current diagnosis for this admission?: Yes Plan: -episode of desaturation, increased confusion and tachypnea -CT abdomen also showed bilateral pleural pleural effusion -Patient was started on Lasix 40 IV twice daily -IV fluids was stopped -Needs to be on BiPAP at night. (6) COPD (chronic obstructive pulmonary disease) Qualifiers: COPD type: chronic bronchitis Is this a current diagnosis for this admission?: Yes Plan: -Continue breathing treatments -BiPAP at night (7) Pleural effusion Is this a current diagnosis for this admission?: Yes Plan: -Noted on the CT abdomen done this afternoon. Bilateral pleural effusion -Likely secondary from IV fluids vs CHF -We will check BNP -Darted on Lasix 40 IV twice daily - Plan Summary Summary: - Time Time Spent with patient: 25-34 minutes Anticipated Discharge Disposition: To be determined Anticipated Discharge Timeframe: To be determined - Inpatient Certification Medical Necessity: Risk of Complication if Not Cared For in Hospital
[2020-07-21] MEDS: DIPHENOXYLATE HCL/ATROP SULF 2.5-0.025 MG TABLET PO SCH ×3 (11:53→17:36)
--- NOTE | 2020-07-21 13:51 | RADIOLOGY REPORT (SQ) ---
EXAM DESCRIPTION: CT HEAD WITHOUT IMAGES COMPLETED DATE/TIME: 07/21/2020 1:14 pm REASON FOR STUDY: altered mental status COMPARISON: 2017. TECHNIQUE: Axial images acquired through the brain without intravenous contrast. Images reviewed wi th bone, brain and subdural windows. Additional sagittal and coronal reconstructions were generated. Images stored on PACS. All CT scanners at this facility use dose modulation, iterative reconstruction, and/or weight based d osing when appropriate to reduce radiation dose to as low as reasonably achievable (ALARA). [facility]: Dose Right [facility]: CareDose [facility]: Dose Right [facility]: Teradose 4D [facility]: Smart Setup RADIATION DOSE: CT Rad equipment meets quality standard of care and radiation dose reduction techniq ues were employed. CTDIvol: 20.5 mGy. DLP: 401 mGy-cm.mGy. LIMITATIONS: None. FINDINGS: VENTRICLES: Prominent. CEREBRUM: No masses. No hemorrhage. No midline shift. Minimal areas of low density in the white ma tter most likely due to chronic micro-vascular ischemic change. No evidence for acute infarction. CEREBELLUM: No masses. No hemorrhage. No alteration of density. No evidence for acute infarction. EXTRAAXIAL SPACES: No fluid or hemorrhage. ORBITS AND GLOBE: No intra- or extraconal masses. Normal contour of globe without masses. CALVARIUM: No fracture. PARANASAL SINUSES: No fluid or mucosal thickening. SOFT TISSUES: No mass or hematoma. OTHER: No other significant finding. IMPRESSION: Mild chronic changes. No acute abnormality. EVIDENCE OF ACUTE STROKE: NO. TECHNICAL DOCUMENTATION: JOB ID: [id number] Quality ID # [id number]: Final reports with documentation of one or more dose reduction techniques (e.g., Au tomated exposure control, adjustment of the mA and/or kV according to patient size, use of iterative reconstruction technique) 2010 [employer]- All Rights Reserved Reading location - IP/workstation name: [email or web address]
--- NOTE | 2020-07-21 15:07 | RADIOLOGY REPORT (SQ) ---
EXAM DESCRIPTION: CT ABD/PELVIS NO ORAL OR IV IMAGES COMPLETED DATE/TIME: 07/21/2020 1:15 pm REASON FOR STUDY: abdominal distention COMPARISON: 07/08/2020 TECHNIQUE: CT scan of the abdomen and pelvis performed without intravenous or oral contrast. Images reviewed with lung, soft tissue, and bone windows. Reconstructed coronal and sagittal MPR images revi ewed. All images stored on PACS. All CT scanners at this facility use dose modulation, iterative reconstruction, and/or weight based d osing when appropriate to reduce radiation dose to as low as reasonably achievable (ALARA). [facility]: Dose Right [facility]: CareDose [facility]: Dose Right [facility]: Teradose 4D [facility]: [employer] RADIATION DOSE: CT Rad equipment meets quality standard of care and radiation dose reduction techniq ues were employed. CTDIvol: 16.4 mGy. DLP: 830 mGy-cm.mGy. LIMITATIONS: None. FINDINGS: LOWER CHEST: Moderate bilateral dependent pleural effusions. NON-CONTRASTED LIVER, SPLEEN, ADRENALS: Evaluation limited by lack of IV contrast. No identified sign ificant masses. PANCREAS: No masses. No peripancreatic inflammatory changes. GALLBLADDER: Absent. RIGHT KIDNEY AND URETER: No solid masses. No significant calcification. No hydronephrosis or hydroure ter. LEFT KIDNEY AND URETER: No solid masses. No significant calcification. No hydronephrosis or hydrouret er. AORTA AND RETROPERITONEUM: No aneurysm. No retroperitoneal masses or adenopathy. BOWEL AND PERITONEAL CAVITY: Patient appears to be status post colectomy now. A portion of sigmoid c olon and rectum remains. The small bowel loops are relatively diffusely fluid distended. Difficult to localize a discrete transition point, however there is a small umbilical hernia probably containin g a knuckle of small bowel. Mild ascites. No free air. Limiting motion. APPENDIX: Absent. PELVIS, BLADDER, AND ABDOMINAL WALL:Bladder decompressed by a Craig catheter. BONES: No significant findings. OTHER: No other significant finding. IMPRESSION: 1. Fluid distended loops of small bowel, relatively diffuse. Small umbilical region hernia contains a knuckle of small bowel. This could represent a relative point of obstruction. Transition point no t otherwise demonstrated. 2. Bilateral moderate pleural effusions, progressive compared to prior. TECHNICAL DOCUMENTATION: JOB ID: [id number] Quality ID # [id number]: Final reports with documentation of one or more dose reduction techniques (e.g., Au tomated exposure control, adjustment of the mA and/or kV according to patient size, use of iterative reconstruction technique) 2010 [employer]- All Rights Reserved Reading location - IP/workstation name: [email or web address]
[2020-07-21] MEDS: FUROSEMIDE INJ/PF 40 MG/4 ML SDV IV SCH ×2 (15:37→21:05)
[2020-07-21] MEDS ORDERED: HEPARIN (PORK) 10,000 UNIT/ML 5 ML VIAL SUBCUT SCH (18:30)
--- NOTE | 2020-07-21 18:44 | PDOC PROGRESS REPORT ---
Subjective Progress Note for:: 07/21/20 Subjective:: Patient more awake today, alert, responds appropriate to questions, denies abdominal pain or other symptoms Reason For Visit: RECTAL BLEEDING Physical Exam Vital Signs: Temp Pulse Resp BP Pulse Ox 98 F 59 L 30 H 123/48 L 97 07/21/20 16:00 07/21/20 16:00 07/21/20 16:45 07/21/20 16:00 07/21/20 16:45 Pulse Oximeter Continuous Start: 07/20/20 09:25 Freq: RTQ4 Status: Active Protocol: Document 07/21/20 16:45 HCR (Rec: 07/21/20 18:16 HCR [id number]) Pulse Oximetry Assessment Oxygen Saturation (92-100) 97 Oxygen Delivery Method Bi-pap Fraction of Inspired Oxygen (FIO2) 28 Equipment Usage Equipment in Use Continuous SpO2 Machine # 4 Intake & Output 07/20/20 07/21/20 07/22/20 06:59 06:59 06:59 Intake Total 2758 120 240 Output Total 980 930 400 Balance 1778 -810 -160 Weight 85.7 kg 85.7 kg General appearance: PRESENT: no acute distress Mouth exam: PRESENT: dry mucosa Teeth exam: PRESENT: poor dentation Respiratory exam: PRESENT: crackles, decreased breath sounds, retraction, rhonchi Cardiovascular exam: PRESENT: RRR GI/Abdominal exam: PRESENT: distended, soft - Not tender, hypoactive bowel sounds, other - Ileostomy pink viable with serous fluid in the bag Results Laboratory Results: 07/21/20 09:40 07/21/20 09:40 07/20/20 07/21/20 07/21/20 18:58 09:40 09:40 WBC 8.5 RBC 2.41 L Hgb 7.7 L Hct 22.8 L MCV 94 MCH 31.7 MCHC 33.6 RDW 14.3 H Plt Count 286 Seg Neutrophils % Not Reportable Sodium Potassium Chloride Carbon Dioxide Anion Gap BUN Creatinine Est GFR ( Amer) Glucose Lactic Acid 0.8 Calcium Phosphorus Total Bilirubin AST Alkaline Phosphatase Ammonia < 8.7 L Total Protein Albumin 07/21/20 09:40 WBC RBC Hgb Hct MCV MCH MCHC RDW Plt Count Seg Neutrophils % Sodium 133.2 L Potassium 4.2 Chloride 105 Carbon Dioxide 26 Anion Gap 2 L BUN 47 H Creatinine 1.58 H Est GFR ( Amer) 52 L Glucose 164 H Lactic Acid Calcium 7.2 L Phosphorus 4.6 H Total Bilirubin 0.4 AST 38 Alkaline Phosphatase 81 Ammonia Total Protein 4.6 L Albumin 2.1 L 07/10/20 07/10/20 06:15 17:00 Troponin I 0.067 NT-Pro-B Natriuret Pep 2670 H 2860 H Impressions: KUB X-Ray 07/17/20 00:00 IMPRESSION: Ileus. Renal Ultrasound 07/18/20 00:00 IMPRESSION: Limited study. No hydronephrosis. Abdomen/Pelvis CT 07/21/20 00:00 IMPRESSION: 1. Fluid distended loops of small bowel, relatively diffuse. Small umbilical region hernia contains a knuckle of small bowel. This could represent a relative point of obstruction. Transition point not otherwise demonstrated. 2. Bilateral moderate pleural effusions, progressive compared to prior. Head CT 07/21/20 00:00 IMPRESSION: Mild chronic changes. No acute abnormality. EVIDENCE OF ACUTE STROKE: NO. Assessment & Plan - Diagnosis (1) Rectal bleeding Is this a current diagnosis for this admission?: Yes (2) Perforation of cecum due to diverticulitis Is this a current diagnosis for this admission?: Yes (3) Diverticulosis of colon Is this a current diagnosis for this admission?: Yes - Time Anticipated Discharge Disposition: [facility] Facility Anticipated Discharge Timeframe: When patient improves - Plan Summary Plan Summary: Assessment: Postoperative day #12 following subtotal colectomy and ileostomy Vital signs stable Patient still presents with severe respiratory distress due to pre-existing lung condition Abdomen distended: CT scan abdomen pelvis done today confirms distention of loops of small bowel with possible umbilical hernia containing only small portion of a loop of bowel However, on physical exam no midline hernia is appreciated Ileostomy pink, digitalized today Plan: Stop Lomotil as this could have caused the patient's ileus Start clear liquid diet Encourage patient ambulation
[2020-07-21] MEDS: DOXAZOSIN MESYLATE 4 MG TABLET NG SCH (21:06)
[2020-07-21] MEDS: HEPARIN SOD (PORCINE) 5,000 UNIT/ML 1 ML VIAL SUBCUT SCH (21:19)
[2020-07-22] MEDS: ALBUTEROL SULFATE 0.083% NEB 2.5 MG/3 ML AMPUL NEB SCH ×4 (02:05→20:14)
[2020-07-22] MEDS: AMINO ACIDS 5 %/DEXTROSE 20 % 1,000 ML IV PRN ×2 (03:19→23:09)
[2020-07-22] MEDS: INSULIN REG, HUMAN 100 UNIT/ML 3 ML VIAL (PYX) SUBCUT SCH ×4 (06:53→20:21)
[2020-07-22] MEDS: BUDESONIDE NEB 0.25 MG/2 ML AMPUL NEB SCH ×2 (07:52→20:14)
[2020-07-22] MEDS: DEXTROSE 5%-1/4 NORMAL SALINE 1,000 ML IV PRN (08:12)
[2020-07-22] MEDS: FAT EMULSIONS 250 ML IV SCH (09:13)
--- NOTE | 2020-07-22 09:41 | PDOC PROGRESS REPORT ---
Subjective Progress Note for:: 07/22/20 Reason For Visit: RECTAL BLEEDING Patient examined on floor, a fairly uneventful night. Mild tachypnea. Having decent ileostomy output. Urine output satisfactory Physical Exam Vital Signs: Temp Pulse Resp BP Pulse Ox 97.8 F 64 22 H 112/45 L 100 07/22/20 08:30 07/22/20 08:30 07/22/20 08:30 07/22/20 08:30 07/22/20 08:30 Pulse Oximeter Continuous Start: 07/20/20 09:25 Freq: RTQ4 Status: Active Protocol: Document 07/22/20 04:45 DBE (Rec: 07/22/20 06:01 DBE [id number]) Pulse Oximetry Assessment Oxygen Saturation (92-100) 99 Oxygen Flow Rate (L/min) 4 Oxygen Delivery Method Bi-pap Fraction of Inspired Oxygen (FIO2) 28 Equipment Usage Equipment in Use Continuous SpO2 Machine # 4 Intake & Output 07/21/20 07/22/20 07/23/20 06:59 06:59 06:59 Intake Total 120 1240 100 Output Total 930 2500 250 Balance -810 -1260 -150 Weight 85.7 kg 85.7 kg General appearance: PRESENT: other - Moderate respiratory distress, short of breath in between abbreviated sentences GI/Abdominal exam: PRESENT: other - Abdomen examined. All stephanie intact, ileostomy viable, with moderate amount of bowel contents in bag. The abdomen is appropriately tender but no peritoneal signs. Results Laboratory Results: 07/21/20 09:40 07/21/20 09:40 07/21/20 07/21/20 07/21/20 09:40 09:40 09:40 WBC 8.5 RBC 2.41 L Hgb 7.7 L Hct 22.8 L MCV 94 MCH 31.7 MCHC 33.6 RDW 14.3 H Plt Count 286 Seg Neutrophils % Not Reportable Sodium 133.2 L Potassium 4.2 Chloride 105 Carbon Dioxide 26 Anion Gap 2 L BUN 47 H Creatinine 1.58 H Est GFR ( Amer) 52 L Glucose 164 H Calcium 7.2 L Phosphorus 4.6 H Total Bilirubin 0.4 AST 38 Alkaline Phosphatase 81 Ammonia < 8.7 L Total Protein 4.6 L Albumin 2.1 L Blood Type Antibody Screen 07/21/20 17:40 WBC RBC Hgb Hct MCV MCH MCHC RDW Plt Count Seg Neutrophils % Sodium Potassium Chloride Carbon Dioxide Anion Gap BUN Creatinine Est GFR ( Amer) Glucose Calcium Phosphorus Total Bilirubin AST Alkaline Phosphatase Ammonia Total Protein Albumin Blood Type O POSITIVE Antibody Screen NEGATIVE 07/10/20 07/10/20 06:15 17:00 Troponin I 0.067 NT-Pro-B Natriuret Pep 2670 H 2860 H Impressions: KUB X-Ray 07/17/20 00:00 IMPRESSION: Ileus. Renal Ultrasound 07/18/20 00:00 IMPRESSION: Limited study. No hydronephrosis. Abdomen/Pelvis CT 07/21/20 00:00 IMPRESSION: 1. Fluid distended loops of small bowel, relatively diffuse. Small umbilical region hernia contains a knuckle of small bowel. This could represent a relative point of obstruction. Transition point not otherwise demonstrated. 2. Bilateral moderate pleural effusions, progressive compared to prior. Head CT 07/21/20 00:00 IMPRESSION: Mild chronic changes. No acute abnormality. EVIDENCE OF ACUTE STROKE: NO. Assessment & Plan - Diagnosis (1) Ileus Is this a current diagnosis for this admission?: Yes Plan: Impression: Patient approximately 11 days status post exploratory laparotomy, subtotal colectomy, ileostomy with incremental improvement in abdominal distention secondary to ileus; increased ileostomy output. Underlying COPD, bilateral pleural effusions, deconditioning contributing to immobility, poor pulmonary toilet, overall slow recovery. Recommendations: 1. Discussed management with Dr. Carmichael; continue TPN; may have sips of clear liquids under close supervision 2. Will apply abdominal binder to provide abdominal wall support 3. Agree with PICC line, and discontinuation of central line. 4. Increase aggressiveness of pulmonary toilet including mandatory out of bed, respiratory instructions on incentive spirometry use. 4. We will continue to follow pt. (2) Anxiety Is this a current diagnosis for this admission?: Yes (3) BPH (benign prostatic hyperplasia) Qualifiers: Lower urinary tract symptom presence: symptoms absent Qualified Code(s): N40.0 - Benign prostatic hyperplasia without lower urinary tract symptoms Is this a current diagnosis for this admission?: Yes (4) COPD (chronic obstructive pulmonary disease) Qualifiers: COPD type: chronic bronchitis Is this a current diagnosis for this admission?: Yes - Time Time Spent: 30 to 50 Minutes Smoking Cessation Education: 3 to 10 minutes Medications reviewed and adjusted accordingly: Yes Anticipated Discharge Disposition: Long Term Facility Anticipated Discharge Timeframe: When patient ready
[2020-07-22] MEDS: FUROSEMIDE INJ/PF 40 MG/4 ML SDV IV SCH ×2 (10:12→23:11)
[2020-07-22 12:00] LABS: ABSOLUTE EOSINOPHILS # (AUTO) 0.1 10^3/uL (0.0-0.6); ABSOLUTE LYMPHOCYTES (AUTO) 0.5 10^3/uL (0.5-4.7); ABSOLUTE MONOCYTES (AUTO) 1.1 10^3/uL (0.1-1.4); ABSOLUTE NEUT (AUTO) 6.9 10^3/uL (1.7-8.2); BASOPHILS % (AUTO) 0.2 % (0-2); EOSINOPHILS % (AUTO) 0.6 % (0-6); HEMATOCRIT 22.6 % (37.9-51.0); LYMPHOCYTES % (AUTO) 5.5 % (13-45); MEAN CORPUSCULAR HEMOGLOBIN 32.2 pg (27.0-33.4); MEAN CORPUSCULAR HGB CONC 34.7 g/dL (32.0-36.0); MEAN CORPUSCULAR VOLUME 93 fl (80-97); MONOCYTES % (AUTO) 12.7 % (3-13); PLATELET COUNT 358 10^3/uL (150-450); RED BLOOD COUNT 2.44 10^6/uL (4.35-5.55); RED CELL DISTRIBUTION WIDTH 14.5 % (11.5-14.0); TOTAL CELLS COUNTED % (AUTO) 100 %; WHITE BLOOD COUNT 8.6 10^3/uL (4.0-10.5)
[2020-07-22 12:03] LABS: HEMOGLOBIN 7.8 g/dL (13.5-17.0)
[2020-07-22 12:17] LABS: ALBUMIN 2.1 g/dL (3.5-5.0); ALKALINE PHOSPHATASE 127 U/L (38-126); ANION GAP 6 (5-19); ASPARTATE AMINO TRANSFERASE 120 U/L (17-59); BILIRUBIN,DIRECT 0.4 mg/dL (0.0-0.4); BILIRUBIN,TOTAL 0.5 mg/dL (0.2-1.3); BLOOD UREA NITROGEN 46 mg/dL (7-20); CARBON DIOXIDE 28 mmol/L (22-30); CHLORIDE 100 mmol/L (98-107); GLUCOSE 192 mg/dL (75-110); POTASSIUM 3.6 mmol/L (3.6-5.0); TOTAL PROTEIN 4.7 g/dL (6.3-8.2)
[2020-07-22] MEDS: HEPARIN SOD (PORCINE) 5,000 UNIT/ML 1 ML VIAL SUBCUT SCH ×2 (12:43→23:11)
--- NOTE | 2020-07-22 13:34 | RADIOLOGY REPORT (SQ) ---
EXAM DESCRIPTION: PICC INSERTION IMAGES COMPLETED DATE/TIME: 07/22/2020 11:32 am REASON FOR STUDY: TPN feeding COMPARISON: None. FLUOROSCOPY TIME: 1.1 minutes of fluoroscopy was used. 1 images saved to PACS. TECHNIQUE: Fluoroscopic and ultrasound guided PICC placement. LIMITATIONS: None. PROCEDURE: After written consent and assessment were obtained, the patient was brought into the fluo roscopy room and placed supine on the table. Ultrasound evaluation of potential access sites were per formed. After successfully identifying a patent right basilic vein, the right arm was prepped and tona ped in a sterile fashion along with the ultrasound probe. The entry site was anesthetized with 1% lid ocaine. A 21 gauge 7 cm needle was advanced through the skin and into the basilic vein under live ult rasound guidance. An ultrasound image was saved to PACS confirming access site. A .018 guide wire w as then inserted through the needle and into the venous system. The needle was then removed and an 11 blade scalpel was used to make a 1cm skin incision. A 5 fr peel-away sheath was advanced over the w radha and into the venous system. A measurement was then made using the existing wire and live fluorosc opic guidance. The wire was then removed and trimmed. The PICC was advanced through the peel-away she ath and into the venous system. The peel-away sheath was removed and the catheter was adhered to the patients arm with a stat lock. The catheter was then aspirated and flushed and a sterile bandage was placed over the access site. A fluoroscopic spot image was saved to PACS confirming the catheter tip within the superior vena cava. IMPRESSION: SUCCESSFUL PLACEMENT OF A 5 FR DUAL LUMEN 38 CM PICC IN THE RIGHT BASILIC VEIN. COMMENT: Patient medication list reviewed: Yes- Quality ID# 130:Eligible professional attests to doc umenting in the medical record they obtained, updated, or reviewed the patient's current medications. . Quality ID 145: Final reports for procedures using fluoroscopy that document radiation exposure farrah ciarra, or exposure time and number of fluorographic images (if radiation exposure indices are not avail able) Quality ID #76: The patient was prepped and draped using maximum sterile barrier technique including cap, mask, sterile gown, sterile gloves, a large sterile sheet, hand hygiene, and 2% Chlorhexidine fo r cutaneous antisepsis. When ultrasound is used, sterile ultrasound techniques are followed requiring sterile gel and sterile probes. TECHNICAL DOCUMENTATION: JOB ID: [id number] 2010 [employer]- All Rights Reserved rev Reading location - IP/workstation name: [email or web address]
--- NOTE | 2020-07-22 22:01 | PDOC PROGRESS REPORT ---
Subjective Progress Note for:: 07/22/20 Subjective:: PAtient was more awake and conversant today when I saw him. He is on Bipap. He had a PICC line insertion today, central line removed. Per day nurse, IV fluids was restarted by outgoing night nurse. This IV fluid order was DISCONTINUED several day ago. I advised the nurse not to hang anymore fluids besides his TPN. Reason For Visit: RECTAL BLEEDING Physical Exam Vital Signs: Temp Pulse Resp BP Pulse Ox 97.9 F 77 26 H 136/44 H 100 07/22/20 19:23 07/22/20 20:14 07/22/20 20:14 07/22/20 19:23 07/22/20 20:14 Pulse Oximeter Continuous Start: 07/20/20 09:25 Freq: RTQ4 Status: Active Protocol: Document 07/22/20 20:14 DBE (Rec: 07/22/20 20:27 DBE [id number]) Pulse Oximetry Assessment Oxygen Saturation (92-100) 100 Oxygen Flow Rate (L/min) 5 Oxygen Delivery Method Nasal Cannula Fraction of Inspired Oxygen (FIO2) 40 Equipment Usage Equipment in Use Continuous SpO2 Machine # 4 Intake & Output 07/21/20 07/22/20 07/23/20 06:59 06:59 06:59 Intake Total 120 1240 1520 Output Total 930 2500 2100 Balance -810 -1260 -580 Weight 85.7 kg 85.7 kg 85.7 kg General appearance: PRESENT: mild distress, morbidly obese Head exam: PRESENT: atraumatic, normocephalic Eye exam: PRESENT: EOMI, PERRLA Mouth exam: PRESENT: moist Neck exam: PRESENT: full ROM Respiratory exam: PRESENT: crackles, symmetrical, wheezes Cardiovascular exam: PRESENT: RRR, +S1, +S2 Pulses: PRESENT: +2 pedal pulses bilateral Vascular exam: PRESENT: normal capillary refill GI/Abdominal exam: PRESENT: diminished bowel sounds, distended, rebound, soft, other - surgical scar with stephanie intact and ileostomy intact. ABSENT: guarding Extremities exam: PRESENT: +2 edema Musculoskeletal exam: PRESENT: full ROM Neurological exam: PRESENT: altered Psychiatric exam: PRESENT: normal mood Results Laboratory Results: 07/22/20 10:58 07/22/20 10:58 07/22/20 07/22/20 07/22/20 10:58 10:58 20:49 WBC 8.6 RBC 2.44 L Hgb 7.8 L Hct 22.6 L MCV 93 MCH 32.2 MCHC 34.7 RDW 14.5 H Plt Count 358 Seg Neutrophils % 81.0 H Sodium 133.7 L Potassium 3.6 Chloride 100 Carbon Dioxide 28 Anion Gap 6 BUN 46 H Creatinine 1.45 H Est GFR ( Amer) 57 L Glucose 192 H Calcium 7.0 L* Total Bilirubin 0.5 AST 120 H Alkaline Phosphatase 127 H Total Protein 4.7 L Albumin 2.1 L Triglycerides 89 07/10/20 07/10/20 06:15 17:00 Troponin I 0.067 NT-Pro-B Natriuret Pep 2670 H 2860 H Impressions: KUB X-Ray 07/17/20 00:00 IMPRESSION: Ileus. Renal Ultrasound 07/18/20 00:00 IMPRESSION: Limited study. No hydronephrosis. Abdomen/Pelvis CT 07/21/20 00:00 IMPRESSION: 1. Fluid distended loops of small bowel, relatively diffuse. Small umbilical region hernia contains a knuckle of small bowel. This could represent a relative point of obstruction. Transition point not otherwise demonstrated. 2. Bilateral moderate pleural effusions, progressive compared to prior. Head CT 07/21/20 00:00 IMPRESSION: Mild chronic changes. No acute abnormality. EVIDENCE OF ACUTE STROKE: NO. PICC Line Insertion 07/22/20 00:00 IMPRESSION: SUCCESSFUL PLACEMENT OF A 5 FR DUAL LUMEN 38 CM PICC IN THE RIGHT BASILIC VEIN. Assessment and Plan - Diagnosis (1) Encephalopathy Is this a current diagnosis for this admission?: Yes Plan: -Patient has been having agitation, with altered mental status and confusion -CT head negative, ammonia normal -Is likely multifactorial secondary to metabolic encephalopathy from CO2 retention his does not want him to wear BiPAP at night. I have told his nurse that it is imperative that he stays on BiPAP -This is aggravated by his recent complicated surgery, infection is an unlikely source since he is afebrile with normal white count - mental status improved with BIPAP on. Please keep BIPAP at night. If ins ist that she does not want bipap please document this on nurses notes. I have repeatedly said the he needs bipap at night. (2) Diverticula of colon Is this a current diagnosis for this admission?: Yes Plan: -Status post colon resection due to cecal perforation with ileostomy creation postop day 14 - CT abdomen fluid distended bowel loops -On TPN for nutrition day - surgery ok for clear liquids - PT ordered in order to help mobilize his fluids -He completed 7 days of antibiotics. No fever no white count. Blood cultures final report no growth (3) ANU (acute kidney injury) Is this a current diagnosis for this admission?: Yes Plan: -Creatinine on admission noted to be 0.8>1.9>1.76>1.64>1.58>1.45 -Total urine output 2100 mL in 24 hours -FENa 0.1 consistent with prerenal causes versus compartment syndrome - he has developed bilateral pleural effusion - started on IV lasix 40 IV BID, will monitor his creatinine (4) Acute on chronic blood loss anemia Is this a current diagnosis for this admission?: Yes Plan: -Hemoglobin noted to be slowly trending down from 9>8.1>7.7>7.8 -No indication for blood transfusion at this point -We will continue to monitor daily (5) Acute respiratory failure with hypoxemia Is this a current diagnosis for this admission?: Yes Plan: -episode of desaturation, increased confusion and tachypnea -CT abdomen also showed bilateral pleural pleural effusion -Patient was started on Lasix 40 IV twice daily -IV fluids was stopped -Needs to be on BiPAP at night. (6) COPD (chronic obstructive pulmonary disease) Qualifiers: COPD type: chronic bronchitis Is this a current diagnosis for this admission?: Yes (7) Pleural effusion Is this a current diagnosis for this admission?: Yes Plan: -Noted on the CT abdomen done this afternoon. Bilateral pleural effusion -Likely secondary from IV fluids vs CHF -We will check BNP -Darted on Lasix 40 IV twice daily - Plan Summary Summary: - Time Time Spent with patient: 15-24 minutes Anticipated Discharge Disposition: to be determined Anticipated Discharge Timeframe: to be determined
[2020-07-22] MEDS: TAMSULOSIN HCL 0.4 MG CAP.SR.24H PO SCH (23:12)
[2020-07-22] MEDS: DOXAZOSIN MESYLATE 4 MG TABLET NG SCH (23:12)
[2020-07-22] MEDS: NORMAL SALINE 10 ML SDV (SCHEDULED) IV SCH (23:13)
[2020-07-23] MEDS: ALBUTEROL SULFATE 0.083% NEB 2.5 MG/3 ML AMPUL NEB SCH ×4 (02:58→20:38)
[2020-07-23 06:06] LABS: ABSOLUTE LYMPHOCYTES (AUTO) 0.5 10^3/uL (0.5-4.7); ABSOLUTE MONOCYTES (AUTO) 1.3 10^3/uL (0.1-1.4); ABSOLUTE NEUT (AUTO) 6.9 10^3/uL (1.7-8.2); BASOPHILS % (AUTO) 0.2 % (0-2); EOSINOPHILS % (AUTO) 0.4 % (0-6); LYMPHOCYTES % (AUTO) 5.8 % (13-45); MEAN CORPUSCULAR HEMOGLOBIN 31.2 pg (27.0-33.4); MEAN CORPUSCULAR HGB CONC 33.1 g/dL (32.0-36.0); MEAN CORPUSCULAR VOLUME 95 fl (80-97); MONOCYTES % (AUTO) 15.2 % (3-13); PLATELET COUNT 355 10^3/uL (150-450); RED BLOOD COUNT 2.43 10^6/uL (4.35-5.55); RED CELL DISTRIBUTION WIDTH 14.7 % (11.5-14.0); SEGMENTED NEUTROPHILS % (AUTO) 78.4 % (42-78); TOTAL CELLS COUNTED % (AUTO) 100 %; WHITE BLOOD COUNT 8.8 10^3/uL (4.0-10.5)
[2020-07-23 06:21] LABS: HEMOGLOBIN 7.6 g/dL (13.5-17.0)
[2020-07-23 06:23] LABS: ALBUMIN 2.2 g/dL (3.5-5.0); ALKALINE PHOSPHATASE 106 U/L (38-126); ANION GAP 6 (5-19); ASPARTATE AMINO TRANSFERASE 58 U/L (17-59); BILIRUBIN,DIRECT 0.3 mg/dL (0.0-0.4); BILIRUBIN,TOTAL 0.4 mg/dL (0.2-1.3); BLOOD UREA NITROGEN 45 mg/dL (7-20); CARBON DIOXIDE 32 mmol/L (22-30); CHLORIDE 98 mmol/L (98-107); GLUCOSE 156 mg/dL (75-110); POTASSIUM 3.7 mmol/L (3.6-5.0); TOTAL PROTEIN 4.6 g/dL (6.3-8.2)
[2020-07-23] MEDS: INSULIN REG, HUMAN 100 UNIT/ML 3 ML VIAL (PYX) SUBCUT SCH ×5 (06:32→23:31)
--- NOTE | 2020-07-23 08:19 | PDOC PROGRESS REPORT ---
Subjective Progress Note for:: 07/23/20 Subjective:: Patient sleepy but arousable, he appears to be comfortable without complaints Reason For Visit: RECTAL BLEEDING Physical Exam Vital Signs: Temp Pulse Resp BP Pulse Ox 98.0 F 60 34 H 146/47 H 99 07/23/20 07:56 07/23/20 07:00 07/23/20 04:13 07/23/20 04:13 07/23/20 04:15 Pulse Oximeter Continuous Start: 07/20/20 09:25 Freq: RTQ4 Status: Active Protocol: Document 07/23/20 04:15 DBE (Rec: 07/23/20 05:51 DBE [email or web address]) Pulse Oximetry Assessment Oxygen Saturation (92-100) 99 Oxygen Flow Rate (L/min) 5 Oxygen Delivery Method Nasal Cannula Fraction of Inspired Oxygen (FIO2) 40 Equipment Usage Equipment in Use Continuous SpO2 Machine # 4 Intake & Output 07/22/20 07/23/20 07/24/20 06:59 06:59 06:59 Intake Total 1240 1520 Output Total 2500 4790 Balance -1260 -3270 Weight 85.7 kg 85.7 kg General appearance: PRESENT: no acute distress, obese Head exam: PRESENT: atraumatic Respiratory exam: PRESENT: clear to auscultation sudha Cardiovascular exam: PRESENT: RRR GI/Abdominal exam: PRESENT: distended, hypoactive bowel sounds, soft - Incision clean, dry, intact, other - Ostomy pink with bag filled with bilious liquid stools Results Laboratory Results: 07/23/20 05:44 07/23/20 05:44 07/22/20 07/22/20 07/22/20 10:58 10:58 20:49 WBC 8.6 RBC 2.44 L Hgb 7.8 L Hct 22.6 L MCV 93 MCH 32.2 MCHC 34.7 RDW 14.5 H Plt Count 358 Seg Neutrophils % 81.0 H Sodium 133.7 L Potassium 3.6 Chloride 100 Carbon Dioxide 28 Anion Gap 6 BUN 46 H Creatinine 1.45 H Est GFR ( Amer) 57 L Glucose 192 H Calcium 7.0 L* Total Bilirubin 0.5 AST 120 H Alkaline Phosphatase 127 H Total Protein 4.7 L Albumin 2.1 L Triglycerides 89 07/23/20 07/23/20 05:44 05:44 WBC 8.8 RBC 2.43 L Hgb 7.6 L Hct 23.0 L MCV 95 MCH 31.2 MCHC 33.1 RDW 14.7 H Plt Count 355 Seg Neutrophils % 78.4 H Sodium 135.8 L Potassium 3.7 Chloride 98 Carbon Dioxide 32 H Anion Gap 6 BUN 45 H Creatinine 1.48 H Est GFR ( Amer) 56 L Glucose 156 H Calcium 7.0 L* Total Bilirubin 0.4 AST 58 Alkaline Phosphatase 106 Total Protein 4.6 L Albumin 2.2 L Triglycerides 07/10/20 07/10/20 06:15 17:00 Troponin I 0.067 NT-Pro-B Natriuret Pep 2670 H 2860 H Impressions: KUB X-Ray 07/17/20 00:00 IMPRESSION: Ileus. Renal Ultrasound 07/18/20 00:00 IMPRESSION: Limited study. No hydronephrosis. Abdomen/Pelvis CT 07/21/20 00:00 IMPRESSION: 1. Fluid distended loops of small bowel, relatively diffuse. Small umbilical region hernia contains a knuckle of small bowel. This could represent a relative point of obstruction. Transition point not otherwise demonstrated. 2. Bilateral moderate pleural effusions, progressive compared to prior. Head CT 07/21/20 00:00 IMPRESSION: Mild chronic changes. No acute abnormality. EVIDENCE OF ACUTE STROKE: NO. PICC Line Insertion 07/22/20 00:00 IMPRESSION: SUCCESSFUL PLACEMENT OF A 5 FR DUAL LUMEN 38 CM PICC IN THE RIGHT BASILIC VEIN. Assessment & Plan - Diagnosis (1) Rectal bleeding Is this a current diagnosis for this admission?: Yes (2) Perforation of cecum due to diverticulitis Is this a current diagnosis for this admission?: Yes (3) Diverticulosis of colon Is this a current diagnosis for this admission?: Yes - Time Anticipated Discharge Disposition: Intermediate Facility Anticipated Discharge Timeframe: When the patient improves - Plan Summary Plan Summary: Assessment: Postoperative day #14 following subtotal colectomy and ileostomy Vital signs stable patient afebrile Respiratory status improved Ileus resolved following discontinuation of Lomotil with increased output from ileostomy Abdomen distended but soft with well-healing incision Patient still presents with ANU PICC line placed yesterday and central line removed Plan: No acute general surgery should not define Advance diet to full liquids
[2020-07-23] MEDS: BUDESONIDE NEB 0.25 MG/2 ML AMPUL NEB SCH ×2 (08:28→20:38)
[2020-07-23] MEDS: NORMAL SALINE 10 ML SDV (SCHEDULED) IV SCH ×2 (09:50→23:33)
[2020-07-23] MEDS: FUROSEMIDE INJ/PF 40 MG/4 ML SDV IV SCH (09:56)
[2020-07-23] MEDS: HEPARIN SOD (PORCINE) 5,000 UNIT/ML 1 ML VIAL SUBCUT SCH ×2 (09:56→23:35)
[2020-07-23] MEDS: PANTOPRAZOLE SODIUM 40 MG VIAL IV SCH (17:07)
[2020-07-23] MEDS: AMINO ACIDS 5 %/DEXTROSE 20 % 1,000 ML IV PRN (17:10)
--- NOTE | 2020-07-23 21:54 | PDOC PROGRESS REPORT ---
Subjective Progress Note for:: 07/23/20 Subjective:: Patient was seen and examined at bedside. PT OT in the room with him for therapy. He was able to sit up with support. Seemed much more awake and alert. Unsure if the patient was put on BiPAP overnight. Reason For Visit: RECTAL BLEEDING Physical Exam Vital Signs: Temp Pulse Resp BP Pulse Ox 98.3 F 58 L 20 111/40 L 100 07/23/20 20:00 07/23/20 20:40 07/23/20 20:40 07/23/20 20:00 07/23/20 20:40 Pulse Oximeter Continuous Start: 07/20/20 09:25 Freq: RTQ4 Status: Active Protocol: Document 07/23/20 20:40 [facility] (Rec: 07/23/20 20:43 [facility] [id number]) Pulse Oximetry Assessment Oxygen Saturation (92-100) 100 Oxygen Flow Rate (L/min) 4 Oxygen Delivery Method Nasal Cannula Equipment Usage Equipment in Use Continuous SpO2 Machine # 4 Intake & Output 07/22/20 07/23/20 07/24/20 06:59 06:59 06:59 Intake Total 1240 1520 565 Output Total 2500 4724 3050 Balance -1260 -8870 -5025 Weight 85.7 kg 85.7 kg 85.7 kg General appearance: PRESENT: cooperative, hard of hearing, mild distress, obese Head exam: PRESENT: atraumatic, normocephalic Eye exam: PRESENT: EOMI, PERRLA Mouth exam: PRESENT: dry mucosa Neck exam: PRESENT: other - Dressing over right neck from central line no signs of infection Respiratory exam: PRESENT: symmetrical, unlabored. ABSENT: crackles Cardiovascular exam: PRESENT: RRR, +S1, +S2 Pulses: PRESENT: normal radial pulses GI/Abdominal exam: PRESENT: distended, normal bowel sounds, soft, other - Ileostomy noted minimal drainage pinkish stump. Laparotomy scar with surgical stephanie no discharge no signs of infection. ABSENT: tenderness Gentrourinary exam: PRESENT: scrotal swelling Extremities exam: PRESENT: +1 edema Neurological exam: PRESENT: altered, other - Still with on and off confusion Psychiatric exam: PRESENT: normal mood Results Laboratory Results: 07/23/20 05:44 07/23/20 05:44 07/23/20 07/23/20 05:44 05:44 WBC 8.8 RBC 2.43 L Hgb 7.6 L Hct 23.0 L MCV 95 MCH 31.2 MCHC 33.1 RDW 14.7 H Plt Count 355 Seg Neutrophils % 78.4 H Sodium 135.8 L Potassium 3.7 Chloride 98 Carbon Dioxide 32 H Anion Gap 6 BUN 45 H Creatinine 1.48 H Est GFR ( Amer) 56 L Glucose 156 H Calcium 7.0 L* Total Bilirubin 0.4 AST 58 Alkaline Phosphatase 106 Total Protein 4.6 L Albumin 2.2 L 07/10/20 07/10/20 06:15 17:00 Troponin I 0.067 NT-Pro-B Natriuret Pep 2670 H 2860 H Impressions: KUB X-Ray 07/17/20 00:00 IMPRESSION: Ileus. Renal Ultrasound 07/18/20 00:00 IMPRESSION: Limited study. No hydronephrosis. Abdomen/Pelvis CT 07/21/20 00:00 IMPRESSION: 1. Fluid distended loops of small bowel, relatively diffuse. Small umbilical region hernia contains a knuckle of small bowel. This could represent a relative point of obstruction. Transition point not otherwise demonstrated. 2. Bilateral moderate pleural effusions, progressive compared to prior. Head CT 07/21/20 00:00 IMPRESSION: Mild chronic changes. No acute abnormality. EVIDENCE OF ACUTE STROKE: NO. PICC Line Insertion 07/22/20 00:00 IMPRESSION: SUCCESSFUL PLACEMENT OF A 5 FR DUAL LUMEN 38 CM PICC IN THE RIGHT BASILIC VEIN. Assessment and Plan - Diagnosis (1) Encephalopathy Is this a current diagnosis for this admission?: Yes Plan: -Patient has been having agitation, with altered mental status and confusion -CT head negative, ammonia normal -Is likely multifactorial secondary to metabolic encephalopathy from CO2 retention his does not want him to wear BiPAP at night. I have told his nurse that it is imperative that he stays on BiPAP -This is aggravated by his recent complicated surgery, infection is an unlikely source since he is afebrile with normal white count - mental status improved with BIPAP on. Please keep BIPAP at night. If in sist that she does not want bipap please document this on nurses notes. I have repeatedly said the he needs bipap at night. (2) Diverticula of colon Is this a current diagnosis for this admission?: Yes Plan: -Status post colon resection due to cecal perforation with ileostomy creation postop day 14 - CT abdomen fluid distended bowel loops -On TPN for nutrition day - surgery to advance diet full liquids - PT ordered in order to help mobilize his fluids -He completed 7 days of antibiotics. No fever no white count. Blood cultures final report no growth (3) Acute respiratory failure with hypoxemia Is this a current diagnosis for this admission?: Yes Plan: -episode of desaturation, increased confusion and tachypnea -CT abdomen also showed bilateral pleural pleural effusion -on Lasix 40 IV decreased to once daily. May stop if pleural effusion has impr anel -IV fluids was stopped -Needs to be on BiPAP at night. (4) ANU (acute kidney injury) Is this a current diagnosis for this admission?: Yes Plan: -Creatinine on admission noted to be 0.8>1.9>1.76>1.64>1.58>1.45 - he has developed bilateral pleural effusion - started on IV lasix 40 IV decreased to OD today - please monitor crea since he has a history of ANU (5) COPD (chronic obstructive pulmonary disease) Qualifiers: COPD type: chronic bronchitis Is this a current diagnosis for this admission?: Yes (6) Pleural effusion Is this a current diagnosis for this admission?: Yes Plan: -Noted on the CT abdomen done this afternoon. Bilateral pleural effusion -Likely secondary from IV fluids - on Lasix 40 mg IV decreased to OD (7) Acute on chronic blood loss anemia Is this a current diagnosis for this admission?: Yes Plan: -Hemoglobin noted to be slowly trending down from 9>8.1>7.7>7.8>7.6 -No indication for blood transfusion at this point -We will continue to monitor daily - Plan Summary Summary: - Time Time Spent with patient: 15-24 minutes Medications reviewed and adjusted accordingly: Yes Anticipated Discharge Disposition: to be determined Anticipated Discharge Timeframe: to be determined - Inpatient Certification Medical Necessity: Need Close Monitoring Due to Risk of Patient Decompensation, Risk of Complication if Not Cared For in Hospital
[2020-07-23] MEDS: DOXAZOSIN MESYLATE 4 MG TABLET NG SCH (23:26)
[2020-07-23] MEDS: TAMSULOSIN HCL 0.4 MG CAP.SR.24H PO SCH (23:30)
[2020-07-24] MEDS: ALBUTEROL SULFATE 0.083% NEB 2.5 MG/3 ML AMPUL NEB SCH ×4 (02:32→20:40)
[2020-07-24] MEDS ORDERED: MORPHINE SULFATE 10 MG/ML INJ IV PRN (03:47)
[2020-07-24] MEDS: BUDESONIDE NEB 0.25 MG/2 ML AMPUL NEB SCH ×2 (08:34→20:39)
[2020-07-24] MEDS ORDERED: FUROSEMIDE INJ/PF 40 MG/4 ML SDV ONE (08:36)
[2020-07-24] MEDS: INSULIN REG, HUMAN 100 UNIT/ML 3 ML VIAL (PYX) SUBCUT SCH ×3 (08:44→18:47)
[2020-07-24] MEDS: HEPARIN SOD (PORCINE) 5,000 UNIT/ML 1 ML VIAL SUBCUT SCH ×2 (09:01→21:14)
[2020-07-24] MEDS: NORMAL SALINE 10 ML SDV (SCHEDULED) IV SCH ×2 (09:02→21:16)
[2020-07-24] MEDS: FUROSEMIDE INJ/PF 40 MG/4 ML SDV IV SCH (09:02)
[2020-07-24] MEDS: PANTOPRAZOLE SODIUM 40 MG VIAL IV SCH (09:03)
[2020-07-24 09:08] LABS: ABSOLUTE LYMPHOCYTES (AUTO) 0.7 10^3/uL (0.5-4.7); ABSOLUTE MONOCYTES (AUTO) 1.5 10^3/uL (0.1-1.4); ABSOLUTE NEUT (AUTO) 5.2 10^3/uL (1.7-8.2); BASOPHILS % (AUTO) 0.2 % (0-2); EOSINOPHILS % (AUTO) 0.6 % (0-6); HEMATOCRIT 24.7 % (37.9-51.0); HEMOGLOBIN 8.2 g/dL (13.5-17.0); LYMPHOCYTES % (AUTO) 9.5 % (13-45); MEAN CORPUSCULAR HEMOGLOBIN 30.5 pg (27.0-33.4); MEAN CORPUSCULAR HGB CONC 33.2 g/dL (32.0-36.0); MEAN CORPUSCULAR VOLUME 92 fl (80-97); MONOCYTES % (AUTO) 19.7 % (3-13); PLATELET COUNT 412 10^3/uL (150-450); RED BLOOD COUNT 2.68 10^6/uL (4.35-5.55); RED CELL DISTRIBUTION WIDTH 14.3 % (11.5-14.0); TOTAL CELLS COUNTED % (AUTO) 100 %; WHITE BLOOD COUNT 7.4 10^3/uL (4.0-10.5)
[2020-07-24 09:12] LABS: ALBUMIN 2.6 g/dL (3.5-5.0); ALKALINE PHOSPHATASE 99 U/L (38-126); ASPARTATE AMINO TRANSFERASE 51 U/L (17-59); BILIRUBIN,DIRECT 0.4 mg/dL (0.0-0.4); BILIRUBIN,TOTAL 0.4 mg/dL (0.2-1.3); BLOOD UREA NITROGEN 45 mg/dL (7-20); CALCIUM 7.3 mg/dL (8.4-10.2); GLUCOSE 161 mg/dL (75-110); POTASSIUM 3.7 mmol/L (3.6-5.0); TOTAL PROTEIN 5.6 g/dL (6.3-8.2)
[2020-07-24 09:17] LABS: ANION GAP 5 (5-19); CARBON DIOXIDE 36 mmol/L (22-30); CHLORIDE 96 mmol/L (98-107)
--- NOTE | 2020-07-24 09:56 | PDOC PROGRESS REPORT ---
Subjective Progress Note for:: 07/24/20 Reason For Visit: RECTAL BLEEDING Physical Exam Vital Signs: Temp Pulse Resp BP Pulse Ox 98.1 F 65 16 114/40 L 94 07/24/20 08:17 07/24/20 08:35 07/24/20 08:35 07/24/20 08:17 07/24/20 08:35 Pulse Oximeter Continuous Start: 07/20/20 09:25 Freq: RTQ4 Status: Active Protocol: Document 07/24/20 08:35 [facility] [place] 07/24/20 08:[place] [facility] [id number] Pulse Oximetry Assessment Oxygen Saturation (92-100) 94 Oxygen Flow Rate (L/min) 4 Oxygen Delivery Method Nasal Cannula Fraction of Inspired Oxygen (FIO2) 36 Equipment Usage Equipment in Use Continuous SpO2 Machine # 4 Intake & Output 07/23/20 07/24/20 07/25/20 06:59 06:59 06:59 Intake Total 1520 901 Output Total 4701 4350 Balance -3132 -3767 Weight 85.7 kg 85.8 kg Results Laboratory Results: 07/24/20 08:24 07/24/20 08:24 07/24/20 07/24/20 07/24/20 06:35 06:35 08:24 WBC Cancelled 7.4 RBC Cancelled 2.68 L Hgb Cancelled 8.2 L Hct Cancelled 24.7 L MCV Cancelled 92 MCH Cancelled 30.5 MCHC Cancelled 33.2 RDW Cancelled 14.3 H Plt Count Cancelled 412 Seg Neutrophils % Cancelled 70.0 Sodium Cancelled Potassium Cancelled Chloride Cancelled Carbon Dioxide Cancelled Anion Gap Cancelled BUN Cancelled Creatinine Cancelled Est GFR ( Amer) Cancelled Est GFR (Non-Af Amer) Cancelled Glucose Cancelled Calcium Cancelled Total Bilirubin Cancelled AST Cancelled Alkaline Phosphatase Cancelled Total Protein Cancelled Albumin Cancelled 07/24/20 08:24 WBC RBC Hgb Hct MCV MCH MCHC RDW Plt Count Seg Neutrophils % Sodium 137.4 Potassium 3.7 Chloride 96 L Carbon Dioxide 36 H Anion Gap 5 BUN 45 H Creatinine 1.32 H Est GFR ( Amer) > 60 Est GFR (Non-Af Amer) Glucose 161 H Calcium 7.3 L Total Bilirubin 0.4 AST 51 Alkaline Phosphatase 99 Total Protein 5.6 L Albumin 2.6 L 07/10/20 07/10/20 06:15 17:00 Troponin I 0.067 NT-Pro-B Natriuret Pep 2670 H 2860 H Impressions: KUB X-Ray 07/17/20 00:00 IMPRESSION: Ileus. Renal Ultrasound 07/18/20 00:00 IMPRESSION: Limited study. No hydronephrosis. Abdomen/Pelvis CT 07/21/20 00:00 IMPRESSION: 1. Fluid distended loops of small bowel, relatively diffuse. Small umbilical region hernia contains a knuckle of small bowel. This could represent a relative point of obstruction. Transition point not otherwise demonstrated. 2. Bilateral moderate pleural effusions, progressive compared to prior. Head CT 07/21/20 00:00 IMPRESSION: Mild chronic changes. No acute abnormality. EVIDENCE OF ACUTE STROKE: NO. PICC Line Insertion 07/22/20 00:00 IMPRESSION: SUCCESSFUL PLACEMENT OF A 5 FR DUAL LUMEN 38 CM PICC IN THE RIGHT BASILIC VEIN. Assessment & Plan - Diagnosis (1) Rectal bleeding Is this a current diagnosis for this admission?: Yes (2) Cecum perforation Is this a current diagnosis for this admission?: Yes - Time Anticipated Discharge Disposition: unknown Anticipated Discharge Timeframe: unknown - Plan Summary Plan Summary: 79-year-old male status post subtotal colectomy for perforation and rectal bleeding. The patient has an end ileostomy, which appears to be functioning well. He continues to have a difficulty with his pulmonary function. He appe ars to be tolerating full liquids without difficulty. He has no nausea or vomiting. I will advance his diet to regular. Surgery will sign off at this time. We are always available to answer any questions or reevaluate. Please renotify if needed.
[2020-07-24] MEDS ORDERED: PANTOPRAZOLE SODIUM 40 MG VIAL IV SCH (10:00)
--- NOTE | 2020-07-24 10:30 | PDOC PROGRESS REPORT ---
Subjective Progress Note for:: 07/24/20 Subjective:: Awakens with persistent verbal stimulus. No complaints other than being tired. Reason For Visit: RECTAL BLEEDING Physical Exam Vital Signs: Temp Pulse Resp BP Pulse Ox 98.1 F 65 16 114/40 L 94 07/24/20 08:17 07/24/20 08:35 07/24/20 08:35 07/24/20 08:17 07/24/20 08:35 Pulse Oximeter Continuous Start: 07/20/20 09:25 Freq: RTQ4 Status: Active Protocol: Document 07/24/20 08:35 [facility] [place]: 07/24/20 08:57 [facility] [id number] Pulse Oximetry Assessment Oxygen Saturation (92-100) 94 Oxygen Flow Rate (L/min) 4 Oxygen Delivery Method Nasal Cannula Fraction of Inspired Oxygen (FIO2) 36 Equipment Usage Equipment in Use Continuous SpO2 Machine # 4 Intake & Output 07/23/20 07/24/20 07/25/20 06:59 06:59 06:59 Intake Total 1520 901 Output Total 4746 4350 Balance -7700 -4270 Weight 85.7 kg 85.8 kg General appearance: PRESENT: no acute distress, other - Somnolent Head exam: PRESENT: atraumatic, normocephalic Neck exam: ABSENT: carotid bruit, lymphadenopathy, tracheal deviation, tracheostomy Respiratory exam: PRESENT: rales, symmetrical, unlabored, other - Coarse breath sounds throughout both lungs. ABSENT: prolonged expiratory phas, rhonchi, tachypnea, wheezes Cardiovascular exam: PRESENT: RRR, +S1, +S2. ABSENT: systolic murmur GI/Abdominal exam: PRESENT: normal bowel sounds, soft, other - The right side. ABSENT: tenderness Rectal exam: PRESENT: deferred Gentrourinary exam: PRESENT: indwelling catheter - Very light urine Musculoskeletal exam: ABSENT: ambulatory Neurological exam: ABSENT: awake Psychiatric exam: PRESENT: other - Difficult to assess Focused psych exam: PRESENT: other - Unable to assess Results Laboratory Results: 07/24/20 08:24 07/24/20 08:24 07/24/20 07/24/20 07/24/20 06:35 06:35 08:24 WBC Cancelled 7.4 RBC Cancelled 2.68 L Hgb Cancelled 8.2 L Hct Cancelled 24.7 L MCV Cancelled 92 MCH Cancelled 30.5 MCHC Cancelled 33.2 RDW Cancelled 14.3 H Plt Count Cancelled 412 Seg Neutrophils % Cancelled 70.0 Sodium Cancelled Potassium Cancelled Chloride Cancelled Carbon Dioxide Cancelled Anion Gap Cancelled BUN Cancelled Creatinine Cancelled Est GFR ( Amer) Cancelled Est GFR (Non-Af Amer) Cancelled Glucose Cancelled Calcium Cancelled Total Bilirubin Cancelled AST Cancelled Alkaline Phosphatase Cancelled Total Protein Cancelled Albumin Cancelled 07/24/20 08:24 WBC RBC Hgb Hct MCV MCH MCHC RDW Plt Count Seg Neutrophils % Sodium 137.4 Potassium 3.7 Chloride 96 L Carbon Dioxide 36 H Anion Gap 5 BUN 45 H Creatinine 1.32 H Est GFR ( Amer) > 60 Est GFR (Non-Af Amer) Glucose 161 H Calcium 7.3 L Total Bilirubin 0.4 AST 51 Alkaline Phosphatase 99 Total Protein 5.6 L Albumin 2.6 L 07/10/20 07/10/20 06:15 17:00 Troponin I 0.067 NT-Pro-B Natriuret Pep 2670 H 2860 H Impressions: KUB X-Ray 07/17/20 00:00 IMPRESSION: Ileus. Renal Ultrasound 07/18/20 00:00 IMPRESSION: Limited study. No hydronephrosis. Abdomen/Pelvis CT 07/21/20 00:00 IMPRESSION: 1. Fluid distended loops of small bowel, relatively diffuse. Small umbilical region hernia contains a knuckle of small bowel. This could represent a relative point of obstruction. Transition point not otherwise demonstrated. 2. Bilateral moderate pleural effusions, progressive compared to prior. Head CT 07/21/20 00:00 IMPRESSION: Mild chronic changes. No acute abnormality. EVIDENCE OF ACUTE STROKE: NO. PICC Line Insertion 07/22/20 00:00 IMPRESSION: SUCCESSFUL PLACEMENT OF A 5 FR DUAL LUMEN 38 CM PICC IN THE RIGHT BASILIC VEIN. Assessment and Plan - Diagnosis (1) Encephalopathy Is this a current diagnosis for this admission?: Yes Plan: Patient is getting back to baseline. Still very tired. It appears that with BiPAP at night he tends to improve. Likely metabolic from hypercapnia but consider rechecking blood gas to be sure. 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 Surgery has signed off. Continue ostomy care. Antibiotic therapy completed. (3) Acute respiratory failure with hypoxemia Is this a current diagnosis for this admission?: Yes Plan: Still requires oxygen supplementation. Will encourage increased activity. With history of COPD we will continue to encourage BiPAP. (4) ANU (acute kidney injury) Is this a current diagnosis for this admission?: Yes Plan: Slowly improving. Not yet to baseline. (5) COPD (chronic obstructive pulmonary disease) Qualifiers: COPD type: chronic bronchitis Is this a current diagnosis for this admission?: Yes Plan: The patient uses DuoNeb's at home. We will return to DuoNeb therapy. (6) Pleural effusion Is this a current diagnosis for this admission?: Yes Plan: TPN has been held. Continue furosemide. Monitor closely. (7) Acute on chronic blood loss anemia Is this a current diagnosis for this admission?: Yes Plan: Continue to monitor hemoglobin. Transfuse if hemoglobin drops below 8.0. - Plan Summary Summary: - Time Time Spent with patient: 15-24 minutes Medications reviewed and adjusted accordingly: Yes Anticipated Discharge Disposition: Residential Facility Anticipated Discharge Timeframe: Unknown
[2020-07-24] MEDS: AMINO ACIDS 5 %/DEXTROSE 20 % 1,000 ML IV PRN (10:48)
--- NOTE | 2020-07-24 11:38 | RADIOLOGY REPORT (SQ) ---
EXAM DESCRIPTION: CHEST SINGLE VIEW IMAGES COMPLETED DATE/TIME: 07/24/2020 11:03 am REASON FOR STUDY: increased rhonchi. Assess for fluid vs consolidati COMPARISON: 07/20/2020 EXAM PARAMETERS: NUMBER OF VIEWS: One view. TECHNIQUE: Single frontal radiographic view of the chest acquired. RADIATION DOSE: NA LIMITATIONS: None. FINDINGS: LUNGS AND PLEURA: PICC line has been placed. Right IJ line has been removed. Minimal inc reased lung markings in the left midlung field most likely atelectasis. Probable left retrocardiac a telectasis is well. No consolidation. Probable small left effusion. MEDIASTINUM AND HILAR STRUCTURES: No masses. Contour normal. HEART AND VASCULAR STRUCTURES: Heart normal in size. Normal vasculature. BONES: No acute findings. HARDWARE: None in the chest. OTHER: No other significant finding. IMPRESSION: Patchy left midlung field and left retrocardiac airspace disease most likely atelectasis . Small left effusion cannot be excluded. TECHNICAL DOCUMENTATION: JOB ID: [id number] 2010 [employer]- All Rights Reserved Reading location - IP/workstation name: [email or web address]
[2020-07-24] MEDS: DOXAZOSIN MESYLATE 4 MG TABLET NG SCH (21:14)
[2020-07-24] MEDS: TAMSULOSIN HCL 0.4 MG CAP.SR.24H PO SCH (21:15)
[2020-07-25] MEDS: INSULIN REG, HUMAN 100 UNIT/ML 3 ML VIAL (PYX) SUBCUT SCH ×4 (01:01→18:47)
[2020-07-25] MEDS: ALBUTEROL SULFATE 0.083% NEB 2.5 MG/3 ML AMPUL NEB SCH ×4 (02:28→20:13)
[2020-07-25] MEDS: BUDESONIDE NEB 0.25 MG/2 ML AMPUL NEB SCH ×2 (08:30→20:13)
[2020-07-25] MEDS: PANTOPRAZOLE SODIUM 40 MG VIAL IV SCH (11:24)
[2020-07-25] MEDS: HEPARIN SOD (PORCINE) 5,000 UNIT/ML 1 ML VIAL SUBCUT SCH ×2 (11:25→21:33)
[2020-07-25] MEDS: FUROSEMIDE INJ/PF 40 MG/4 ML SDV IV SCH (11:25)
[2020-07-25] MEDS: NORMAL SALINE 10 ML SDV (SCHEDULED) IV SCH ×2 (11:26→21:34)
--- NOTE | 2020-07-25 11:34 | PDOC PROGRESS REPORT ---
Subjective Progress Note for:: 07/25/20 Subjective:: Still very tired. Still with congested breath sounds. Remains afebrile. No white count and afebrile. Possible aspiration. Will ask speech to evaluate. Reason For Visit: RECTAL BLEEDING Physical Exam Vital Signs: Temp Pulse Resp BP Pulse Ox 98.4 F 78 18 109/42 L 97 07/25/20 07:31 07/25/20 07:31 07/25/20 07:31 07/25/20 07:31 07/25/20 07:31 Pulse Oximeter Continuous Start: 07/20/20 09:25 Freq: RTQ4 Status: Active Protocol: Document 07/25/20 04:09 [facility] (Rec: 07/25/20 04:10 [facility] [id number]) Pulse Oximetry Assessment Oxygen Saturation (92-100) 97 Oxygen Flow Rate (L/min) 3 Oxygen Delivery Method Nasal Cannula Fraction of Inspired Oxygen (FIO2) 32 Equipment Usage Equipment Standby Continuous SpO2 Machine # 4 Intake & Output 07/24/20 07/25/20 07/26/20 06:59 06:59 06:59 Intake Total 901 320 Output Total 4350 2200 Balance -3449 -1880 Weight 85.8 kg 85.8 kg Results Laboratory Results: 07/24/20 08:24 07/24/20 08:24 07/10/20 07/10/20 06:15 17:00 Troponin I 0.067 NT-Pro-B Natriuret Pep 2670 H 2860 H Impressions: KUB X-Ray 07/17/20 00:00 IMPRESSION: Ileus. Renal Ultrasound 07/18/20 00:00 IMPRESSION: Limited study. No hydronephrosis. Abdomen/Pelvis CT 07/21/20 00:00 IMPRESSION: 1. Fluid distended loops of small bowel, relatively diffuse. Small umbilical region hernia contains a knuckle of small bowel. This could represent a relative point of obstruction. Transition point not otherwise demonstrated. 2. Bilateral moderate pleural effusions, progressive compared to prior. Head CT 07/21/20 00:00 IMPRESSION: Mild chronic changes. No acute abnormality. EVIDENCE OF ACUTE STROKE: NO. PICC Line Insertion 07/22/20 00:00 IMPRESSION: SUCCESSFUL PLACEMENT OF A 5 FR DUAL LUMEN 38 CM PICC IN THE RIGHT BASILIC VEIN. Chest X-Ray 07/24/20 00:00 IMPRESSION: Patchy left midlung field and left retrocardiac airspace disease most likely atelectasis. Small left effusion cannot be excluded. Assessment and Plan - Plan Summary Summary:
[2020-07-25] MEDS ORDERED: FUROSEMIDE INJ/PF 20 MG/2 ML SDV IV SCH (21:15)
--- NOTE | 2020-07-25 21:24 | PDOC PROGRESS REPORT ---
Subjective Progress Note for:: 07/25/20 Subjective:: Patient is more awake but still appears uncomfortable. Still with coarse breath sounds. Reason For Visit: RECTAL BLEEDING Physical Exam Vital Signs: Temp Pulse Resp BP Pulse Ox 97.9 F 74 26 H 113/48 L 96 07/25/20 20:00 07/25/20 20:14 07/25/20 20:14 07/25/20 20:00 07/25/20 20:14 Pulse Oximeter Continuous Start: 07/20/20 09:25 Freq: RTQ4 Status: Active Protocol: Document 07/25/20 20:14 [facility] (Rec: 07/25/20 20:26 [facility] [id number]) Pulse Oximetry Assessment Oxygen Saturation (92-100) 96 Oxygen Flow Rate (L/min) 3 Oxygen Delivery Method Nasal Cannula Fraction of Inspired Oxygen (FIO2) 32 Equipment Usage Equipment Standby Continuous SpO2 Machine # 4 Intake & Output 07/24/20 07/25/20 07/26/20 06:59 06:59 06:59 Intake Total 901 320 Output Total 4350 2200 Balance -3449 -1880 Weight 85.8 kg 85.8 kg General appearance: PRESENT: mild distress Head exam: PRESENT: atraumatic, normocephalic Eye exam: PRESENT: conjunctiva pale. ABSENT: scleral icterus Ear exam: PRESENT: normal external ear exam. ABSENT: bleeding, drainage Mouth exam: PRESENT: moist, tongue midline Respiratory exam: PRESENT: decreased breath sounds - Bases, symmetrical, unlabored. ABSENT: rales, rhonchi, tachypnea, wheezes Cardiovascular exam: PRESENT: RRR, +S1, +S2. ABSENT: bradycardia, diastolic murmur, irregular rhythm, systolic murmur, tachycardia GI/Abdominal exam: PRESENT: distended, hypoactive bowel sounds, soft. ABSENT: tenderness Rectal exam: PRESENT: deferred Gentrourinary exam: PRESENT: indwelling catheter Musculoskeletal exam: ABSENT: ambulatory - Still very weak Neurological exam: PRESENT: alert, awake, oriented to person, oriented to place, oriented to situation Psychiatric exam: PRESENT: flat affect. ABSENT: agitated, anxious Focused psych exam: ABSENT: delusional, paranoid, restlessness Results Laboratory Results: 07/24/20 08:24 07/24/20 08:24 08/12/20 08/12/20 06:15 17:00 Troponin I 0.067 NT-Pro-B Natriuret Pep 2670 H 2860 H Impressions: KUB X-Ray 07/17/20 00:00 IMPRESSION: Ileus. Renal Ultrasound 07/18/20 00:00 IMPRESSION: Limited study. No hydronephrosis. Abdomen/Pelvis CT 07/21/20 00:00 IMPRESSION: 1. Fluid distended loops of small bowel, relatively diffuse. Small umbilical region hernia contains a knuckle of small bowel. This could represent a relative point of obstruction. Transition point not otherwise demonstrated. 2. Bilateral moderate pleural effusions, progressive compared to prior. Head CT 07/21/20 00:00 IMPRESSION: Mild chronic changes. No acute abnormality. EVIDENCE OF ACUTE STROKE: NO. PICC Line Insertion 07/22/20 00:00 IMPRESSION: SUCCESSFUL PLACEMENT OF A 5 FR DUAL LUMEN 38 CM PICC IN THE RIGHT BASILIC VEIN. Chest X-Ray 07/24/20 00:00 IMPRESSION: Patchy left midlung field and left retrocardiac airspace disease most likely atelectasis. Small left effusion cannot be excluded. Assessment and Plan - Diagnosis (1) Encephalopathy Is this a current diagnosis for this admission?: Yes Plan: Improved slightly. Still concerns with hypercapnia. Will check ABG in the morning. Reviewed the patient's medications with his . He does use alprazolam at home and tends to be anxious. I have changed the orders to 0.25 mg every 6 hours if needed. In addition I will add low-dose BuSpar. (2) Perforation of cecum due to diverticulitis Is this a current diagnosis for this admission?: Yes Plan: Surgically repaired. Currently with ileostomy. Continue ileostomy care (3) Acute respiratory failure with hypoxemia Is this a current diagnosis for this admission?: Yes Plan: Remains on 3 L nasal cannula. Will check ABG in the morning to make sure there is no recurrent hypercapnia. (4) ANU (acute kidney injury) Is this a current diagnosis for this admission?: Yes Plan: Continue to monitor renal function. TPN has been stopped to stimulate appetite. Monitor intake and output. (5) COPD (chronic obstructive pulmonary disease) Qualifiers: COPD type: chronic bronchitis Is this a current diagnosis for this admission?: Yes Plan: The patient's reports that he actually uses duo nebs at home. He is on a Stiolto inhaler as well. His duo nebs will be every 6 hours and he still has budesonide every 12 hours. This certainly would bring about the same effect. We do not carry Stiolto at this time we will continue the current regimen. (6) Pleural effusion Is this a current diagnosis for this admission?: Yes Plan: Consider repeat chest x-ray. He has had a significant net negative fluid balance and has remained on 3 L nasal cannula. Reassess in the morning. (7) Acute on chronic blood loss anemia Is this a current diagnosis for this admission?: Yes Plan: Continue to monitor hemoglobin. Will check anemia studies in the morning. The patient may need iron. (8) Critical illness myopathy Is this a current diagnosis for this admission?: Yes Plan: The patient would benefit from increased activity. He is still exhibiting weakness with physical therapy. I will review his medication regimen as well as laboratory studies to see if there are any changes that we can make to improve his deconditioning. - Plan Summary Summary: - Time Time Spent with patient: 35 or more minutes - I did have a 20-minute conversation with the patient's regarding specifics including his medications and the treatment plan. I believe she was satisfied with the answers to her questions. Medications reviewed and adjusted accordingly: Yes Anticipated Discharge Disposition: [facility] Anticipated Discharge Timeframe: Unknown
[2020-07-25] MEDS: DOXAZOSIN MESYLATE 4 MG TABLET NG SCH (21:32)
[2020-07-25] MEDS: TAMSULOSIN HCL 0.4 MG CAP.SR.24H PO SCH (21:33)
[2020-07-25] MEDS: BUSPIRONE HCL 10 MG TABLET PO SCH (22:40)
[2020-07-26] MEDS: INSULIN REG, HUMAN 100 UNIT/ML 3 ML VIAL (PYX) SUBCUT SCH ×4 (00:16→19:59)
[2020-07-26] MEDS: IPRATROPIUM/ALBUTEROL 0.5-2.5 MG/3 ML AMPUL NEB SCH ×4 (02:26→20:38)
[2020-07-26] MEDS: BUSPIRONE HCL 10 MG TABLET PO SCH ×3 (05:16→21:36)
[2020-07-26 05:49] LABS: ABSOLUTE RETICS # 0.072 10^6/uL (0.028-0.122); RETICULOCYTE COUNT (AUTO) 3.16 % (0.66-2.85)
[2020-07-26 06:04] LABS: ABSOLUTE LYMPHOCYTES (AUTO) 0.7 10^3/uL (0.5-4.7); ABSOLUTE MONOCYTES (AUTO) 1.1 10^3/uL (0.1-1.4); ABSOLUTE NEUT (AUTO) 4.4 10^3/uL (1.7-8.2); BASOPHILS % (AUTO) 0.4 % (0-2); EOSINOPHILS % (AUTO) 0.8 % (0-6); LYMPHOCYTES % (AUTO) 11.7 % (13-45); MEAN CORPUSCULAR HEMOGLOBIN 31.9 pg (27.0-33.4); MEAN CORPUSCULAR HGB CONC 34.9 g/dL (32.0-36.0); MEAN CORPUSCULAR VOLUME 92 fl (80-97); PLATELET COUNT 388 10^3/uL (150-450); RED BLOOD COUNT 2.19 10^6/uL (4.35-5.55); RED CELL DISTRIBUTION WIDTH 14.1 % (11.5-14.0); SEGMENTED NEUTROPHILS % (AUTO) 70.1 % (42-78); TOTAL CELLS COUNTED % (AUTO) 100 %; WHITE BLOOD COUNT 6.2 10^3/uL (4.0-10.5)
[2020-07-26 06:12] LABS: IRON(TIBC) < 10.1 ug/dL (49-181)
[2020-07-26] MEDS ORDERED: NORMAL SALINE 250 ML IV PRN ×2 (06:13)
[2020-07-26 06:21] LABS: ALBUMIN 2.2 g/dL (3.5-5.0); ALKALINE PHOSPHATASE 86 U/L (38-126); ASPARTATE AMINO TRANSFERASE 45 U/L (17-59); BILIRUBIN,DIRECT 0.3 mg/dL (0.0-0.4); BILIRUBIN,TOTAL 0.5 mg/dL (0.2-1.3); BLOOD UREA NITROGEN 36 mg/dL (7-20); CALCIUM 7.4 mg/dL (8.4-10.2); CARBON DIOXIDE 37 mmol/L (22-30); GLUCOSE 106 mg/dL (75-110); POTASSIUM 4.3 mmol/L (3.6-5.0); TOTAL PROTEIN 4.6 g/dL (6.3-8.2)
[2020-07-26 06:34] LABS: ARTERIAL BLOOD BASE EXCESS 11.2 mmol/L; ARTERIAL BLOOD H2CO3 1.32 mmol/L (1.05-1.35); ARTERIAL BLOOD O2 SATURATION 84.8 % (94-98); ARTERIAL BLOOD PCO2 43.7 mmHg (35-45); ARTERIAL BLOOD PH 7.52 (7.35-7.45); ARTERIAL BLOOD PO2 44.4 mmHg (80-100); ARTERIAL BLOOD TOTAL CO2 36.4 mmol/L (23-27)
[2020-07-26 06:36] LABS: ARTERIAL BLOOD FIO2 21%
[2020-07-26 06:40] LABS: ANION GAP 5 (5-19); CHLORIDE 92 mmol/L (98-107)
[2020-07-26] MEDS: BUDESONIDE NEB 0.25 MG/2 ML AMPUL NEB SCH ×2 (08:37→20:38)
[2020-07-26] MEDS ORDERED: MAG HYDROX/AL HYDROX/SIMETH SUSP 30 ML UDCUP PO PRN (08:53)
[2020-07-26] MEDS: HEPARIN SOD (PORCINE) 5,000 UNIT/ML 1 ML VIAL SUBCUT SCH ×2 (10:48→21:36)
[2020-07-26] MEDS: FUROSEMIDE INJ/PF 20 MG/2 ML SDV IV SCH (10:50)
[2020-07-26] MEDS: NORMAL SALINE 10 ML SDV (SCHEDULED) IV SCH ×2 (10:51→21:37)
[2020-07-26] MEDS: NORMAL SALINE 10 ML SDV (AFTER EACH USE) IV PRN (10:51)
--- NOTE | 2020-07-26 12:22 | PDOC PROGRESS REPORT ---
Subjective Progress Note for:: 07/26/20 Subjective:: The patient still feels quite weak. This makes sense with his hemoglobin. Serum iron levels were extremely low. In addition he states that the pill that supposed to help acid reduction in fact paez when he swallows it. Reason For Visit: RECTAL BLEEDING Physical Exam Vital Signs: Temp Pulse Resp BP Pulse Ox 98.4 F 86 16 110/44 L 96 07/26/20 10:57 07/26/20 10:57 07/26/20 10:57 07/26/20 10:57 07/26/20 10:57 Pulse Oximeter Continuous Start: 07/20/20 09:25 Freq: RTQ4 Status: Active Protocol: Document 07/26/20 08:39 [facility] (Rec: 07/26/20 08:41 [facility] [id number]) Pulse Oximetry Assessment Oxygen Saturation (92-100) 94 Oxygen Flow Rate (L/min) 3 Oxygen Delivery Method Nasal Cannula Fraction of Inspired Oxygen (FIO2) 32 Equipment Usage Equipment in Use Continuous SpO2 Machine # 4 Intake & Output 07/25/20 07/26/20 07/27/20 06:59 06:59 06:59 Intake Total 320 Output Total 2200 875 Balance -1880 -875 Weight 85.8 kg 85.4 kg General appearance: PRESENT: cooperative, mild distress, well-developed Head exam: PRESENT: atraumatic, normocephalic Eye exam: PRESENT: conjunctiva pale. ABSENT: scleral icterus Ear exam: PRESENT: normal external ear exam. ABSENT: bleeding, drainage Mouth exam: PRESENT: dry mucosa, tongue midline Respiratory exam: PRESENT: clear to auscultation sudha - Anteriorly, decreased breath sounds - Left base, symmetrical, unlabored. ABSENT: rales, rhonchi, tachypnea, wheezes Cardiovascular exam: PRESENT: RRR, +S1, +S2. ABSENT: bradycardia, diastolic murmur, irregular rhythm, systolic murmur, tachycardia GI/Abdominal exam: PRESENT: distended, soft, other - Ileostomy present. ABSENT: tenderness Rectal exam: PRESENT: deferred Gentrourinary exam: PRESENT: indwelling catheter Extremities exam: PRESENT: pedal edema Neurological exam: PRESENT: alert, awake, oriented to person, oriented to place, oriented to situation, other - Interestingly the patient speaks like a have not been seeing him each day. He states "you are the first person I been able to talk to ". Psychiatric exam: ABSENT: agitated, anxious Focused psych exam: ABSENT: delusional, paranoid, restlessness Results Laboratory Results: 07/26/20 05:10 07/26/20 05:10 07/26/20 07/26/20 07/26/20 05:10 05:10 05:10 WBC 6.2 RBC 2.19 L Hgb 7.0 L Hct 20.0 L MCV 92 MCH 31.9 MCHC 34.9 RDW 14.1 H Plt Count 388 Seg Neutrophils % 70.1 Retic Count (auto) 3.16 H Carbonic Acid HCO3/H2CO3 Ratio ABG pH ABG pCO2 ABG pO2 ABG HCO3 ABG O2 Saturation ABG Base Excess FiO2 Sodium Potassium Chloride Carbon Dioxide Anion Gap BUN Creatinine Est GFR ( Amer) Glucose Calcium Magnesium Iron < 10.1 L TIBC 212 L Ferritin 222.00 Total Bilirubin AST Alkaline Phosphatase Total Protein Albumin Vitamin B12 887.0 Folate 11.80 Blood Type Antibody Screen 07/26/20 07/26/20 07/26/20 05:10 06:15 06:33 WBC RBC Hgb Hct MCV MCH MCHC RDW Plt Count Seg Neutrophils % Retic Count (auto) Carbonic Acid 1.32 HCO3/H2CO3 Ratio 26:1 ABG pH 7.52 H ABG pCO2 43.7 ABG pO2 44.4 L ABG HCO3 35.0 H ABG O2 Saturation 84.8 L ABG Base Excess 11.2 FiO2 21% Sodium 134.1 L Potassium 4.3 Chloride 92 L Carbon Dioxide 37 H Anion Gap 5 BUN 36 H Creatinine 1.34 H Est GFR ( Amer) > 60 Glucose 106 Calcium 7.4 L Magnesium 1.9 Iron TIBC Ferritin Total Bilirubin 0.5 AST 45 Alkaline Phosphatase 86 Total Protein 4.6 L Albumin 2.2 L Vitamin B12 Folate Blood Type O POSITIVE Antibody Screen NEGATIVE 07/10/20 07/10/20 06:15 17:00 Troponin I 0.067 NT-Pro-B Natriuret Pep 2670 H 2860 H Impressions: KUB X-Ray 07/17/20 00:00 IMPRESSION: Ileus. Renal Ultrasound 07/18/20 00:00 IMPRESSION: Limited study. No hydronephrosis. Abdomen/Pelvis CT 07/21/20 00:00 IMPRESSION: 1. Fluid distended loops of small bowel, relatively diffuse. Small umbilical region hernia contains a knuckle of small bowel. This could represent a relative point of obstruction. Transition point not otherwise demonstrated. 2. Bilateral moderate pleural effusions, progressive compared to prior. Head CT 07/21/20 00:00 IMPRESSION: Mild chronic changes. No acute abnormality. EVIDENCE OF ACUTE STROKE: NO. PICC Line Insertion 07/22/20 00:00 IMPRESSION: SUCCESSFUL PLACEMENT OF A 5 FR DUAL LUMEN 38 CM PICC IN THE RIGHT BASILIC VEIN. Chest X-Ray 07/24/20 00:00 IMPRESSION: Patchy left midlung field and left retrocardiac airspace disease most likely atelectasis. Small left effusion cannot be excluded. Assessment and Plan - Diagnosis (1) Encephalopathy Is this a current diagnosis for this admission?: Yes Plan: 30 is back to baseline. This morning makes me wonder. Will monitor closely. (2) Perforation of cecum due to diverticulitis Is this a current diagnosis for this admission?: Yes Plan: Surgically repaired. Functioning ileostomy. With his recurrent drop in hemoglobin I did speak to surgery. We will check fecal occult blood. If this is positive he may need upper endoscopy. From the complaint of discomfort swallowing the Protonix (which is a very small pill) I will change Protonix to 40 mg twice daily IV but he still requires Carafate and I may use scheduled Maalox. (3) Acute respiratory failure with hypoxemia Is this a current diagnosis for this admission?: Yes Plan: Still on nasal cannula. Wean slowly to room air if possible. (4) ANU (acute kidney injury) Is this a current diagnosis for this admission?: Yes Plan: Creatinine continues to slowly improve. He likely has decreased perfusion due to the severe anemia. Also consider albumin as his serum albumin is only 2.2. (5) COPD (chronic obstructive pulmonary disease) Qualifiers: COPD type: chronic bronchitis Is this a current diagnosis for this admission?: Yes Plan: Stable at this time. Continue current medication regimen. (6) Pleural effusion Is this a current diagnosis for this admission?: Yes Plan: Continue aggressive diuresis (7) Acute on chronic blood loss anemia Is this a current diagnosis for this admission?: Yes Plan: Possibly related to gastritis/esophagitis. If fecal occult blood is positive I will notify surgery and he may need upper endoscopy tomorrow. Will maximize acid suppression. (8) Critical illness myopathy Is this a current diagnosis for this admission?: Yes Plan: He is still very weak. The anemia may help explain this. The patient is receiving 2 units of packed red blood cells today. PT will continue to work with the patient. I encouraged him to at least sit at the edge of the bed with therapy. We will continue to treat. (9) Iron deficiency anemia Qualifiers: Iron deficiency anemia type: unspecified iron deficiency Qualified Code(s): D50.9 - Iron deficiency anemia, unspecified Is this a current diagnosis for this admission?: Yes Plan: Serum iron levels were undetectable. The patient is getting 2 units of packed red blood cells today. That will provide some iron. Allergy will see the patient tomorrow. I will hold off on ordering any IV iron until seen by hematology. - Plan Summary Summary: - Time Time Spent with patient: 25-34 minutes Medications reviewed and adjusted accordingly: Yes Anticipated Discharge Disposition[facility] Anticipated Discharge Timeframe: Unknown
[2020-07-26] MEDS: SUCRALFATE 1 GM TABLET PO SCH ×2 (15:52→20:05)
[2020-07-26] MEDS ORDERED: PANTOPRAZOLE SODIUM 40 MG TABLET.DR PO SCH (17:00)
[2020-07-26] MEDS: TAMSULOSIN HCL 0.4 MG CAP.SR.24H PO SCH (21:35)
[2020-07-26] MEDS: DOXAZOSIN MESYLATE 4 MG TABLET NG SCH (21:36)
[2020-07-26] MEDS: PANTOPRAZOLE SODIUM 40 MG VIAL IV SCH (21:37)
[2020-07-27] MEDS: INSULIN REG, HUMAN 100 UNIT/ML 3 ML VIAL (PYX) SUBCUT SCH ×4 (00:37→18:00)
[2020-07-27] MEDS: SUCRALFATE 1 GM TABLET PO SCH ×4 (00:37→18:05)
[2020-07-27] MEDS: IPRATROPIUM/ALBUTEROL 0.5-2.5 MG/3 ML AMPUL NEB SCH ×4 (02:22→20:54)
[2020-07-27 06:43] LABS: HEMATOCRIT 28.4 % (37.9-51.0); MEAN CORPUSCULAR HGB CONC 35.5 g/dL (32.0-36.0); MEAN CORPUSCULAR VOLUME 90 fl (80-97); PLATELET COUNT 424 10^3/uL (150-450); RED BLOOD COUNT 3.14 10^6/uL (4.35-5.55); RED CELL DISTRIBUTION WIDTH 14.4 % (11.5-14.0); WHITE BLOOD COUNT 8.4 10^3/uL (4.0-10.5)
[2020-07-27 06:57] LABS: ALBUMIN 2.5 g/dL (3.5-5.0); ANION GAP 5 (5-19); BLOOD UREA NITROGEN 28 mg/dL (7-20); CALCIUM 7.4 mg/dL (8.4-10.2); CARBON DIOXIDE 35 mmol/L (22-30); CHLORIDE 93 mmol/L (98-107); GLUCOSE 114 mg/dL (75-110); PHOSPHORUS 2.8 mg/dL (2.5-4.5); POTASSIUM 3.8 mmol/L (3.6-5.0)
[2020-07-27 07:17] LABS: HEMOGLOBIN 10.1 g/dL (13.5-17.0)
[2020-07-27] MEDS: BUDESONIDE NEB 0.25 MG/2 ML AMPUL NEB SCH ×2 (09:00→20:54)
--- NOTE | 2020-07-27 09:49 | PDOC PROGRESS REPORT ---
Subjective Progress Note for:: 07/27/20 Subjective:: 79-year-old male reformed smoker transferred to the ICU on 07/09/2020 postoperatively after undergoing total colectomy and ileostomy for pandiverticulosis and a perforated cecum. He arrived in the ICU under anesthesia and still endotracheally intubated. 07/10: The patient has been successfully extubated in the interim. He is currently on BiPAP 14/07. He is awake, alert and oriented. He follows commands. He reports reasonable postoperative pain control. He is off Levophed but is noted to be mildly hypotensive. He is on cefepime/Flagyl/vancomycin for empiric coverage of abdominal sepsis. WBC 2.6>6.8. T-max 100.7 F. is at the bedside. She reports that the patient drinks 2 to 3 fingerbreadths of whiskey 4 times daily. She raises concerns about alcohol withdrawal, which he apparently has experienced in the past. 07/11: Remains extubated. On BiPAP 10/4, FiO2 40%. He is awake, alert and oriented. Follows commands. Reports reasonable postoperative pain control. On dopamine at 6 mcg/kg/min after SvO2 was found to be 55%. WBC 8.7. Afebrile x24 hours. Gram stain from tracheal aspirate is isolating gram-negative rods. On cefepime/Flagyl/vancomycin, which was started for empiric coverage of abdominal sepsis. Off Precedex. No signs of delirium or psychomotor agitation at this time. CVP 13. 8/14: On 4 LPM via nasal cannula. And taking well. Doing well. Reports reasonable postoperative pain control. 400 to 500 mL on incentive spirometry. On cefepime/Flagyl/vancomycin. Trach aspirate (07/10) isolated E. coli and Klebsiella oxytoca. Blood cultures (07/09) isolated Streptococcus species. 07/13/2020-no acute events in the last 24 hours. Afebrile. Seen by Dr. Hunter. He wants to continue to clamp the NG tube and see the residual to evangelista prior to starting the feeds. Patient is downgraded from ICU yesterday. Patient has a total colectomy and ileostomy for pandiverticulosis and perforated cecum. Still has the NG tube in place. 07/14/2020-patient is still n.p.o., NG tube is clamped. Discussed the plan of care with Dr. Hunter he wants to wait until tomorrow and make addition about oral feeds versus TPN. Serum potassium is 3.3 to provide potassium supplementation by IV route. Patient is comfortable in the bed communicating well. 07/27/2020-patient is comfortable in the bed receiving nebulizer treatments. Received 2 units of PRBC yesterday hemoglobin is 10.1 today. Surgery signed off on him. No other acute events. Physical therapy is working with the patient and patient is still extremely weak. Once stable he prefers to go home. Reason For Visit: RECTAL BLEEDING Physical Exam Vital Signs: Temp Pulse Resp BP Pulse Ox 98.5 F 78 18 123/74 92 07/27/20 07:59 07/27/20 09:00 07/27/20 09:00 07/27/20 07:59 07/27/20 09:00 Pulse Oximeter Continuous Start: 07/20/20 09 :25 Freq: RTQ4 Status: Active Protocol: Document 07/27/20 09:00 [facility] (Rec: 07/27/20 09:20 [facility] [id number]) Pulse Oximetry Assessment Oxygen Saturation (92-100) 92 Oxygen Flow Rate (L/min) 3 Oxygen Delivery Method Nasal Cannula Equipment Usage Equipment Standby Continuous SpO2 Machine # 4 Intake & Output 07/26/20 07/27/20 07/28/20 06:59 06:59 06:59 Intake Total 650 Output Total 875 1200 Balance -875 -550 Weight 85.4 kg 84.6 kg General appearance: PRESENT: no acute distress, cooperative, well-developed Head exam: PRESENT: atraumatic Eye exam: PRESENT: PERRLA Mouth exam: PRESENT: neck supple Teeth exam: PRESENT: poor dentation Neck exam: ABSENT: carotid bruit, JVD, lymphadenopathy, thyromegaly Respiratory exam: PRESENT: decreased breath sounds Cardiovascular exam: PRESENT: tachycardia GI/Abdominal exam: PRESENT: other - Surgical site looks clean. Patient has colostomy bag. Rectal exam: PRESENT: deferred Extremities exam: PRESENT: full ROM. ABSENT: calf tenderness, clubbing, pedal edema Neurological exam: PRESENT: alert, awake, oriented to person, oriented to place, oriented to time, oriented to situation, CN II-XII grossly intact. ABSENT: motor sensory deficit Results Laboratory Results: 07/27/20 05:10 07/27/20 05:10 07/26/20 07/26/20 07/27/20 06:33 14:05 05:10 WBC 8.4 RBC 3.14 L Hgb 10.1 L D Hct 28.4 L MCV 90 MCH 32.0 MCHC 35.5 RDW 14.4 H Plt Count 424 Sodium Potassium Chloride Carbon Dioxide Anion Gap BUN Creatinine Est GFR ( Amer) Glucose Calcium Phosphorus Magnesium Albumin Stool Occult Blood NEGATIVE Blood Type O POSITIVE Antibody Screen NEGATIVE 07/27/20 05:10 WBC RBC Hgb Hct MCV MCH MCHC RDW Plt Count Sodium 132.9 L Potassium 3.8 Chloride 93 L Carbon Dioxide 35 H Anion Gap 5 BUN 28 H Creatinine 1.19 Est GFR ( Amer) > 60 Glucose 114 H Calcium 7.4 L Phosphorus 2.8 Magnesium 1.7 Albumin 2.5 L Stool Occult Blood Blood Type Antibody Screen 07/10/20 07/10/20 06:15 17:00 Troponin I 0.067 NT-Pro-B Natriuret Pep 2670 H 2860 H Impressions: KUB X-Ray 07/17/20 00:00 IMPRESSION: Ileus. Renal Ultrasound 07/18/20 00:00 IMPRESSION: Limited study. No hydronephrosis. Abdomen/Pelvis CT 07/21/20 00:00 IMPRESSION: 1. Fluid distended loops of small bowel, relatively diffuse. Small umbilical region hernia contains a knuckle of small bowel. This could represent a relative point of obstruction. Transition point not otherwise demonstrated. 2. Bilateral moderate pleural effusions, progressive compared to prior. Head CT 07/21/20 00:00 IMPRESSION: Mild chronic changes. No acute abnormality. EVIDENCE OF ACUTE STROKE: NO. PICC Line Insertion 07/22/20 00:00 IMPRESSION: SUCCESSFUL PLACEMENT OF A 5 FR DUAL LUMEN 38 CM PICC IN THE RIGHT BASILIC VEIN. Chest X-Ray 07/24/20 00:00 IMPRESSION: Patchy left midlung field and left retrocardiac airspace disease most likely atelectasis. Small left effusion cannot be excluded. Assessment and Plan - Diagnosis (1) Shock due to anesthesia, initial encounter Is this a current diagnosis for this admission?: Yes Plan: Resolved (2) Hypokalemia Is this a current diagnosis for this admission?: Yes Plan: Replete 07/13/2020-serum potassium is 3.3 today to provide supplementation. 07/14/2020-serum potassium today is 3.3 to give 20 mEq of IV potassium. 07/27/2020-serum potassium today 3.8 hyperkalemia resolved. (3) COPD (chronic obstructive pulmonary disease) Qualifiers: COPD type: chronic bronchitis Is this a current diagnosis for this admission?: No Plan: Stable at this time. Continue current medication regimen. (4) Acute on chronic blood loss anemia Is this a current diagnosis for this admission?: Yes Plan: Possibly related to gastritis/esophagitis. If fecal occult blood is positive I will notify surgery and he may need upper endoscopy tomorrow. Will maximize acid suppression. 07/27/2020-patient received 2 units of PRBC and IV iron. Hemoglobin is 10.1 today. Plan is to check the labs on daily basis. (5) COVID-19 ruled out by laboratory testing Is this a current diagnosis for this admission?: Yes (6) Alcohol withdrawal Qualifiers: Complication of substance-induced condition: uncomplicated Qualified Code(s): F10.230 - Alcohol dependence with withdrawal, uncomplicated Is this a current diagnosis for this admission?: Yes (7) Hypocalcemia Is this a current diagnosis for this admission?: Yes - Plan Summary Summary: - Time Anticipated Discharge Disposition: Home with Home Health Anticipated Discharge Timeframe: within 72 hours
[2020-07-27] MEDS: PANTOPRAZOLE SODIUM 40 MG VIAL IV SCH ×2 (10:34→21:33)
[2020-07-27] MEDS: FUROSEMIDE INJ/PF 20 MG/2 ML SDV IV SCH (10:34)
[2020-07-27] MEDS: HEPARIN SOD (PORCINE) 5,000 UNIT/ML 1 ML VIAL SUBCUT SCH ×2 (10:34→21:35)
[2020-07-27] MEDS: BUSPIRONE HCL 10 MG TABLET PO SCH ×2 (10:35→21:34)
[2020-07-27] MEDS: NORMAL SALINE 10 ML SDV (SCHEDULED) IV SCH ×2 (10:36→21:36)
--- NOTE | 2020-07-27 11:06 | PDOC CONSULTATION ---
Consultation Consult Date: 07/27/20 Attending physician:: DAGO BRYAN Provider Consulted: ALYSSA BUCK Consult reason:: Patient with recent multiple medical issues with severe anemia History of Present Illness Admission Date/PCP: 07/04/20 19:08 Patient complains of: Weakness, anemia History of Present Illness: DEE DUDLEY II is a 79 year old male who presented about 2 weeks ago with hagan diverticulitis and perforated cecum, had total colectomy, he has been quite anemic since then, and recently received blood transfusion with hemoglobin improvement to 10. Prior to transfusion this time he did have iron studies drawn but this was after transfusion originally was done soon after the colectomy. He feels pretty weak today, but otherwise no new complaints. Past Medical History Cardiac Medical History: Reports: Coronary Artery Disease, Hyperlipidema, Hypertension Pulmonary Medical History: Reports: Chronic Obstructive Pulmonary Disease (COPD) Psychiatric Medical History: Denies: Depression Past Surgical History Past Surgical History: Reports: Orthopedic Surgery - knee, Vascular Surgery - left carotid Social History Smoking Status: Former Smoker Cigarettes Packs Per Day: 0.5 Electronic Cigarette use?: No Number of Years Smokin Last Time Smoked: when he was 31 Frequency of Alcohol Use: Occasional Hx Recreational Drug Use: No Drugs: None Hx Prescription Drug Abuse: No - Advance Directive Resuscitation Status: Full Code Family History Family History: Reviewed & Not Pertinent Parental Family History Reviewed: Yes Children Family History Reviewed: Yes Sibling(s) Family History Reviewed.: Yes Medication/Allergy Home Medications: Alprazolam [Xanax 0.5 mg Tablet] 0.5 mg PO BIDP PRN 11/27/17 Ipratropium/Albuterol Sulfate [Duoneb 3 ml Ampul] 3 ml NEB RTQ6HP PRN 11/27/17 Tamsulosin HCl [Flomax 0.4 mg Cap.sr] 0.8 mg PO QHS 11/27/17 Albuterol Sulfate [Proair Hfa Inhalation Aerosol 8.5 gm Mdi] 2 puff IH QIDP PRN 07/04/20 Cetirizine HCl [Zyrtec 10 mg Tablet] 10 mg PO QHS 07/04/20 Cromolyn Sodium [Nasalcrom Nasal Gamaliel] 2 spray NASL 6XD 07/04/20 Terazosin HCl 10 mg PO QHS 07/04/20 Tiotropium Br/Olodaterol HCl [Stiolto Respimat Inhal Gamaliel] 2 puff IH BID 07/04/20 Allergies/Adverse Reactions: Goldsmith nut Allergy (Verified 07/04/20 11:55) ciprofloxacin [From Cipro] Allergy (Verified 07/04/20 11:55) meperidine HCl [From Demerol] Allergy (Verified 07/04/20 11:55) Review of Systems Constitutional: ABSENT: chills, fever(s), headache(s), weight gain, weight loss Eyes: ABSENT: visual disturbances Ears: ABSENT: hearing changes Cardiovascular: ABSENT: chest pain, dyspnea on exertion, edema, orthropnea, palpitations Respiratory: ABSENT: cough, hemoptysis Gastrointestinal: ABSENT: abdominal pain, constipation, diarrhea, hematemesis, hematochezia, nausea, vomiting Genitourinary: ABSENT: dysuria, hematuria Musculoskeletal: ABSENT: joint swelling Integumentary: ABSENT: rash, wounds Neurological: ABSENT: abnormal gait, abnormal speech, confusion, dizziness, focal weakness, syncope Psychiatric: ABSENT: anxiety, depression, homidical ideation, suicidal ideation Endocrine: ABSENT: cold intolerance, heat intolerance, polydipsia, polyuria Hematologic/Lymphatic: ABSENT: easy bleeding, easy bruising Physical Exam Vital Signs: Temp Pulse Resp BP Pulse Ox 98.5 F 78 18 123/74 92 07/27/20 07:59 07/27/20 09:00 07/27/20 09:00 07/27/20 07:59 07/27/20 09:00 Pulse Oximeter Continuous Start: 07/20/20 09:25 Freq: RTQ4 Status: Active Protocol: Document 07/27/20 09:00 [facility] (Rec: 07/27/20 09:20 [facility] [id number]) Pulse Oximetry Assessment Oxygen Saturation (92-100) 92 Oxygen Flow Rate (L/min) 3 Oxygen Delivery Method Nasal Cannula Equipment Usage Equipment Standby Continuous SpO2 Machine # 4 Intake & Output 07/26/20 07/27/20 07/28/20 06:59 06:59 06:59 Intake Total 650 Output Total 875 1200 Balance -875 -550 Weight 85.4 kg 84.6 kg General appearance: PRESENT: no acute distress, well-developed, well-nourished Head exam: PRESENT: atraumatic, normocephalic Eye exam: PRESENT: conjunctiva pink, EOMI, PERRLA. ABSENT: scleral icterus Ear exam: PRESENT: normal external ear exam Mouth exam: PRESENT: moist, tongue midline Neck exam: ABSENT: carotid bruit, JVD, lymphadenopathy, thyromegaly Respiratory exam: PRESENT: clear to auscultation sudha. ABSENT: rales, rhonchi, wheezes Cardiovascular exam: PRESENT: RRR. ABSENT: diastolic murmur, rubs, systolic murmur Pulses: PRESENT: normal dorsalis pedis pul Vascular exam: PRESENT: normal capillary refill GI/Abdominal exam: PRESENT: normal bowel sounds, soft. ABSENT: distended, guarding, mass, organolmegaly, rebound, tenderness Rectal exam: PRESENT: deferred Extremities exam: PRESENT: full ROM. ABSENT: calf tenderness, clubbing, pedal edema Neurological exam: PRESENT: alert, awake, oriented to person, oriented to place, oriented to time, oriented to situation, CN II-XII grossly intact. ABSENT: motor sensory deficit Psychiatric exam: PRESENT: appropriate affect, normal mood. ABSENT: homicidal ideation, suicidal ideation Skin exam: PRESENT: dry, intact, warm. ABSENT: cyanosis, rash Results Laboratory Results: 07/27/20 05:10 07/27/20 05:10 07/26/20 07/26/20 07/27/20 06:33 14:05 05:10 WBC 8.4 RBC 3.14 L Hgb 10.1 L D Hct 28.4 L MCV 90 MCH 32.0 MCHC 35.5 RDW 14.4 H Plt Count 424 Sodium Potassium Chloride Carbon Dioxide Anion Gap BUN Creatinine Est GFR ( Amer) Glucose Calcium Phosphorus Magnesium Albumin Stool Occult Blood NEGATIVE Blood Type O POSITIVE Antibody Screen NEGATIVE 07/27/20 05:10 WBC RBC Hgb Hct MCV MCH MCHC RDW Plt Count Sodium 132.9 L Potassium 3.8 Chloride 93 L Carbon Dioxide 35 H Anion Gap 5 BUN 28 H Creatinine 1.19 Est GFR ( Amer) > 60 Glucose 114 H Calcium 7.4 L Phosphorus 2.8 Magnesium 1.7 Albumin 2.5 L Stool Occult Blood Blood Type Antibody Screen 07/10/20 07/10/20 06:15 17:00 Troponin I 0.067 NT-Pro-B Natriuret Pep 2670 H 2860 H Impressions: KUB X-Ray 07/17/20 00:00 IMPRESSION: Ileus. Renal Ultrasound 07/18/20 00:00 IMPRESSION: Limited study. No hydronephrosis. Abdomen/Pelvis CT 07/21/20 00:00 IMPRESSION: 1. Fluid distended loops of small bowel, relatively diffuse. Small umbilical region hernia contains a knuckle of small bowel. This could represent a relative point of obstruction. Transition point not otherwise demonstrated. 2. Bilateral moderate pleural effusions, progressive compared to prior. Head CT 07/21/20 00:00 IMPRESSION: Mild chronic changes. No acute abnormality. EVIDENCE OF ACUTE STROKE: NO. PICC Line Insertion 07/22/20 00:00 IMPRESSION: SUCCESSFUL PLACEMENT OF A 5 FR DUAL LUMEN 38 CM PICC IN THE RIGHT BASILIC VEIN. Chest X-Ray 07/24/20 00:00 IMPRESSION: Patchy left midlung field and left retrocardiac airspace disease most likely atelectasis. Small left effusion cannot be excluded. Assessment & Plan - Diagnosis (1) Anemia Qualifiers: Anemia type: other cause Other causes of anemia: chronic disease, other Qualified Code(s): D63.8 - Anemia in other chronic diseases classified elsewhere Is this a current diagnosis for this admission?: Yes Plan: Multifactorial anemia, iron studies were done before this transfusion but he had transfusions prior to this so he could have been iron deficient initially because of the hagan diverticulitis. But he also has other ongoing medical issues that could be causing bone marrow suppression. At this point agree with transfusion, no other diagnostics needed. If hemoglobin falls below 8 would agree with transfusion further. - Time Time Spent: 50 to 70 Minutes - Inpatient Certification Based on my medical assessment, after consideration of the patient's comorbidities, presenting symptoms, or acuity I expect that the services needed warrant INPATIENT care.: Yes I certify that my determination is in accordance with my understanding of Medicare's requirements for reasonable and necessary INPATIENT services [42 CFR 412.3e].: Yes Medical Necessity: Risk of Complication if Not Cared For in Hospital
[2020-07-27] MEDS: ALPRAZOLAM 0.25 MG TABLET PO PRN ×2 (13:30→19:48)
[2020-07-27] MEDS: DOXAZOSIN MESYLATE 4 MG TABLET NG SCH (21:34)
[2020-07-27] MEDS: TAMSULOSIN HCL 0.4 MG CAP.SR.24H PO SCH (21:39)
[2020-07-28] MEDS: SUCRALFATE 1 GM TABLET PO SCH ×4 (00:13→17:28)
[2020-07-28] MEDS: INSULIN REG, HUMAN 100 UNIT/ML 3 ML VIAL (PYX) SUBCUT SCH ×5 (00:13→23:12)
[2020-07-28] MEDS: IPRATROPIUM/ALBUTEROL 0.5-2.5 MG/3 ML AMPUL NEB SCH ×4 (02:30→20:36)
[2020-07-28] MEDS: ALPRAZOLAM 0.25 MG TABLET PO PRN ×2 (06:52→14:58)
[2020-07-28] MEDS: BUDESONIDE NEB 0.25 MG/2 ML AMPUL NEB SCH ×2 (08:07→20:36)
[2020-07-28] MEDS: HEPARIN SOD (PORCINE) 5,000 UNIT/ML 1 ML VIAL SUBCUT SCH (11:10)
[2020-07-28] MEDS: BUSPIRONE HCL 10 MG TABLET PO SCH (11:10)
[2020-07-28] MEDS: PANTOPRAZOLE SODIUM 40 MG VIAL IV SCH (11:10)
[2020-07-28] MEDS: FUROSEMIDE INJ/PF 20 MG/2 ML SDV IV SCH (11:10)
[2020-07-28] MEDS: NORMAL SALINE 10 ML SDV (AFTER EACH USE) IV PRN (11:12)
[2020-07-28] MEDS: NORMAL SALINE 10 ML SDV (SCHEDULED) IV SCH (11:12)
--- NOTE | 2020-07-28 11:20 | PDOC PROGRESS REPORT ---
Subjective Progress Note for:: 07/28/20 Subjective:: 79-year-old male reformed smoker transferred to the ICU on 07/09/2020 postoperatively after undergoing total colectomy and ileostomy for pandiverticulosis and a perforated cecum. He arrived in the ICU under anesthesia and still endotracheally intubated. 07/10: The patient has been successfully extubated in the interim. He is currently on BiPAP 14/07. He is awake, alert and oriented. He follows commands. He reports reasonable postoperative pain control. He is off Levophed but is noted to be mildly hypotensive. He is on cefepime/Flagyl/vancomycin for empiric coverage of abdominal sepsis. WBC 2.6>6.8. T-max 100.7 F. is at the bedside. She reports that the patient drinks 2 to 3 fingerbreadths of whiskey 4 times daily. She raises concerns about alcohol withdrawal, which he apparently has experienced in the past. 07/11: Remains extubated. On BiPAP 10/4, FiO2 40%. He is awake, alert and oriented. Follows commands. Reports reasonable postoperative pain control. On dopamine at 6 mcg/kg/min after SvO2 was found to be 55%. WBC 8.7. Afebrile x24 hours. Gram stain from tracheal aspirate is isolating gram-negative rods. On cefepime/Flagyl/vancomycin, which was started for empiric coverage of abdominal sepsis. Off Precedex. No signs of delirium or psychomotor agitation at this time. CVP 13. 8/14: On 4 LPM via nasal cannula. And taking well. Doing well. Reports reasonable postoperative pain control. 400 to 500 mL on incentive spirometry. On cefepime/Flagyl/vancomycin. Trach aspirate (07/10) isolated E. coli and Klebsiella oxytoca. Blood cultures (07/09) isolated Streptococcus species. 07/13/2020-no acute events in the last 24 hours. Afebrile. Seen by Dr. Hunter. He wants to continue to clamp the NG tube and see the residual to evangelista prior to starting the feeds. Patient is downgraded from ICU yesterday. Patient has a total colectomy and ileostomy for pandiverticulosis and perforated cecum. Still has the NG tube in place. 07/14/2020-patient is still n.p.o., NG tube is clamped. Discussed the plan of care with Dr. Hunter he wants to wait until tomorrow and make addition about oral feeds versus TPN. Serum potassium is 3.3 to provide potassium supplementation by IV route. Patient is comfortable in the bed communicating well. 07/27/2020-patient is comfortable in the bed receiving nebulizer treatments. Received 2 units of PRBC yesterday hemoglobin is 10.1 today. Surgery signed off on him. No other acute events. Physical therapy is working with the patient and patient is still extremely weak. Once stable he prefers to go home. 07/28/20-patient is in mild distress has extreme difficulty in working with ph ysical therapy. It is most likely secondary to generalized weakness. No acute events in the last 24 hours. Reason For Visit: RECTAL BLEEDING Physical Exam Vital Signs: Temp Pulse Resp BP Pulse Ox 98.3 F 85 20 126/63 H 92 07/28/20 08:00 07/28/20 08:07 07/28/20 08:07 07/28/20 08:00 07/28/20 08:07 Pulse Oximeter Continuous Start: 07/20/20 09:25 Freq: RTQ4 Status: Active Protocol: Document 07/28/20 08:07 [facility] (Rec: 07/28/20 08:22 [facility] [id number]) Pulse Oximetry Assessment Oxygen Saturation (92-100) 92 Oxygen Flow Rate (L/min) 3 Oxygen Delivery Method Nasal Cannula Equipment Usage Equipment Standby Continuous SpO2 Machine # 4 Intake & Output 07/27/20 07/28/20 07/29/20 06:59 06:59 06:59 Intake Total 650 120 Output Total 1200 995 Balance -550 -875 Weight 84.6 kg 85.2 kg General appearance: PRESENT: cooperative, mild distress, well-developed Head exam: PRESENT: atraumatic Eye exam: PRESENT: conjunctiva pale, PERRLA Mouth exam: PRESENT: moist, tongue midline Teeth exam: PRESENT: poor dentation Neck exam: ABSENT: carotid bruit, JVD, lymphadenopathy, thyromegaly Respiratory exam: PRESENT: clear to auscultation sudha. ABSENT: rales, rhonchi, wheezes Cardiovascular exam: PRESENT: RRR. ABSENT: diastolic murmur, rubs, systolic murmur GI/Abdominal exam: PRESENT: normal bowel sounds, soft. ABSENT: distended, guar ding, mass, organolmegaly, rebound, tenderness Rectal exam: PRESENT: deferred Extremities exam: PRESENT: full ROM. ABSENT: calf tenderness, clubbing, pedal edema Neurological exam: PRESENT: alert, awake, oriented to person, oriented to place, oriented to time, oriented to situation, CN II-XII grossly intact. ABSENT: motor sensory deficit Psychiatric exam: PRESENT: appropriate affect, normal mood. ABSENT: homicidal ideation, suicidal ideation Results Laboratory Results: 07/27/20 05:10 07/27/20 05:10 07/10/20 07/10/20 06:15 17:00 Troponin I 0.067 NT-Pro-B Natriuret Pep 2670 H 2860 H Impressions: KUB X-Ray 07/17/20 00:00 IMPRESSION: Ileus. Renal Ultrasound 07/18/20 00:00 IMPRESSION: Limited study. No hydronephrosis. Abdomen/Pelvis CT 07/21/20 00:00 IMPRESSION: 1. Fluid distended loops of small bowel, relatively diffuse. Small umbilical region hernia contains a knuckle of small bowel. This could represent a relative point of obstruction. Transition point not otherwise demonstrated. 2. Bilateral moderate pleural effusions, progressive compared to prior. Head CT 07/21/20 00:00 IMPRESSION: Mild chronic changes. No acute abnormality. EVIDENCE OF ACUTE STROKE: NO. PICC Line Insertion 07/22/20 00:00 IMPRESSION: SUCCESSFUL PLACEMENT OF A 5 FR DUAL LUMEN 38 CM PICC IN THE RIGHT BASILIC VEIN. Chest X-Ray 07/24/20 00:00 IMPRESSION: Patchy left midlung field and left retrocardiac airspace disease most likely atelectasis. Small left effusion cannot be excluded. Assessment and Plan - Diagnosis (1) Shock due to anesthesia, initial encounter Is this a current diagnosis for this admission?: Yes Plan: Resolved (2) Hypokalemia Is this a current diagnosis for this admission?: Yes Plan: Replete 07/13/2020-serum potassium is 3.3 today to provide supplementation. 07/14/2020-serum potassium today is 3.3 to give 20 mEq of IV potassium. 07/27/2020-serum potassium today 3.8 hyperkalemia resolved. (3) COPD (chronic obstructive pulmonary disease) Qualifiers: COPD type: chronic bronchitis Is this a current diagnosis for this admission?: No Plan: Stable at this time. Continue current medication regimen. (4) Acute on chronic blood loss anemia Is this a current diagnosis for this admission?: Yes Plan: Possibly related to gastritis/esophagitis. If fecal occult blood is positive I will notify surgery and he may need upper endoscopy tomorrow. Will maximize acid suppression. 07/27/2020-patient received 2 units of PRBC and IV iron. Hemoglobin is 10.1 today. Plan is to check the labs on daily basis. (5) COVID-19 ruled out by laboratory testing Is this a current diagnosis for this admission?: Yes (6) Alcohol withdrawal Qualifiers: Complication of substance-induced condition: uncomplicated Qualified Code(s): F10.230 - Alcohol dependence with withdrawal, uncomplicated Is this a current diagnosis for this admission?: Yes Plan: We will continue to monitor (7) Hypocalcemia Is this a current diagnosis for this admission?: Yes Plan: - corrected Ca 8.4, low normal. Will give 1 dose IV Ca gluconate (8) Physical deconditioning Is this a current diagnosis for this admission?: Yes Plan: 07/28/2020-patient is extremely weak unable to participate with physical therapy well. (9) Perforation of cecum due to diverticulitis Is this a current diagnosis for this admission?: Yes Plan: Surgically repaired. Functioning ileostomy. With his recurrent drop in hemoglobin I did speak to surgery. We will check fecal occult blood. If this is positive he may need upper endoscopy. From the complaint of discomfort swallowing the Protonix (which is a very small pill) I will change Protonix to 40 mg twice daily IV but he still requires Carafate and I may use scheduled Maalox. 07/28/2020-patient has a functioning ileostomy. Surgical site looks clean. - Plan Summary Summary: - Time Anticipated Discharge Disposition: Home with Home Health Anticipated Discharge Timeframe: within 72 hours
[2020-07-29] MEDS: DOXAZOSIN MESYLATE 4 MG TABLET NG SCH ×2 (00:32→23:16)
[2020-07-29] MEDS: TAMSULOSIN HCL 0.4 MG CAP.SR.24H PO SCH ×2 (00:32→23:17)
[2020-07-29] MEDS: BUSPIRONE HCL 10 MG TABLET PO SCH ×3 (00:32→23:15)
[2020-07-29] MEDS: NORMAL SALINE 10 ML SDV (SCHEDULED) IV SCH ×3 (00:33→23:17)
[2020-07-29] MEDS: HEPARIN SOD (PORCINE) 5,000 UNIT/ML 1 ML VIAL SUBCUT SCH ×3 (00:33→23:17)
[2020-07-29] MEDS: PANTOPRAZOLE SODIUM 40 MG VIAL IV SCH ×2 (00:33→11:51)
[2020-07-29] MEDS: SUCRALFATE 1 GM TABLET PO SCH ×5 (00:34→23:17)
[2020-07-29] MEDS: IPRATROPIUM/ALBUTEROL 0.5-2.5 MG/3 ML AMPUL NEB SCH ×4 (02:30→20:00)
[2020-07-29 06:51] LABS: HEMATOCRIT 28.5 % (37.9-51.0); HEMOGLOBIN 9.9 g/dL (13.5-17.0); MEAN CORPUSCULAR HEMOGLOBIN 31.7 pg (27.0-33.4); MEAN CORPUSCULAR HGB CONC 34.8 g/dL (32.0-36.0); MEAN CORPUSCULAR VOLUME 91 fl (80-97); PLATELET COUNT 337 10^3/uL (150-450); RED BLOOD COUNT 3.13 10^6/uL (4.35-5.55); RED CELL DISTRIBUTION WIDTH 14.2 % (11.5-14.0); WHITE BLOOD COUNT 7.8 10^3/uL (4.0-10.5)
[2020-07-29 07:26] LABS: ALBUMIN 2.5 g/dL (3.5-5.0); ALKALINE PHOSPHATASE 76 U/L (38-126); ASPARTATE AMINO TRANSFERASE 41 U/L (17-59); BILIRUBIN,DIRECT 0.3 mg/dL (0.0-0.4); BILIRUBIN,TOTAL 0.7 mg/dL (0.2-1.3); BLOOD UREA NITROGEN 17 mg/dL (7-20); CALCIUM 7.9 mg/dL (8.4-10.2); GLUCOSE 119 mg/dL (75-110); POTASSIUM 3.9 mmol/L (3.6-5.0); TOTAL PROTEIN 5.2 g/dL (6.3-8.2)
[2020-07-29 07:31] LABS: ANION GAP 5 (5-19); CARBON DIOXIDE 35 mmol/L (22-30); CHLORIDE 92 mmol/L (98-107)
--- NOTE | 2020-07-29 08:00 | PDOC PROGRESS REPORT ---
Subjective Progress Note for:: 07/29/20 Subjective:: No acute events overnight Reason For Visit: RECTAL BLEEDING Physical Exam Vital Signs: Temp Pulse Resp BP Pulse Ox 98.4 F 83 16 104/55 L 95 07/29/20 00:00 07/29/20 07:00 07/29/20 02:32 07/29/20 00:00 07/29/20 04:00 Pulse Oximeter Continuous Start: 07/20/20 09:25 Freq: RTQ4 Status: Active Protocol: Document 07/29/20 04:00 [facility] (Rec: 07/29/20 06:29 [facility] [id number]) Pulse Oximetry Assessment Oxygen Saturation (92-100) 95 Oxygen Flow Rate (L/min) 3 Oxygen Delivery Method Nasal Cannula Equipment Usage Equipment Standby Continuous SpO2 Machine # 4 Intake & Output 07/28/20 07/29/20 07/30/20 06:59 06:59 06:59 Intake Total 120 980 Output Total 995 2650 Balance -875 -1670 Weight 85.2 kg 81.4 kg General appearance: PRESENT: no acute distress, well-developed, well-nourished Head exam: PRESENT: atraumatic, normocephalic Eye exam: PRESENT: conjunctiva pink, EOMI, PERRLA. ABSENT: scleral icterus Ear exam: PRESENT: normal external ear exam Mouth exam: PRESENT: moist, tongue midline Neck exam: ABSENT: carotid bruit, JVD, lymphadenopathy, thyromegaly Respiratory exam: PRESENT: clear to auscultation sudha. ABSENT: rales, rhonchi, wheezes Cardiovascular exam: PRESENT: RRR. ABSENT: diastolic murmur, rubs, systolic murmur Pulses: PRESENT: normal dorsalis pedis pul Vascular exam: PRESENT: normal capillary refill GI/Abdominal exam: PRESENT: normal bowel sounds, soft. ABSENT: distended, guarding, mass, organolmegaly, rebound, tenderness Rectal exam: PRESENT: deferred Extremities exam: PRESENT: full ROM. ABSENT: calf tenderness, clubbing, pedal edema Neurological exam: PRESENT: alert, awake, oriented to person, oriented to place, oriented to time, oriented to situation, CN II-XII grossly intact. ABSENT: motor sensory deficit Psychiatric exam: PRESENT: appropriate affect, normal mood. ABSENT: homicidal ideation, suicidal ideation Skin exam: PRESENT: dry, intact, warm. ABSENT: cyanosis, rash Results Laboratory Results: 07/29/20 06:28 07/29/20 06:28 07/29/20 07/29/20 06:28 06:28 WBC 7.8 RBC 3.13 L Hgb 9.9 L Hct 28.5 L MCV 91 MCH 31.7 MCHC 34.8 RDW 14.2 H Plt Count 337 Seg Neutrophils % Not Reportable Sodium 131.6 L Potassium 3.9 Chloride 92 L Carbon Dioxide 35 H Anion Gap 5 BUN 17 Creatinine 1.10 Est GFR ( Amer) > 60 Glucose 119 H Calcium 7.9 L Magnesium 1.6 Total Bilirubin 0.7 AST 41 Alkaline Phosphatase 76 Total Protein 5.2 L Albumin 2.5 L 07/10/20 07/10/20 06:15 17:00 Troponin I 0.067 NT-Pro-B Natriuret Pep 2670 H 2860 H Impressions: KUB X-Ray 07/17/20 00:00 IMPRESSION: Ileus. Renal Ultrasound 07/18/20 00:00 IMPRESSION: Limited study. No hydronephrosis. Abdomen/Pelvis CT 07/21/20 00:00 IMPRESSION: 1. Fluid distended loops of small bowel, relatively diffuse. Small umbilical region hernia contains a knuckle of small bowel. This could represent a relative point of obstruction. Transition point not otherwise demonstrated. 2. Bilateral moderate pleural effusions, progressive compared to prior. Head CT 07/21/20 00:00 IMPRESSION: Mild chronic changes. No acute abnormality. EVIDENCE OF ACUTE STROKE: NO. PICC Line Insertion 07/22/20 00:00 IMPRESSION: SUCCESSFUL PLACEMENT OF A 5 FR DUAL LUMEN 38 CM PICC IN THE RIGHT BASILIC VEIN. Chest X-Ray 07/24/20 00:00 IMPRESSION: Patchy left midlung field and left retrocardiac airspace disease most likely atelectasis. Small left effusion cannot be excluded. Assessment & Plan - Diagnosis (1) Anemia Qualifiers: Anemia type: other cause Other causes of anemia: chronic disease, other Qualified Code(s): D63.8 - Anemia in other chronic diseases classified elsewhere Is this a current diagnosis for this admission?: Yes Plan: Hemoglobin stable, transfuse if it falls below 8, no other intervention possible - Time Time Spent with patient: 15-24 minutes Disposition: We will follow peripherally please call with questions
[2020-07-29 09:05] LABS: ABSOLUTE LYMPHOCYTES# (MANUAL) 0.8 10^3/uL (0.5-4.7); ABSOLUTE MONOCYTES # (MANUAL) 0.7 10^3/uL (0.1-1.4); BAND NEUTROPHILS % (MANUAL) 5 % (3-5); BASOPHILS % (MANUAL) 0 % (0-2); EOSINOPHILS % (MANUAL) 3 % (0-6); LYMPHOCYTES % (MANUAL) 8 % (13-45); METAMYELOCYTES % (MANUAL) 1 % (0-1); MONOCYTES % (MANUAL) 9 % (3-13); SEGMENTED NEUTROPHILS % (MAN) 72 % (42-78); TOTAL CELLS COUNTED 100
[2020-07-29 09:06] LABS: ANISOCYTOSIS SLIGHT; POIKILOCYTOSIS 1+; POLYCHROMASIA SLIGHT
[2020-07-29 09:07] LABS: PLATELET COMMENT ADEQUATE; STOMATOCYTES 1+
[2020-07-29] MEDS: INSULIN REG, HUMAN 100 UNIT/ML 3 ML VIAL (PYX) SUBCUT SCH ×4 (09:10→23:17)
[2020-07-29] MEDS: BUDESONIDE NEB 0.25 MG/2 ML AMPUL NEB SCH ×2 (09:43→20:00)
--- NOTE | 2020-07-29 10:00 | PDOC PROGRESS REPORT ---
Subjective Progress Note for:: 07/29/20 Subjective:: 79-year-old male reformed smoker transferred to the ICU on 07/09/2020 postoperatively after undergoing total colectomy and ileostomy for pandiverticulosis and a perforated cecum. He arrived in the ICU under anesthesia and still endotracheally intubated. 07/10: The patient has been successfully extubated in the interim. He is currently on BiPAP 14/07. He is awake, alert and oriented. He follows commands. He reports reasonable postoperative pain control. He is off Levophed but is noted to be mildly hypotensive. He is on cefepime/Flagyl/vancomycin for empiric coverage of abdominal sepsis. WBC 2.6>6.8. T-max 100.7 F. is at the bedside. She reports that the patient drinks 2 to 3 fingerbreadths of whiskey 4 times daily. She raises concerns about alcohol withdrawal, which he apparently has experienced in the past. 07/11: Remains extubated. On BiPAP 10/4, FiO2 40%. He is awake, alert and oriented. Follows commands. Reports reasonable postoperative pain control. On dopamine at 6 mcg/kg/min after SvO2 was found to be 55%. WBC 8.7. Afebrile x24 hours. Gram stain from tracheal aspirate is isolating gram-negative rods. On cefepime/Flagyl/vancomycin, which was started for empiric coverage of abdominal sepsis. Off Precedex. No signs of delirium or psychomotor agitation at this time. CVP 13. 8/14: On 4 LPM via nasal cannula. And taking well. Doing well. Reports reasonable postoperative pain control. 400 to 500 mL on incentive spirometry. On cefepime/Flagyl/vancomycin. Trach aspirate (07/10) isolated E. coli and Klebsiella oxytoca. Blood cultures (07/09) isolated Streptococcus species. 07/13/2020-no acute events in the last 24 hours. Afebrile. Seen by Dr. Hunter. He wants to continue to clamp the NG tube and see the residual to evangelista prior to starting the feeds. Patient is downgraded from ICU yesterday. Patient has a total colectomy and ileostomy for pandiverticulosis and perforated cecum. Still has the NG tube in place. 07/14/2020-patient is still n.p.o., NG tube is clamped. Discussed the plan of care with Dr. Hunter he wants to wait until tomorrow and make addition about oral feeds versus TPN. Serum potassium is 3.3 to provide potassium supplementation by IV route. Patient is comfortable in the bed communicating well. 07/27/2020-patient is comfortable in the bed receiving nebulizer treatments. Received 2 units of PRBC yesterday hemoglobin is 10.1 today. Surgery signed off on him. No other acute events. Physical therapy is working with the patient and patient is still extremely weak. Once stable he prefers to go home. 07/28/20-patient is in mild distress has extreme difficulty in working with ph ysical therapy. It is most likely secondary to generalized weakness. No acute events in the last 24 hours. 07/29/2020-patient complaining of extreme weakness. Complaining of lack of appetite. Not interested in breakfast. Patient was strongly encouraged to eat. Physical therapy is working with the patient. Reason For Visit: RECTAL BLEEDING Physical Exam Vital Signs: Temp Pulse Resp BP Pulse Ox 98.4 F 85 16 104/55 L 95 07/29/20 00:00 07/29/20 09:43 07/29/20 09:43 07/29/20 00:00 07/29/20 09:43 Pulse Oximeter Continuous Start: 07/20/20 09:25 Freq: RTQ4 Status: Active Protocol: Document 07/29/20 09:43 [facility] (Rec: 07/29/20 09:50 [facility] [id number]) Additional RT Notes Other Patient is not using bipap Pulse Oximetry Assessment Oxygen Saturation (92-100) 95 Oxygen Flow Rate (L/min) 3 Oxygen Delivery Method Nasal Cannula Equipment Usage Equipment Standby Continuous SpO2 Machine # 4 Intake & Output 07/28/20 07/29/20 07/30/20 06:59 06:59 06:59 Intake Total 120 980 Output Total 992 0880 Balance -875 -1670 Weight 85.2 kg 81.4 kg General appearance: PRESENT: no acute distress, cooperative, well-developed Head exam: PRESENT: atraumatic Eye exam: PRESENT: PERRLA Mouth exam: PRESENT: moist, tongue midline Teeth exam: PRESENT: poor dentation Neck exam: ABSENT: carotid bruit, JVD, lymphadenopathy, thyromegaly Respiratory exam: PRESENT: decreased breath sounds Cardiovascular exam: PRESENT: RRR. ABSENT: diastolic murmur, rubs, systolic murmur GI/Abdominal exam: PRESENT: other - Surgical site looks clean. Colostomy bag in place. Rectal exam: PRESENT: deferred Neurological exam: PRESENT: alert, awake, oriented to person, oriented to place, oriented to time, oriented to situation, CN II-XII grossly intact. ABSENT: motor sensory deficit Psychiatric exam: PRESENT: appropriate affect, normal mood. ABSENT: homicidal ideation, suicidal ideation Results Laboratory Results: 07/29/20 06:28 07/29/20 06:28 07/29/20 07/29/20 06:28 06:28 WBC 7.8 RBC 3.13 L Hgb 9.9 L Hct 28.5 L MCV 91 MCH 31.7 MCHC 34.8 RDW 14.2 H Plt Count 337 Seg Neutrophils % Not Reportable Sodium 131.6 L Potassium 3.9 Chloride 92 L Carbon Dioxide 35 H Anion Gap 5 BUN 17 Creatinine 1.10 Est GFR ( Amer) > 60 Glucose 119 H Calcium 7.9 L Magnesium 1.6 Total Bilirubin 0.7 AST 41 Alkaline Phosphatase 76 Total Protein 5.2 L Albumin 2.5 L 07/10/20 07/10/20 06:15 17:00 Troponin I 0.067 NT-Pro-B Natriuret Pep 2670 H 2860 H Impressions: KUB X-Ray 07/17/20 00:00 IMPRESSION: Ileus. Renal Ultrasound 07/18/20 00:00 IMPRESSION: Limited study. No hydronephrosis. Abdomen/Pelvis CT 07/21/20 00:00 IMPRESSION: 1. Fluid distended loops of small bowel, relatively diffuse. Small umbilical region hernia contains a knuckle of small bowel. This could represent a relative point of obstruction. Transition point not otherwise demonstrated. 2. Bilateral moderate pleural effusions, progressive compared to prior. Head CT 07/21/20 00:00 IMPRESSION: Mild chronic changes. No acute abnormality. EVIDENCE OF ACUTE STROKE: NO. PICC Line Insertion 07/22/20 00:00 IMPRESSION: SUCCESSFUL PLACEMENT OF A 5 FR DUAL LUMEN 38 CM PICC IN THE RIGHT BASILIC VEIN. Chest X-Ray 07/24/20 00:00 IMPRESSION: Patchy left midlung field and left retrocardiac airspace disease most likely atelectasis. Small left effusion cannot be excluded. Assessment and Plan - Diagnosis (1) Shock due to anesthesia, initial encounter Is this a current diagnosis for this admission?: Yes Plan: Resolved (2) Hypokalemia Is this a current diagnosis for this admission?: Yes Plan: Replete 07/13/2020-serum potassium is 3.3 today to provide supplementation. 07/14/2020-serum potassium today is 3.3 to give 20 mEq of IV potassium. 07/27/2020-serum potassium today 3.8 hypokalemia resolved. 07/29/2020-serum potassium is 3.9 hypokalemia resolved. (3) COPD (chronic obstructive pulmonary disease) Qualifiers: COPD type: chronic bronchitis Is this a current diagnosis for this admission?: No Plan: Stable at this time. Continue current medication regimen. (4) Acute on chronic blood loss anemia Is this a current diagnosis for this admission?: Yes Plan: Possibly related to gastritis/esophagitis. If fecal occult blood is positive I will notify surgery and he may need upper endoscopy tomorrow. Will maximize acid suppression. 07/27/2020-patient received 2 units of PRBC and IV iron. Hemoglobin is 10.1 today. Plan is to check the labs on daily basis. 07/29/2020-hemoglobin is 9.9. Stable. Plan is to closely monitor the hemoglobin on regular basis. (5) COVID-19 ruled out by laboratory testing Is this a current diagnosis for this admission?: Yes (6) Alcohol withdrawal Qualifiers: Complication of substance-induced condition: uncomplicated Qualified Code(s): F10.230 - Alcohol dependence with withdrawal, uncomplicated Is this a current diagnosis for this admission?: Yes Plan: We will continue to monitor (7) Hypocalcemia Is this a current diagnosis for this admission?: Yes Plan: - corrected Ca 8.4, low normal. Will give 1 dose IV Ca gluconate (8) Physical deconditioning Is this a current diagnosis for this admission?: Yes Plan: 07/28/2020-patient is extremely weak unable to participate with physical therapy well. (9) Perforation of cecum due to diverticulitis Is this a current diagnosis for this admission?: Yes Plan: Surgically repaired. Functioning ileostomy. With his recurrent drop in hemoglobin I did speak to surgery. We will check fecal occult blood. If this is positive he may need upper endoscopy. From the complaint of discomfort swall owing the Protonix (which is a very small pill) I will change Protonix to 40 mg twice daily IV but he still requires Carafate and I may use scheduled Maalox. 07/28/2020-patient has a functioning ileostomy. Surgical site looks clean. - Plan Summary Summary: - Time Anticipated Discharge Disposition: Home with Home Health Anticipated Discharge Timeframe: within 48 hours
[2020-07-29] MEDS: FUROSEMIDE INJ/PF 20 MG/2 ML SDV IV SCH (11:51)
[2020-07-30] MEDS: IPRATROPIUM/ALBUTEROL 0.5-2.5 MG/3 ML AMPUL NEB SCH ×4 (02:41→20:21)
[2020-07-30] MEDS: SUCRALFATE 1 GM TABLET PO SCH ×4 (05:34→23:14)
[2020-07-30] MEDS: INSULIN REG, HUMAN 100 UNIT/ML 3 ML VIAL (PYX) SUBCUT SCH ×4 (07:12→23:02)
[2020-07-30] MEDS: BUDESONIDE NEB 0.25 MG/2 ML AMPUL NEB SCH ×2 (07:51→20:22)
[2020-07-30] MEDS: BUSPIRONE HCL 10 MG TABLET PO SCH ×2 (10:15→23:05)
[2020-07-30] MEDS: HEPARIN SOD (PORCINE) 5,000 UNIT/ML 1 ML VIAL SUBCUT SCH ×2 (10:15→23:04)
[2020-07-30] MEDS: FUROSEMIDE INJ/PF 20 MG/2 ML SDV IV SCH (10:16)
[2020-07-30] MEDS: NORMAL SALINE 10 ML SDV (SCHEDULED) IV SCH ×2 (10:16→23:05)
--- NOTE | 2020-07-30 17:21 | PDOC PROGRESS REPORT ---
Subjective Progress Note for:: 07/30/20 Subjective:: The patient is up, awake and alert. He is just having some dinner. His is at the bedside. Reason For Visit: RECTAL BLEEDING Physical Exam Vital Signs: Temp Pulse Resp BP Pulse Ox 97.4 F 90 18 110/55 L 92 07/30/20 12:00 07/30/20 14:21 07/30/20 14:21 07/30/20 12:00 07/30/20 14:21 Pulse Oximeter Continuous Start: 07/20/20 09:25 Freq: RTQ4 Status: Complete Protocol: Document 07/29/20 09:43 [facility] (Rec: 07/29/20 09:50 [facility] [id number]) Additional RT Notes Other Patient is not using bipap Pulse Oximetry Assessment Oxygen Saturation (92-100) 95 Oxygen Flow Rate (L/min) 3 Oxygen Delivery Method Nasal Cannula Equipment Usage Equipment Standby Continuous SpO2 Machine # 4 Intake & Output 07/29/20 07/30/20 07/31/20 06:59 06:59 06:59 Intake Total 980 842 236 Output Total 2650 2850 800 [facility] -1670 -2008 -564 Weight 81.4 kg 81.2 kg General appearance: PRESENT: no acute distress, cooperative, well-developed Head exam: PRESENT: atraumatic, normocephalic Ear exam: PRESENT: normal external ear exam. ABSENT: bleeding, drainage Mouth exam: PRESENT: dry mucosa, tongue midline Respiratory exam: PRESENT: clear to auscultation sudha, symmetrical, unlabored. ABSENT: rales, rhonchi, tachypnea, wheezes Cardiovascular exam: PRESENT: RRR, +S1, +S2. ABSENT: bradycardia, diastolic murmur, irregular rhythm, systolic murmur, tachycardia GI/Abdominal exam: PRESENT: distended, normal bowel sounds, soft, other - Ileostomy functioning normally. Surgical incision appears clean and dry Rectal exam: PRESENT: deferred, other - Yellow-guzman material in the ileostomy bag Gentrourinary exam: PRESENT: indwelling catheter Extremities exam: ABSENT: pedal edema Musculoskeletal exam: PRESENT: normal inspection. ABSENT: deformity, dislocation Neurological exam: PRESENT: alert, awake, oriented to person, oriented to place, oriented to situation, CN II-XII grossly intact Psychiatric exam: PRESENT: appropriate affect. ABSENT: agitated, anxious Focused psych exam: ABSENT: delusional, paranoid, restlessness Skin exam: PRESENT: dry, normal color, warm. ABSENT: rash Results Laboratory Results: 07/29/20 06:28 07/29/20 06:28 07/10/20 07/10/20 06:15 17:00 Troponin I 0.067 NT-Pro-B Natriuret Pep 2670 H 2860 H Impressions: KUB X-Ray 07/17/20 00:00 IMPRESSION: Ileus. Renal Ultrasound 07/18/20 00:00 IMPRESSION: Limited study. No hydronephrosis. Abdomen/Pelvis CT 07/21/20 00:00 IMPRESSION: 1. Fluid distended loops of small bowel, relatively diffuse. Small umbilical region hernia contains a knuckle of small bowel. This could represent a relative point of obstruction. Transition point not otherwise demonstrated. 2. Bilateral moderate pleural effusions, progressive compared to prior. Head CT 07/21/20 00:00 IMPRESSION: Mild chronic changes. No acute abnormality. EVIDENCE OF ACUTE STROKE: NO. PICC Line Insertion 07/22/20 00:00 IMPRESSION: SUCCESSFUL PLACEMENT OF A 5 FR DUAL LUMEN 38 CM PICC IN THE RIGHT BASILIC VEIN. Chest X-Ray 07/24/20 00:00 IMPRESSION: Patchy left midlung field and left retrocardiac airspace disease most likely atelectasis. Small left effusion cannot be excluded. Assessment and Plan - Diagnosis (1) Perforation of cecum due to diverticulitis Is this a current diagnosis for this admission?: Yes Plan: Ileostomy is functioning well. His is starting to learn ostomy care. Incision appears to be healing. (2) Acute respiratory failure with hypoxemia Is this a current diagnosis for this admission?: Yes Plan: Remains on nasal cannula (3) COPD (chronic obstructive pulmonary disease) Qualifiers: COPD type: chronic bronchitis Is this a current diagnosis for this admission?: No Plan: Continued nebulizer treatments and oxygen supplementation (4) Pleural effusion Is this a current diagnosis for this admission?: Yes Plan: Greatly improved (5) Acute on chronic blood loss anemia Is this a current diagnosis for this admission?: Yes Plan: Has received multiple transfusions thus far. Reticulocyte count was elevated. It is likely his significant critical illness. Hopefully he will start making red blood cells and stabilize his anemia. (6) Critical illness myopathy Is this a current diagnosis for this admission?: Yes Plan: Would benefit from care home but refuses. Will acquire a hospital bed and discharge the patient when the equipment is in place. We will arrange home health. (7) Iron deficiency anemia Qualifiers: Iron deficiency anemia type: unspecified iron deficiency Qualified Code(s): D50.9 - Iron deficiency anemia, unspecified Is this a current diagnosis for this admission?: Yes Plan: Received 2 more units of packed red blood cells recently. This should help the iron. Consider iron supplement additionally. (8) Encephalopathy Is this a current diagnosis for this admission?: Yes Plan: Appears to have resolved (9) ANU (acute kidney injury) Is this a current diagnosis for this admission?: Yes Plan: Resolved - Plan Summary Summary: - Time Time Spent with patient: 15-24 minutes Medications reviewed and adjusted accordingly: Yes Anticipated Discharge Disposition: Home with Home Health Anticipated Discharge Timeframe: within 72 hours
[2020-07-30] MEDS: DOXAZOSIN MESYLATE 4 MG TABLET NG SCH (23:06)
[2020-07-30] MEDS: TAMSULOSIN HCL 0.4 MG CAP.SR.24H PO SCH (23:06)
[2020-07-31] MEDS: IPRATROPIUM/ALBUTEROL 0.5-2.5 MG/3 ML AMPUL NEB SCH ×4 (02:34→20:54)
[2020-07-31] MEDS: SUCRALFATE 1 GM TABLET PO SCH ×4 (06:00→23:49)
[2020-07-31 06:58] LABS: HEMATOCRIT 30.4 % (37.9-51.0); HEMOGLOBIN 10.5 g/dL (13.5-17.0); MEAN CORPUSCULAR HEMOGLOBIN 31.2 pg (27.0-33.4); MEAN CORPUSCULAR HGB CONC 34.6 g/dL (32.0-36.0); MEAN CORPUSCULAR VOLUME 90 fl (80-97); PLATELET COUNT 298 10^3/uL (150-450); RED BLOOD COUNT 3.38 10^6/uL (4.35-5.55); WHITE BLOOD COUNT 8.7 10^3/uL (4.0-10.5)
[2020-07-31 07:31] LABS: ANION GAP 5 (5-19); BLOOD UREA NITROGEN 17 mg/dL (7-20); CALCIUM 8.1 mg/dL (8.4-10.2); CARBON DIOXIDE 31 mmol/L (22-30); CHLORIDE 95 mmol/L (98-107); GLUCOSE 114 mg/dL (75-110); POTASSIUM 4.5 mmol/L (3.6-5.0)
[2020-07-31 07:45] LABS: ABSOLUTE MONOCYTES # (MANUAL) 0.9 10^3/uL (0.1-1.4); BAND NEUTROPHILS % (MANUAL) 4 % (3-5); BASOPHILS % (MANUAL) 0 % (0-2); EOSINOPHILS % (MANUAL) 2 % (0-6); LYMPHOCYTES % (MANUAL) 11 % (13-45); MONOCYTES % (MANUAL) 10 % (3-13); SEGMENTED NEUTROPHILS % (MAN) 72 % (42-78); TOTAL CELLS COUNTED 100
[2020-07-31] MEDS: INSULIN REG, HUMAN 100 UNIT/ML 3 ML VIAL (PYX) SUBCUT SCH ×4 (07:47→21:43)
[2020-07-31 07:48] LABS: ANISOCYTOSIS SLIGHT; OVALOCYTES SLIGHT; PLATELET COMMENT ADEQUATE; POIKILOCYTOSIS SLIGHT; POLYCHROMASIA SLIGHT; TEAR DROP CELLS SLIGHT
[2020-07-31] MEDS: BUDESONIDE NEB 0.25 MG/2 ML AMPUL NEB SCH ×2 (08:53→20:54)
[2020-07-31] MEDS: FUROSEMIDE 20 MG TABLET PO SCH (09:55)
[2020-07-31] MEDS: MULTIVITAMINS W-IRON TABLET, CHEWABLE PO SCH (09:55)
[2020-07-31] MEDS: BUSPIRONE HCL 10 MG TABLET PO SCH ×2 (09:55→21:49)
[2020-07-31] MEDS: HEPARIN SOD (PORCINE) 5,000 UNIT/ML 1 ML VIAL SUBCUT SCH ×2 (09:56→21:50)
[2020-07-31] MEDS: NORMAL SALINE 10 ML SDV (SCHEDULED) IV SCH ×2 (09:56→21:49)
--- NOTE | 2020-07-31 12:30 | PDOC PROGRESS REPORT ---
Subjective Progress Note for:: 07/31/20 Subjective:: Patient is up in the chair. He appears comfortable. Reason For Visit: RECTAL BLEEDING Physical Exam Vital Signs: Temp Pulse Resp BP Pulse Ox 97.5 F 95 16 123/61 95 07/30/20 23:14 07/31/20 08:53 07/31/20 08:53 07/30/20 23:14 07/31/20 08:53 Pulse Oximeter Continuous Start: 07/20/20 09:25 Freq: RTQ4 Status: Complete Protocol: Document 07/29/20 09:43 [facility] (Rec: 07/29/20 09:50 [facility] [id number]) Additional RT Notes Other Patient is not using bipap Pulse Oximetry Assessment Oxygen Saturation (92-100) 95 Oxygen Flow Rate (L/min) 3 Oxygen Delivery Method Nasal Cannula Equipment Usage Equipment Standby Continuous SpO2 Machine # 4 Intake & Output 07/30/20 07/31/20 08/01/20 06:59 06:59 06:59 Intake Total 842 472 Output Total 2853 2965 Balance -2007 Weight 81.2 kg 64.2 kg General appearance: PRESENT: no acute distress, cooperative, well-developed Head exam: PRESENT: atraumatic, normocephalic Respiratory exam: PRESENT: rales - Faint rales at bases, symmetrical, unlabored. ABSENT: rhonchi, tachypnea, wheezes Cardiovascular exam: PRESENT: RRR, +S1, +S2 GI/Abdominal exam: PRESENT: normal bowel sounds, soft, other - Midline incision with functioning ileostomy. ABSENT: distended, guarding, tenderness Rectal exam: PRESENT: deferred Gentrourinary exam: PRESENT: indwelling catheter Extremities exam: ABSENT: pedal edema Musculoskeletal exam: PRESENT: ambulatory - With physical therapy, normal inspection. ABSENT: deformity, dislocation Neurological exam: PRESENT: alert, awake, oriented to person, oriented to place, oriented to situation, CN II-XII grossly intact Psychiatric exam: PRESENT: flat affect. ABSENT: agitated, anxious Focused psych exam: ABSENT: delusional, paranoid, restlessness Skin exam: PRESENT: dry, normal color, warm Results Laboratory Results: 07/31/20 06:45 07/31/20 06:45 07/31/20 07/31/20 06:45 06:45 WBC 8.7 RBC 3.38 L Hgb 10.5 L Hct 30.4 L MCV 90 MCH 31.2 MCHC 34.6 RDW 14.0 Plt Count 298 Seg Neutrophils % Not Reportable Sodium 130.8 L Potassium 4.5 Chloride 95 L Carbon Dioxide 31 H Anion Gap 5 BUN 17 Creatinine 0.93 Est GFR ( Amer) > 60 Glucose 114 H Calcium 8.1 L Magnesium 1.6 07/10/20 07/10/20 06:15 17:00 Troponin I 0.067 NT-Pro-B Natriuret Pep 2670 H 2860 H Impressions: KUB X-Ray 07/17/20 00:00 IMPRESSION: Ileus. Renal Ultrasound 07/18/20 00:00 IMPRESSION: Limited study. No hydronephrosis. Abdomen/Pelvis CT 07/21/20 00:00 IMPRESSION: 1. Fluid distended loops of small bowel, relatively diffuse. Small umbilical region hernia contains a knuckle of small bowel. This could represent a relative point of obstruction. Transition point not otherwise demonstrated. 2. Bilateral moderate pleural effusions, progressive compared to prior. Head CT 07/21/20 00:00 IMPRESSION: Mild chronic changes. No acute abnormality. EVIDENCE OF ACUTE STROKE: NO. PICC Line Insertion 07/22/20 00:00 IMPRESSION: SUCCESSFUL PLACEMENT OF A 5 FR DUAL LUMEN 38 CM PICC IN THE RIGHT BASILIC VEIN. Chest X-Ray 07/24/20 00:00 IMPRESSION: Patchy left midlung field and left retrocardiac airspace disease most likely atelectasis. Small left effusion cannot be excluded. Assessment and Plan - Diagnosis (1) Perforation of cecum due to diverticulitis Is this a current diagnosis for this admission?: Yes Plan: Continue training the patient's with ostomy care. (2) Acute respiratory failure with hypoxemia Is this a current diagnosis for this admission?: Yes Plan: The patient reports that he is already on oxygen at home. Continue current regimen. (3) COPD (chronic obstructive pulmonary disease) Qualifiers: COPD type: chronic bronchitis Is this a current diagnosis for this admission?: No Plan: Continued nebulizer treatments and oxygen supplementation. Patient is on home oxygen therapy. (4) Pleural effusion Is this a current diagnosis for this admission?: Yes Plan: Greatly improved (5) Acute on chronic blood loss anemia Is this a current diagnosis for this admission?: Yes Plan: Hemoglobin is actually up to 10.5. Stools are Hemoccult negative. (6) Critical illness myopathy Is this a current diagnosis for this admission?: Yes Plan: Continue physical therapy. The patient's refuses residential placement. Will order appropriate DME for the home as well as home health with physical therapy and residential to monitor patient status as well as ongoing ostomy teaching. (7) Iron deficiency anemia Qualifiers: Iron deficiency anemia type: unspecified iron deficiency Qualified Code(s): D50.9 - Iron deficiency anemia, unspecified Is this a current diagnosis for this admission?: Yes Plan: Hemoglobin is up to 10.5. Low-dose iron supplement initiated. (8) Encephalopathy Is this a current diagnosis for this admission?: Yes Plan: Appears to have resolved (9) ANU (acute kidney injury) Is this a current diagnosis for this admission?: Yes Plan: Resolved (10) Hyponatremia Is this a current diagnosis for this admission?: Yes Plan: Serum sodium is down to 131. We will institute a modest fluid restriction. We may need to discontinue the furosemide as well. We will continue to monitor electrolytes. - Plan Summary Summary: - Time Time Spent with patient: 15-24 minutes Medications reviewed and adjusted accordingly: Yes Anticipated Discharge Disposition: Home with Home Health Anticipated Discharge Timeframe: within 72 hours
[2020-07-31] MEDS: DOXAZOSIN MESYLATE 4 MG TABLET NG SCH (21:48)
[2020-07-31] MEDS: ALPRAZOLAM 0.25 MG TABLET PO PRN (21:49)
[2020-07-31] MEDS: TAMSULOSIN HCL 0.4 MG CAP.SR.24H PO SCH (21:49)
[2020-08-01] MEDS: IPRATROPIUM/ALBUTEROL 0.5-2.5 MG/3 ML AMPUL NEB SCH ×4 (02:38→20:36)
[2020-08-01] MEDS: SUCRALFATE 1 GM TABLET PO SCH ×4 (06:09→23:24)
[2020-08-01 06:44] LABS: HEMATOCRIT 31.1 % (37.9-51.0); HEMOGLOBIN 10.6 g/dL (13.5-17.0); MEAN CORPUSCULAR HGB CONC 34.1 g/dL (32.0-36.0); MEAN CORPUSCULAR VOLUME 91 fl (80-97); PLATELET COUNT 270 10^3/uL (150-450); RED BLOOD COUNT 3.42 10^6/uL (4.35-5.55); RED CELL DISTRIBUTION WIDTH 13.8 % (11.5-14.0); WHITE BLOOD COUNT 8.7 10^3/uL (4.0-10.5)
[2020-08-01 07:04] LABS: ANION GAP 6 (5-19); BLOOD UREA NITROGEN 15 mg/dL (7-20); CALCIUM 8.4 mg/dL (8.4-10.2); CARBON DIOXIDE 31 mmol/L (22-30); CHLORIDE 94 mmol/L (98-107); GLUCOSE 120 mg/dL (75-110); POTASSIUM 4.6 mmol/L (3.6-5.0)
[2020-08-01] MEDS: BUDESONIDE NEB 0.25 MG/2 ML AMPUL NEB SCH ×2 (08:39→20:36)
[2020-08-01] MEDS: INSULIN REG, HUMAN 100 UNIT/ML 3 ML VIAL (PYX) SUBCUT SCH ×4 (09:53→22:15)
[2020-08-01] MEDS: MULTIVITAMINS W-IRON TABLET, CHEWABLE PO SCH (10:13)
[2020-08-01] MEDS: HEPARIN SOD (PORCINE) 5,000 UNIT/ML 1 ML VIAL SUBCUT SCH ×2 (10:14→22:24)
[2020-08-01] MEDS: NORMAL SALINE 10 ML SDV (SCHEDULED) IV SCH ×2 (10:16→22:25)
[2020-08-01] MEDS: NORMAL SALINE 10 ML SDV (AFTER EACH USE) IV PRN (10:16)
[2020-08-01] MEDS: BUSPIRONE HCL 10 MG TABLET PO SCH ×2 (10:16→22:24)
[2020-08-01] MEDS: FUROSEMIDE 20 MG TABLET PO SCH (10:16)
[2020-08-01] MEDS: FERROUS SULFATE 325 MG TABLET PO SCH (10:17)
[2020-08-01] MEDS ORDERED: RINGERS SOLUTION,LACTATED 1,000 ML IV PRN (12:01)
--- NOTE | 2020-08-01 12:10 | PDOC PROGRESS REPORT ---
Subjective Progress Note for:: 08/01/20 Subjective:: The patient is sitting in bed eating lunch. He is quite comfortable. Physical therapy reports that when they went to start working with him he became orthostatic with a drop in his blood pressure. They had him rest back in bed. This is unusual as it has not happened for him in the past. Reason For Visit: RECTAL BLEEDING Physical Exam Vital Signs: Temp Pulse Resp BP Pulse Ox 97.6 F 90 16 105/61 95 07/31/20 23:46 08/01/20 08:39 08/01/20 08:39 07/31/20 23:46 08/01/20 08:39 Pulse Oximeter Continuous Start: 07/20/20 09:25 Freq: RTQ4 Status: Complete Protocol: Document 07/29/20 09:43 [facility] (Rec: 07/29/20 09:50 [facility] [id number]) Additional RT Notes Other Patient is not using bipap Pulse Oximetry Assessment Oxygen Saturation (92-100) 95 Oxygen Flow Rate (L/min) 3 Oxygen Delivery Method Nasal Cannula Equipment Usage Equipment Standby Continuous SpO2 Machine # 4 Intake & Output 07/31/20 08/01/20 08/02/20 06:59 06:59 06:59 Intake Total 472 920 Output Total 1826 4535 Balance -1453 -955 Weight 64.2 kg 64.6 kg General appearance: PRESENT: no acute distress, cooperative, well-developed, well-nourished Head exam: PRESENT: atraumatic, normocephalic Mouth exam: PRESENT: moist, tongue midline Respiratory exam: PRESENT: clear to auscultation sudha, symmetrical, unlabored. ABSENT: rales, rhonchi, tachypnea, wheezes Cardiovascular exam: PRESENT: RRR, +S1, +S2 GI/Abdominal exam: PRESENT: normal bowel sounds, soft, other - Small amount of drainage at the distal end of the incision. ABSENT: tenderness Rectal exam: PRESENT: deferred Gentrourinary exam: PRESENT: indwelling catheter Extremities exam: ABSENT: pedal edema Musculoskeletal exam: PRESENT: normal inspection. ABSENT: deformity, dislocation Neurological exam: PRESENT: alert, awake, oriented to person, oriented to place, oriented to situation, CN II-XII grossly intact Psychiatric exam: PRESENT: appropriate affect. ABSENT: agitated, anxious Focused psych exam: ABSENT: delusional, paranoid, restlessness Results Laboratory Results: 08/01/20 06:25 08/01/20 06:25 08/01/20 08/01/20 06:25 06:25 WBC 8.7 RBC 3.42 L Hgb 10.6 L Hct 31.1 L MCV 91 MCH 31.0 MCHC 34.1 RDW 13.8 Plt Count 270 Sodium 131.1 L Potassium 4.6 Chloride 94 L Carbon Dioxide 31 H Anion Gap 6 BUN 15 Creatinine 0.89 Est GFR ( Amer) > 60 Glucose 120 H Calcium 8.4 Magnesium 1.7 07/10/20 07/10/20 06:15 17:00 Troponin I 0.067 NT-Pro-B Natriuret Pep 2670 H 2860 H Impressions: KUB X-Ray 07/17/20 00:00 IMPRESSION: Ileus. Renal Ultrasound 07/18/20 00:00 IMPRESSION: Limited study. No hydronephrosis. Abdomen/Pelvis CT 07/21/20 00:00 IMPRESSION: 1. Fluid distended loops of small bowel, relatively diffuse. Small umbilical region hernia contains a knuckle of small bowel. This could represent a relative point of obstruction. Transition point not otherwise demonstrated. 2. Bilateral moderate pleural effusions, progressive compared to prior. Head CT 07/21/20 00:00 IMPRESSION: Mild chronic changes. No acute abnormality. EVIDENCE OF ACUTE STROKE: NO. PICC Line Insertion 07/22/20 00:00 IMPRESSION: SUCCESSFUL PLACEMENT OF A 5 FR DUAL LUMEN 38 CM PICC IN THE RIGHT BASILIC VEIN. Chest X-Ray 07/24/20 00:00 IMPRESSION: Patchy left midlung field and left retrocardiac airspace disease most likely atelectasis. Small left effusion cannot be excluded. Assessment and Plan - Diagnosis (1) Orthostatic hypotension Is this a current diagnosis for this admission?: Yes Plan: The patient had a marked drop in systolic pressure when he began to mobilize for physical therapy. Physical therapy was abandoned. He has had significant negative fluid balance. I will give him a liter of fluid and discontinue his furosemide and Cardura. We will keep the Flomax for his prostate. Recheck orthostatic pressures. (2) Perforation of cecum due to diverticulitis Is this a current diagnosis for this admission?: Yes Plan: Removed every other staple. Small amount of serous drainage distally. Will have surgery check the incision. (3) Acute respiratory failure with hypoxemia Is this a current diagnosis for this admission?: Yes Plan: Stable on nasal cannula (4) COPD (chronic obstructive pulmonary disease) Qualifiers: COPD type: chronic bronchitis Is this a current diagnosis for this admission?: No Plan: Continue current regimen (5) Pleural effusion Is this a current diagnosis for this admission?: Yes Plan: Resolved (6) Acute on chronic blood loss anemia Is this a current diagnosis for this admission?: Yes Plan: Hemoglobin has been stable (7) Critical illness myopathy Is this a current diagnosis for this admission?: Yes Plan: Has been doing well with physical therapy with the exception of today. Therapy was abandoned due to orthostasis. (8) Iron deficiency anemia Qualifiers: Iron deficiency anemia type: unspecified iron deficiency Qualified Code(s): D50.9 - Iron deficiency anemia, unspecified Is this a current diagnosis for this admission?: Yes Plan: Hemoglobin is up to 10.6. Low-dose iron supplement initiated. (9) Encephalopathy Is this a current diagnosis for this admission?: Yes Plan: Appears to have resolved (10) ANU (acute kidney injury) Is this a current diagnosis for this admission?: Yes Plan: Resolved (11) Hyponatremia Is this a current diagnosis for this admission?: Yes Plan: Continues in the low 130s. We are going to hold his Lasix because of the orthostasis. His sodium should improve. - Plan Summary Summary: - Time Time Spent with patient: 15-24 minutes Medications reviewed and adjusted accordingly: Yes Anticipated Discharge Disposition: Home, Self Care Anticipated Discharge Timeframe: within 48 hours
[2020-08-01] MEDS: ALPRAZOLAM 0.25 MG TABLET PO PRN (20:29)
[2020-08-01] MEDS: TAMSULOSIN HCL 0.4 MG CAP.SR.24H PO SCH (22:24)
[2020-08-02] MEDS: IPRATROPIUM/ALBUTEROL 0.5-2.5 MG/3 ML AMPUL NEB SCH ×2 (02:15→08:19)
[2020-08-02] MEDS: SUCRALFATE 1 GM TABLET PO SCH ×2 (05:36→13:20)
[2020-08-02] MEDS: BUDESONIDE NEB 0.25 MG/2 ML AMPUL NEB SCH (08:19)
[2020-08-02] MEDS: INSULIN REG, HUMAN 100 UNIT/ML 3 ML VIAL (PYX) SUBCUT SCH ×2 (09:58→12:31)
[2020-08-02] MEDS: BUSPIRONE HCL 10 MG TABLET PO SCH (10:08)
[2020-08-02] MEDS: FERROUS SULFATE 325 MG TABLET PO SCH (10:08)
[2020-08-02] MEDS: HEPARIN SOD (PORCINE) 5,000 UNIT/ML 1 ML VIAL SUBCUT SCH (10:10)
[2020-08-02] MEDS: NORMAL SALINE 10 ML SDV (SCHEDULED) IV SCH (10:10)
[2020-08-02] MEDS: MULTIVITAMINS W-IRON TABLET, CHEWABLE PO SCH (10:10)
--- NOTE | 2020-08-02 12:11 | PDOC DISCHARGE SUMMARY ---
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 Is this a current diagnosis for this admission?: Yes (3) Acute respiratory failure with hypoxemia Is this a current diagnosis for this admission?: Yes (4) COPD (chronic obstructive pulmonary disease) Is this a current diagnosis for this admission?: No (5) Pleural effusion Is this a current diagnosis for this admission?: Yes (6) Acute on chronic blood loss anemia Is this a current diagnosis for this admission?: Yes (7) Critical illness myopathy Is this a current diagnosis for this admission?: Yes (8) Iron deficiency anemia Is this a current diagnosis for this admission?: Yes (9) Encephalopathy Is this a current diagnosis for this admission?: Yes (10) ANU (acute kidney injury) Is this a current diagnosis for this admission?: Yes (11) Hyponatremia Is this a current diagnosis for this admission?: Yes - Assessment Summary: - Additional Information Resuscitation Status: Full Code Discharge Diet: Regular Discharge Activity: Balance Activity w/Rest Referrals: [facility] [Provider Group] (OFFICE IS CLOSED TODAY 08/02, WE WILL TRY TO CALL AGAIN ON MONDAY 08/06 WHEN OFFICE REOPENS AFTER .) CARLEY CAMACHO MD [NO LOCAL MD] - 08/08/20 10:45 am Prescriptions: Buspirone HCl [Buspar 10 mg Tablet] 5 mg PO Q12 #15 tablet Sucralfate [Carafate 1 gm Tablet] 1 gm PO Q6 #60 tablet Home Medications: Alprazolam [Xanax 0.5 mg Tablet] 0.5 mg PO BIDP PRN 11/27/17 Ipratropium/Albuterol Sulfate [Duoneb 3 ml Ampul] 3 ml NEB RTQ6HP PRN 11/27/17 Tamsulosin HCl [Flomax 0.4 mg Cap.sr] 0.8 mg PO QHS 11/27/17 Albuterol Sulfate [Proair HFA Inhalation Aerosol 8.5 gm MDI] 2 puff IH QIDP PRN 07/04/20 Cetirizine HCl [Zyrtec 10 mg Tablet] 10 mg PO QHS 07/04/20 Cromolyn Sodium [Nasalcrom Nasal [place] (5.2 mg/[place]) 26 ml] 2 spray NASL 6XD 07/04/20 Tiotropium Br/Olodaterol HCl [Stiolto Respimat Inhal [place]] 2 puff IH BID 07/04/20 Buspirone HCl [Buspar 10 mg Tablet] 5 mg PO Q12 #15 tablet 08/02/20 Ferrous Sulfate [Feosol 325 mg Tablet] 325 mg PO DAILY tablet 08/02/20 Ipratropium/Albuterol Sulfate [Duoneb 3 ml Ampul] 3 ml NEB RTQ6 vial.neb 08/02/20 Mag Hydrox/Al Hydrox/Simeth [Maalox Plus Susp 30 Udcup] 30 ml PO Q2HP PRN udc 08/02/20 Multivitamins W-Iron [Flintstones Chewable Multivit W/Fe Tab] 2 tab PO DAILY tab.chew 08/02/20 Sucralfate [Carafate 1 gm Tablet] 1 gm PO Q6 #60 tablet 08/02/20 Sulfamethoxazole/Trimethoprim [Septra-Ds 800-160 mg Tablet] 1 tab PO BID 7 Days #14 tablet 08/03/20 History of Present Illiness History of Present Illness: DEE DUDLEY II is a 79 year old male past medical history of COPD, on 2 L nasal cannula, internal hemorrhoids, BPH, presenting to ED complaining of multiple episodes of bloody bowel movements since Wednesday, before that patient had noticed tarry stool but never had hematochezia before, patient used to have colonic polyps and has had several colonoscopies in the past, last colonoscopy was 5 years ago and he was told that he had internal hemorrhoids, patient recently visited ED but was sent home to follow-up with gastroenterology, today he went to see Dr. Marrero guardian family member and he was sent to ED immediately. Patient denies any history of gastric intestinal malignancy, NSAID abuse, nosebleed, hematemesis, hemoptysis or hematuria. Recently patient has been getting weaker and has noticed that he gets short of breath upon exertion, denies any fever, abdominal pain, chest pain, nausea, diarrhea, or urinary symptoms. In ED was noted to have guaiac positive stool and Dr. Marrero guardian family member was contacted and he suggested for patient to be admitted and he will scope him once he is stable. Hospital Course Hospital Course: The patient had a long and complicated hospital course. Colon perforation with colectomy and ileostomy-the patient's ileostomy was working well at discharge. His was learning ostomy care. Every other staple was removed. The nurse reported a small amount of drainage from the distal end of the incision that was not characterized as bloody or purulent. The remaining stephanie will be left in until his follow-up visit at the surgery clinic. He actually was feeling quite well at discharge. He has been afebrile and not had an elevated white count and had no complaints of discomfort. Chronic obstructive pulmonary disease-patient is breathing comfortably. He in fact is already on oxygen at home. He is back to his baseline. He will resume his previous regimen at home. He in fact has a nebulizer machine as well. Acute on chronic blood loss anemia-during the course of his stay he received a total of 6 units of packed red blood cells. At discharge his hemoglobin has been stable. At discharge I encouraged him to continue the iron supplement that he had been on at the hospital along with vitamin C. Pleural effusion-he did have a pleural effusion during the hospitalization but this has resolved. In addition he experienced an acute kidney injury as well as an encephalopathy, likely metabolic from his complex illness, that have resolved the time of discharge. Hyponatremia is stable. His sodium was in the low 130s. Hypotension-the patient's blood pressure has varied during his hospitalization. He was working with physical therapy and experience a drop in blood pressure but we did give him a fluid bolus and this has resolved. Critical illness myopathy-due to the prolonged and complex nature of his illness the patient has gotten very weak. He has been doing more with physical therapy. It was the opinion of the physicians as well as therapy that the patient transferred to a residential facility for ongoing rehab. The patient's refused. She states that she has taken care of patients in this condition and successfully rehabilitated them. She reports having all of the equipment necessary with the exception of a Charlotte lift in hospital bed. I did provide orders for these items and they were in fact delivered to the home prior to the patient's discharge. The patient's PICC line was removed prior to discharge. His Craig catheter was removed this morning and he did void prior to discharge. Prescriptions were forwarded to the pharmacy of record. He will need to follow-up with the surgical clinic as well as his primary care provider post discharge. Physical Exam Vital Signs: Temp Pulse Resp BP Pulse Ox 97.7 F 99 16 126/66 H 96 08/01/20 23:30 08/02/20 08:19 08/02/20 08:19 08/01/20 23:30 08/02/20 08:19 Pulse Oximeter Continuous Start: 07/20/20 09:25 Freq: RTQ4 Status: Complete Protocol: Document 07/29/20 09:43 [facility] (Rec: 07/29/20 09:50 [facility] [id number]) Additional RT Notes Other Patient is not using bipap Pulse Oximetry Assessment Oxygen Saturation (92-100) 95 Oxygen Flow Rate (L/min) 3 Oxygen Delivery Method Nasal Cannula Equipment Usage Equipment Standby Continuous SpO2 Machine # 4 Intake & Output 08/01/20 08/02/20 08/03/20 06:59 06:59 06:59 Intake Total 920 1340 Output Total 1875 2170 Balance -955 -830 Weight 64.6 kg 67.3 kg General appearance: PRESENT: no acute distress, cooperative, well-developed Head exam: PRESENT: atraumatic, normocephalic Respiratory exam: PRESENT: symmetrical, unlabored, other - Congested cough. ABSENT: tachypnea, wheezes Cardiovascular exam: PRESENT: RRR, +S1, +S2 GI/Abdominal exam: PRESENT: normal bowel sounds, soft, other - Ileostomy in place Neurological exam: PRESENT: alert, awake, oriented to person, oriented to place, oriented to situation Psychiatric exam: PRESENT: appropriate affect - Happy about discharge to home. ABSENT: agitated, anxious Results Laboratory Results: WBC 8.7 10^3/uL (4.0-10.5) 08/01/20 06:25 RBC 3.42 10^6/uL (4.35-5.55) L 08/01/20 06:25 Hgb 10.6 g/dL (13.5-17.0) L 08/01/20 06:25 Hct 31.1 % (37.9-51.0) L 08/01/20 06:25 MCV 91 fl (80-97) 08/01/20 06:25 MCH 31.0 pg (27.0-33.4) 08/01/20 06:25 MCHC 34.1 g/dL (32.0-36.0) 08/01/20 06:25 RDW 13.8 % (11.5-14.0) 08/01/20 06:25 Plt Count 270 10^3/uL (150-450) 08/01/20 06:25 Lymph % (Auto) Not Reportable 07/31/20 06:45 [place] % (Auto) Not Reportable 07/31/20 06:45 Eos % (Auto) Not Reportable 07/31/20 06:45 Baso % (Auto) Not Reportable 07/31/20 06:45 Reticulocyte # 0.072 10^6/uL (0.028-0.122) 07/26/20 05:10 Absolute Neuts (auto) Not Reportable 07/31/20 06:45 Absolute Lymphs (auto) Not Reportable 07/31/20 06:45 Absolute Monos (auto) Not Reportable 07/31/20 06:45 Absolute Eos (auto) Not Reportable 07/31/20 06:45 Absolute Basos (auto) Not Reportable 07/31/20 06:45 Total Counted 100 07/31/20 06:45 Seg Neutrophils % Not Reportable 07/31/20 06:45 Seg Neuts % (Manual) 72 % (42-78) 07/31/20 06:45 Band Neutrophils % 4 % (3-5) 07/31/20 06:45 Lymphocytes % (Manual) 11 % (13-45) L 07/31/20 06:45 Atypical Lymphs % 1 % (0) 07/31/20 06:45 Monocytes % (Manual) 10 % (3-13) 07/31/20 06:45 Eosinophils % (Manual) 2 % (0-6) 07/31/20 06:45 Basophils % (Manual) 0 % (0-2) 07/31/20 06:45 Metamyelocytes % 1 % (0-1) 07/29/20 06:28 Abs Neuts (Manual) 6.6 10^3/uL (1.7-8.2) 07/31/20 06:45 Abs Lymphs (Manual) 1.0 10^3/uL (0.5-4.7) 07/31/20 06:45 Abs Monocytes (Manual) 0.9 10^3/uL (0.1-1.4) 07/31/20 06:45 Absolute Eos (Manual) 0.2 10^3/uL (0.0-0.6) 07/31/20 06:45 Abs Basophils (Manual) 0.0 10^3/uL (0.0-0.2) 07/31/20 06:45 Nucleated RBCs 2 /100 WBC (0) 07/10/20 06:15 Toxic Granulation 1+ 07/21/20 09:40 Toxic Vacuolation PRESENT 07/19/20 05:28 Platelet Estimate Cancelled 07/24/20 06:35 Clumped Platelets PRESENT 07/19/20 05:28 Platelet Comment ADEQUATE 07/31/20 06:45 Polychromasia SLIGHT 07/31/20 06:45 Poikilocytosis SLIGHT 07/31/20 06:45 Basophilic Stippling PRESENT 07/31/20 06:45 Anisocytosis SLIGHT 07/31/20 06:45 Macrocytosis SLIGHT 07/17/20 06:55 Tear Drop Cells SLIGHT 07/31/20 06:45 Ovalocytes SLIGHT 07/31/20 06:45 Stomatocytes 1+ 07/29/20 06:28 Retic Count (auto) 3.16 % (0.66-2.85) H 07/26/20 05:10 PT 14.4 SEC (11.4-15.4) 07/05/20 05:56 INR 1.10 07/05/20 05:56 APTT 31.4 SEC (23.5-35.8) 07/05/20 05:56 Carbonic Acid 1.32 mmol/L (1.05-1.35) 07/26/20 06:15 HCO3/H2CO3 Ratio 26:1 07/26/20 06:15 ABG pH 7.52 (7.35-7.45) H 07/26/20 06:15 ABG pCO2 43.7 mmHg (35-45) 07/26/20 06:15 ABG pO2 44.4 mmHg (80-100) L 07/26/20 06:15 ABG HCO3 35.0 mmol/L (20-24) H 07/26/20 06:15 ABG Total CO2 36.4 mmol/L (23-27) H 07/26/20 06:15 ABG O2 Saturation 84.8 % (94-98) L 07/26/20 06:15 ABG Base Excess 11.2 mmol/L 07/26/20 06:15 VBG pH 7.29 (7.30-7.42) L 07/09/20 18:27 VBG pCO2 50.3 mmHg (35-63) 07/09/20 18:27 VBG HCO3 23.6 mmol/L (20-32) 07/09/20 18: VBG Base Excess -2.9 mmol/L 07/09/20 18:27 FiO2 21% 07/26/20 06:15 Sodium 131.1 mmol/L (137-145) L 08/01/20 06:25 Potassium 4.6 mmol/L (3.6-5.0) 08/01/20 06:25 Chloride 94 mmol/L (98-107) L 08/01/20 06:25 Carbon Dioxide 31 mmol/L (22-30) H 08/01/20 06:25 Anion Gap 6 (5-19) 08/01/20 06:25 BUN 15 mg/dL (7-20) 08/01/20 06:25 Creatinine 0.89 mg/dL (0.52-1.25) 08/01/20 06:25 Est GFR ( Amer) > 60 (>60) 08/01/20 06:25 Est GFR (Non-Af Amer) Cancelled 07/24/20 06:35 Est GFR (MDRD) Non-Af > 60 (>60) 08/01/20 06:25 Glucose 120 mg/dL (75-110) H 08/01/20 06:25 POC Glucose 129 mg/dL (70-110) H 08/02/20 11:27 Lactic Acid 0.8 mmol/L (0.7-2.1) 07/20/20 18:58 Calcium 8.4 mg/dL (8.4-10.2) 08/01/20 06:25 Ionized Calcium Nicolas 0.98 mmol/L (1.14-1.30) L 07/10/20 20:25 Phosphorus 2.8 mg/dL (2.5-4.5) 07/27/20 05:10 Magnesium 1.7 mg/dL (1.6-2.3) 08/01/20 06:25 Iron < 10.1 ug/dL (49-181) L 07/26/20 05:10 TIBC 212 ug/dL (250-450) L 07/26/20 05:10 Iron Saturation UNABLE TO CALCULATE % (20% - 50%) 07/26/20 05:10 Ferritin 222.00 ng/mL (17.9-464.0) 07/26/20 05:10 Total Bilirubin 0.7 mg/dL (0.2-1.3) 07/29/20 06:28 Direct Bilirubin 0.3 mg/dL (0.0-0.4) 07/29/20 06:28 Neonat Total Bilirubin Not Reportable 07/29/20 06:28 Neonat Direct Bilirubin Not Reportable 07/29/20 06:28 Neonat Indirect Bili Not Reportable 07/29/20 06:28 AST 41 U/L (17-59) 07/29/20 06:28 ALT 47 U/L (<50) 07/29/20 06:28 Alkaline Phosphatase 76 U/L (38-126) 07/29/20 06:28 Ammonia < 8.7 umol/L (9-33) L 07/21/20 09:40 Troponin I 0.067 ng/mL 07/10/20 17:00 NT-Pro-B Natriuret Pep 2860 pg/mL (<450) H 07/10/20 17:00 Total Protein 5.2 g/dL (6.3-8.2) L 07/29/20 06:28 Albumin 2.5 g/dL (3.5-5.0) L 07/29/20 06:28 Triglycerides 89 mg/dL (<150) 07/22/20 20:49 EGFR Cancelled 07/24/20 06:35 Vitamin B12 887.0 pg/mL (239-931) 07/26/20 05:10 Folate 11.80 ng/mL (>2.76) 07/26/20 05:10 Urine Color YELLOW 07/18/20 14:40 Urine Appearance CLOUDY 07/18/20 14:40 Urine pH 6.0 (5.0-9.0) 07/18/20 14:40 Ur Specific [place] 1.017 07/18/20 14:40 Urine Protein 100 mg/dL (NEGATIVE) H 07/18/20 14:40 Urine Glucose (UA) NEGATIVE mg/dL (NEGATIVE) 07/18/20 14:40 Urine Ketones NEGATIVE mg/dL (NEGATIVE) 07/18/20 14:40 Urine Blood MODERATE (NEGATIVE) H 07/18/20 14:40 Urine Nitrite NEGATIVE (NEGATIVE) 07/18/20 14:40 Urine Bilirubin NEGATIVE (NEGATIVE) 07/18/20 14:40 Urine Urobilinogen NEGATIVE mg/dL (<2.0) 07/18/20 14:40 Ur Leukocyte Esterase NEGATIVE (NEGATIVE) 07/18/20 14:40 Urine WBC (Auto) 9 /HPF 07/18/20 14:40 Urine RBC (Auto) 2 /HPF 07/18/20 14:40 Urine Bacteria (Auto) 1+ /HPF 07/18/20 14:40 Squamous Epi Cells Auto 1 /HPF 07/18/20 14:40 Urine Mucus (Auto) RARE /LPF 07/18/20 14:40 Urine Creatinine 124.7 mg/dL (22-328) 07/18/20 14:40 Urine Sodium 6 mmol/L (30-90) L 07/18/20 14:40 Urine Ascorbic Acid NEGATIVE (NEGATIVE) 07/18/20 14:40 Stool Occult Blood NEGATIVE (NEGATIVE) 07/26/20 14:05 POC Stool Occult Blood POSITIVE (NEGATIVE) 07/04/20 15:10 Time Trough Drawn 1120 07/13/20 11:20 Vancomycin Trough < 5.0 ug/mL (5.0-20.0) L 07/13/20 11:20 COVID-19 Source NASOPHARYNGEAL 07/17/20 13:05 COVID-19 ([place]) NOT DETECTED 07/17/20 13:05 SARS-CoV-2 (PCR) NEGATIVE (NEGATIVE) 07/04/20 21:44 Slides for Path Review Cancelled 07/24/20 06:35 Blood Type O POSITIVE 07/26/20 06:33 Blood Type Confirm O POSITIVE 07/09/20 09:20 Antibody Screen NEGATIVE 07/26/20 06:33 Crossmatch See Detail 07/26/20 06:33 07/10/20 07/10/20 06:15 17:00 Troponin I 0.067 NT-Pro-B Natriuret Pep 2670 H 2860 H Impressions: KUB X-Ray 07/06/20 00:00 IMPRESSION: Findings suggestive of small-bowel obstruction. Esophagogastric tube tip is below the diaphragm within the stomach, however side hole is in the distal esophagus. Consider advancing 5-6 cm. KUB X-Ray 07/06/20 00:00 IMPRESSION: Good position of nasogastric tube. Abdomen/Pelvis CT 07/07/20 00:00 IMPRESSION: There is significant distention of the small bowel with mucosal thickening and enhancement involving a large portion of the ileum. These findings are concerning for small bowel obstruction which could be due to a stricture or inflammation at the terminal ileum. Adhesions at this area are not fully excluded. KUB X-Ray 07/07/20 00:00 IMPRESSION: Ileus or partial small bowel obstruction. No significant change. KUB X-Ray 07/08/20 00:00 IMPRESSION: 1. Grossly stable dilated small bowel loops throughout the central abdomen measuring up to 5.6 cm suggestive of small bowel obstruction. Gas and stool noted within the colon may suggest partial or intermittent process. 2. Nasoenteric side port at GE junction. Consider advanced 5/10 cm. Chest X-Ray 07/10/20 00:00 IMPRESSION: 1. Positioning of support lines and tubes as detailed above. 2. Hyperlucent hyperexpanded appearance is suggestive of COPD. Chest X-Ray 07/11/20 00:00 IMPRESSION: Moderate interstitial markings, moderate patchy and hazy opacity of left lower and midlung field, small hazy opacity of the right lower lung field. Small left basilar opacity-effusion.Interval worsening. Chest X-Ray 07/12/20 05:00 IMPRESSION: STABLE APPEARANCE OF THE CHEST. SUPPORT DEVICES UNCHANGED. Chest X-Ray 07/15/20 00:00 IMPRESSION: Progressive parenchymal disease right lung base. KUB X-Ray 07/15/20 00:00 IMPRESSION: 1. Multiple air-filled moderately distended bowel loops, indeterminate for ileus versus partial obstruction. 2. Enteric tube in place Chest X-Ray 07/16/20 00:00 IMPRESSION: Unchanged radiographic appearance of the chest. KUB X-Ray 07/16/20 09:47 IMPRESSION: Unchanged air-filled dilated loops of small bowel. KUB X-Ray 07/17/20 00:00 IMPRESSION: Ileus. Renal Ultrasound 07/18/20 00:00 IMPRESSION: Limited study. No hydronephrosis. Chest X-Ray 07/19/20 00:00 IMPRESSION: Markedly improved left basilar aeration with mild residual patchy bibasilar opacities. Abdomen/Pelvis CT 07/21/20 00:00 IMPRESSION: 1. Fluid distended loops of small bowel, relatively diffuse. Small umbilical region hernia contains a knuckle of small bowel. This could represent a relative point of obstruction. Transition point not otherwise demonstrated. 2. Bilateral moderate pleural effusions, progressive compared to prior. Head CT 07/21/20 00:00 IMPRESSION: Mild chronic changes. No acute abnormality. EVIDENCE OF ACUTE STROKE: NO. PICC Line Insertion 07/22/20 00:00 IMPRESSION: SUCCESSFUL PLACEMENT OF A 5 FR DUAL LUMEN 38 CM PICC IN THE RIGHT BASILIC VEIN. Chest X-Ray 07/24/20 00:00 IMPRESSION: Patchy left midlung field and left retrocardiac airspace disease most likely atelectasis. Small left effusion cannot be excluded. Plan Health Concerns: The patient's insisted adamantly that Mr. Dudley was not going to a residential facility. She states that she has had experience rehabbing patients. She has all the medical equipment at home that she needs with the exception of a bed and Charlotte lift. We provided both. The patient is already on oxygen at home. He has nebulizer at home. He needs to see surgery next week to check the ostomy, check the incision and remove the remainder of the stephanie. Plan of Treatment: Medications as above. Physical rehabilitation at the direction of his at home. Goals: Complete recovery from the colectomy and recovery of his strength and exercise capacity. Time Spent: Greater than 30 Minutes Stroke Is this a Stroke Patient?: No Acute Heart Failure - Is this a Heart Failure Patient?: No
[2020-08-02 12:35] VITALS: BP 137/61
== END 2020-08-02 13:15 | disposition home health service (06) | DRG 329 ==
LOC: ER 11:22 → EH 19:08 → 3S 07-05 00:05 → ICU 07-09 16:21 → 4S 07-12 19:35
PROVIDERS: ADMIT Internal Medicine Critical Care Medicine; ATTEND Hospitalist
PROC: 0DJD8ZZ Inspection of Lower Intestinal Tract, Via Natural or Artificial Opening Endoscopic (ICD-10-PCS; 2020-07-05)
PROC: 0D1B0Z4 Bypass Ileum to Cutaneous, Open Approach (ICD-10-PCS; 2020-07-09)
PROC: 5A1935Z Respiratory Ventilation, Less than 24 Consecutive Hours (ICD-10-PCS; 2020-07-09)
PROC: 30233N1 Transfusion of Nonautologous Red Blood Cells into Peripheral Vein, Percutaneous Approach (ICD-10-PCS; 2020-07-09)
PROC: 02HV33Z Insertion of Infusion Device into Superior Vena Cava, Percutaneous Approach (ICD-10-PCS; 2020-07-09)
PROC: 0DTH0ZZ Resection of Cecum, Open Approach (ICD-10-PCS; principal; 2020-07-09 12:45)
PROC: 0BH17EZ Insertion of Endotracheal Airway into Trachea, Via Natural or Artificial Opening (ICD-10-PCS; 2020-07-10)
PROC: 5A1945Z Respiratory Ventilation, 24-96 Consecutive Hours (ICD-10-PCS; 2020-07-10)
PROC: 3E0436Z Introduction of Nutritional Substance into Central Vein, Percutaneous Approach (ICD-10-PCS; 2020-07-17)
PROC: 02HV33Z Insertion of Infusion Device into Superior Vena Cava, Percutaneous Approach (ICD-10-PCS; 2020-07-22)
DX: K57.31 Diverticulosis of large intestine without perforation or abscess with bleeding (principal); J95.821 Acute postprocedural respiratory failure; J69.0 Pneumonitis due to inhalation of food and vomit; G93.41 Metabolic encephalopathy; K56.7 Ileus, unspecified; T81.10XA Postprocedural shock unspecified, initial encounter; D62 Acute posthemorrhagic anemia; F10.230 Alcohol dependence with withdrawal, uncomplicated; E87.0 Hyperosmolality and hypernatremia; N17.9 Acute kidney failure, unspecified; G72.81 Critical illness myopathy; E87.1 Hypo-osmolality and hyponatremia; K92.1 Melena; I25.10 Atherosclerotic heart disease of native coronary artery without angina pectoris; E78.00 Pure hypercholesterolemia, unspecified; I10 Essential (primary) hypertension; N40.0 Benign prostatic hyperplasia without lower urinary tract symptoms; K64.8 Other hemorrhoids; J42 Unspecified chronic bronchitis; F41.9 Anxiety disorder, unspecified; E78.5 Hyperlipidemia, unspecified; B95.2 Enterococcus as the cause of diseases classified elsewhere; B96.5 Pseudomonas (aeruginosa) (mallei) (pseudomallei) as the cause of diseases classified elsewhere; B96.1 Klebsiella pneumoniae [K. pneumoniae] as the cause of diseases classified elsewhere; B96.20 Unspecified Escherichia coli [E. coli] as the cause of diseases classified elsewhere; Y83.6 Removal of other organ (partial) (total) as the cause of abnormal reaction of the patient, or of later complication, without mention of misadventure at the time of the procedure; E83.51 Hypocalcemia; I95.81 Postprocedural hypotension; E86.0 Dehydration; R00.1 Bradycardia, unspecified; E66.01 Morbid (severe) obesity due to excess calories; Z68.26 Body mass index [BMI] 26.0-26.9, adult; D50.9 Iron deficiency anemia, unspecified; I95.1 Orthostatic hypotension; K57.21 Diverticulitis of large intestine with perforation and abscess with bleeding; Z88.6 Allergy status to analgesic agent; Z88.3 Allergy status to other anti-infective agents; Z91.018 Allergy to other foods; Z87.891 Personal history of nicotine dependence; Z86.010 Personal history of colon polyps; Z79.899 Other long term (current) drug therapy; Z79.82 Long term (current) use of aspirin; Z99.81 Dependence on supplemental oxygen; Z11.59 Encounter for screening for other viral diseases; Z78.1 Physical restraint status
CPT/HCPCS: 00811; 00840; 36415; 36430; 36573; 36600; 45378; 70450; 71045; 74018; 74176; 74177; 76775; 80048; 80053; 80069; 80202; 81001; 82140; 82270; 82272; 82330; 82565; 82570; 82607; 82728; 82746; 82803; 82962; 83540; 83550; 83605; 83735; 83880; 84100; 84300; 84478; 84484; 85025; 85027; 85045; 85610; 85730; 86850; 86900; 86901; 86920; 87040; 87070; 87077; 87086; 87150; 87186; 87205; 87635; 88307; 93005; 93010; 93306; 94002; 94003; 94640; 94660; 94667; 94762; 94799; 99140; 99284; 99291; J0610; C1751; C1758; C9113; C9290; C9803; J0131; J0171; J0330; J0690; J0692; J0696; J1170; J1265; J1630; J1642; J1644; J1815; J1885; J1940; J2060; J2250; J2270; J2405; J2704; J2920; J3010; J3370; J3480; J3490; J7030; J7042; J7060; J7613; P9016; P9041; P9047

== ENCOUNTER 2020-08-03 11:49 | Emergency (ER) | payer MEDICARE, OTHER ==
--- NOTE | 2020-08-03 12:13 | ER Document Report ---
ED Medical Screen (RME) - General Chief Complaint: Urinary Retention Stated Complaint: URINARY PROBLEMS Time Seen by Provider: 08/03/20 12:10 Mode of Arrival: Wheelchair Information source: Patient Notes: 79-year-old male presented to ED for urinary retention. He was discharged yesterday after surgery. They had taken his Craig catheter out about 2 hours before discharge. He had voided before discharge, he states he was able to void 3 times after that but he has not been able to void since late last night. He is very distended at this time and very painful. He will have a Craig catheter placed in the ER and then he will be seen by another provider. He is a former smoker does not drink or do any drugs. He had a colostomy placed yesterday for diverticulitis. Is a bowel resection. I have greeted and performed a rapid initial assessment of this patient. A comprehensive ED assessment and evaluation of the patient, analysis of test results and completion of medical decision making process will be conducted by an additional ED providers. TRAVEL OUTSIDE OF THE [place] IN LAST 30 DAYS: No - Related Data Allergies/Adverse Reactions: [place] nut Allergy (Verified 08/03/20 12:01) ciprofloxacin [From Cipro] Allergy (Verified 08/03/20 12:01) meperidine HCl [From Demerol] Allergy (Verified 08/03/20 12:01) Home Medications: discharged from inpatient status yesterday, denies changes from d/c meds. Past Medical History - Social History Chew tobacco use (# tins/day): No Frequency of alcohol use: None Drug Abuse: None - Past Medical History Cardiac Medical History: Reports: Hx Coronary Artery Disease, Hx Hypercholesterolemia, Hx Hypertension Pulmonary Medical History: Reports: Hx COPD Renal/ Medical History: Reports: Hx Benign Prostatic Hyperplasia. Denies: Hx Peritoneal Dialysis Psychiatric Medical History: Denies: Hx Depression Past Surgical History: Reports: Hx Orthopedic Surgery - knee, Hx Vascular Surgery - left carotid - Immunizations Hx Diphtheria, Pertussis, Tetanus Vaccination: Yes Physical Exam - Vital signs Vitals: Temp Pulse Resp BP Pulse Ox 97.7 F 108 H 22 H 113/67 96 08/03/20 12:00 08/03/20 12:00 08/03/20 12:00 08/03/20 12:00 08/03/20 12:00 Course - Vital Signs Vital signs: Temp Pulse Resp BP Pulse Ox 97.7 F 108 H 22 H 113/67 96 08/03/20 12:00 08/03/20 12:00 08/03/20 12:00 08/03/20 12:00 08/03/20 12:00
[2020-08-03 13:28] LABS: HEMATOCRIT 34.6 % (37.9-51.0); HEMOGLOBIN 11.8 g/dL (13.5-17.0); MEAN CORPUSCULAR HEMOGLOBIN 30.7 pg (27.0-33.4); MEAN CORPUSCULAR HGB CONC 34.1 g/dL (32.0-36.0); MEAN CORPUSCULAR VOLUME 90 fl (80-97); PLATELET COUNT 288 10^3/uL (150-450); RED BLOOD COUNT 3.85 10^6/uL (4.35-5.55); WHITE BLOOD COUNT 9.5 10^3/uL (4.0-10.5)
[2020-08-03 13:30] LABS: APPEARANCE,URINE CLEAR; BILIRUBIN,URINE NEGATIVE (NEGATIVE); COLOR,URINE YELLOW; GLUCOSE, URINE NEGATIVE (NEGATIVE); KETONES,URINE NEGATIVE (NEGATIVE); PROTEIN,URINE NEGATIVE (NEGATIVE); URINE SPECIFIC GRAVITY 1.005; UROBILINOGEN,URINE NEGATIVE mg/dL (<2.0)
[2020-08-03 13:41] LABS: ANION GAP 10 (5-19); BLOOD UREA NITROGEN 17 mg/dL (7-20); CARBON DIOXIDE 27 mmol/L (22-30); CHLORIDE 95 mmol/L (98-107); GLUCOSE 120 mg/dL (75-110); POTASSIUM 5.1 mmol/L (3.6-5.0)
[2020-08-03 13:46] LABS: ABSOLUTE LYMPHOCYTES# (MANUAL) 1.3 10^3/uL (0.5-4.7); ABSOLUTE MONOCYTES # (MANUAL) 0.7 10^3/uL (0.1-1.4); BAND NEUTROPHILS % (MANUAL) 2 % (3-5); BASOPHILS % (MANUAL) 1 % (0-2); EOSINOPHILS % (MANUAL) 1 % (0-6); LYMPHOCYTES % (MANUAL) 8 % (13-45); METAMYELOCYTES % (MANUAL) 2 % (0-1); MONOCYTES % (MANUAL) 7 % (3-13); SEGMENTED NEUTROPHILS % (MAN) 73 % (42-78); TOTAL CELLS COUNTED 100
[2020-08-03 13:47] LABS: ANISOCYTOSIS SLIGHT; PLATELET COMMENT ADEQUATE; TOXIC GRANULATION 1+
--- NOTE | 2020-08-03 13:48 | ER Document Report ---
ED General - General Chief Complaint: Urinary Retention Stated Complaint: URINARY PROBLEMS Time Seen by Provider: 08/03/20 12:10 Mode of Arrival: Wheelchair TRAVEL OUTSIDE OF THE [place] IN LAST 30 DAYS: No - HPI Notes: Chief complaint: Urinary retention History of present illness: 79-year-old male with longstanding history of BPH with prior episodes of intermittent urinary retention presents now with a recurrence of symptoms. He is not been able to void since last night. This gentleman was recently admitted to the hospital here with a small bowel obstruction related to a perforation of the cecum as a complication of d iverticular disease with associated small bowel obstruction. A subtotal colectomy and colostomy was performed by Dr. David Hunter on July 09, 2020. After an extended inpatient convalescence patient was discharged home from the hospital yesterday and Craig catheter was removed at that time. He denies fever, chills, or vomiting. - Related Data Allergies/Adverse Reactions: [place] nut Allergy (Verified 08/03/20 12:01) ciprofloxacin [From Cipro] Allergy (Verified 08/03/20 12:01) meperidine HCl [From Demerol] Allergy (Verified 08/03/20 12:01) Home Medications: discharged from inpatient status yesterday, denies changes from d/c meds. Past Medical History - General Information source: Patient - Patient is chronically on 2 L nasal O2 at home., Relative, [facility] Records - Social History Smoking Status: Former Smoker Chew tobacco use (# tins/day): No Frequency of alcohol use: None Drug Abuse: None Family History: Reviewed & Not Pertinent Patient has homicidal ideation: No - Past Medical History Cardiac Medical History: Reports: Hx Coronary Artery Disease, Hx Hypercholesterolemia, Hx Hypertension Pulmonary Medical History: Reports: Hx COPD Renal/ Medical History: Reports: Hx Benign Prostatic Hyperplasia. Denies: Hx Peritoneal Dialysis GI Medical History: Reports: Hx Diverticulitis Psychiatric Medical History: Denies: Hx Depression Past Surgical History: Reports: Hx Bowel Surgery, Hx Colostomy, Hx Orthopedic Surgery - knee, Hx Vascular Surgery - left carotid - Immunizations Hx Diphtheria, Pertussis, Tetanus Vaccination: Yes Hx Pneumococcal Vaccination: 10/18/17 Review of Systems - Review of Systems Notes: Constitutional: Negative for fever. HENT: Negative for sore throat. Eyes: Negative for visual changes. Cardiovascular: Negative for chest pain. Respiratory: Negative for shortness of breath. Gastrointestinal: Negative for abdominal pain, vomiting or diarrhea. Genitourinary: As per HPI. Musculoskeletal: Negative for back pain. Skin: Negative for rash. Neurological: Negative for headaches, weakness or numbness. 10 point ROS negative except as marked above and in HPI. Physical Exam - Vital signs Vitals: Temp Pulse Resp BP Pulse Ox 97.7 F 108 H 22 H 113/67 96 08/03/20 12:00 08/03/20 12:00 08/03/20 12:00 08/03/20 12:00 08/03/20 12:00 - Notes Notes: GENERAL: Elderly male appearing very restless and uncomfortable. SKIN: Good turgor no rashes. HEAD: Normocephalic atraumatic. EYES: PERRLA. EOMI. Conjunctivae and sclerae clear. EARS: CANALS AND TMS CLEAR. NOSE: CLEAR. MOUTH: Moist mucosa. Good dentition. No stridor or edema. No drooling. NECK: Supple. No masses or thyromegaly. No adenopathy. Carotids 2+ without br uits. No JVD. BACK: Symmetrical without tenderness. CHEST: Respirations unlabored. Few scattered rhonchi bilaterally clearing after cough. HEART: Regular rhythm. No murmur gallop or rub. ABDOMEN: Bladder is palpably distended. Healing left paramedian abdominal wound. Colostomy present left lower quadrant. Soft nontender without masses, organomegaly or rebound. Bowel sounds normally active. No bruits. GENITALIA: Deferred. EXTREMITIES: No edema. No calf tenderness. Cap refill less than 1.5 seconds. Dorsalis pedis and posterior tibial pulses 3+ and symmetrical. NEUROLOGICAL: GCS 15. Alert and oriented x3. Normal gait. Fluent speech. Cranial nerves II through XII intact. Sensorimotor and cerebellar normal. Normal tone. PSYCHIATRIC: Anxious affect. Course - Re-evaluation Re-evalutation: 08/03/20 13:48 Bladder was decompressed with insertion of a Craig catheter with immediate drainage of 500 cc of clear hilda urine. Patient experienced immediate symptomatic improvement. 08/03/20 13:56 Urinalysis here is unremarkable. CBC shows mild anemia consistent with her recent baseline. White count is not elevated. Chemistry profile unremarkable. Patient is instructed to continue his Flomax. I will place him on for the next 5 to 7 days. He will be referred to urology outpatient for follow-up. I have also cultured his urine specimen today. 08/03/20 13:57 Findings, clinical impression and plan of treatment have been discussed with patient/family. Understanding of current findings and recommendations has been acknowledged by them and there is agreement regarding disposition and follow-up. - Vital Signs Vital signs: Temp Pulse Resp BP Pulse Ox 97.7 F 108 H 22 H 113/67 96 08/03/20 12:00 08/03/20 12:00 08/03/20 12:00 08/03/20 12:00 08/03/20 12:00 - Laboratory Result Diagrams: 08/03/20 13:10 08/03/20 13:10 Laboratory results interpreted by me: 08/03/20 08/03/20 13:10 13:10 RBC 3.85 L Hgb 11.8 L Hct 34.6 L Band Neutrophils % 2 L Lymphocytes % (Manual) 8 L Metamyelocytes % 2 H Sodium 131.5 L Potassium 5.1 H Chloride 95 L Glucose 120 H Discharge - Discharge Clinical Impression: Acute urinary retention, Benign prostatic hyperplasia Condition: Stable Disposition: HOME, SELF-CARE Additional Instructions: Urinary Retention Urinary retention is inability to empty the bladder. It can result from a urine infection, or from mechanical problems such as an enlarged prostate gland or swelling of the urethra. Drugs or alcohol can also lead to urine retention. The condition is usually treated by passage of a catheter. If the physician thinks the problem will continue, the catheter may be left in place for a few days. Sometimes drugs are used to stimulate the bladder if the physician feels that inadequate bladder contraction is the cause. If the condition leading to the retention is a chronic one, such as an enlarged prostate, you will be referred to a specialist for further care. Call the physician or return if you develop fever, flank or back pain, pain on urination, or recurrent difficulty passing the urine. Continue current medications. Take antibiotic as directed. Return here as needed for new or worsening symptoms: Pain that is worsening or unimproved Uncontrolled vomiting High fever or shaking chills Overall worsening Follow-up with referral urologist within the next 1 week. Prescriptions: Sulfamethoxazole/Trimethoprim [Septra-Ds 800-160 mg Tablet] 1 tab PO BID 7 Days #14 tablet Referrals: [facility] [Provider Group] - Follow up as needed
[2020-08-03 14:27] VITALS: BP 112/70
== END 2020-08-03 14:10 | disposition home or self-care (01) ==
LOC: ER 11:49
DX: N40.1 Benign prostatic hyperplasia with lower urinary tract symptoms (principal); R33.8 Other retention of urine; J44.9 Chronic obstructive pulmonary disease, unspecified; E78.00 Pure hypercholesterolemia, unspecified; I10 Essential (primary) hypertension; Z93.3 Colostomy status; Z88.3 Allergy status to other anti-infective agents; Z99.81 Dependence on supplemental oxygen
CPT/HCPCS: 36415; 51702; 80048; 81001; 85025; 87086; 99283